=== PATIENT | female | born 1980 | race Caucasian/White ===

== ENCOUNTER 2018-01-06 11:10 | Emergency (ER) | payer MEDICAID, SELFPAY ==
[2018-01-06 11:28] VITALS: BP 135/80; PULSE 86; RESP 18; TEMP 36.8; O2SAT 99
--- NOTE | 2018-01-06 11:50 | W.ED.GENAD ---
Discharge Plan Disposition Patient Disposition: HOME Condition: Stable Discharge Details Chief Complaint: RespSymp Clinical Impression: URI (upper respiratory infection), Otitis media of both ears Primary Care Provider: Cesia Aranda ED Provider: Mj Wong Home Meds and New Rx's Prescriptions: New benzonatate 200 mg capsule 200 mg PO TID PRN (Reason: cough) Qty: 30 RF: 0 amoxicillin 875 mg tablet 875 mg PO BID 7 Days Qty: 14 RF: 0 Continue albuterol sulfate [ProAir HFA] 200 PUFF/INH HFA aerosol inhaler 2 puff Inhalation Q4H PRN PRNQty: 1 RF: 0 inhalational spacing device [AeroChamber Plus Z Stat Sm Msk] 1 EACH spacer 1 ea Miscellaneous Q2H PRN PRNQty: 1 RF: 0 ibuprofen 200 mg Tablet 600 mg PO QID PRNRF: 0 Discharge Instructions Instructions: Otitis Media (ED), Upper Respiratory Infection (ED) Additional Instructions: You may take [id number] symptomatic medication as needed to control your symptoms. During illness please get plenty of rest and stay well-hydrated. Follow-up with your primary care provider as needed for reassessment if not improving. Feel free to return to the emergency department for any new or significant worsening of symptoms Stand Alone Forms: Work Release Referrals: Cesia Aranda [Primary Care Provider] - (As needed for reassessment) Discharge Data Discharge Date/Time-TO BE ENTERED AT DEPARTURE: 01/06/18 12:08 Medical Decision Making Patient presenting to the emergency department for 3 days of cold symptoms. She states cough, nasal congestion, sinus pressure, earache, sore throat, fever and chills. Physical exam is positive for signs and symptoms of upper respiratory tract infection and also a significant effusion with loss of landmarks of the left ear and bulging TM with loss of landmarks of right ear. Patient does state otalgia so concern for upper respiratory tract infection and secondary otitis media. Patient states no allergies to medications, so patient placed upon amoxicillin for concern of otitis media and prescribed Tessalon Perles for symptomatic control cough. Otherwise I feel that there is a high likelihood this is viral in nature so patient was educated on need for [id number] symptomatic control. After discussion of diagnosis and plan of care patient has no further needs, questions, or concerns and states clear understanding to return to the emergency department for any worsening symptoms. HPI General Date/Time Provider Initiated Documentation: 01/06/18 11:34. Limitations to Documentation: no limitations. Information obtained by: patient and RN notes reviewed. History of Present Illness 37 year old F presents to the emergency department with the chief complaint of cold symptoms, described as moderate, with intensity rated at 7. Quality is described as aching (Generalized), Patient started experiencing this day(s) (3) and it has been constant. No relieving factors improve symptom(s), No exacerbating factors reported . Patient notes no other symptoms.. Patient did receive the following treatments prior to arrival, none Related Data Home Medications Medication Instructions Recorded Confirmed albuterol sulfate [ProAir HFA] 2 puff INHALATION Q4H PRN PRN #1 07/08/17 01/06/18 inh inhalational spacing device #1 spacer 07/08/17 [AeroChamber Plus Z Stat Sm Msk] amoxicillin 875 mg PO BID 7 Days #14 tab 01/06/18 benzonatate 200 mg PO TID PRN #30 cap 01/06/18 ibuprofen 600 mg PO QID PRN 01/06/18 01/06/18 Previous Rx's Medication Instructions Recorded albuterol sulfate [ProAir HFA] 2 puff INHALATION Q4H PRN PRN #1 07/08/17 inh inhalational spacing device #1 spacer 07/08/17 [AeroChamber Plus Z Stat Sm Msk] amoxicillin 875 mg PO BID 7 Days #14 tab 01/06/18 benzonatate 200 mg PO TID PRN #30 cap 01/06/18 Allergies Allergy/AdvReac Type Severity Reaction Status Date / Time No Known Allergies Allergy Unverified 07/08/17 09:46 General Stated Complaint: RespSymp ANKIT: 3 Review of Systems Constitutional Reports chills, Reports difficulty sleeping (Due to coughing), Reports fatigue, Reports fever(s) and Reports malaise ENT Reports hoarseness, Reports nasal congestion, Reports sinus pressure and Reports sore throat Cardiovascular Denies dyspnea Respiratory Reports cough and Denies dyspnea Gastrointestinal Reports vomiting Musculoskeletal Reports myalgias, Reports arthralgias and Denies joint swelling Integumentary/Breasts Denies rash Endocrine Reports fatigue [facility] Medical History Contraception Social History Smoking/Tobacco Use Status: Current every day Surgical History section Exam Const General: cooperative, comfortable and no acute distress Orientation: alert, awake and oriented x3 HENMT Head: normal to inspection Ears: hearing grossly normal bilaterally, TM abnormal bulging on the right and wth effusion purulent on the left and unable to visualize TM on the left General nose exam: external nose normal Face and sinus: sinus tenderness maxillary Mouth: oral mucosae normal, lip normal and tongue normal Throat: posterior oropharynx normal, tonsils normal and uvula midline Eyes General: appearance normal, both eyes and all related structures Conjunctivae: conjunctivae normal Sclera: sclerae normal Neck Neck: normal visual inspection, full ROM, meningismus present, lymphadenopathy (Anterior cervical) and no JVD Resp Effort & Inspection: normal respiratory effort, able to speak in complete sentences, no audible wheezes, cough Quality of cough: actively coughing and not labored Auscultation: clear to auscultation bilaterally Cardio Rate: regular rate Rhythm: regular rhythm Heart Sounds: S1 normal and S2 normal Skin General skin exam: no rashes or lesions noted and dry skin Rashes: no rashes Neuro General: alert, awake, oriented x3 and gait normal Course Vital Signs Temperature 36.8 C 01/06/18 11:28 Pulse 86 01/06/18 11:28 Respiratory Rate 18 01/06/18 11:28 Blood Pressure 135/80 01/06/18 11:28 Pulse Oximetry 99 01/06/18 11:28 Temperature 36.8 C 01/06/18 11:28 Temperature Source Temporal Artery Scan 01/06/18 11:28 Pulse 86 01/06/18 11:28 Respiratory Rate 18 01/06/18 11:28 Respiratory Effort Non-Labored 01/06/18 11:32 Blood Pressure 135/80 01/06/18 11:28 Blood Pressure Position Sitting 01/06/18 11:28 Pulse Oximetry 99 01/06/18 11:28 Oxygen Delivery Method Room Air 01/06/18 11:28 Oxygen Flow Rate 0 01/06/18 11:28 Pain Level 7 01/06/18 11:28
== END 2018-01-06 12:08 | disposition home or self-care (01) ==
LOC: ER 12:09
PROVIDERS: Emergency Provider Nurse Practitioner Family; PCP Nurse Practitioner Family
DX: J06.9 Acute upper respiratory infection, unspecified (principal); H66.93 Otitis media, unspecified, bilateral; F17.210 Nicotine dependence, cigarettes, uncomplicated
CPT/HCPCS: 99283

== ENCOUNTER 2018-06-07 08:40 | Emergency (ER) | payer MEDICAID, SELFPAY ==
[2018-06-07 08:47] VITALS: BP 126/59; PULSE 77; RESP 18; TEMP 36.8; O2SAT 99
--- NOTE | 2018-06-07 08:53 | W.ED.GENAD ---
Discharge Plan Disposition Patient Disposition: HOME Condition: Improving Discharge Details Chief Complaint: Abd Prob Clinical Impression: Nausea & vomiting Primary Care Provider: Cesia Aranda ED Provider: Nadine Rich Home Meds and New Rx's Prescriptions: New promethazine 25 mg tablet 25 mg PO Q6H PRN (Reason: nausea and vomiting) Qty: 10 RF: 0 Continued albuterol sulfate [ProAir HFA] 200 PUFF/INH HFA aerosol inhaler 2 puff Inhalation Q4H PRN PRNQty: 1 RF: 0 inhalational spacing device [AeroChamber Plus Z Stat Sm Msk] 1 EACH spacer 1 ea Miscellaneous Q2H PRN PRNQty: 1 RF: 0 ibuprofen 200 mg Tablet 600 mg PO QID PRNRF: 0 Discharge Instructions Instructions: Promethazine (By mouth), Acute Nausea and Vomiting (ED) Additional Instructions: Continue to encourage hydration. Phenergan as prescribed to help with symptomatic management. If you develop abdominal pain, fever/chills, no blood in your vomit, or unable to stay hydrated develop other new/worsening symptoms please seek care urgently once again You have an appointment with your primary care on 06/22/2018, at 9:15 in the morning. If you are unable to make this appointment please call the office to reschedule. Stand Alone Forms: Work Release Referrals: Cesia Aranda [Primary Care Provider] - Discharge Data Discharge Date/Time-TO BE ENTERED AT DEPARTURE: 06/07/18 11:13 Medical Decision Making <FERNANDA Kwon - Last Filed: 06/07/18 15:45> Patient is a 38-year-old female presenting today with chief complaint of nausea, vomiting and one episode of diarrhea. She reports that this began this morning. She endorses some pulling around her neck associated with vomiting. Is not note any blood in the emesis. Is currently hydrating with water and red juice. She reports that she awoke for work, was sitting at her table and symptoms began. She denies any chest pain, abdominal pain. Had one episode of loose bowel movements today. Surgical history significant for tubal ligation and section. Patient reports that she currently has Implanon in place, is not sexually active with men. Reports that she had some spotting approximately 2 days ago which is the typical sign of her menses. She denies any shortness of breath, difficulty breathing. Did not note any blood in the emesis or bowel movement. Patient is an active smoker. Reports the smoking does not raise her current nausea. Denies any increase in symptoms associated with activity level. The patient was endorsing some pulling around the neck, will obtain EKG, laboratory evaluation. She has been here for this on multiple occasions and endorses frequent nausea and vomiting. She has not reported this yet to her primary care physician but does have established PCP. On exam, the abdomen is soft and nontender. Normal heart sounds and breath sounds. No pain in the back, no CVA tenderness. Patient appears mildly dehydrated. No evidence of Leah-Coffman tear, no back pain, no hematemesis. Low level suspicion of cardiac etiology, no history of cardiac disease. As this seems a recurrent issue for the patient, patient is nontender with no peritoneal findings, do not see any evidence at this time to require imaging. EKG reviewed by Dr. Irby with no acute abnormalities noted. Patient was given IV ondansetron which she reports had minimal effect. Patient is endorsing some discomfort with the IV fluids removed, does not want any further medications to the IV and is replaced. I have asked nursing staff to remove the IV at the patient's request. She is requesting for the medication be given orally. We will not give oral Phenergan. Patient was taking in oral fluids upon arrival. CBC is back with minimal elevation of the white count. Awaiting results of the CMP. The patient not having any evidence of infection on physical exam and history notes a burning acute abdominal infectious source, I believe the white count elevation is likely elevated secondary to the vomiting. Troponin is normal, lipase within normal limits. Discussed the findings with the patient. She has been hydrating orally. No vomiting was witnessed by myself or nursing staff. She feels much improved after the oral Phenergan. Will prescribe her oral Phenergan for home. We discussed new/worsening symptoms Tuesday care urgently once again. She denies any marijuana use. As the patient has had multiple visits for similar complaints, I did advise that she should discuss this further with her primary care. She was given strict return precautions. All her questions and concerns were addressed and she is in agreement with this plan <Thiago Irby, - Last Filed: 06/07/18 13:50> EKG 9: 29 Rate 62, intervals normal, sinus rhythm, no ST elevations or depressions, inverted T wave in V1 and lead III. No significant Q waves, no evidence of STEMI. HPI <FERNANDA Kwon - Last Filed: 06/07/18 15:45> General Mode of arrival: ambulatory. Date/Time Provider Initiated Documentation: 06/07/18 08:53. Limitations to Documentation: no limitations. Information obtained by: patient and RN notes reviewed. History of Present Illness 38 year old F presents to the emergency department with the chief complaint of nausea and vomiting, described as moderate, with intensity rated at 5. Quality is described as other (endorses discomfort associated with nausea, no abdominal pain), and is localized to the abdomen. Patient reports no radiation; denies radiation to back. Patient started experiencing this hour(s) (0330) Related Data Home Medications Medication Instructions Recorded Confirmed albuterol sulfate [ProAir HFA] 2 puff INHALATION Q4H PRN PRN #1 07/08/17 06/07/18 inh inhalational spacing device #1 spacer 07/08/17 [AeroChamber Plus Z Stat Sm Msk] ibuprofen 600 mg PO QID PRN 01/06/18 06/07/18 promethazine 25 mg PO Q6H PRN #10 tab 06/07/18 Previous Rx's Medication Instructions Recorded albuterol sulfate [ProAir HFA] 2 puff INHALATION Q4H PRN PRN #1 07/08/17 inh inhalational spacing device #1 spacer 07/08/17 [AeroChamber Plus Z Stat Sm Msk] promethazine 25 mg PO Q6H PRN #10 tab 06/07/18 Allergies Allergy/AdvReac Type Severity Reaction Status Date / Time No Known Allergies Allergy Unverified 06/07/18 10:50 General Stated Complaint: Abd Prob ANKIT: 3 Review of Systems <FERNANDA Kwon - Last Filed: 06/07/18 15:45> Constitutional Reports as per HPI, Denies chills, Denies fatigue, Denies fever(s) and Denies headache(s) ENT Denies dizziness and Denies headache(s) Cardiovascular Reports as per HPI, Denies chest pain, Denies syncope and Denies dyspnea Respiratory Reports as per HPI, Denies cough and Denies dyspnea Gastrointestinal Reports as per HPI Genitourinary Denies flank pain and Denies urinary urgency Musculoskeletal Reports as per HPI, Denies back pain and Denies tingling Integumentary/Breasts Reports as per HPI and Denies rash Neurologic Reports as per HPI, Denies dizziness, Denies syncope, Denies headache(s), Denies sensory deficit and Denies tingling Endocrine Denies fatigue PFSH <FERNANDA Kwon - Last Filed: 06/07/18 15:45> Medical History Contraception Surgical History section Social History Smoking/Tobacco Use Status: Current every day Drug use: Never Do you feel safe at home: Yes Do you feel safe in your relationship?: Yes Exam <FERNANDA Kwon Last Filed: 06/07/18 15:45> Const General: cooperative, healthy appearing, comfortable, no acute distress and well developed Nutritional Appearance: average body habitus and well nourished Orientation: alert and awake HENMT Head: normal to inspection Mouth: moist mucous membranes Resp Effort & Inspection: normal respiratory effort, able to speak in complete sentences and no respiratory distress Auscultation: clear to auscultation bilaterally, no rales, no rhonchi and no wheezes Cardio Rate: regular rate Rhythm: regular rhythm Heart Sounds: S1 normal and S2 normal GI Inspection: normal to inspection, no abdominal wall ecchymosis, no edema, non-distended and no incisions Palpation: soft, no hepatosplenomegaly, not firm, no guarding, no hernias and tender in the epigastrum Percussion: normal to percussion Auscultation: normal bowel sounds Back/Spine/Pelvis Back: no CVA tenderness Skin General skin exam: no rashes or lesions noted Trauma: no lacerations or abrasions Neuro General: alert and awake Cognition: normal cognition Speech: speech normal Gait: normal gait Psych Appearance: grossly normal and well kempt Mental Status: mental status grossly normal Speech and Movement: speech and movement normal Course <FERNANDA Kwon - Last Filed: 06/07/18 15:45> Vital Signs Temperature 36.8 C 06/07/18 08:47 Pulse 77 06/07/18 08:47 Respiratory Rate 18 06/07/18 08:47 Blood Pressure 126/59 L 06/07/18 08:47 Pulse Oximetry 99 06/07/18 08:47 Temperature 36.8 C 06/07/18 08:47 Temperature Source Temporal Artery Scan 06/07/18 08:47 Pulse 77 06/07/18 08:47 Respiratory Rate 18 06/07/18 08:47 Respiratory Effort Non-Labored 06/07/18 08:49 Blood Pressure 126/59 L 06/07/18 08:47 Blood Pressure Position Sitting 06/07/18 08:47 Pulse Oximetry 99 06/07/18 08:47 Oxygen Delivery Method Room Air 06/07/18 08:47 Oxygen Flow Rate 0 06/07/18 08:47 Pain Level 5 06/07/18 08:47
--- NOTE | 2018-06-07 09:09 | ED.GENADUL_ITS ---
Discharge Plan Disposition Patient Disposition: HOME Condition: Improving Discharge Details Chief Complaint: Abd Prob Clinical Impression: Nausea & vomiting Primary Care Provider: Cesia Aranda ED Provider: Nadine Rich Home Meds and New Rx's Prescriptions: New promethazine 25 mg tablet 25 mg PO Q6H PRN (Reason: nausea and vomiting) Qty: 10 RF: 0 Continued albuterol sulfate [ProAir HFA] 200 PUFF/INH HFA aerosol inhaler 2 puff Inhalation Q4H PRN PRNQty: 1 RF: 0 inhalational spacing device [AeroChamber Plus Z Stat Sm Msk] 1 EACH spacer 1 ea Miscellaneous Q2H PRN PRNQty: 1 RF: 0 ibuprofen 200 mg Tablet 600 mg PO QID PRNRF: 0 Discharge Instructions Instructions: Promethazine (By mouth), Acute Nausea and Vomiting (ED) Additional Instructions: Continue to encourage hydration. Phenergan as prescribed to help with symptomatic management. If you develop abdominal pain, fever/chills, no blood in your vomit, or unable to stay hydrated develop other new/worsening symptoms please seek care urgently once again You have an appointment with your primary care on 06/22/2018, at 9:15 in the morning. If you are unable to make this appointment please call the office to reschedule. Stand Alone Forms: Work Release Referrals: Cesia Aranda [Primary Care Provider] - Discharge Data Discharge Date/Time-TO BE ENTERED AT DEPARTURE: 06/07/18 11:13 Medical Decision Making <FERNANDA Kwon - Last Filed: 06/07/18 15:45> Patient is a 38-year-old female presenting today with chief complaint of nausea, vomiting and one episode of diarrhea. She reports that this began this morning. She endorses some pulling around her neck associated with vomiting. Is not note any blood in the emesis. Is currently hydrating with water and red juice. She reports that she awoke for work, was sitting at her table and symptoms began. She denies any chest pain, abdominal pain. Had one episode of loose bowel movements today. Surgical history significant for tubal ligation and section. Patient reports that she currently has Implanon in place, is not sexually active with men. Reports that she had some spotting approximately 2 days ago which is the typical sign of her menses. She denies any shortness of breath, difficulty breathing. Did not note any blood in the emesis or bowel movement. Patient is an active smoker. Reports the smoking does not raise her current nausea. Denies any increase in symptoms associated with activity level. The patient was endorsing some pulling around the neck, will obtain EKG, laboratory evaluation. She has been here for this on multiple occasions and endorses frequent nausea and vomiting. She has not reported this yet to her primary care physician but does have established PCP. On exam, the abdomen is soft and nontender. Normal heart sounds and breath sounds. No pain in the back, no CVA tenderness. Patient appears mildly dehydrated. No evidence of Leah-Coffman tear, no back pain, no hematemesis. Low level suspicion of cardiac etiology, no history of cardiac disease. As this seems a recurrent issue for the patient, patient is nontender with no peritoneal findings, do not see any evidence at this time to require imaging. EKG reviewed by Dr. Irby with no acute abnormalities noted. Patient was given IV ondansetron which she reports had minimal effect. Patient is endorsing some discomfort with the IV fluids removed, does not want any further medications to the IV and is replaced. I have asked nursing staff to remove the IV at the patient's request. She is requesting for the medication be given orally. We will not give oral Phenergan. Patient was taking in oral fluids upon arrival. CBC is back with minimal elevation of the white count. Awaiting results of the CMP. The patient not having any evidence of infection on physical exam and history notes a burning acute abdominal infectious source, I believe the white count elevation is likely elevated secondary to the vomiting. Troponin is normal, lipase within normal limits. Discussed the findings with the patient. She has been hydrating orally. No vomiting was witnessed by myself or nursing staff. She feels much improved after the oral Phenergan. Will prescribe her oral Phenergan for home. We discussed new/worsening symptoms Tuesday care urgently once again. She denies any marijuana use. As the patient has had multiple visits for similar complaints, I did advise that she should discuss this further with her primary care. She was given strict return precautions. All her questions and concerns were addressed and she is in agreement with this plan <hTiago Irby, - Last Filed: 06/07/18 13:50> EKG 9: 29 Rate 62, intervals normal, sinus rhythm, no ST elevations or depressions, inverted T wave in V1 and lead III. No significant Q waves, no evidence of STEMI. HPI <FERNANDA Kwon - Last Filed: 06/07/18 15:45> General Mode of arrival: ambulatory . Date/Time Provider Initiated Documentation: 06/07/18 08:53 . Limitations to Documentation: no limitations . Information obtained by: patient and RN notes reviewed . History of Present Illness 38 year old F presents to the emergency department with the chief complaint of nausea and vomiting, described as moderate, with intensity rated at 5. Quality is described as other (endorses discomfort associated with nausea, no abdominal pain), and is localized to the abdomen. Patient reports no radiation; denies radiation to back. Patient started experiencing this hour(s) (0330) Related Data Home Medications Medication Instructions Recorded Confirmed albuterol sulfate [ProAir HFA] 2 puff INHALATION Q4H PRN PRN #1 07/08/17 06/07/18 inh inhalational spacing device #1 spacer 07/08/17 [AeroChamber Plus Z Stat Sm Msk] ibuprofen 600 mg PO QID PRN 01/06/18 06/07/18 promethazine 25 mg PO Q6H PRN #10 tab 06/07/18 Previous Rx's Medication Instructions Recorded albuterol sulfate [ProAir HFA] 2 puff INHALATION Q4H PRN PRN #1 07/08/17 inh inhalational spacing device #1 spacer 07/08/17 [AeroChamber Plus Z Stat Sm Msk] promethazine 25 mg PO Q6H PRN #10 tab 06/07/18 Allergies Allergy/AdvReac Type Severity Reaction Status Date / Time No Known Allergies Allergy Unverified 06/07/18 10:50 General Stated Complaint: Abd Prob ANKIT: 3 Review of Systems <FERNANDA Kwon - Last Filed: 06/07/18 15:45> Constitutional Reports as per HPI, Denies chills, Denies fatigue, Denies fever(s) and Denies headache(s) ENT Denies dizziness and Denies headache(s) Cardiovascular Reports as per HPI, Denies chest pain, Denies syncope and Denies dyspnea Respiratory Reports as per HPI, Denies cough and Denies dyspnea Gastrointestinal Reports as per HPI Genitourinary Denies flank pain and Denies urinary urgency Musculoskeletal Reports as per HPI, Denies back pain and Denies tingling Integumentary/Breasts Reports as per HPI and Denies rash Neurologic Reports as per HPI, Denies dizziness, Denies syncope, Denies headache(s), Denies sensory deficit and Denies tingling Endocrine Denies fatigue PFSH <FERNANDA Kwon - Last Filed: 06/07/18 15:45> Medical History Contraception Surgical History section Social History Smoking/Tobacco Use Status: Current every day Drug use: Never Do you feel safe at home: Yes Do you feel safe in your relationship?: Yes Exam <FERNANDA Kwon Last Filed: 06/07/18 15:45> Const General: cooperative, healthy appearing, comfortable, no acute distress and well developed Nutritional Appearance: average body habitus and well nourished Orientation: alert and awake HENMT Head: normal to inspection Mouth: moist mucous membranes Resp Effort & Inspection: normal respiratory effort, able to speak in complete sent ences and no respiratory distress Auscultation: clear to auscultation bilaterally, no rales, no rhonchi and no wheezes Cardio Rate: regular rate Rhythm: regular rhythm Heart Sounds: S1 normal and S2 normal GI Inspection: normal to inspection, no abdominal wall ecchymosis, no edema, non- distended and no incisions Palpation: soft, no hepatosplenomegaly, not firm, no guarding, no hernias and tender in the epigastrum Percussion: normal to percussion Auscultation: normal bowel sounds Back/Spine/Pelvis Back: no CVA tenderness Skin General skin exam: no rashes or lesions noted Trauma: no lacerations or abrasions Neuro General: alert and awake Cognition: normal cognition Speech: speech normal Gait: normal gait Psych Appearance: grossly normal and well kempt Mental Status: mental status grossly normal Speech and Movement: speech and movement normal Course <FERNANDA Kwon Last Filed: 06/07/18 15:45> Vital Signs Temperature 36.8 C 06/07/18 08:47 Pulse 77 06/07/18 08:47 Respiratory Rate 18 06/07/18 08:47 Blood Pressure 126/59 L 06/07/18 08:47 Pulse Oximetry 99 06/07/18 08:47 Temperature 36.8 C 06/07/18 08:47 Temperature Source Temporal Artery Scan 06/07/18 08:47 Pulse 77 06/07/18 08:47 Respiratory Rate 18 06/07/18 08:47 Respiratory Effort Non-Labored 06/07/18 08:49 Blood Pressure 126/59 L 06/07/18 08:47 Blood Pressure Position Sitting 06/07/18 08:47 Pulse Oximetry 99 06/07/18 08:47 Oxygen Delivery Method Room Air 06/07/18 08:47 Oxygen Flow Rate 0 06/07/18 08:47 Pain Level 5 06/07/18 08:47
[2018-06-07] MEDS: Normal Saline 1,000 ML 1000 ML IV (09:49)
[2018-06-07] MEDS: Ondansetron 4 MG/2 ML VIAL IVP (09:49)
[2018-06-07 09:50] LABS: Abs Immature Grans 0.03 k/cumm (0.0-0.09); Absolute Basophil Count 0.02 k/cumm (0.0-0.2); Absolute Eosinophil Count 0.08 k/cumm (0.0-0.7); Absolute Lymphocyte Count 4.01 k/cumm (1.2-3.4); Basophils % 0.2; Eosinophils % 0.7; HCT 39.3 % (36.0-46.0); HGB 13.6 g/dL (12.0-15.5); Immature Grans % 0.3; Lymphocytes % 34.8; Mean Corp. HGB Concentration 34.6 g/dL (32.0-36.0); Mean Corpuscular Hemoglobin 30.8 pg (27.0-33.0); Mean Corpuscular Volume 89.1 fL (80-95); Mean Platelet Volume 10.5 fL (8.0-11.0); Monocytes % 4.9; Neutrophils % 59.1; Platelet Count 261 x1000/uL (130-400); RBC 4.41 m/cumm (4.00-5.20); RBC Distribution Width 12.7 % (11.7-14.6); White Blood Cell Count 11.53 k/cumm (4.4-10.8)
[2018-06-07 09:53] LABS: Absolute Monocyte Count 0.56 k/cumm (0.11-0.7); Absolute Neutrophil Count 6.81 k/cumm (1.2-6.7)
[2018-06-07 10:20] LABS: ALT 24 U/L (12-78); AST 21 U/L (15-37); Albumin 4.2 g/dL (3.4-5.0); Alkaline Phosphatase 53 U/L (46-116); Anion Gap 11.7 mmol/L (3-11); BUN 17 mg/dL (7-18); Bilirubin, Total 0.5 mg/dL (0.2-1.0); CO2 24.3 mmol/L (21.0-32.0); CREATININE 0.71 mg/dL (0.55-1.02); Calcium 8.8 mg/dL (8.5-10.1); Chloride 105 mmol/L (98-107); Glucose 94 mg/dL (70-100); Lipase 83 U/L (73-393); Magnesium 1.8 mg/dL (1.8-2.4); Potassium 3.5 mmol/L (3.5-5.1); Sodium 141 mmol/L (136-145)
[2018-06-07] MEDS: Promethazine 25 MG TAB PO (10:20)
[2018-06-07 10:21] LABS: Troponin I < 0.02 ng/mL (0.00-0.06)
--- NOTE | 2018-06-07 11:13 | PDOC.ERCMPRO ---
Care Management Progress Note 06/07-Nadine MICHAEL requested assistance with a PCP (Manoj) f/u next week for nausea/vomiting. Called [facility] and spoke with Cherie. Cherie scheduled Domi for Tuesday, 06/12 at 09:15 with Carole. Nadine aware of the appointment and patient given an appt card.
--- NOTE | 2018-06-07 11:21 | CMPROGNOTE_ITS ---
Care Management Progress Note 06/07-Nadine MICHAEL requested assistance with a PCP (Manoj) f/u next week for nausea/vomiting. Called [facility] and spoke with Cherie. Cherie scheduled Domi for Tuesday, 06/12 at 09:15 with Carole. Nadine aware of the appointment and patient given an appt card.
== END 2018-06-07 11:13 | disposition home or self-care (01) ==
PROVIDERS: Emergency Provider Physician Assistant; PCP Nurse Practitioner Family
DX: R11.2 Nausea with vomiting, unspecified (principal)
CPT/HCPCS: 80053; 81025; 83690; 96374; 99284; 83735; 84484; 85025; J2405

== ENCOUNTER 2018-08-05 09:48 | Emergency (ER) | payer MEDICAID, SELFPAY ==
[2018-08-05 09:51] VITALS: BP 149/102; PULSE 105; RESP 20; TEMP 36.9; O2SAT 97
--- NOTE | 2018-08-05 10:27 | ED.GENADUL_ITS ---
Discharge Plan Disposition Patient Disposition: HOME Condition: Stable Discharge Details Chief Complaint: Orthopedic Clinical Impression: Left hamstring muscle strain Primary Care Provider: Placido Renae ED Provider: Mj Wong Home Meds and New Rx's Prescriptions: Continued albuterol sulfate [ProAir HFA] 200 PUFF/INH HFA aerosol inhaler 2 puff Inhalation Q4H PRN PRNQty: 1 RF: 0 AeroChamber Plus Z Stat Sm Msk 1 EACH spacer 1 ea Miscellaneous Q2H PRN PRNQty: 1 RF: 0 ibuprofen 200 mg Tablet 600 mg PO QID PRNRF: 0 promethazine 25 mg tablet 25 mg PO Q6H PRN (Reason: nausea and vomiting) Qty: 10 RF: 0 Discharge Instructions Instructions: Muscle Strain (ED) Additional Instructions: Continue to keep an David wrap on your leg for support and you may slowly advance activity as tolerated. Feel free to take 600mg of ibuprofen with 650mg of ac etaminophen every 6 hours as needed for discomfort. If not improving please keep your appointment as scheduled with primary care provider or follow-up with orthopedist Stand Alone Forms: Work Release Referrals: Ricky Pichardo MD [ [facility] STAFF PHYSICIAN] - Lamont Linton MD [ [facility] STAFF PHYSICIAN] - Discharge Data Discharge Date/Time-TO BE ENTERED AT DEPARTURE: 08/05/18 11:05 Medical Decision Making Patient presenting to the emergency department for chief complaint of left leg pain. 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 Patient is able to bear weight with her leg but having significant amount of pain. Physical exam shows posterior hamstring tenderness from the mid upper leg to the base of the buttock. There is no ecchymosis, no mass, no deformity, patient continues to have strength and both flexion and extension of hip and upper along with lower leg. Exam is otherwise unremarkable except for muscular tenderness. Given this I feel that patient has hamstring strain. I do not feel that there is a complete rupture or tear of the hamstring at this time. Patient's upper leg was wrapped with a David wrap for support and encouraged to use [id number] acetaminophen and ibuprofen for pain control. Patient states that she has a primary care appointment Arty scheduled for this next week which I informed her she should keep that appointment and mention to them this injury or call orthopedic office for arrangement of follow-up appointment and reassessment if not improving.. Patient was given Toradol IM in the emergency department. After discussion of diagnosis and plan of care patient has no further needs, questions, or concerns and states clear understanding to return to the emergency department for any worsening symptoms. HPI General Mode of arrival: ambulatory . Date/Time Provider Initiated Documentation: 08/05/18 09:51 . Limitations to Documentation: no limitations . Information obtained by: patient and RN notes reviewed . History of Present Illness 38 year old F presents to the emergency department with the chief complaint of left leg pain, described as severe, with intensity rated at 8. Quality is described as sharp, and is localized to the left and lower extremity. Patient started experiencing this day(s) (1) and it has been constant. Rest improves symptom(s), Movement worsens symptoms . Patient notes no other symptoms.. Patient did receive the following treatments prior to arrival, other (Acetaminophen) Related Data Home Medications Medication Instructions Recorded Confirmed AeroChamber Plus Z Stat Sm Msk #1 spacer 07/08/17 08/05/18 albuterol sulfate [ProAir HFA] 2 puff INHALATION Q4H PRN PRN #1 07/08/17 08/05/18 inh ibuprofen 600 mg PO QID PRN 01/06/18 08/05/18 promethazine 25 mg PO Q6H PRN #10 tab 06/07/18 08/05/18 Previous Rx's Medication Instructions Recorded AeroChamber Plus Z Stat Sm Msk #1 spacer 07/08/17 albuterol sulfate [ProAir HFA] 2 puff INHALATION Q4H PRN PRN #1 07/08/17 inh promethazine 25 mg PO Q6H PRN #10 tab 06/07/18 Allergies Allergy/AdvReac Type Severity Reaction Status Date / Time No Known Allergies Allergy Unverified 08/05/18 09:54 General Stated Complaint: Orthopedic ANKIT: 3 Review of Systems Cardiovascular Denies syncope Musculoskeletal Reports as per HPI, Denies arthralgias, Denies joint swelling, Denies numbness and Denies tingling Integumentary/Breasts Denies rash, Denies sores and Denies wounds Neurologic Denies syncope, Denies numbness and Denies tingling PFSH Medical History Contraception Surgical History section Social History Smoking/Tobacco Use Status: Current every day Alcohol Intake: current Alcohol Intake frequency: a few times a week Drug use: Never Substance use type: does not use Do you feel safe at home: Yes Do you feel safe in your relationship?: Yes Exam Const General: cooperative and no acute distress Orientation: alert, awake and oriented x3 Resp Effort & Inspection: normal respiratory effort and able to speak in complete sentences Cardio Rate: regular rate Rhythm: regular rhythm Extrem Left lower extremity: hip/thigh Details: tenderness Location: of the proximal upper leg Location: posteriorly and of the mid upper leg Location: posteriorly and normal ROM; no swelling, no ecchymosis, no deformity and no unusual warmth and knee Details: normal to inspection and normal ROM; no tenderness Course Vital Signs Temperature 36.9 C 08/05/18 09:51 Pulse 105 H 08/05/18 09:51 Respiratory Rate 20 08/05/18 09:51 Blood Pressure 149/102 H 08/05/18 09:51 Pulse Oximetry 97 08/05/18 09:51 Temperature 36.9 C 08/05/18 09:51 Temperature Source Temporal Artery Scan 08/05/18 09:51 Pulse 105 H 08/05/18 09:51 Respiratory Rate 20 08/05/18 09:51 Respiratory Effort Non-Labored 08/05/18 09:51 Blood Pressure 149/102 H 08/05/18 09:51 Pulse Oximetry 97 08/05/18 09:51 Oxygen Delivery Method Room Air 08/05/18 09:51 Oxygen Flow Rate 0 08/05/18 09:51 Pain Level 8 08/05/18 09:51
[2018-08-05 10:34] VITALS: BP 149/102; PULSE 105; RESP 20; TEMP 36.9; O2SAT 97
[2018-08-05] MEDS: Ketorolac 60 MG/2 ML VIAL IM (10:34)
== END 2018-08-05 11:05 | disposition home or self-care (01) ==
PROVIDERS: Emergency Provider Nurse Practitioner Family; PCP Nurse Practitioner Family
DX: S76.312A Strain of muscle, fascia and tendon of the posterior muscle group at thigh level, left thigh, initial encounter (principal); X50.9XXA Other and unspecified overexertion or strenuous movements or postures, initial encounter; Y99.0 Civilian activity done for income or pay
CPT/HCPCS: 96372; 99284; J1885

== ENCOUNTER 2019-02-02 08:22 | Emergency (ER) | payer MEDICAID, SELFPAY ==
[2019-02-02 08:27] VITALS: BP 115/60; PULSE 93; RESP 16; TEMP 36.6; O2SAT 99
--- NOTE | 2019-02-02 08:36 | ED.GENADUL_ITS ---
Discharge Plan Disposition Patient Disposition: HOME Condition: Stable Discharge Details Chief Complaint: Nausea/Vomit/Diar Clinical Impression: Gastroenteritis Primary Care Provider: Cesia Aranda ED Provider: Geronimo Townsend Home Meds and New Rx's Prescriptions: New ondansetron HCl [Zofran] 4 mg tablet 4 mg PO QID PRN (Reason: nausea and vomiting) Qty: 10 RF: 0 Continued ibuprofen 200 mg Tablet 600 mg PO QID PRNRF: 0 promethazine 25 mg tablet 25 mg PO Q6H PRN (Reason: nausea and vomiting) Qty: 10 RF: 0 Discharge Instructions Instructions: Gastroenteritis (ED) Additional Instructions: Small, frequent sips of fluids to maintain hydration, may use Zofran as needed for nausea every 4-6 hours time. Return if you develop a fever, abdominal pain, persistent vomiting, or any other acute concerns. Hold ibuprofen until resolution of symptoms. Please follow-up with Carole Aranda if not improving in 3 to 5 days time Stand Alone Forms: Work Release Medical Decision Making 39-year-old female presents with the onset yesterday of nausea, followed by 3 episodes of nonbloody emesis today and 2 episodes of loose watery stool. No fever, chills, pain. She is afebrile and well-appearing with unremarkable vital signs. Discussed with her the differential diagnosis is like a gastroenteritis, cannot exclude a developing abdominal process, but there is no evidence of peritonitis and her vital signs are normal. Given oral Zofran and p.o. challenge, successfully taking both a karla juwan and marychuy crackers without persistent nausea or any emesis. She denies pain in her abdomen is soft on reexamination. We will trial oral Zofran, rest at home. She understands homecare and return precautions. HPI General Mode of arrival: ambulatory . Date/Time Provider Initiated Documentation: 02/02/19 08:24 . Limitations to Documentation: no limitations . Information obtained by: patient . History of Present Illness 39 year old F presents to the emergency department with the chief complaint of Nausea with vomiting x3, loose watery stool x2., described as moderate, and is localized to the abdomen. Patient reports no radiation. Patient started experiencing this hour(s) and it has been intermittent. No relieving factors improve symptom(s), Patient notes other (No bloody stool, no fever or chills, denies persistent abdominal pain); denies fever/chills. Related Data Home Medications Medication Instructions Recorded Confirmed ibuprofen 600 mg PO QID PRN 01/06/18 02/02/19 promethazine 25 mg PO Q6H PRN #10 tab 06/07/18 11/10/18 ondansetron HCl [Zofran] 4 mg PO QID PRN #10 tab 02/02/19 Previous Rx's Medication Instructions Recorded promethazine 25 mg PO Q6H PRN #10 tab 06/07/18 ondansetron HCl [Zofran] 4 mg PO QID PRN #10 tab 02/02/19 Allergies Allergy/AdvReac Type Severity Reaction Status Date / Time No Known Allergies Allergy Unverified 02/02/19 08:29 General Stated Complaint: Nausea/Vomit/Diar ANKIT: 3 Review of Systems Narrative: 6 systems reviewed and otherwise negative. No known ill contacts no recent travel no dark or bloody emesis or diarrhea PFSH Medical History Contraception DepoProvera as teenager and shortly after her pregnancies. Depression (Chronic) Endometriosis (Chronic) Frequent headaches (Acute) History of ETOH abuse (Acute) Tobacco use (Acute) Surgical History section 2000 & 2003 Social History Smoking/Tobacco Use Status: Current every day Alcohol Intake: current Alcohol Intake frequency: a few times a week Drug use: Never Substance use type: does not use Do you feel safe at home: Yes Do you feel safe in your relationship?: Yes Female Reproductive History Menstrual control method: permanent sterilization and implanted History History 3 Para 2 Hx # Term Pregnancies Multiple births Hx # Pregnancies Ectopic pregnancies AB induced Hx Number of Living Children AB spontaneous Exam Narrative Exam Narrative: GEN: awake, alert, oriented 3. Pleasant, well groomed, interactive. HEAD: Normocephalic, atraumatic ENT: Mucous membranes moist, oropharynx unremarkable, External ear exam unremarkable EYES: PERRL, EOMI NECK: Full ROM, no EAN, no menigismus CHEST/RESP: Nontender, clear to auscultation bilateral, no wheeze/rhonchi/rales CARDIOVASCULAR: RRR, no murmur, rub josue. 2+ Rad pulse bilateral ABDOMEN: Soft, minimal epigastric tenderness without rebound or guarding, no mass. +Bowel sounds EXT: Full ROM, no edema, no rash Neuro: Grossly normal neurologic exam, conversant, interactive. Psych: Speech fluent, thoughts congruent, affect normal Course Vital Signs Vital signs: Vital Signs Temperature 36.6 C 02/02/19 08:27 Pulse 93 H 02/02/19 08:27 Respiratory Rate 16 02/02/19 08:27 Blood Pressure 115/60 02/02/19 08:27 Pulse Oximetry 99 02/02/19 08:27 Temperature 36.6 C 02/02/19 08:27 Temperature Source Temporal Artery Scan 02/02/19 08:27 Pulse 93 H 02/02/19 08:27 Respiratory Rate 16 02/02/19 08:27 Respiratory Effort Non-Labored 02/02/19 08:27 Blood Pressure 115/60 02/02/19 08:27 Blood Pressure Position Sitting 02/02/19 08:27 Pulse Oximetry 99 02/02/19 08:27 Oxygen Delivery Method Room Air 02/02/19 08:27 Oxygen Flow Rate 0 02/02/19 08:27 Pain Level 0 02/02/19 08:27
[2019-02-02] MEDS: Ondansetron 4 MG TAB 8 MG PO (08:40)
== END 2019-02-02 09:21 | disposition home or self-care (01) ==
PROVIDERS: Emergency Provider Emergency Medicine; PCP Nurse Practitioner Family
DX: K52.9 Noninfective gastroenteritis and colitis, unspecified (principal)
CPT/HCPCS: 99283; J8597

== ENCOUNTER 2019-05-19 08:01 | Emergency (ER) | payer MEDICAID, SELFPAY ==
[2019-05-19 08:06] VITALS: BP 138/85; PULSE 101; RESP 18; TEMP 36.2; O2SAT 97
--- NOTE | 2019-05-19 08:14 | ED.GENADUL_ITS ---
Discharge Plan Disposition Patient Disposition: HOME Condition: Good Discharge Details Chief Complaint: Nausea/Vomit/Diar Clinical Impression: Gastroenteritis Primary Care Provider: Cesia Aranda ED Provider: Nadine Rich Home Meds and New Rx's Prescriptions: New promethazine 25 mg tablet 25 mg PO QID PRN (Reason: nausea and vomiting) Qty: 14 RF: 0 Continued Nexplanon 68 mg implant 1 implant SBD ONCE RF: 0 ibuprofen 200 mg Tablet 600 mg PO QID PRNRF: 0 Discharge Instructions Instructions: Promethazine (By mouth), Gastroenteritis (ED) Additional Instructions: Encourage water intake. Take frequent small sips of water. Slowly advance diet starting with bananas, rice, applesauce, toast. Please take the promethazine as prescribed to help with nausea vomiting. You are given 1 tablet to be taken with your home. Do not drive will take this medication as it can cause increased fatigue. If you develop increased pain, fever/chills, inability stay hydrated or other new/worsening symptom please seek care urgently once again. Otherwise, please follow-up with primary care next week for reevaluation.. Stand Alone Forms: Work Release Referrals: Cesia Aranda [Primary Care Provider] - Medical Decision Making Patient is a pleasant 39-year-old female presenting today with chief complaint of nausea, vomiting and diarrhea. She reports that this morning, after drinking coffee at work, she had sudden onset of symptoms. Reports that she is had 3 loose bowel movements and 3 episodes of vomiting over the past 3 hours. Endorses diffuse abdominal discomfort. States that she has been trying to hydrate after episodes of emesis and has been able to keep water down. Denies any fevers or chills. No chest pain or shortness of breath. No recent travel. She reports that coworker has similar symptoms. She does report that the water appeared unusual to her and there was concern for possible local water main break. On exam, patient appears nontoxic. Patient slightly tachycardic at 101 but does appear quite anxious. She appears well-hydrated. Will give ODT Zofran and encouraged gentle oral hydration. Patient is taking small sips at this time and has noted no continued vomiting. She reports continued nausea however. Has not had any diarrhea since being here. She is resting comfortably and texting on her phone. We discussed oral Phenergan for further antiemetic care. However, patient did drive herself here and I am concerned for level of fatigue that she could have if she is given this medication. She does not have somebody that is able to pick her up. At this point, as the patient does not appear toxic with out any evidence of emergent etiology, will send her home with 1 tablet to be taken when she arrives home. Will prescribe her further to help with any recurrence of her symptoms. I did encourage gentle hydration we did discuss returning to normal dietary intake. She was given return precautions. She will follow-up with primary care next week for reevaluation. All her questions or concerns were addressed and she is in agreement this plan. HPI General Mode of arrival: ambulatory . Date/Time Provider Initiated Documentation: 05/19/19 08:14 . Limitations to Documentation: no limitations . Information obtained by: patient and RN notes reviewed . History of Present Illness 39 year old F presents to the emergency department with the chief complaint of nausea, vomiting, diarrhea, described as moderate, Quality is described as aching, and is localized to the abdomen. Patient reports no radiation. Patient started experiencing this hour(s) (3) and it has been constant. No relieving factors improve symptom(s), No exacerbating factors reported . Patient notes loss of appetite and nausea/vomiting; denies chest p ain, cough, fever/chills, headaches, rash, shortness of breath and weakness. Patient did receive the following treatments prior to arrival, none Related Data Home Medications Medication Instructions Recorded Confirmed ibuprofen 600 mg PO QID PRN 01/06/18 05/19/19 etonogestrel 68 mg subdermal 1 implant SBD ONCE 03/12/19 05/19/19 implant promethazine 25 mg PO QID PRN #14 tab 05/19/19 Previous Rx's Medication Instructions Recorded promethazine 25 mg PO QID PRN #14 tab 05/19/19 Allergies Allergy/AdvReac Type Severity Reaction Status Date / Time No Known Allergies Allergy Unverified 05/19/19 08:09 General Stated Complaint: GenMedical ANKIT: 3 Review of Systems Constitutional Constitutional: Reports as per HPI, Denies chills, Denies fatigue, Denies fever(s) and Denies headache(s) ENT Ears, Nose, Mouth, and Throat: Denies headache(s) Cardiovascular Cardiovascular: Reports as per HPI, Denies chest pain and Denies dyspnea Respiratory Respiratory: Reports as per HPI, Denies cough and Denies dyspnea Gastrointestinal Gastrointestinal: Reports as per HPI Musculoskeletal Musculoskeletal: Reports as per HPI and Denies back pain Integumentary/Breasts Skin/Breast: Reports as per HPI and Denies rash Neurologic Neurologic: Reports as per HPI and Denies headache(s) Endocrine Endocrine: Denies fatigue [facility] Medical History Contraception DepoProvera as teenager and shortly after her pregnancies. Depression (Chronic) Endometriosis (Chronic) Frequent headaches (Acute) History of ETOH abuse (Acute) Tobacco use (Acute) Surgical History section 2000 & 2003 Social History Smoking/Tobacco Use Status: Current every day Tobacco Type: cigarettes Alcohol Intake: current Alcohol Intake frequency: a few times a week Drug use: Never Substance use type: does not use Do you feel safe at home: Yes Do you feel safe in your relationship?: Yes Female Reproductive History Menstrual control method: permanent sterilization and implanted History History 3 Para 2 Hx # Term Pregnancies Multiple births Hx # Pregnancies Ectopic pregnancies AB induced Hx Number of Living Children AB spontaneous Exam Const General: cooperative, healthy appearing, comfortable, no acute distress and well developed Nutritional Appearance: average body habitus and well nourished Orientation: alert and awake HENMT Head: normal to inspection Mouth: moist mucous membranes Resp Effort & Inspection: normal respiratory effort, able to speak in complete sentences and no respiratory distress Auscultation: clear to auscultation bilaterally, no rales, no rhonchi and no wheezes Cardio Rate: regular rate Rhythm: regular rhythm Heart Sounds: S1 normal and S2 normal GI Inspection: normal to inspection, no edema and non-distended Palpation: soft, no hepatosplenomegaly, not firm, no guarding, no hernias, no pulsatile masses, not rigid and tender (diffusely tender, no peritoneal findings) with no rebound tenderness Percussion: normal to percussion Auscultation: normal bowel sounds Back/Spine/Pelvis Back: no CVA tenderness Skin General skin exam: no rashes or lesions noted Trauma: no lacerations or abrasions Neuro General: patient alert and patient awake Cognition: normal cognition Speech: speech normal Gait: normal gait Psych Appearance: grossly normal and well kempt Mental Status: mental status grossly normal Speech and Movement: speech and movement normal Course Vital Signs Vital signs: Vital Signs Temperature 36.2 C L 05/19/19 08:06 Pulse 101 H 05/19/19 08:06 Respiratory Rate 18 05/19/19 08:06 Blood Pressure 138/85 05/19/19 08:06 Pulse Oximetry 97 05/19/19 08:06 Temperature 36.2 C L 05/19/19 08:06 Temperature Source Temporal Artery Scan 05/19/19 08:06 Pulse 101 H 05/19/19 08:06 Respiratory Rate 18 05/19/19 08:06 Respiratory Effort 05/19/19 08:10 Blood Pressure 138/85 05/19/19 08:06 Blood Pressure Position Sitting 05/19/19 08:06 Pulse Oximetry 97 05/19/19 08:06 Oxygen Delivery Method Room Air 05/19/19 08:06 Oxygen Flow Rate 0 05/19/19 08:06
[2019-05-19] MEDS: Ondansetron O.D.T. 4 MG TABEF PO (08:21)
[2019-05-19] MEDS: Promethazine 25 MG TAB PO (09:15)
[2019-05-19 09:17] VITALS: BP 134/70; PULSE 71; RESP 18; O2SAT 98
[2019-05-19 09:23] VITALS: BP 134/70; PULSE 71; RESP 18; O2SAT 98
== END 2019-05-19 09:25 | disposition home or self-care (01) ==
PROVIDERS: Emergency Provider Physician Assistant; PCP Nurse Practitioner Family
DX: R11.2 Nausea with vomiting, unspecified (principal); K52.9 Noninfective gastroenteritis and colitis, unspecified
CPT/HCPCS: 99283

== ENCOUNTER 2020-06-10 16:10 | Emergency (ER) | payer MEDICAID, SELFPAY ==
[2020-06-10 16:16] VITALS: BP 142/92; PULSE 102; RESP 18; TEMP 36.8; O2SAT 96
--- NOTE | 2020-06-10 17:15 | DI.CT_ITS ---
EXAM: CT ABDOMEN PELVIS WO is 3 to we 2 CLINICAL HISTORY: Right Upper quadrant pain, Right Flank pain. TECHNIQUE: Imaging Protocol: Axial computed tomography images with coronal and sagittal reformatted images were created and reviewed. Oral: no COMPARISON: CT ABD PELVIS WITH CONTRAST from 09/20/2016 FINDINGS: ABDOMEN: Lung Bases: Normal where visualized. Liver: Normal density. No measurable mass. Gallbladder and biliary tract: No radiodense calculus or dilation. Pancreas: Normal density, no abnormal calcifications or inflammatory process. Spleen: Normal. Kidneys: Normal size, contour and axis. Tiny nonobstructing stone upper pole left kidney, unchanged. Tiny non-obstructing stone lower pole right kidney. 4 millimeter nonobstructing stone mid right kid ilda. There is wall thickening involving the right renal pelvis which could indicate infection. No f ocal low-density areas are seen . There is minimal perinephric stranding bilaterally. No masses see n. Adrenal glands: No masses seen. Lymph nodes: Within normal limits. Abdominal Aorta: Abdominal portion non-dilated. PELVIS: Bladder: Symmetric distention, no gross wall thickening. Bowel: No obstruction or bowel wall thickening. Peritoneal cavity: No ascites, collection or mesenteric inflammatory response. Reproductive organs: Within normal limits. Bones: Asymmetric degenerative disc changes of the on the left at L5-S1. Stable sclerotic lesion in the posterior left ilium. IMPRESSION: Bilateral nonobstructing renal calculi. Mild bilateral perinephric stranding bilateral mild urotheli al thickening could be secondary to infection. Unremarkable bladder. RADIATION DOSE DELIVERED: 715.48mGy.cm Total DLP DATA REPOSITORY: All CT scans at this facility are submitted to the National Radiology Data Registry (NRDR) Dose Index Registry (DIR) with the [employer] (ACR). RADIATION OPTIMIZATION: All CT scans at this facility use at least one of these dose optimization te chniques: automated exposure control; mA and/or kV adjustment per patient size (includes targeted exa ms where dose is matched to clinical indication); or iterative reconstruction.
--- NOTE | 2020-06-10 17:18 | ED.GENADUL_ITS ---
Discharge Plan Disposition Patient Disposition: HOME Condition: Stable Discharge Details Clinical Impression: Pyelonephritis Primary Care Provider: Cesia Aranda ED Provider: Elise Edwards Home Meds and New Rx's Prescriptions: New cephalexin 500 mg tablet 500 mg PO BID 10 Days Qty: 20 RF: 0 No Action Nexplanon 68 mg implant 1 implant SBD ONCE RF: 0 ibuprofen 200 mg Tablet 600 mg PO QID PRNRF: 0 acetaminophen 500 mg Tablet 1,000 mg PO Q6H PRNRF: 0 Discharge Instructions Instructions: Kidney Stones (ED), Kidney Infection (ED) Additional Instructions: At this time were offered admission and declined. He did have infections as a child up into your kidneys. Please take antibiotics twice daily as directed and complete the entire course of antibiotics even if you are feeling better. Take the pain medication as directed for severe pain. Take it with food no driving or operating heavy machinery. Follow up with primary care provider in 3-5 days. Return to ED sooner if any worsening or concerns. Increase oral fluids. Please return to the ED for any vomiting, fever, feeling worse at any time. Stand Alone Forms: Work Release Referrals: Cesia Aranda [Primary Care Provider] - Yudelka Wolff DNP [NURSE PRACTITIONER] - Medical Decision Making 40-year-old female presents to the ER with chief complaint of bilateral upper abdominal pain, right flank pain, emesis x1 and dysuria x1 week which has gotten worse over the last few days. She denies fever or diarrhea. Only abdominal surgery is . She took Tylenol at 1400. She reports better with curling up in a ball, intermittent which waxes and wanes. She has a past medical history of depression, endometriosis she is a smoker, At this time work-up ordered including CBC, CMP, urine , and urinalysis, lipase normal saline and Zofran 4 mg 2 mg morphine ordered. Will order CT abdomen pelvis differential diagnosis includes but not limited to cholecystitis, kidney stone, ovarian cyst, PID, endometriosis. CT abdomen pelvis without contrast the V rad reading shows: IMPRESSION: 1. Bilateral wall thickening and adjacent stranding associated with the renal collecting systems as well as the urinary bladder, suggesting UTI, with cystitis and bilateral pyelitis/ureteritis. 2. Patchy mild perinephric stranding around the lower pole of the right kidney and upper pole of the left kidney may indicate associated pyelonephritis. Postcontrast CT would be more sensitive and specific for pyelonephritis if clinically indicated. 3. Bilateral nonobstructive renal stones. No ureteral stones or hydronephrosis. 4. Findings at L5-S1 felt to be most suggestive of chronic changes of prior discitis at this point. If there is clinical suspicion for active discitis, MRI without and with contrast would allow more sensitive and specific assessment. 5. Additional non-emergent findings detailed above. Thank you for allowing us to participate in the care of your patient. Dictated and Authenticated by: Stevenson Snow MD Spoke with patient regarding CT results and lab results she is still complaining of some right-sided flank pain. Discussed option for admission she declines at this time. I did discuss strict return instructions she verbalizes understanding. Will send home patient with antibiotics. Will place patient on a care management list for follow-up with urology. HPI General Mode of arrival: ambulatory . Date/Time Provider Initiated Documentation: 06/10/20 16:22 . Limitations to Documentation: no limitations . Information obtained by: patient, RN notes reviewed and old records reviewed . HPI Narrative: 40-year-old female presents to the ER with chief complaint of bilateral upper abdominal pain, right flank pain, emesis x1 and dysuria x1 week which has gotten worse over the last few days. She denies fever or diarrhea. Only abdominal surgery is . She took Tylenol at 1400. She reports better with curling up in a ball, intermittent which waxes and wanes. She has a past medical history of depression, endometriosis she is a smoker, Related Data Home Medications Medication Instructions Recorded Confirmed ibuprofen 600 mg PO QID PRN 01/06/18 06/10/20 etonogestrel 68 mg subdermal 1 implant SBD ONCE 03/12/19 06/10/20 implant acetaminophen 1,000 mg PO Q6H PRN 06/10/20 06/10/20 cephalexin 500 mg PO BID 10 Days #20 tab 06/10/20 Previous Rx's Medication Instructions Recorded cephalexin 500 mg PO BID 10 Days #20 tab 06/10/20 Allergies Allergy/AdvReac Type Severity Reaction Status Date / Time No Known Allergies Allergy Unverified 05/19/19 08:09 General Stated Complaint: Abd Prob ANKIT: 3 Review of Systems Narrative: Constitutional: Negative for weight loss, alert and oriented, well groomed, normal body habitus, appears uncomfortable. HEENT: Denies trauma, headaches, blurry vision, nasal discharge, sore throat, trouble swallowing. Chest: Denies chest pain, palpitations, irregular rhythm, hypertension. Respiratory: Denies Shortness of breath, cough, hemoptysis. GI: Denies diarrhea, constipation. Positive bilateral abdominal pain. : Denies positive right flank pain, positive urinary frequency, rectal bleeding. Neuro: Denies dizziness, blurry vision, weakness, syncope, headache or facial numbness. Hematologic: Denies easy bruising, intolerance to heat or cold, hair loss. [facility] Medical History Contraception DepoProvera as teenager and shortly after her pregnancies. Depression Endometriosis Frequent headaches History of ETOH abuse Tobacco use Surgical History section 2000 & 2003 Social History Smoking/Tobacco Use Status: Current every day Tobacco Type: cigarettes Smoking risk assessment performed?: Yes Alcohol Intake: current Alcohol Intake frequency: a few times a week Drug use: Never Substance use type: does not use Do you feel safe at home: Yes Do you feel safe in your relationship?: Yes Female Reproductive History Menstrual control method: permanent sterilization and implanted History History 3 Para 2 Hx # Term Pregnancies Multiple births Hx # Pregnancies Ectopic pregnancies AB induced Hx Number of Living Children AB spontaneous Exam Narrative Exam Narrative: Constitutional: Alert and oriented x3. Appears stated age. Normal body habitus. Head: Normocephalic, no trauma. Eyes: Pupils PERRLA, Red reflex noted, EOM's intact. Eyelids symmetrical without lesions, discharge, or swelling. ENT: Bilateral TM's WNL, External ear normal to inspection, no mastoid TTP, swelling, or erythema, Nasal turbinates WNL, no nasal discharge. Normal dentition, Posterior pharynx WNL, no exudate. Chest: RRR, Normal S1, S2, distal pulses intact. Resp: Lungs clear to auscultation bilaterally, no wheezes, rales, or rhonchi. Abdomen: Soft, nondistended tender to palpation right upper quadrant and midepigastric, right CVA tenderness to palpation. Musculoskeletal: Normal gait, 5/5 strength to all four extremities. Skin: No suspicious rashes or lesions. Capillary refill less than 2 sec. Neurologic: Cranial nerves II-XII intact. Alert and oriented x 3. DTR's intact. Hematologic/Lymphatic: No ecchymosis, no lymphadenopathy. Course Vital Signs Vital signs: Vital Signs Temperature 36.8 C 06/10/20 16:16 Pulse 102 H 06/10/20 16:16 Respiratory Rate 18 06/10/20 16:16 Blood Pressure 142/92 H 06/10/20 16:16 Pulse Oximetry 96 06/10/20 16:16 Temperature 36.8 C 06/10/20 16:16 Temperature Source Skin 06/10/20 16:16 Pulse 102 H 06/10/20 16:16 Respiratory Rate 18 06/10/20 16:16 Respiratory Effort Non-Labored 06/10/20 16:19 Blood Pressure 142/92 H 06/10/20 16:16 Blood Pressure Position Sitting 06/10/20 16:16 Pulse Oximetry 96 06/10/20 16:16 Oxygen Delivery Method Room Air 06/10/20 16:16 Oxygen Flow Rate 0 06/10/20 16:16 Pain Level 5 06/10/20 16:16
[2020-06-10 17:22] LABS: Bilirubin Negative (Negative); Blood Moderate (Negative); Clarity Cloudy (Clear); Glucose Negative (Negative); Ketones Negative (Negative); Leukocyte Esterase Large (Negative); Nitrite Positive (Negative); Urobilinogen 0.2 EU/dL (Up TO 0.2)
[2020-06-10 17:34] LABS: C & S Indicated? Yes; WBC >50 HPF (0-5)
[2020-06-10] MEDS: Normal Saline 1,000 ML 1000 ML IV (17:43)
[2020-06-10] MEDS: Ondansetron 4 MG/2 ML VIAL IVP (17:44)
[2020-06-10 17:48] LABS: Abs Immature Grans 0.07 10^3/uL (0.0-0.06); Absolute Basophil Count 0.04 10^3/uL (0.0-0.2); Absolute Lymphocyte Count 2.21 10^3/uL (1.2-3.4); Absolute Monocyte Count 0.77 10^3/uL (0.1-0.8); Basophils % 0.3; Eosinophils % 0.9; HCT 38.5 % (36.0-46.0); HGB 13.1 g/dL (11.2-15.7); Immature Grans % 0.5; Lymphocytes % 14.9; MCH 30.7 pg (27.0-33.0); MCV 90.2 fL (80-95); MPV 9.8 fL (8.0-11.0); Monocytes % 5.2; Neutrophils % 78.2; Nucleated RBC 0 %; Platelet Count 263 10^3/uL (130-400); RBC 4.27 10^6/uL (3.93-5.22); RDW 12.4 % (11.7-14.6); RDW-SD 41.3 fL; WBC 14.85 10^3/uL (4.4-10.8)
[2020-06-10 17:49] LABS: Absolute Eosinophil Count 0.13 10^3/uL (0.0-0.7); Absolute Neutrophil Count 11.61 10^3/uL (1.2-6.7)
[2020-06-10 18:06] LABS: Lipase 114 U/L (73-393)
[2020-06-10] MEDS: Ketorolac 30 MG/ML VIAL IVP (18:31)
[2020-06-10] MEDS: cefTRIAXone 1 GM/50 ML BAG IVPB (18:31)
[2020-06-10] MEDS: Normal Saline Flush 10 ML SYR IVP (18:31)
--- NOTE | 2020-06-10 18:38 | DI.VRAD_ITS ---
PROCEDURE INFORMATION: Exam: CT Abdomen And Pelvis Without Contrast Exam date and time: 06/10/2020 5:29 PM Age: 40 years old Clinical indication: Other: Right upper quadrant pain, right flank pain TECHNIQUE: Imaging protocol: Computed tomography of the abdomen and pelvis without contrast. Total images: 1263 Radiation optimization: All CT scans at this facility use at least one of these dose optimization techniques: automated exposure control; mA and/or kV adjustment per patient size (includes targeted exams where dose is matched to clinical indication); or iterative reconstruction. COMPARISON: CT ABD PELVIS WITH CONTRAST 09/20/2016 3:35 PM FINDINGS: Lungs: Mild atelectasis in the lung bases. Heart: Heart size normal. Mediastinal space: The visualized distal esophagus is normal. Liver: Normal contour. No mass lesions. No intrahepatic biliary ductal dilatation. Gallbladder and bile ducts: Normal. No calcified stones. No ductal dilation. Pancreas: Normal. No inflammatory changes or ductal dilation. Spleen: Granulomatous calcifications in the spleen without acute splenic abnormality. Adrenal glands: Normal. No adrenal mass. Kidneys and ureters: Mild bilateral symmetrical perinephric stranding which is new since 09/20/2016. It is primarily in the mid to upper pole distribution of the left kidney and mid to lower pole distribution of the right kidney. This could indicate pyelonephritis. Clinical/laboratory correlation is recommended to exclude evidence of medical renal disease. No hydronephrosis or hydroureter. There are 2 nonobstructive right renal stones measuring 5 mm and 2.5 mm. 3 mm nonobstructive left renal stone. No ureteral stones are identified. Bilateral ureteral wall thickening and adjacent stranding suggesting UTI with ureteritis and pyelitis. Stomach and bowel: The stomach is unremarkable. The small bowel is normal with no evidence of obstruction. There is a moderate amount of stool distributed in the mid and proximal colon suggesting possible constipation. Appendix: The appendix is normal in caliber and demonstrates no evidence of appendicitis. Intraperitoneal space: No free fluid or air. Vasculature: No acute process. No abdominal aortic aneurysm. Lymph nodes: No adenopathy. Urinary bladder: Mild urinary bladder wall thickening with mild adjacent stranding. Clinical/urinalysis correlation recommended for evidence of cystitis. Reproductive: Unremarkable as visualized. Bones/joints: No acute osseous abnormalities. 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 No further imaging evaluation is required. There is new endplate sclerosis and erosive endplate changes at L5-S1 which is new since 2017. The lack of paraspinous edema or osteolysis at this level, along with the asymmetric involvement goes against active discitis, however MRI would be more sensitive for this if clinically indicated. No evidence of epidural abscess. Soft tissues: Unremarkable. IMPRESSION: 1. Bilateral wall thickening and adjacent stranding associated with the renal collecting systems as well as the urinary bladder, suggesting UTI, with cystitis and bilateral pyelitis/ureteritis. 2. Patchy mild perinephric stranding around the lower pole of the right kidney and upper pole of the left kidney may indicate associated pyelonephritis. Postcontrast CT would be more sensitive and specific for pyelonephritis if clinically indicated. 3. Bilateral nonobstructive renal stones. No ureteral stones or hydronephrosis. 4. Findings at L5-S1 felt to be most suggestive of chronic changes of prior discitis at this point. If there is clinical suspicion for active discitis, MRI without and with contrast would allow more sensitive and specific assessment. 5. Additional non-emergent findings detailed above. Dictated and Authenticated by: Stevenson Snow MD. Ordering:ARCHIE Olivares MD
[2020-06-10 18:42] LABS: ALT 26 U/L (14-59); AST 14 U/L (15-37); Albumin 3.6 g/dL (3.4-5.0); Alkaline Phosphatase 74 U/L (46-116); Anion Gap 14.8 mmol/L (3-11); BUN 9 mg/dL (7-18); Bilirubin, Total 0.4 mg/dL (0.2-1.0); CO2 24.2 mmol/L (21.0-32.0); Calcium 8.7 mg/dL (8.5-10.1); Chloride 106 mmol/L (98-107); Glucose 117 mg/dL (74-106); Magnesium 1.9 mg/dL (1.8-2.4); Potassium 3.7 mmol/L (3.5-5.1); Sodium 145 mmol/L (136-145); Total Protein 7.1 g/dL (6.4-8.2)
[2020-06-10] MEDS: Cephalexin 500 MG CAP, 4 CAPS/BTL PO (20:01)
--- NOTE | 2020-06-11 06:23 | NUR.NOTE ---
Nursing Note: Referral faxed to specialty clinics 06/11/20 libl
== END 2020-06-10 20:08 | disposition home or self-care (01) ==
PROVIDERS: Emergency Provider Registered Nurse Emergency; PCP Nurse Practitioner Family
DX: N10 Acute pyelonephritis (principal)
CPT/HCPCS: 36415; 80053; 81025; 83690; 87077; 96361; 96365; 96375; 99284; 74176; 81003; 81015; 83735; 85025; 87086; 87186; J0696; J1885; J2405

== ENCOUNTER 2020-06-11 15:14 | Inpatient (IN) | payer MEDICAID, SELFPAY ==
[2020-06-11 15:19] VITALS: BP 129/75; PULSE 94; RESP 18; TEMP 36.7; O2SAT 95
--- NOTE | 2020-06-11 15:39 | ED.GENADUL_ITS ---
Discharge Plan Discharge Details Chief Complaint: Nausea/Vomit/Diar Primary Care Provider: Cesia Aranda ED Provider: Geronimo Townsend Home Meds and New Rx's Prescriptions: No Action Nexplanon 68 mg implant 1 implant SBD ONCE RF: 0 ibuprofen 200 mg Tablet 600 mg PO QID PRNRF: 0 acetaminophen 500 mg Tablet 1,000 mg PO Q6H PRNRF: 0 cephalexin 500 mg tablet 500 mg PO BID 10 Days Qty: 20 RF: 0 Medical Decision Making 40-year-old with 4 to 5 days of dysuria. Seen yesterday and had CT scan, antibiotics initiated with Keflex, growing E. coli in culture. Now states subjective fever and chills, worsening back pain, nausea and vomiting with intolerance of p.o. She is afebrile, pulse 94, pressure 129/75. Concern for progressive pyelonephritis, patient IV access established, screening labs with lactate and blood culture obtained, repeat urinalysis ordered. She is given Zofran, fluid bolus. Given that she is growing gram-negative rods, her symptoms are worse, will switch from cephalosporin to fluoroquinolone and patient given ciprofloxacin. Labs reveal white count 15, hematocrit 36, platelets 238. Sodium 140, potassium 3.6, chloride 105, bicarb 25, BUN 9, creatinine 0.9, AST 13, ALT 22, total bili 1.5, lipase 69. Urinalysis pending. Patient with persistent vomiting despite antiemetic. She is unable to tolerate p.o. No evidence of sepsis at this time. Nonetheless, I do feel she merits admission for overnight fluids, antiemetics, ongoing parenteral antibiotics and reevaluation. Case discussed with Dr. Swann and patient to be admitted. HPI General Mode of arrival: ambulatory . Date/Time Provider Initiated Documentation: 06/11/20 15:15 . Limitations to Documentation: no limitations . Information obtained by: patient . History of Present Illness 40 year old F presents to the emergency department with the chief complaint of Persistent pain, described as moderate, Quality is described as dull and constant, and is localized to the back and abdomen. Patient reports no radiation. Patient started experiencing this day(s) and it has been intermittent. No relieving factors improve symptom(s), No exacerbating factors reported . Patient notes fever/chills and nausea/vomiting; denies cough, shortness of breath and syncope. Patient did receive the following treatments prior to arrival, other (Keflex this morning) Related Data Home Medications Medication Instructions Recorded Confirmed ibuprofen 600 mg PO QID PRN 01/06/18 06/11/20 etonogestrel 68 mg subdermal 1 implant SBD ONCE 03/12/19 06/11/20 implant acetaminophen 1,000 mg PO Q6H PRN 06/10/20 06/11/20 cephalexin 500 mg PO BID 10 Days #20 tab 06/10/20 06/11/20 Previous Rx's Medication Instructions Recorded cephalexin 500 mg PO BID 10 Days #20 tab 06/10/20 Allergies Allergy/AdvReac Type Severity Reaction Status Date / Time No Known Allergies Allergy Unverified 06/11/20 15:25 General Stated Complaint: Nausea/Vomit/Diar ANKIT: 3 Review of Systems Narrative: 8 systems reviewwed [facility] Medical History Contraception DepoProvera as teenager and shortly after her pregnancies. Depression Endometriosis Frequent headaches History of ETOH abuse Tobacco use Surgical History section 2000 & 2003 Social History Smoking/Tobacco Use Status: Current every day Tobacco Type: cigarettes Smoking risk assessment performed?: Yes Alcohol Intake: current Alcohol Intake frequency: a few times a week Drug use: Never Substance use type: does not use Do you feel safe at home: Yes Do you feel safe in your relationship?: Yes Female Reproductive History Menstrual control method: permanent sterilization and implanted History History 3 Para 2 Hx # Term Pregnancies Multiple births Hx # Pregnancies Ectopic pregnancies AB induced Hx Number of Living Children AB spontaneous Exam Narrative Exam Narrative: GEN: awake, alert, oriented 3. Pleasant, well groomed, interactive. HEAD: Normocephalic, atraumatic ENT: Mucous membranes moist, oropharynx unremarkable, External ear exam unremarkable EYES: PERRL, EOMI NECK: Full ROM, no EAN, no menigismus CHEST/RESP: Nontender, clear to auscultation bilateral, no wheeze/rhonchi/rales CARDIOVASCULAR: RRR, no murmur, rub josue. 2+ Rad pulse bilateral ABDOMEN: Soft, minimal suprapubic tenderness, mild, no mass. +Bowel sounds EXT: Full ROM, no edema, no rash Neuro: Grossly normal neurologic exam, conversant, interactive. Psych: Speech fluent, thoughts congruent, affect normal Course Vital Signs Vital signs: Vital Signs Temperature 36.7 C 06/11/20 15:19 Pulse 94 H 06/11/20 15:19 Respiratory Rate 18 06/11/20 15:19 Blood Pressure 129/75 06/11/20 15:19 Pulse Oximetry 95 06/11/20 15:19 Temperature 36.7 C 06/11/20 15:19 Temperature Source Temporal Artery Scan 06/11/20 15:19 Pulse 94 H 06/11/20 15:19 Respiratory Rate 18 06/11/20 15:19 Respiratory Effort Non-Labored 06/11/20 15:24 Blood Pressure 129/75 06/11/20 15:19 Blood Pressure Position Sitting 06/11/20 15:19 Pulse Oximetry 95 06/11/20 15:19 Oxygen Delivery Method Room Air 06/11/20 15:19 Oxygen Flow Rate 0 06/11/20 15:19 Pain Level 7 06/11/20 15:19
[2020-06-11] MEDS: Normal Saline 1,000 ML 1000 ML IV ×2 (15:55→20:55)
[2020-06-11 15:56] LABS: Abs Immature Grans 0.08 10^3/uL (0.0-0.06); Absolute Basophil Count 0.03 10^3/uL (0.0-0.2); Absolute Eosinophil Count 0.08 10^3/uL (0.0-0.7); Absolute Lymphocyte Count 2.51 10^3/uL (1.2-3.4); Basophils % 0.2; Eosinophils % 0.5; HCT 36.8 % (36.0-46.0); HGB 12.3 g/dL (11.2-15.7); Immature Grans % 0.5; Lymphocytes % 16.1; MCH 30.3 pg (27.0-33.0); MCHC 33.4 % (32.0-36.0); MCV 90.6 fL (80-95); MPV 9.6 fL (8.0-11.0); Monocytes % 7.8; Neutrophils % 74.9; Nucleated RBC 0 %; Platelet Count 238 10^3/uL (130-400); RBC 4.06 10^6/uL (3.93-5.22); WBC 15.56 10^3/uL (4.4-10.8)
[2020-06-11] MEDS: Ondansetron 4 MG/2 ML VIAL IVP ×2 (15:57→18:31)
[2020-06-11 15:58] LABS: Absolute Monocyte Count 1.21 10^3/uL (0.1-0.8); Absolute Neutrophil Count 11.65 10^3/uL (1.2-6.7)
[2020-06-11 15:59] LABS: Lactate 0.6 mmol/L (0.6-1.4)
[2020-06-11] MEDS: CIPROFLOXACIN 400 MG/200 ML BAG 200 MG IVPB (16:01)
[2020-06-11] MEDS: Normal Saline Flush 10 ML SYR IVP ×2 (16:03→22:11)
[2020-06-11 16:09] LABS: ALT 22 U/L (14-59); AST 13 U/L (15-37); Albumin 3.4 g/dL (3.4-5.0); Alkaline Phosphatase 71 U/L (46-116); Anion Gap 9.3 mmol/L (3-11); BUN 9 mg/dL (7-18); Bilirubin, Total 1.5 mg/dL (0.2-1.0); CO2 25.7 mmol/L (21.0-32.0); CREATININE 0.9 mg/dL (0.55-1.02); Calcium 8.9 mg/dL (8.5-10.1); Chloride 105 mmol/L (98-107); Glucose 119 mg/dL (74-106); Lipase 69 U/L (73-393); Magnesium 1.8 mg/dL (1.8-2.4); Potassium 3.6 mmol/L (3.5-5.1); Sodium 140 mmol/L (136-145); Total Protein 7.1 g/dL (6.4-8.2)
[2020-06-11] MEDS: Normal Saline 1,000 ML 2000 ML IV (17:37)
[2020-06-11] MEDS: Ketorolac 15 MG/ML VIAL IVP (17:38)
[2020-06-11] MEDS: HYDROmorphone 2 MG/ML VIAL 1 MG IVP ×2 (17:46→22:11)
[2020-06-11] MEDS: ACETAMINOPHEN 1,000 MG/100 ML BTL 400 MG IVPB (17:47)
[2020-06-11 18:19] LABS: Source Nasal/Nares
[2020-06-11 18:36] VITALS: BP 120/75; PULSE 74; RESP 18; TEMP 36.5; O2SAT 99
--- NOTE | 2020-06-11 19:56 | HPE_ITS ---
Date of service: 06/11/20 Time of Service: 19:56 Assessment and Plan Assessment and plan (1) Pyelonephritis: Status: Acute Assessment and plan: Urine culture taken at the time of her first ED visist on 05/10/2020 growing E.Coli. Sensitivities pending. Cont Cipro 400mg IV Q12 hours. Adjust antibiotic if culture results dictate. IV fluids. Antiemetics; Phenergan prn PRN toradol or acetaminophen for pain / fever. History of Present Illness History of Present Illness Chief Complaint: abdominal pain. Narrative: This is a 40 year old female with PMH of depression, Etoh abuse, tobacco abuse. She presented to the ED with ongoing abdominal and back pain that she was evaluated for in the ED the previous day. She was found to have pyelonephritis at the first ED visist and placed on Keflex. Her pain has worsened. She has developed N/V and inability to keep down the prescribed antibiotic. She subjectively has noted fevers and chills but no fever recorded in the ED. No diarrhea, syncope, presyncope. Her WBC count was 15. Electrolytes normal. BUN and creatinine no rmal. She was given antiemetic in the ED but continued to have emesis. No evidence of sepsis. CT abd/pelvis showed mild bilateral perinephric strnading and bilateral mild ureothelial thickening. Bilateral nonobstructive renal calculi also noted. IV ciprofloxacin initiated in the ED. Review of Systems All systems reviewed & are unremarkable except as noted in HPI and below PFSH Medical History Contraception DepoProvera as teenager and shortly after her pregnancies. Depression Endometriosis Frequent headaches History of ETOH abuse Tobacco use Surgical History section 2000 & 2003 Social History Smoking/Tobacco Use Status: Current every day Tobacco Type: cigarettes Smoking risk assessment performed?: Yes Alcohol Intake: current Alcohol Intake frequency: a few times a week Drug use: Never Substance use type: does not use Do you feel safe at home: Yes Do you feel safe in your relationship?: Yes Female Reproductive History Menstrual control method: permanent sterilization and implanted History History 3 Para 2 Hx # Term Pregnancies Multiple births Hx # Pregnancies Ectopic pregnancies AB induced Hx Number of Living Children AB spontaneous Meds Home Medications and Allergies Allergies Allergy/AdvReac Type Severity Reaction Status Date / Time No Known Allergies Allergy Unverified 06/11/20 15:25 Home Medications Medication Instructions Recorded Confirmed Type ibuprofen 600 mg PO QID PRN 01/06/18 06/11/20 History etonogestrel 68 mg subdermal 1 implant SBD ONCE 03/12/19 06/11/20 History implant acetaminophen 1,000 mg PO Q6H PRN 06/10/20 06/11/20 History cephalexin 500 mg PO BID 10 Days #20 tab 06/10/20 06/11/20 Rx Exam Const General: cooperative and no acute distress Nutritional Appearance: average body habitus Orientation: alert and oriented x3 Eyes Sclera: sclerae normal Pupils: PERRL Resp Effort & Inspection: normal respiratory effort Auscultation: clear to auscultation bilaterally Cardio Jugular venous pressure: no JVD Rate: regular rate Rhythm: regular rhythm Heart Sounds: S1 normal and S2 normal GI Inspection: normal to inspection Palpation: soft and tender (bilateral flanks) Skin General skin exam: no rashes or lesions noted and other (Multiple tattoos. ) Extrem General: no pedal edema and no calf tenderness Psych Appearance: grossly normal Mental Status: mental status grossly normal Speech and Movement: speech and movement normal Affect: normal affect Results Labs Result diagrams: 06/11/20 15:45 06/11/20 15:45 Labs: Laboratory Results - last 24 hr 06/11/20 06/11/20 06/11/20 15:45 15:45 15:45 WBC 15.56 H RBC 4.06 Hgb 12.3 Hct 36.8 MCV 90.6 MCH 30.3 MCHC 33.4 RDW 12.0 Plt Count 238 MPV 9.6 Immature Gran % 0.5 Neutrophils % 74.9 Lymphocytes % 16.1 Monocytes % 7.8 Eosinophils % 0.5 Basophils % 0.2 Nucleated RBC % 0 Absolute Neutrophils 11.65 H Absolute Lymphocytes 2.51 Absolute Monocytes 1.21 H Absolute Eosinophils 0.08 Absolute Basophils 0.03 VBG Lactate 0.6 Sodium 140 Potassium 3.6 Chloride 105 Carbon Dioxide 25.7 Anion Gap 9.3 BUN 9 Creatinine 0.9 Estimated GFR/1.73 m2 >= 60.00 Glucose 119 H Calcium 8.9 Magnesium 1.8 Total Bilirubin 1.5 H AST 13 L ALT 22 Alkaline Phosphatase 71 Total Protein 7.1 Albumin 3.4 Lipase 69 COVID-19 Source 06/11/20 18:13 WBC RBC Hgb Hct MCV MCH MCHC RDW Plt Count MPV Immature Gran % Neutrophils % Lymphocytes % Monocytes % Eosinophils % Basophils % Nucleated RBC % Absolute Neutrophils Absolute Lymphocytes Absolute Monocytes Absolute Eosinophils Absolute Basophils VBG Lactate Sodium Potassium Chloride Carbon Dioxide Anion Gap BUN Creatinine Estimated GFR/1.73 m2 Glucose Calcium Magnesium Total Bilirubin AST ALT Alkaline Phosphatase Total Protein Albumin Lipase COVID-19 Source Nasal/nares Last Vital Signs Temp 36.5 C 06/11/20 18:36 Pulse 74 06/11/20 18:36 Resp 18 06/11/20 18:36 BP 120/75 06/11/20 18:36 Pulse Ox 99 06/11/20 18:36 COVID-19 Screening Have you, or household traveled for leisure in last 14 days?: No Had IN PERSON contact w/suspected or confirmed C-19 person: No
[2020-06-11 20:10] VITALS: BP 129/85; PULSE 78; RESP 20; TEMP 36.7; O2SAT 97
[2020-06-11 20:15] VITALS: BP 129/85; PULSE 78; RESP 20; TEMP 36.7; O2SAT 97
[2020-06-11 20:19] VITALS: BP 129/85; PULSE 78; RESP 20; TEMP 36.7; O2SAT 97
[2020-06-11 22:02] LABS: COVID-19 PCR Negative (Negative)
[2020-06-11] MEDS: Normal Saline 1,000 ML 80 ML IV (22:15)
[2020-06-12 00:18] VITALS: BP 129/91; PULSE 74; RESP 20; TEMP 36.8; O2SAT 94
[2020-06-12] MEDS: Normal Saline Flush 10 ML SYR IVP ×3 (02:01→16:04)
[2020-06-12] MEDS: HYDROmorphone 2 MG/ML VIAL 1 MG IVP ×5 (02:01→21:04)
[2020-06-12] MEDS: CIPROFLOXACIN 400 MG/200 ML BAG 200 MG IVPB ×2 (04:24→16:03)
[2020-06-12] MEDS: Acetaminophen 325 MG TAB 650 MG PO ×4 (04:26→20:08)
[2020-06-12 07:34] LABS: Abs Immature Grans 0.05 10^3/uL (0.0-0.06); Absolute Basophil Count 0.02 10^3/uL (0.0-0.2); Absolute Eosinophil Count 0.04 10^3/uL (0.0-0.7); Absolute Monocyte Count 0.69 10^3/uL (0.1-0.8); Basophils % 0.2; Eosinophils % 0.4; Immature Grans % 0.5; Lymphocytes % 16.7; MCH 30.2 pg (27.0-33.0); MCHC 32.9 % (32.0-36.0); MCV 91.7 fL (80-95); MPV 9.9 fL (8.0-11.0); Monocytes % 6.3; Neutrophils % 75.9; Nucleated RBC 0 %; Platelet Count 178 10^3/uL (130-400); RBC 3.38 10^6/uL (3.93-5.22); RDW 12.1 % (11.7-14.6); RDW-SD 40.6 fL; WBC 10.93 10^3/uL (4.4-10.8)
[2020-06-12 07:36] LABS: Absolute Lymphocyte Count 1.83 10^3/uL (1.2-3.4)
[2020-06-12 07:42] LABS: HGB 10.2 g/dL (11.2-15.7)
--- NOTE | 2020-06-12 07:47 | NUR.NOTE ---
Each time this nurse went to assess patient,during the 2300-715 patient is sleeping well and snoring without any cardiopulmonary or respiratory or painful distress. She complained of having pain to the abdomen and having a headache approximately 0115, where dilaudid was administered. At approximately 410, patient state she was still having the headache and also feeling nauseous. Tylenol 650mg prn was administered at that time. Patient rang the calling light at 0720. Stating everything that she came here for, she is still experiencing, and asking if i gave her any medications during the night and antibiotics. Patient was reminded of the time the medications were administered. Pt went on to state that she wants to speak to the Dr because she is still not feeling any better and she did not sleep during the night. Patient was reassured that the MD will see her during the course of the day and was offered PRN dilaudid 1mg which she took. Patient left lying in bed with promethazine being administered and IV
[2020-06-12 07:51] LABS: ALT 16 U/L (14-59); AST 10 U/L (15-37); Albumin 2.7 g/dL (3.4-5.0); Alkaline Phosphatase 58 U/L (46-116); Anion Gap 8.2 mmol/L (3-11); BUN 6 mg/dL (7-18); Bilirubin, Total 1.1 mg/dL (0.2-1.0); CO2 24.8 mmol/L (21.0-32.0); CREATININE 0.8 mg/dL (0.55-1.02); Calcium 8.4 mg/dL (8.5-10.1); Chloride 107 mmol/L (98-107); Glucose 91 mg/dL (74-106); Potassium 3.3 mmol/L (3.5-5.1); Sodium 140 mmol/L (136-145)
[2020-06-12 08:03] VITALS: BP 145/76; PULSE 85; RESP 19; TEMP 37; O2SAT 98
[2020-06-12] MEDS: Ketorolac 30 MG/ML VIAL IVP ×3 (08:53→23:13)
[2020-06-12] MEDS: MAGNESIUM SULFATE 2 GM/50 ML BAG IVPB (08:53)
[2020-06-12] MEDS: Potassium Chloride 20 MEQ TABCR 40 MEQ PO (10:55)
[2020-06-12] MEDS: Ondansetron 4 MG/2 ML VIAL IVP (10:57)
--- NOTE | 2020-06-12 12:09 | W.PM.PROGNOT ---
Date of Service Date of service: 06/12/20 Time of Service: 12:09 Assessment and Plan Assessment and plan (1) Pyelonephritis: Status: Acute Assessment and plan: cultures growing pansenstive e coli. white count normalized. continue cipro day 2 pain management antiemetics IV fluids at 100 cc/hr (2) Tobacco use: Status: Acute Assessment and plan: declines nicotine replacement discussed with DR Shirley Subjective Subjective Patient reports: still having pain, nausea and afebrile Interval history since last seen: re-evaluated at end of shift and pain is better managed. she is tolerating some PO now. remains afebrile. Exam Const General: no acute distress Nutritional Appearance: average body habitus Orientation: alert, awake and oriented x3 HENMT Head: normal to inspection, normocephalic and atraumatic Resp Effort & Inspection: normal respiratory effort and able to speak in complete sentences GI Inspection: normal to inspection (reports right upper quad pain) Back/Spine/Pelvis Back: CVA tenderness (reports bilaterally) Skin General skin exam: no rashes or lesions noted and other (pink warm dry and well perfused) Extrem General: normal to inspection, full ROM and no pedal edema Psych Mental Status: mental status grossly normal Speech and Movement: speech and movement normal Mood: irritable mood Affect: labile affect and hostile Attitude: guarded Thought Process: normal Thought Content: normal Insight: fair Judgment: fair Objective Last Vital Signs Temp 37 C 06/12/20 08:03 Pulse 85 06/12/20 08:03 Resp 19 06/12/20 08:03 BP 145/76 H 06/12/20 08:03 Pulse Ox 98 06/12/20 08:03 Laboratory Results - last 24 hr 06/11/20 06/11/20 06/11/20 15:45 15:45 15:45 WBC 15.56 H RBC 4.06 Hgb 12.3 Hct 36.8 MCV 90.6 MCH 30.3 MCHC 33.4 RDW 12.0 Plt Count 238 MPV 9.6 Immature Gran % 0.5 Neutrophils % 74.9 Lymphocytes % 16.1 Monocytes % 7.8 Eosinophils % 0.5 Basophils % 0.2 Nucleated RBC % 0 Absolute Neutrophils 11.65 H Absolute Lymphocytes 2.51 Absolute Monocytes 1.21 H Absolute Eosinophils 0.08 Absolute Basophils 0.03 VBG Lactate 0.6 Sodium 140 Potassium 3.6 Chloride 105 Carbon Dioxide 25.7 Anion Gap 9.3 BUN 9 Creatinine 0.9 Estimated GFR/1.73 m2 >= 60.00 Glucose 119 H Calcium 8.9 Magnesium 1.8 Total Bilirubin 1.5 H AST 13 L ALT 22 Alkaline Phosphatase 71 Total Protein 7.1 Albumin 3.4 Lipase 69 COVID-19 Source SARS-CoV-2 (PCR) 06/11/20 06/12/20 06/12/20 18:13 07:05 07:05 WBC 10.93 H RBC 3.38 L Hgb 10.2 L D Hct 31.0 L MCV 91.7 MCH 30.2 MCHC 32.9 RDW 12.1 Plt Count 178 MPV 9.9 Immature Gran % 0.5 Neutrophils % 75.9 Lymphocytes % 16.7 Monocytes % 6.3 Eosinophils % 0.4 Basophils % 0.2 Nucleated RBC % 0 Absolute Neutrophils 8.30 H Absolute Lymphocytes 1.83 Absolute Monocytes 0.69 Absolute Eosinophils 0.04 Absolute Basophils 0.02 VBG Lactate Sodium 140 Potassium 3.3 L Chloride 107 Carbon Dioxide 24.8 Anion Gap 8.2 BUN 6 L Creatinine 0.8 Estimated GFR/1.73 m2 >= 60.00 Glucose 91 Calcium 8.4 L Magnesium Total Bilirubin 1.1 H AST 10 L ALT 16 Alkaline Phosphatase 58 Total Protein 6.0 L Albumin 2.7 L Lipase COVID-19 Source Nasal/nares SARS-CoV-2 (PCR) Negative
[2020-06-12] MEDS: Normal Saline 1,000 ML 80 ML IV (12:14)
[2020-06-12 15:52] VITALS: BP 133/79; PULSE 72; RESP 17; TEMP 37; O2SAT 96
--- NOTE | 2020-06-12 17:30 | INITIAL_ITS ---
- If Service Date Differs Date of service: 06/12/20 Time of Service: 17:30 Care Management Initial Assess REASON FOR HOSPITALIZATION:: Pyelonephritis PAST MEDICAL HISTORY/PAST SURGICAL HISTORY:: Medical History. Contraception. DepoProvera as teenager and shortly after her pregnancies. Depression. Endometriosis. Frequent headaches. History of ETOH abuse. Tobacco use. Surgical History. section. 2000 & 2003 PREVIOUS FUNCTIONAL STATUS/SOCIAL/FAMILY SUPPORTS:: Domi lives in [facility]. Her mother lives nearby. She works at [employer] and is independent at baseline. CURRENT FUNCTIONAL STATUS:: Domi was sitting up in bed when CM met with her. She stated that she just woke up and is in a lot of pain, and doesn't want to talk about herself at this time. She did tell CM how much pain she is in, and how concerned she was when she was vomiting green bile. She stated that she would like to return home as soon as possible. CM will continue to follow. ADVANCE DIRECTIVES:: None on file. Has patient been provided with info about the portal/API?: Yes Did the patient sign up for the portal?: No CODE STATUS:: Full Code INSURANCE COVERAGE / FINANCIAL ISSUES:: [employer] CURRENT HOME/COMMUNITY SERVICES/EQUIPMENT:: No current services or equipment. PRIMARY CARE PHYSICIAN:: Cesia Aranda POTENTIAL DISCHARGE NEEDS:: follow up appointments PATIENT/FAMILY EDUCATION NEEDS:: Review discharge instructions, discussion of self care needs. ANTICIPATED BARRIERS TO DISCHARGE:: None identified. TRANSPORTATION:: Via private vehicle by family. PLAN:: Anticipate Domi will return home when medically cleared. She will be driven home via private vehicle by family. She will follow up with her PCP and discharge plan of care. CM will continue to follow.
[2020-06-12] MEDS: Melatonin 3 MG TAB 6 MG PO (21:05)
[2020-06-12] MEDS: Zolpidem 5 MG TAB PO (21:05)
[2020-06-12] MEDS: Normal Saline 1,000 ML 100 ML IV (23:42)
[2020-06-13] MEDS: Zolpidem 5 MG TAB PO (00:30)
[2020-06-13 00:31] VITALS: BP 137/75; PULSE 62; RESP 20; TEMP 36.8; O2SAT 94
[2020-06-13] MEDS: HYDROmorphone 2 MG/ML VIAL 1 MG IVP ×2 (01:56→06:05)
[2020-06-13] MEDS: CIPROFLOXACIN 400 MG/200 ML BAG 200 MG IVPB (04:27)
[2020-06-13] MEDS: Ketorolac 30 MG/ML VIAL IVP (05:39)
[2020-06-13 06:53] LABS: Abs Immature Grans 0.03 10^3/uL (0.0-0.06); Absolute Basophil Count 0.02 10^3/uL (0.0-0.2); Absolute Eosinophil Count 0.11 10^3/uL (0.0-0.7); Absolute Lymphocyte Count 1.65 10^3/uL (1.2-3.4); Absolute Monocyte Count 0.68 10^3/uL (0.1-0.8); Absolute Neutrophil Count 7.55 10^3/uL (1.2-6.7); Basophils % 0.2; Eosinophils % 1.1; HCT 32.6 % (36.0-46.0); HGB 10.8 g/dL (11.2-15.7); Immature Grans % 0.3; Lymphocytes % 16.4; MCH 29.7 pg (27.0-33.0); MCHC 33.1 % (32.0-36.0); MCV 89.6 fL (80-95); MPV 9.8 fL (8.0-11.0); Monocytes % 6.8; Neutrophils % 75.2; Nucleated RBC 0 %; Platelet Count 211 10^3/uL (130-400); RBC 3.64 10^6/uL (3.93-5.22); RDW 11.6 % (11.7-14.6); RDW-SD 38.1 fL; WBC 10.04 10^3/uL (4.4-10.8)
[2020-06-13 07:08] LABS: Anion Gap 6.4 mmol/L (3-11); BUN 3 mg/dL (7-18); CO2 26.6 mmol/L (21.0-32.0); CREATININE 0.8 mg/dL (0.55-1.02); Calcium 8.6 mg/dL (8.5-10.1); Chloride 105 mmol/L (98-107); Glucose 103 mg/dL (74-106); Magnesium 1.7 mg/dL (1.8-2.4); Potassium 3.7 mmol/L (3.5-5.1); Sodium 138 mmol/L (136-145)
[2020-06-13 08:06] VITALS: BP 150/88; PULSE 86; RESP 13; TEMP 36.7; O2SAT 94
[2020-06-13] MEDS: Acetaminophen 325 MG TAB 650 MG PO ×2 (08:32→12:22)
[2020-06-13] MEDS: Magnesium Chloride 64 MG TABCR PO (09:43)
[2020-06-13] MEDS: oxyCODONE 5 mg/Acetaminophen 325 mg TAB 1 TAB PO ×2 (10:11→15:43)
[2020-06-13] MEDS: Normal Saline 1,000 ML 100 ML IV (11:35)
--- NOTE | 2020-06-13 14:01 | DSE_ITS ---
Date of service: 06/13/20 Time of Service: 14:02 DS: Diagnosis Discharge Diagnosis (1) Pyelonephritis: Start date: 06/13/20 Start time: 14:02 Status: Acute Asessment and Plan: Patient is feeling better, she is able to eat, tolerating diet in small amounts. Denies n/v, pain has improved and she wants to go home. She is being discharged home on antiemetics, cipro po, pain medication and a follow up with her PCP nextweek. (2) Tobacco use: Start date: 06/13/20 Start time: 14:13 Status: Acute Asessment and Plan: Not interested in cessation at this time. above case discussed with Dr. Shirley Discharge Plan Disposition Patient Disposition: HOME Condition: Improving Discharge Details Reason For Visit: PYELONEPHRITIS Admit Date/Time: 06/11/20 18:58 Admit Provider: Juanito Swann Attending Provider: Juanito Swann [facility] Hospital Course: 40 year old female with PMH of depression, Etoh abuse, tobacco abuse. She presented to the ED with ongoing abdominal and back pain that was evaluated in the ED the previous day. She was found to have pyelonephritis at the first ED visit and placed on Keflex. Her pain worsened so she returned day of admission. She has developed N/V and inability to keep down the prescribed antibiotic. She subjectively had noted fevers and chills but no fever recorded in the ED. No diarrhea, syncope, presyncope. Lab work up in the ED revealed WBC count was 15. Electrolytes normal. BUN and creatinine normal. She was given antiemetic in the ED but continued to have emesis. No evidence of sepsis. CT abd/pelvis showed mild bilateral perinephric stranding and bilateral mild ureothelial thickening. Bilateral nonobstructive renal calculi also noted. IV ciprofloxacin initiated in the ED. She was asked to be admitted to hospitalist for further management. Over course of management she received IV pain management. Luekocytosis improved with cipro. Today is able to tolerate soft diet without any nausea or vomiting and po pain medication. Her mag was low this am and required repletetion. Potassium also required repletetion this admission with supplementation. Urine culture grew e. coli pansensitive, blood culture with no growth. Leukocytosis has normalized and she would like to go home. She is being discharged home on PO cipro. 10 day course, with po pain medication and po antiemetics. Soft diet advance as tolerated. Follow up with PCP next week. She denies CP, SOB, n/V/D Home Meds and New Rx's Prescriptions: New oxycodone-acetaminophen 5-325 mg Tablet 1 tab PO Q4H PRN PRNQty: 20 RF: 0 magnesium chloride [Mag 64] 64 mg Tablet,Delayed Release (Dr/Ec) 64 mg PO BID Qty: 4 RF: 0 ciprofloxacin HCl [Cipro] 500 mg tablet 500 mg PO BID Qty: 20 RF: 0 ondansetron HCl [Zofran] 4 mg tablet 4 mg PO Q8H Qty: 10 RF: 0 Continued Nexplanon 68 mg implant 1 implant SBD ONCE RF: 0 ibuprofen 200 mg Tablet 600 mg PO QID PRNRF: 0 acetaminophen 500 mg Tablet 1,000 mg PO Q6H PRNRF: 0 Discontinued cephalexin 500 mg tablet 500 mg PO BID 10 Days Qty: 20 RF: 0 Discharge Instructions Instructions: Urinary Tract Infection in Women (DC), Kidney Infection (DC) Additional Instructions: Take antibiotic as prescribed. Follow up with your PCP next week Continue to soft foods and advance your diet as tolerated Take nausea medication if needed Stand Alone Forms: Nursing Discharge Form Activity:: Activity as Tolerated Equipment/Supplies:: No Equipment Needed Diet:: As Tolerated Discharge Orders Discharge Orders: Discharge Order (Routine); Ordered 06/13/20 Ordered By: Nhi Logan DS: Summary Time Spent with Patient providing and/or coordinating discharge services: Greater than 30 minutes (approx 35 mins) Status at Discharge Functional status at discharge: independent ambulation Overall status at discharge: patient is progressing back to baseline Mental Status: mental status grossly normal Speech and Movement: speech and movement normal Mood: irritable mood Affect: normal affect, labile affect and hostile Exam Const General: cooperative and no acute distress Nutritional Appearance: average body habitus Orientation: alert, awake and oriented x3 HENMT Head: normal to inspection, normocephalic and atraumatic Eyes Sclera: sclerae normal Pupils: PERRL Resp Effort & Inspection: normal respiratory effort and able to speak in complete sentences Auscultation: clear to auscultation bilaterally Cardio Jugular venous pressure: no JVD Rate: regular rate Rhythm: regular rhythm Heart Sounds: S1 normal and S2 normal GI Inspection: normal to inspection Palpation: soft and tender (RUQ mild pain with palpation) Back/Spine/Pelvis Back: CVA tenderness (reports bilaterally) Skin General skin exam: no rashes or lesions noted and other (pink warm dry and well perfused) Extrem General: normal to inspection, full ROM and no pedal edema Psych Appearance: grossly normal and disheveled Mental Status: mental status grossly normal Speech and Movement: speech and movement normal Mood: irritable mood Affect: normal affect, labile affect and hostile Attitude: guarded Thought Process: normal Thought Content: normal Insight: fair Judgment: fair DS: Data Vitals/I&O Vitals and I&O: Vital Signs Temperature 36.8 C 06/13/20 00:31 Temperature Source Tympanic 06/13/20 00:31 Pulse 62 06/13/20 00:31 Pulse Rhythm Regular 06/13/20 02:56 Respiratory Rate 20 06/13/20 00:31 Respiratory Effort Non-Labored 06/13/20 02:56 Respiratory Depth Normal 06/13/20 02:56 Respiratory Pattern Normal 06/13/20 02:56 Blood Pressure 137/75 06/13/20 00:31 Blood Pressure Position Sitting 06/11/20 15:19 Pulse Oximetry 94 06/13/20 00:31 Oxygen Delivery Method Room Air 06/13/20 00:31 Oxygen Flow Rate 0 06/13/20 00:31 Pain Level 6 06/13/20 12:22 Comment 06/11/20 20:19 Intake & Output 06/12/20 06/13/20 06/13/20 23:59 11:59 23:59 Intake Total 2994.666 / 4194.666 1120 / 1360 240 / 1360 Output Total 700 / 700 1800 / 1800 Balance 2294.666 / 3494.666 -680 / -440 240 / -440 Intake: IV 2034.666 / 3234.666 1000 / 1000 Oral 960 / 960 120 / 360 240 / 360 Output: Urine 700 / 700 1800 / 1800 Other: Urine Color Yellow Straw Straw Urine Appearance Clear Clear Urine Odor Normal Comment pt reports voiding x 3 Voiding Methods Toilet Toilet Data Completed and Pending Completed studies during hospitalization [Text1]: FINDINGS: ABDOMEN: Lung Bases: Normal where visualized. Liver: Normal density. No measurable mass. Gallbladder and biliary tract: No radiodense calculus or dilation. Pancreas: Normal density, no abnormal calcifications or inflammatory process. Spleen: Normal. Kidneys: Normal size, contour and axis. Tiny nonobstructing stone upper pole left kidney, unchanged. Tiny non-obstructing stone lower pole right kidney. 4 millimeter nonobstructing stone mid right kidney. There is wall thickening involving the right renal pelvis which could indicate infection. No focal low- density areas are seen . There is minimal perinephric stranding bilaterally. No masses seen. Adrenal glands: No masses seen. Lymph nodes: Within normal limits. Abdominal Aorta: Abdominal portion non-dilated. PELVIS: Bladder: Symmetric distention, no gross wall thickening. Bowel: No obstruction or bowel wall thickening. Peritoneal cavity: No ascites, collection or mesenteric inflammatory response. Reproductive organs: Within normal limits. Bones: Asymmetric degenerative disc changes of the on the left at L5-S1. Stable sclerotic lesion in the posterior left ilium. IMPRESSION: Bilateral nonobstructing renal calculi. Mild bilateral perinephric stranding bilateral mild urothelial thickening could be secondary to infection. Unremarkable bladder. Exam(s) PROCEDURE INFORMATION: Exam: CT Abdomen And Pelvis Without Contrast Exam date and time: 06/10/2020 5:29 PM Age: 40 years old Clinical indication: Other: Right upper quadrant pain, right flank pain TECHNIQUE: Imaging protocol: Computed tomography of the abdomen and pelvis without contrast. Total images: 1263 Radiation optimization: All CT scans at this facility use at least one of these dose optimization techniques: automated exposure control; mA and/or kV adjustment per patient size (includes targeted exams where dose is matched to clinical indication); or iterative reconstruction. COMPARISON: CT ABD PELVIS WITH CONTRAST 09/20/2016 3:35 PM FINDINGS: Lungs: Mild atelectasis in the lung bases. Heart: Heart size normal. Mediastinal space: The visualized distal esophagus is normal. Liver: Normal contour. No mass lesions. No intrahepatic biliary ductal dilatation. Gallbladder and bile ducts: Normal. No calcified stones. No ductal dilation. Pancreas: Normal. No inflammatory changes or ductal dilation. Spleen: Granulomatous calcifications in the spleen without acute splenic abnormality. Adrenal glands: Normal. No adrenal mass. Kidneys and ureters: Mild bilateral symmetrical perinephric stranding which is new since 09/20/2016. It is primarily in the mid to upper pole distribution of the left kidney and mid to lower pole distribution of the right kidney. This could indicate pyelonephritis. Clinical/laboratory correlation is recommended to exclude evidence of medical renal disease. No hydronephrosis or hydroureter. There are 2 nonobstructive right renal stones measuring 5 mm and 2.5 mm. 3 mm nonobstructive left renal stone. No ureteral stones are identified. Bilateral ureteral wall thickening and adjacent stranding suggesting UTI with ureteritis and pyelitis. Stomach and bowel: The stomach is unremarkable. The small bowel is normal with no evidence of obstruction. There is a moderate amount of stool distributed in the mid and proximal colon suggesting possible constipation. Appendix: The appendix is normal in caliber and demonstrates no evidence of appendicitis. Intraperitoneal space: No free fluid or air. Vasculature: No acute process. No abdominal aortic aneurysm. Lymph nodes: No adenopathy. Urinary bladder: Mild urinary bladder wall thickening with mild adjacent stranding. Clinical/urinalysis correlation recommended for evidence of cystitis. Reproductive: Unremarkable as visualized. Bones/joints: No acute osseous abnormalities. 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 No further imaging evaluation is required. There is new endplate sclerosis and erosive endplate changes at L5-S1 which is new since 2017. The lack of paraspinous edema or osteolysis at this level, along with the asymmetric involvement goes against active discitis, however MRI would be more sensitive for this if clinically indicated. No evidence of epidural abscess. Soft tissues: Unremarkable. IMPRESSION: 1. Bilateral wall thickening and adjacent stranding associated with the renal collecting systems as well as the urinary bladder, suggesting UTI, with cystitis and bilateral pyelitis/ureteritis. 2. Patchy mild perinephric stranding around the lower pole of the right kidney and upper pole of the left kidney may indicate associated pyelonephritis. Postcontrast CT would be more sensitive and specific for pyelonephritis if clinically indicated. 3. Bilateral nonobstructive renal stones. No ureteral stones or hydronephrosis. 4. Findings at L5-S1 felt to be most suggestive of chronic changes of prior discitis at this point. If there is clinical suspicion for active discitis, MRI without and with contrast would allow more sensitive and specific assessment. 5. Additional non-emergent findings detailed above. Labs on day of discharge: Labs from last 24 hours 06/13/20 06/13/20 06:25 06:25 WBC 10.04 RBC 3.64 L Hgb 10.8 L Hct 32.6 L MCV 89.6 MCH 29.7 MCHC 33.1 RDW 11.6 L Plt Count 211 MPV 9.8 Immature Gran % 0.3 Neutrophils % 75.2 Lymphocytes % 16.4 Monocytes % 6.8 Eosinophils % 1.1 Basophils % 0.2 Nucleated RBC % 0 Absolute Neutrophils 7.55 H Absolute Lymphocytes 1.65 Absolute Monocytes 0.68 Absolute Eosinophils 0.11 Absolute Basophils 0.02 Sodium 138 Potassium 3.7 Chloride 105 Carbon Dioxide 26.6 Anion Gap 6.4 BUN 3 L Creatinine 0.8 Estimated GFR/1.73 m2 >= 60.00 Glucose 103 Calcium 8.6 Magnesium 1.7 L Preliminary micro results at discharge 06/11/20 16:00 Blood Culture - Preliminary Blood NO GROWTH 24 HOURS 06/11/20 15:45 Blood Culture - Preliminary Blood NO GROWTH 24 HOURS PFSH Medical History Contraception DepoProvera as teenager and shortly after her pregnancies. Depression Endometriosis Frequent headaches History of ETOH abuse Tobacco use Surgical History section 2000 & 2003 Social History Smoking/Tobacco Use Status: Current every day Tobacco Type: cigarettes Smoking risk assessment performed?: Yes Alcohol Intake: current Alcohol Intake frequency: a few times a week Drug use: Never Substance use type: does not use Do you feel safe at home: Yes Do you feel safe in your relationship?: Yes Female Reproductive History Menstrual control method: permanent sterilization and implanted History History 3 Para 2 Hx # Term Pregnancies Multiple births Hx # Pregnancies Ectopic pregnancies AB induced Hx Number of Living Children AB spontaneous
--- NOTE | 2020-06-13 14:29 | PDOC.CMDIS ---
- If Service Date Differs Date of service: 06/13/20 Time of Service: 14:29 LACE Index Scoring Tool - Questions: Length of Stay (in days): 2 Acuity (Admit via E.D.?): Yes E.D. Visits: 2 - Answers: Total Score: 7 Risk of Readmission: Low Risk Care Management Discharge Reason for Hospitalization: Pyelonephritis Discharge Plan: Domi will return home with no additional services. She will be driven home via private vehilce by family. She will follow up with her PCP and her discharge plan of care. She is happy to be going home. Patient/Family Education Needs: Review discharge instructions regarding activity levels and medications, discussion of self care needs including ask me three.
[2020-06-13 15:08] VITALS: BP 128/82; PULSE 76; RESP 17; TEMP 37.2; O2SAT 98
--- NOTE | 2020-06-13 16:38 | CHAPLAIN ---
Domi was in bed when I visited this morning. She said she was waiting to see the doctor and that she would be leaving today with or without their blessing. I explained my roled an offered support.
== END 2020-06-13 15:51 | disposition home or self-care (01) | DRG 690 ==
LOC: ER 19:19 → MS 20:08
PROVIDERS: Internal Medicine; Admitting Provider Family Medicine; Emergency Provider Emergency Medicine; PCP Nurse Practitioner Family; Visit Provider Family Medicine
DX: N10 Acute pyelonephritis (principal); R19.7 Diarrhea, unspecified; R11.2 Nausea with vomiting, unspecified; B96.20 Unspecified Escherichia coli [E. coli] as the cause of diseases classified elsewhere; F32.9 Major depressive disorder, single episode, unspecified; F17.210 Nicotine dependence, cigarettes, uncomplicated; N80.9 Endometriosis, unspecified; N20.0 Calculus of kidney
CPT/HCPCS: 36415; 80048; 80053; 83690; 87040; 87635; 96361; 96365; 96375; 96376; 99222; 99232; 99239; 99285; 83605; 83735; 85025; 99284; J0131; J0744; J1885; J2405

== ENCOUNTER 2020-06-16 18:33 | Outpatient (REF) | payer MEDICAID, SELFPAY ==
[2020-06-16 21:38] LABS: Abs Immature Grans 0.03 10^3/uL (0.0-0.06); Absolute Basophil Count 0.03 10^3/uL (0.0-0.2); Absolute Eosinophil Count 0.08 10^3/uL (0.0-0.7); Absolute Lymphocyte Count 2.09 10^3/uL (1.2-3.4); Absolute Monocyte Count 0.48 10^3/uL (0.1-0.8); Absolute Neutrophil Count 5.56 10^3/uL (1.2-6.7); Basophils % 0.4; HCT 36.3 % (36.0-46.0); HGB 12.2 g/dL (11.2-15.7); Immature Grans % 0.4; Lymphocytes % 25.3; MCH 29.8 pg (27.0-33.0); MCHC 33.6 % (32.0-36.0); MCV 88.5 fL (80-95); MPV 9.4 fL (8.0-11.0); Monocytes % 5.8; Neutrophils % 67.1; Nucleated RBC 0 %; Platelet Count 411 10^3/uL (130-400); RDW 11.9 % (11.7-14.6); RDW-SD 38.3 fL; WBC 8.27 10^3/uL (4.4-10.8)
[2020-06-16 21:50] LABS: ALT 153 U/L (14-59); AST 122 U/L (15-37); Albumin 3.8 g/dL (3.4-5.0); Alkaline Phosphatase 149 U/L (46-116); Anion Gap 11.7 mmol/L (3-11); BUN 8 mg/dL (7-18); Bilirubin, Total 0.4 mg/dL (0.2-1.0); CO2 25.3 mmol/L (21.0-32.0); CREATININE 0.8 mg/dL (0.55-1.02); Chloride 106 mmol/L (98-107); Glucose 109 mg/dL (74-106); Potassium 3.8 mmol/L (3.5-5.1); Sodium 143 mmol/L (136-145); Total Protein 7.6 g/dL (6.4-8.2)
== END 2020-06-16 18:34 | disposition home or self-care (01) ==
LOC: NCHCN 18:33
PROVIDERS: PCP Nurse Practitioner Family; Visit Provider Family Medicine
DX: N12 Tubulo-interstitial nephritis, not specified as acute or chronic (principal)
CPT/HCPCS: 80053; 85025

== ENCOUNTER 2020-06-17 17:02 | Emergency (ER) | payer MEDICAID, SELFPAY ==
[2020-06-17 17:06] VITALS: BP 153/83; PULSE 99; RESP 18; TEMP 36.7; O2SAT 98
--- NOTE | 2020-06-17 17:30 | DI.CT_ITS ---
EXAM: CT ABDOMEN PELVIS W CLINICAL HISTORY: central and left upper abdominal pain. TECHNIQUE: Imaging Protocol: Axial computed tomography images with coronal and sagittal reformatted images were created and reviewed CONTRAST MATERIAL: Intravenous: Omnipaque 90cc Oral: None COMPARISON: CR LUMBAR SPINE COMPLETE from 05/15/[address] ABDOMEN PELVIS WO from 06/10/2020 FINDINGS: VISUALIZED LUNG BASES: No nodules nor pleural effusions evident. ABDOMEN: There is no ascites in the upper abdomen.. LIVER: There are no focal hepatic lesions evident . GALLBLADDER/BILIARY: No obvious gallbladder pathology. CBD is not dilated. PANCREAS: No evidence of pancreatic mass nor dilatation of the pancreatic duct. SPLEEN: Calcified splenic granulomas are again noted. Spleen size is normal. Splenic and portal vei ns are patent. ADRENALS: There are no significant adrenal masses. KIDNEYS:There is now an abnormal area of hypodensity in the lateral cortex of the left kidney which w as not evident on the prior noninfused study. Given its sudden appearance from 1 week ago the 1st co nsideration would be for infectious process such as developing abscess. There are also very subtle h ypodense areas in the opposite-right kidney which may be related to pyelonephritis. There are nonobs tructive calculi in the kidneys again noted. The ureters are not dilated. There are no calculi in t he nondistended urinary bladder. No solid renal masses. No calculi nor hydronephrosis.. ABDOMINAL AORTA: Abdominal aorta is not enlarged. LYMPH NODES:There is no retroperitineal nor paraaortic adenopathy. ABDOMINAL WALL/GI: No evidence of significant anterior abdominal wall hernia. No bowel obstruction. PELVIS: GI: No evidence of appendicitis.No evidence of sigmoid diverticulitis. LYMPH NODES: There is no intrapelvic nor inguinal adenopathy. REPRODUCTIVE: Age-appropriate. There is a small amount of free fluid in the dependent aspect of the pelvis. URINARY BLADDER: No calculi nor obvious masses evident OSSEOUS: Sclerotic bone lesion noted left iliac bone. Most probably a benign bone island in the abse nce of underlying malignant history.. Sacroiliac joints appear unremarkable. IMPRESSION: 1. Compared to the prior noninfused CT scan of 06/10/2020 there has been development of a 13 x 11 mil limeter low-density area in the lateral cortex of the left kidney. First consideration is for phlegm on/abscess. There are additional subtle opacities in the kidneys which may represent pound nephritis . There are tiny nonobstructive calculi in the kidneys again noted. There is no hydronephrosis nor hydroureter. No obvious abnormality seen in the urinary bladder. 2. 1.4 cm sclerotic density noted left iliac bone which is probably a benign bone island in a patient without a history of neoplastic disease. If there AA if clinically indicated nuclear bone scan coul d be performed for further evaluation. 3. There is a small amount of free fluid in the pelvis noted. 4. RADIATION DOSE DELIVERED: 681.33mGy.cm Total DLP DATA REPOSITORY: All CT scans at this facility are submitted to the National Radiology Data Registry (NRDR) Dose Index Registry (DIR) with the [employer] (A[employer]). RADIATION OPTIMIZATION: All CT scans at this facility use at least one of these dose optimization te chniques: automated exposure control; mA and/or kV adjustment per patient size (includes targeted exa ms where dose is matched to clinical indication); or iterative reconstruction.
--- NOTE | 2020-06-17 17:46 | ED.GENADUL_ITS ---
Discharge Plan Disposition Patient Disposition: AGAINST MEDICAL ADVICE Condition: Serious Discharge Details Clinical Impression: Abscess of left kidney, Pyelonephritis, Transaminitis Primary Care Provider: Reynaldo Orozco ED Provider: Silas Garcia Home Meds and New Rx's Prescriptions: No Action Nexplanon 68 mg implant 1 implant SBD ONCE RF: 0 ibuprofen 200 mg Tablet 600 mg PO QID PRNRF: 0 acetaminophen 500 mg Tablet 1,000 mg PO Q6H PRNRF: 0 oxycodone-acetaminophen 5-325 mg Tablet 1 tab PO Q4H PRN PRNQty: 20 RF: 0 ciprofloxacin HCl [Cipro] 500 mg tablet 500 mg PO BID Qty: 20 RF: 0 ondansetron HCl [Zofran] 4 mg tablet 4 mg PO Q8H Qty: 10 RF: 0 cephalexin 500 mg capsule 500 mg PO TID RF: 0 Discharge Instructions Instructions: Against Medical Advice (ED) Additional Instructions: You are leaving AGAINST MEDICAL ADVICE. You understand you may have life- threatening or lifestyle modifying disease that would go untreated and worsen. Your condition may worsen and you may or suffer severe consequence Please return to the emerge department at any time for further treatment as recommended. It is recommended that you stop taking Tylenol and Percocet as it contains Tylenol. Stand Alone Forms: Work Release Referrals: Reynaldo Orozco MD [Primary Care Provider] - Discharge Data Discharge Date/Time-TO BE ENTERED AT DEPARTURE: 06/17/20 20:25 Medical Decision Making 1800??40-year-old female recently discharged after being treated for pyelonephritis, presents with persistent mid and left upper quadrant abdominal pain and tenderness with associated nausea and vomiting. Patient had outpatient labs done yesterday that showed transaminitis. She has been taking acetaminophen more frequently than prescribed and also taking Percocet raising concern for potential acetaminophen toxicity. Patient is clear that she has not taken more than 3200 mg acetaminophen daily over the past 3 days. Consider side effect of ciprofloxacin. Plan to repeat LFTs and check Tylenol level. Persistent abdominal pain in the setting of prior pyelonephritis is concerning for potential perinephric abscess. Will obtain repeat CT imaging to assess for acute surgical pathology. -- I called and spoke with poison control center and discussed ED presentation and course including diagnostics - poison control feels presentation not consistent with acute acetaminophen toxicity and do not recommend NAC at this time. 18:50 --CT of the abdomen pelvis was interpreted by radiology who I spoke with about the study, Dr. Duffy notes new attenuation in left kidney concerning for renal abscess. I called and spoke with Dr. Salcido, on-call urologist, discussed ED presentation and course, he recommends transfer to Center capable of performing IR intervention. Urine culture from 06/10/2020 reviewed: E. coli, pansensitive. Will initiate treatment with ampicillin and gentamicin IV 19:00 --I spoke with [facility] transfer center and requested transfer. CT imaging sent for review. Awaiting callback. 19:53 --All results were reviewed with the patient I had a discussion with the patient about my diagnostic/treatment plan including emergent transfer for continued treatment and potential procedural intervention. She declines plan and wishes to leave against medical advise. She notes she wants to go home and care for her daughter jazmin and plans to have someone drive her to [facility] tomorrow. I explained that this was not recommended and I reiterated my concerns to the patient and explained the risks of leaving prior to completion of workup and treatment. I offered to assist with care of patient's daughter. I specifically emphasized the possibility of life-threatening or lifestyle modifying disease that would not be appropriately treated if they leave. Patient verbalized understanding of my concerns and the potential for life threatening or lifestyle modifying disease. Patient has capacity to make informed decision. I again explained my concerns and urged the patient to stay for treatment as outlined. Patient continued to refuse. I then discussed potential less ideal alternatives to diagnostic/treatment plan as outlines and patient refused. I recommended that the patient follow-up with primary care physician [facility] or re turn to the Emergency Department at any time for further treatment. Patient will receive initial dose of gentamicin IV and ampicillin IV. She was advised to return to the emergency department at any time for further treatment as recommended. A summary of the ED visit was provided the patient seek care elsewhere. Medical Records Medical records reviewed: Yes I reviewed the patient's medical records. Lab Data Lab results reviewed: Yes I reviewed the patient's lab results. Labs: Laboratory Tests Range/Units 06/17/20 06/17/20 06/17/20 17:18 17:50 17:50 WBC (4.4-10.8) 10^3/uL 9.74 RBC (3.93-5.22) 10^6/uL 4.17 Hgb (11.2-15.7) g/dL 12.6 Hct (36.0-46.0) % 37.3 MCV (80-95) fL 89.4 MCH (27.0-33.0) pg 30.2 MCHC (32.0-36.0) % 33.8 RDW (11.7-14.6) % 11.9 Plt Count (130-400) 10^3/uL 430 H MPV (8.0-11.0) fL 8.7 Immature Gran % 0.3 Neutrophils % 66.4 Lymphocytes % 27.4 Monocytes % 4.8 Eosinophils % 0.6 Basophils % 0.5 Nucleated RBC % % 0 Absolute Neutrophils (1.2-6.7) 10^3/uL 6.46 Absolute Lymphocytes (1.2-3.4) 10^3/uL 2.67 Absolute Monocytes (0.1-0.8) 10^3/uL 0.47 Absolute Eosinophils (0.0-0.7) 10^3/uL 0.06 Absolute Basophils (0.0-0.2) 10^3/uL 0.05 PT (9.3-11.0) sec INR (0.9-1.1) Sodium (136-145) mmol/L 143 Potassium (3.5-5.1) mmol/L 3.4 L Chloride (98-107) mmol/L 103 Carbon Dioxide (21.0-32.0) mmol/L 27.0 Anion Gap (3-11) mmol/L 13.0 H BUN (7-18) mg/dL 7 Creatinine (0.55-1.02) mg/dL 0.9 Estimated GFR/1.73 m2 (mL/min/1.73m2) >= 60.00 Glucose (74-106) mg/dL 103 Calcium (8.5-10.1) mg/dL 9.8 Total Bilirubin (0.2-1.0) mg/dL 0.4 Conjugated Bilirubin (0.0-0.2) mg/dL 0.2 AST (15-37) U/L 90 H ALT (14-59) U/L 149 H Alkaline Phosphatase (46-116) U/L 142 H Total Protein (6.4-8.2) g/dL 8.7 H Albumin (3.4-5.0) g/dL 4.2 Lipase (73-393) U/L 70 Urine Color (Yellow) Yellow Urine Clarity (Clear) Clear Urine pH (5-8) 6.0 Ur Specific [place] (1.005-1.025) 1.020 Urine Protein (Negative) mg/dL Negative Urine Ketones (Negative) mg/dL 15 H Urine Blood (Negative) Small H Urine Nitrite (Negative) Negative Urine Bilirubin (Negative) Negative Urine Urobilinogen (Up TO 0.2) EU/dL 0.2 Ur Leukocyte Esterase (Negative) Negative Urine RBC (0-2) HPF 3-5 H Urine WBC (0-5) HPF 0-2 Ur Epithelial Cells (Negative) HPF Few Urine Crystals (Negative) HPF Negative Urine Bacteria (Negative) HPF Negative Urine Mucus (Negative) Moderate Ur Culture Indicated? No Urine Glucose (Negative) mg/dL Negative Acetaminophen (10-30) ug/mL Range/Units 06/17/20 06/17/20 17:50 17:50 WBC (4.4-10.8) 10^3/uL RBC (3.93-5.22) 10^6/uL Hgb (11.2-15.7) g/dL Hct (36.0-46.0) % MCV (80-95) fL MCH (27.0-33.0) pg MCHC (32.0-36.0) % RDW (11.7-14.6) % Plt Count (130-400) 10^3/uL MPV (8.0-11.0) fL Immature Gran % Neutrophils % Lymphocytes % Monocytes % Eosinophils % Basophils % Nucleated RBC % % Absolute Neutrophils (1.2-6.7) 10^3/uL Absolute Lymphocytes (1.2-3.4) 10^3/uL Absolute Monocytes (0.1-0.8) 10^3/uL Absolute Eosinophils (0.0-0.7) 10^3/uL Absolute Basophils (0.0-0.2) 10^3/uL PT (9.3-11.0) sec 11.5 H INR (0.9-1.1) 1.1 Sodium (136-145) mmol/L Potassium (3.5-5.1) mmol/L Chloride (98-107) mmol/L Carbon Dioxide (21.0-32.0) mmol/L Anion Gap (3-11) mmol/L BUN (7-18) mg/dL Creatinine (0.55-1.02) mg/dL Estimated GFR/1.73 m2 (mL/min/1.73m2) Glucose (74-106) mg/dL Calcium (8.5-10.1) mg/dL Total Bilirubin (0.2-1.0) mg/dL Conjugated Bilirubin (0.0-0.2) mg/dL AST (15-37) U/L ALT (14-59) U/L Alkaline Phosphatase (46-116) U/L Total Protein (6.4-8.2) g/dL Albumin (3.4-5.0) g/dL Lipase (73-393) U/L Urine Color (Yellow) Urine Clarity (Clear) Urine pH (5-8) Ur Specific [place] (1.005-1.025) Urine Protein (Negative) mg/dL Urine Ketones (Negative) mg/dL Urine Blood (Negative) Urine Nitrite (Negative) Urine Bilirubin (Negative) Urine Urobilinogen (Up TO 0.2) EU/dL Ur Leukocyte Esterase (Negative) Urine RBC (0-2) HPF Urine WBC (0-5) HPF Ur Epithelial Cells (Negative) HPF Urine Crystals (Negative) HPF Urine Bacteria (Negative) HPF Urine Mucus (Negative) Ur Culture Indicated? Urine Glucose (Negative) mg/dL Acetaminophen (10-30) ug/mL < 2 HPI General Mode of arrival: ambulatory . Date/Time Provider Initiated Documentation: 06/17/20 17:12 . Limitations to Documentation: no limitations . Information obtained by: patient . HPI Narrative: 40-year-old female presents with chief complaint of abdominal pain. Patient notes that she was seen here in the emergency department last week for abdominal pain similar to today, she was diagnosed with pyelonephritis and admitted to the hospital. She was treated with IV antibiotics and transition to ciprofloxacin orally at discharge on 06/13/2020. She notes that since discharge over the past few days she continues to have abdominal discomfort. Pain is localized to mid upper abdomen but also radiates to her left upper quadrant. She notes that she has felt a lump in her left upper quadrant that is tender today. Given her ongoing discomfort, she had blood work drawn by her PCP yesterday. PCP called her today noting elevated LFTs and recommended switching from ciprofloxacin to cephalexin. She has been taking Tylenol regularly to treat this pain. She notes she is also taking Percocet for her pain. Patient notes that she is taking no more than 2500 mg of Tylenol daily over the past 3 days. Reports on top of this she is taking Percocet twice daily. Total acetaminophen daily intake is around 3100 mg. Patient denies risk for hepatitis. No tick bites. No recent travel. No IV drug use. She called PCP office later today and noted sensation of lump in her abdomen was advised to seek care in emergency department. Related Data Home Medications Medication Instructions Recorded Confirmed ibuprofen 600 mg PO QID PRN 01/06/18 06/17/20 etonogestrel 68 mg subdermal 1 implant SBD ONCE 03/12/19 06/17/20 implant acetaminophen 1,000 mg PO Q6H PRN 06/10/20 06/17/20 ciprofloxacin HCl [Cipro] 500 mg PO BID #20 tab 06/13/20 ondansetron HCl [Zofran] 4 mg PO Q8H #10 tab 06/13/20 06/17/20 oxycodone-acetaminophen 1 tab PO Q4H PRN PRN #20 tab 06/13/20 06/17/20 cephalexin 500 mg PO TID 06/17/20 Previous Rx's Medication Instructions Recorded ciprofloxacin HCl [Cipro] 500 mg PO BID #20 tab 06/13/20 ondansetron HCl [Zofran] 4 mg PO Q8H #10 tab 06/13/20 oxycodone-acetaminophen 1 tab PO Q4H PRN PRN #20 tab 06/13/20 Allergies Allergy/AdvReac Type Severity Reaction Status Date / Time No Known Allergies Allergy Unverified 06/17/20 17:11 General Stated Complaint: FlankPain ANKIT: 3 Review of Systems All systems reviewed & are unremarkable except as noted in HPI and below Constitutional Constitutional: Denies fever(s) Gastrointestinal Gastrointestinal: Reports abdominal pain, Reports nausea and Reports vomiting Genitourinary Genitourinary: Denies hematuria, Denies dysuria, Denies pelvic pain and Denies vaginal discharge PFSH Medical History Contraception DepoProvera as teenager and shortly after her pregnancies. Depression Endometriosis Frequent headaches History of ETOH abuse Tobacco use Surgical History section 2000 & 2003 Social History Smoking/Tobacco Use Status: Current every day Tobacco Type: cigarettes Smoking risk assessment performed?: Yes Alcohol Intake: current Alcohol Intake frequency: a few times a week Drug use: Never Substance use type: does not use Do you feel safe at home: Yes Do you feel safe in your relationship?: Yes Female Reproductive History Menstrual control method: permanent sterilization and implanted History History 3 Para 2 Hx # Term Pregnancies Multiple births Hx # Pregnancies Ectopic pregnancies AB induced Hx Number of Living Children AB spontaneous Exam Const General: cooperative and no acute distress HENMT Mouth: moist mucous membranes Eyes Conjunctivae: normal conjunctivae Sclera: normal sclerae Resp Auscultation: clear to auscultation bilaterally, no rales, no rhonchi and no wheezes Cardio Rate: regular rate and not tachycardic Rhythm: regular rhythm GI Palpation: soft, not firm, no guarding, no hepatomegaly, no masses, no pulsatile masses, not rigid, tender in the LLQ, in the LUQ (With guarding) and in the RUQ; with no rebound tenderness and No ascites Auscultation: normal bowel sounds Skin General skin exam: no rashes or lesions noted Neuro General: patient alert, patient awake and tone normal Extrem General: no edema Psych Appearance: grossly normal Mental Status: mental status grossly normal Course Vital Signs Vital signs: Vital Signs Temperature 36.7 C 06/17/20 17:06 Pulse 99 H 06/17/20 17:06 Respiratory Rate 18 06/17/20 17:06 Blood Pressure 153/83 H 06/17/20 17:06 Pulse Oximetry 98 06/17/20 17:06 Temperature 36.7 C 06/17/20 17:06 Temperature Source Temporal Artery Scan 06/17/20 17:06 Pulse 99 H 06/17/20 17:06 Respiratory Rate 18 06/17/20 17:06 Respiratory Effort Non-Labored 06/17/20 17:10 Blood Pressure 153/83 H 06/17/20 17:06 Blood Pressure Position Sitting 06/17/20 17:06 Pulse Oximetry 98 06/17/20 17:06 Oxygen Delivery Method Room Air 06/17/20 17:06 Oxygen Flow Rate 0 06/17/20 17:06 Pain Level 7 06/17/20 17:06
[2020-06-17 17:50] LABS: Bilirubin Negative (Negative); Blood Small (Negative); Clarity Clear (Clear); Glucose Negative (Negative); Ketones 15 mg/dL (Negative); Leukocyte Esterase Negative (Negative); Nitrite Negative (Negative); Urobilinogen 0.2 EU/dL (Up TO 0.2)
[2020-06-17] MEDS: Normal Saline Flush 10 ML SYR IVP ×2 (17:50→18:26)
[2020-06-17] MEDS: Lactated Ringers 1,000 ML 1000 ML IV (17:50)
[2020-06-17 17:59] LABS: Bacteria Negative HPF (Negative); C & S Indicated? No; Crystals Negative HPF (Negative); Epithelial Cells Few HPF (Negative); Mucus Moderate (Negative); WBC 0-2 HPF (0-5)
[2020-06-17 18:00] LABS: Abs Immature Grans 0.03 10^3/uL (0.0-0.06); Absolute Basophil Count 0.05 10^3/uL (0.0-0.2); Absolute Eosinophil Count 0.06 10^3/uL (0.0-0.7); Absolute Lymphocyte Count 2.67 10^3/uL (1.2-3.4); Absolute Monocyte Count 0.47 10^3/uL (0.1-0.8); Absolute Neutrophil Count 6.46 10^3/uL (1.2-6.7); Basophils % 0.5; Eosinophils % 0.6; HCT 37.3 % (36.0-46.0); HGB 12.6 g/dL (11.2-15.7); Immature Grans % 0.3; Lymphocytes % 27.4; MCH 30.2 pg (27.0-33.0); MCHC 33.8 % (32.0-36.0); MCV 89.4 fL (80-95); MPV 8.7 fL (8.0-11.0); Monocytes % 4.8; Neutrophils % 66.4; Nucleated RBC 0 %; Platelet Count 430 10^3/uL (130-400); RBC 4.17 10^6/uL (3.93-5.22); RDW 11.9 % (11.7-14.6); RDW-SD 38.5 fL; WBC 9.74 10^3/uL (4.4-10.8)
[2020-06-17 18:10] LABS: INR 1.1 (0.9-1.1); Prothrombin Time 11.5 sec (9.3-11.0)
[2020-06-17 18:12] LABS: ALT 149 U/L (14-59); AST 90 U/L (15-37); Albumin 4.2 g/dL (3.4-5.0); Alkaline Phosphatase 142 U/L (46-116); BUN 7 mg/dL (7-18); Bilirubin, Direct 0.2 mg/dL (0.0-0.2); Bilirubin, Total 0.4 mg/dL (0.2-1.0); CREATININE 0.9 mg/dL (0.55-1.02); Calcium 9.8 mg/dL (8.5-10.1); Chloride 103 mmol/L (98-107); Glucose 103 mg/dL (74-106); Lipase 70 U/L (73-393); Potassium 3.4 mmol/L (3.5-5.1); Sodium 143 mmol/L (136-145); Total Protein 8.7 g/dL (6.4-8.2)
[2020-06-17 18:25] VITALS: BP 158/81; PULSE 68; RESP 16; TEMP 36.9; O2SAT 99
[2020-06-17] MEDS: Omnipaque 350 MG/ML 100 ML BTL IV (18:25)
[2020-06-17] MEDS: Normal Saline - Diluent 50 ML VIAL IV (18:26)
[2020-06-17 18:42] LABS: Acetaminophen < 2 ug/mL (10-30)
--- NOTE | 2020-06-17 18:46 | DI.VRAD_ITS ---
PROCEDURE INFORMATION: Exam: CT Abdomen And Pelvis With Contrast Exam date and time: 06/17/2020 6:12 PM Age: 40 years old Clinical indication: Other: Central and left upper abdominal pain, recent pyelonephritis 06/10, now lfts elevated TECHNIQUE: Imaging protocol: Computed tomography of the abdomen and pelvis with contrast. Radiation optimization: All CT scans at this facility use at least one of these dose optimization techniques: automated exposure control; mA and/or kV adjustment per patient size (includes targeted exams where dose is matched to clinical indication); or iterative reconstruction. Contrast material: OMNIPAQUE 350; Contrast volume: 90 ml; Contrast route: INTRAVENOUS (IV); COMPARISON: CT ABDOMEN PELVIS WO 06/10/2020 6:09 PM FINDINGS: Lungs: Bibasilar atelectasis Liver: Stable small cyst in the liver adjacent to the gallbladder Gallbladder and bile ducts: Normal. No calcified stones. No ductal dilation. Pancreas: Normal. No ductal dilation. Spleen: Normal. No splenomegaly. Adrenal glands: Normal. No mass. Kidneys and ureters: Newly developed irregularly-shaped low-attenuation area in the lateral posterior aspect of the left kidney. It measures 13 x 11 mm and may represent phlegmon/abscess. Series 4 image 23, 24... Additional patchy opacities in both kidneys may represent persistent pyelonephritis.. Nonobstructing right renal calculus Stomach and bowel: Diverticulosis of the rectosigmoid. No diverticulitis Appendix: Normal appendix Intraperitoneal space: Mild amount of free fluid in the pelvis Vasculature: Unremarkable. No abdominal aortic aneurysm. Lymph nodes: Node in the left para-aortic region Urinary bladder: Unremarkable as visualized. Reproductive: Unremarkable as visualized. Bones/joints: 1.4 cm sclerotic density noted in the left ilium, compatible with bone island (enostosis) in patient without history of neoplastic disease. Nuclear medicine bone scan may be useful for further evaluation if clinically indicated. Soft tissues: Unremarkable THIS REPORT CONTAINS FINDINGS THAT MAY BE CRITICAL TO PATIENT CARE. The findings were verbally communicated via telephone conference with MARIA CONTI at 6:43 PM EDT on 06/17/2020. The findings were acknowledged and understood. IMPRESSION: 1. Newly developed irregularly-shaped low-attenuation area in the lateral posterior aspect of the left kidney. It measures 13 x 11 mm and may represent phlegmon/ abscess. Series 4 image 23, 24... 2. Additional patchy opacities in both kidneys may represent persistent pyelonephritis.. Dictated and Authenticated by: Elvis Shell MD. Ordering:DIVINA Rosen MD
[2020-06-17] MEDS: Normal Saline 100 ML 200 ML (19:16)
[2020-06-17] MEDS: AMPICILLIN SODIUM 2 GM in Normal Saline 100 ML IVPB (19:48)
[2020-06-17 20:15] VITALS: BP 158/86; PULSE 80; RESP 16; TEMP 36.9; O2SAT 98
[2020-06-17 20:17] VITALS: BP 158/86; PULSE 80; RESP 16; TEMP 36.9; O2SAT 98
== END 2020-06-17 20:25 | disposition left against medical advice (07) ==
PROVIDERS: Emergency Provider Student in an Organized Health Care Education/Training Program; PCP Family Medicine
DX: N10 Acute pyelonephritis (principal); N15.1 Renal and perinephric abscess; R74.01 Elevation of levels of liver transaminase levels; R11.2 Nausea with vomiting, unspecified; B96.20 Unspecified Escherichia coli [E. coli] as the cause of diseases classified elsewhere; Z53.29 Procedure and treatment not carried out because of patient's decision for other reasons
CPT/HCPCS: 36415; 80053; 80076; 83690; 96361; 96365; 96367; 99285; 74177; 80329; 81003; 81015; 85025; 85610; J0290; J1580; J3490

== ENCOUNTER 2020-07-03 01:08 | Outpatient (CLI) | payer MEDICAID, SELFPAY ==
[2020-07-03] MEDS: Omnipaque 350 MG/ML 100 ML BTL IJ (13:08)
[2020-07-03] MEDS: Normal Saline - Diluent 50 ML VIAL IV (13:08)
--- NOTE | 2020-07-03 13:12 | DI.CT_ITS ---
Exam(s) CT ABDOMEN PELVIS W EXAM: CT ABDOMEN PELVIS W CLINICAL HISTORY: PYELONEPHRITIS, N12. TECHNIQUE: Imaging Protocol: Axial computed tomography images with coronal and sagittal reformatted images were created and reviewed CONTRAST MATERIAL: Intravenous: Omnipaque 100cc Oral: None COMPARISON: CT CT ABDOMEN PELVIS W from 06/17/2020 FINDINGS: VISUALIZED LUNG BASES: No nodules nor pleural effusions evident. ABDOMEN: There is no ascites. LIVER: There are no focal hepatic lesions evident . GALLBLADDER/BILIARY: No obvious gallbladder pathology. CBD is not dilated. PANCREAS: No evidence of pancreatic mass nor dilatation of the pancreatic duct. SPLEEN: Spleen size upper normal. Calcified granulomas in spleen are again noted. The splenic and p ortal veins are patent. KIDNEYS: There are 2 nonobstructive calculi in the right kidney noted. No new right kidney findings. Enhancement pattern of the right kidney is normal. In the opposite-left kidney the previously desc ribed area of abnormality in the upper lateral cortex is again noted, exhibiting minimal change from the previous study, perhaps slight decrease in size. No other left kidney findings. Adrenals:No cysts evident. No solid renal masses. No calculi nor hydronephrosis.. ABDOMINAL AORTA: Abdominal aorta is not enlarged. LYMPH NODES:There is no retroperitineal nor paraaortic adenopathy. ABDOMINAL WALL/GI: No evidence of significant anterior abdominal wall hernia. No bowel obstruction. PELVIS: GI: No evidence of appendicitis.No evidence of sigmoid diverticulitis. LYMPH NODES: There is no intrapelvic nor inguinal adenopathy. REPRODUCTIVE: Uterus size is normal. No adnexal masses but there are prominent bilateral parauterine veins which drain into slightly prominent bilateral gonadal veins, left draining into the left renal vein and right drain into the IVC. Findings consistent with pelvic congestion syndrome. URINARY BLADDER: No calculi nor obvious masses evident OSSEOUS: Previously described bone lesion left iliac bone is unchanged. IMPRESSION: 1. Previously described finding in the left kidney exhibits perhaps slight decrease in size from the recent CT scan of 06/17/2020. Still cannot exclude the possibly that this may represent a small intr arenal abscess. There are no calculi in left kidney seen. There are 2 nonobstructive calculi again noted in the opposite-right kidney. No hydronephrosis. 2. There are dilated periuterine veins bilaterally. These drain into somewhat prominent gonadal vein s. Findings consistent with an element of pelvic congestion syndrome. RADIATION DOSE DELIVERED: 660.08mGy.cm Total DLP DATA REPOSITORY: All CT scans at this facility are submitted to the National Radiology Data Registry (NRDR) Dose Index Registry (DIR) with the [employer] (ACR). RADIATION OPTIMIZATION: All CT scans at this facility use at least one of these dose optimization te chniques: automated exposure control; mA and/or kV adjustment per patient size (includes targeted exa ms where dose is matched to clinical indication); or iterative reconstruction.
== END 2020-07-03 01:28 ==
PROVIDERS: PCP Family Medicine; Visit Provider Family Medicine
DX: N12 Tubulo-interstitial nephritis, not specified as acute or chronic (principal); N20.0 Calculus of kidney; N94.89 Other specified conditions associated with female genital organs and menstrual cycle
CPT/HCPCS: 74177; J3490

== ENCOUNTER 2020-07-25 04:34 | Outpatient (CLI) | payer MEDICAID, SELFPAY ==
--- NOTE | 2020-07-25 | DI.US_ITS ---
Exam(s) US RENAL EXAM: US RENAL CLINICAL HISTORY: RENAL ABSCESS N15.1 TECHNIQUE: Ultrasound performed using standard protocol. COMPARISON: No exams were available for comparison FINDINGS: Renal ultrasound was performed according to the usual protocol. Kidneys are normal in size and shape . There is no evidence of a renal mass or hydronephrosis. There appear to be 2 small nonobstructing right renal calculi, estimated at 5 and 6 millimeters in diameter respectively. No left renal calcu li identified. Urinary bladder is unremarkable in appearance with pre and postvoid volume 110 cc and 4 cc respective ly. IMPRESSION: Probable nonobstructing right renal calculi, these were also seen on recent CT of July 03. No gerhard dence of urinary tract obstruction. No evidence of renal or Alethea renal fluid collection to suggest a bscess. DATA REPOSITORY:
--- NOTE | 2020-07-25 16:42 | DI.VRAD_ITS ---
PROCEDURE INFORMATION: Exam: US Retroperitoneal; Complete; Kidneys and Bladder Exam date and time: 07/25/2020 3:58 PM Age: 40 years old Clinical indication: Pain; Other: Renal abscess TECHNIQUE: Imaging protocol: Real-time ultrasound of the retroperitoneum with image documentation. Complete exam focused on the kidneys and bladder. COMPARISON: CT ABDOMEN PELVIS W 07/03/2020 1:09 PM FINDINGS: Right kidney: Nonobstructing calyceal stones at the right renal pelvis.No right hydronephrosis. Kidney length 10.8 cm. Left kidney: Normal. No stones. No hydronephrosis. Kidney length 10.5 cm. Urinary bladder: Pre-and post void bladder volumes 110 ml and 4 ml respectively. IMPRESSION: No acute abnormality. No fluid collection identified left kidney. Dictated and Authenticated by: Donal Tavarez MD. Ordering:PORFIRIO Jacobs MD
== END 2020-07-25 04:54 ==
PROVIDERS: PCP Family Medicine; Visit Provider Family Medicine
DX: N15.1 Renal and perinephric abscess (principal); N20.0 Calculus of kidney
CPT/HCPCS: 76770

== ENCOUNTER 2021-01-16 12:09 | Emergency (ER) | payer MEDICAID, SELFPAY ==
[2021-01-16 12:51] VITALS: BP 145/93; PULSE 105; RESP 18; TEMP 36.6; O2SAT 100
--- NOTE | 2021-01-16 14:01 | ED.GENADUL_ITS ---
Discharge Plan Disposition Patient Disposition: HOME Condition: Good Discharge Details Clinical Impression: Viral URI Primary Care Provider: Reynaldo Orozco ED Provider: Thiago Irby Home Meds and New Rx's Prescriptions: New benzonatate 100 mg capsule 100 mg PO TID Qty: 30 RF: 0 loratadine 10 mg capsule 10 mg PO DAILY Qty: 30 RF: 0 Continued Nexplanon 68 mg implant 1 implant SBD ONCE RF: 0 ibuprofen 200 mg Tablet 600 mg PO QID PRNRF: 0 acetaminophen 500 mg Tablet 500 mg PO Q6H PRNRF: 0 oxycodone-acetaminophen 5-325 mg Tablet 1 tab PO Q4H PRN PRNQty: 20 RF: 0 ciprofloxacin HCl [Cipro] 500 mg tablet 500 mg PO BID Qty: 20 RF: 0 ondansetron HCl [Zofran] 4 mg tablet 4 mg PO Q8H Qty: 10 RF: 0 cephalexin 500 mg capsule 500 mg PO TID RF: 0 Discharge Instructions Instructions: Upper Respiratory Infection (ED) Additional Instructions: At this time your symptoms appear consistent with a mild viral upper respiratory infection. There is no evidence of pneumonia currently. Please take the cough medication as directed to help with the cough. Please take the loratadine to help with the congestion and nasal drip. Please take 2 tablespoons of honey every 4-6 hours to help with the laryngitis and your sore throat. Your prescriptions have been sent to your pharmacy on file. You will be contacted with the results of your Covid test when it comes back. Please continue to wear a mask, wash your hands frequently. If you notice any worsening of your symptoms, or any new symptoms such as vomiting, diarrhea, fever, chills, shortness of breath, chest pain, numbness, weakness, or fainting , please return immediately to the emergency department for reevaluation. Please follow up with your primary care provider as soon as possible for reassessment and reevaluation. As always, it was a pleasure participating in your medical care today. Stand Alone Forms: Work Release Referrals: Reynaldo Orozco MD [Primary Care Provider] - Discharge Data Discharge Date/Time-TO BE ENTERED AT DEPARTURE: 01/16/21 14:10 Medical Decision Making 40-year-old female presents today for evaluation of 4 days of cough, fatigue, nausea, congestion, nasal drainage and sore throat. She has been taking occasional NSAIDs to help with myalgias. She denies any severe shortness of breath. She denies any hemoptysis. She has received her Covid vaccine. She does work at [employer]. She denies any other sick contacts. No other complaints at this time. Exam is notably unremarkable, no crackles, or rhonchi. Vital signs notably sta ble. Symptoms inconsistent with pneumonia at this time. No evidence of strep throat at all clinically. No other signs of significant concerning infection at this time. Suspect viral upper respiratory infection. Differential does include Covid but this is less likely. We will get an outpatient Covid test and contact the patient with the results. Will recommend Tessalon Perles and loratadine for congestion and cough. Discussed red flags which to return. I have extensively reviewed the treatment plan and discharge instructions with the patient. I have addressed all patient concerns at this time. The patient was made aware of what symptoms to monitor for that would warrant a return to the emergency department. Discussed the plan with the patient, they demonstrate verbal understanding and agreement with our assessment and plan at this time. The documentation in this chart was dictated using [email or web address] dictation software. Please excuse any dictation errors. HPI General Date/Time Provider Initiated Documentation: 01/16/21 13:07 . HPI Narrative: 40-year-old female presents today for evaluation of 4 days of cough, fatigue, nausea, congestion, nasal drainage and sore throat. She has been taking occasional NSAIDs to help with myalgias. She denies any severe shortness of breath. She denies any hemoptysis. She has received her Covid vaccine. She does work at [employer]. She denies any other sick contacts. No other complaints at this time. Related Data Home Medications Medication Instructions Recorded Confirmed ibuprofen 600 mg PO QID PRN 01/06/18 01/16/21 etonogestrel 68 mg subdermal 1 implant SBD ONCE 03/12/19 06/17/20 implant acetaminophen 500 mg PO Q6H PRN 06/10/20 01/16/21 ciprofloxacin HCl [Cipro] 500 mg PO BID #20 tab 06/13/20 ondansetron HCl [Zofran] 4 mg PO Q8H #10 tab 06/13/20 06/17/20 oxycodone-acetaminophen 1 tab PO Q4H PRN PRN #20 tab 06/13/20 06/17/20 cephalexin 500 mg PO TID 06/17/20 benzonatate 100 mg PO TID #30 cap 01/16/21 loratadine 10 mg PO DAILY #30 cap 01/16/21 Previous Rx's Medication Instructions Recorded ciprofloxacin HCl [Cipro] 500 mg PO BID #20 tab 06/13/20 ondansetron HCl [Zofran] 4 mg PO Q8H #10 tab 06/13/20 oxycodone-acetaminophen 1 tab PO Q4H PRN PRN #20 tab 06/13/20 benzonatate 100 mg PO TID #30 cap 01/16/21 loratadine 10 mg PO DAILY #30 cap 01/16/21 Allergies Allergy/AdvReac Type Severity Reaction Status Date / Time No Known Allergies Allergy Unverified 01/16/21 12:54 General Stated Complaint: Nausea/Vomit/Diar ANKIT: 3 Review of Systems All systems reviewed & are unremarkable except as noted in HPI and below PFSH Medical History Contraception DepoProvera as teenager and shortly after her pregnancies. Depression Endometriosis Frequent headaches History of ETOH abuse Tobacco use Surgical History section 2000 & 2003 Social History Smoking/Tobacco Use Status: Current every day Tobacco Type: cigarettes Smoking risk assessment performed?: Yes Alcohol Intake: current Alcohol Intake frequency: a few times a week Drug use: Never Substance use type: does not use Do you feel safe at home: Yes Do you feel safe in your relationship?: Yes Female Reproductive History Menstrual control method: permanent sterilization and implanted History History 3 Para 2 Hx # Term Pregnancies Multiple births Hx # Pregnancies Ectopic pregnancies AB induced Hx Number of Living Children AB spontaneous Exam Narrative Exam Narrative: 1.Const: Well-nourished, Well-developed, appearing stated age 2.Eyes: PERRL, no conjunctival injection, and symmetrical lids. 3.ENT: Atraumatic external nose and ears. Moist MM. Neck: Symmetric, trachea midline, No thyromegaly. No erythema in the posterior oropharynx. No tonsillar exudate or enlargement. 4.CVS: +S1/S2, No murmurs or gallops. Peripheral pulses 2+ and equal in all extremities. Brisk capillary refill in all extremities. 5.RESP: Unlabored respiratory effort. Clear to auscultation bilaterally. No wheezes rales or rhonchi 6.GI: Soft, Nontender/Nondistended, No hepatosplenomegaly. No guarding or rebound. 7.MSK: Normocephalic/Atraumatic, Extremities w/o deformity or ttp No cyanosis or clubbing, Normal movement of all extremities 8.Skin: Warm, Dry. No rashes or lesions. 9.Neuro: voice intercept technician II-XII grossly intact. Sensation grossly intact, no focal neurologic deficits. 10.Psych: (AAO) x3. Appropriate mood and affect Course Vital Signs Vital signs: Vital Signs Temperature 36.6 C 01/16/21 12:51 Pulse 105 H 01/16/21 12:51 Respiratory Rate 18 01/16/21 12:51 Blood Pressure 145/93 H 01/16/21 12:51 Pulse Oximetry 100 01/16/21 12:51 Temperature 36.6 C 01/16/21 12:51 Pulse 105 H 01/16/21 12:51 Respiratory Rate 18 01/16/21 12:51 Respiratory Effort Non-Labored 01/16/21 12:56 Blood Pressure 145/93 H 01/16/21 12:51 Blood Pressure Position Sitting 01/16/21 12:51 Pulse Oximetry 100 01/16/21 12:51 Oxygen Delivery Method Room Air 01/16/21 12:51 Oxygen Flow Rate 0 01/16/21 12:51 PAWSS Have you Been Recently Intoxicated or Drunk Within the Last 30 days?: No Have you Ever Experienced Previous Episodes of Alcohol Withdrawal?: No Have you ever Experienced Withdrawal Seizures?: No Have you ever Experienced Delirium Tremens(DT)s?: No Have you ever undergone Alcohol Rehabilitation Treatment (i.e, inpt ot outpatient treatment programs)?: No Have you ever Experienced Blackouts?: Yes Have you ever Combined Alcohol with other Downers within the last 90 days?: No Have you ever Combined Alcohol with any other Substance of Abuse during the last 90 days?: No Positive Blood Alcohol level on Presentation? [PCS.BAL]: No Evidence of Increased Autonomic Activity (i.e. HR>120, tremor, sweating, agitation, nausea)?: No Result: 1
[2021-01-17 15:10] LABS: COVID-19 RT-PCR UVMMC Result Negative (Negative)
--- NOTE | 2021-01-17 17:22 | NUR.NOTE ---
spoke to her mother via phone, relayed negative covid result. she will inform daughter.Nursing Note:
== END 2021-01-16 14:10 | disposition home or self-care (01) ==
PROVIDERS: Physician Assistant; Emergency Provider Student in an Organized Health Care Education/Training Program; PCP Family Medicine
DX: J06.9 Acute upper respiratory infection, unspecified (principal); B34.9 Viral infection, unspecified; J02.8 Acute pharyngitis due to other specified organisms; R05.1 Acute cough; M79.10 Myalgia, unspecified site; Z20.822 Contact with and (suspected) exposure to COVID-19; Z03.818 Encounter for observation for suspected exposure to other biological agents ruled out
CPT/HCPCS: 99283; U0003

== ENCOUNTER 2021-03-19 23:05 | Outpatient (REF) | payer MEDICAID, SELFPAY ==
[2021-03-21 15:10] LABS: COVID-19 RT-PCR UVMMC Result Negative (Negative)
== END 2021-03-19 23:06 | disposition home or self-care (01) ==
LOC: NCHCN 23:05
PROVIDERS: PCP Family Medicine; Visit Provider Family Medicine
DX: Z20.822 Contact with and (suspected) exposure to COVID-19 (principal); J06.9 Acute upper respiratory infection, unspecified
CPT/HCPCS: U0003

== ENCOUNTER 2021-03-28 14:58 | Emergency (ER) | payer MEDICAID, SELFPAY ==
[2021-03-28 15:13] VITALS: BP 156/94; PULSE 95; RESP 19; TEMP 36.3; O2SAT 97
--- NOTE | 2021-03-28 15:24 | W.ED.GENAD ---
Discharge Plan Disposition Patient Disposition: HOME Condition: Stable Discharge Details Clinical Impression: Viral URI with cough Primary Care Provider: Reynaldo Orozco ED Provider: Toshia Junior Home Meds and New Rx's Prescriptions: Continued Nexplanon 68 mg implant 1 implant SBD ONCE RF: 0 Discharge Instructions Instructions: Upper Respiratory Infection (ED), Acute Cough (ED), COVID-19 (Coronavirus Disease 2019) (ED) Additional Instructions: Your COVID test is pending. It is suspected that you have COVID-19 based on your symptoms and your recent exposure. Please quarantine until your test result is available. Discuss with your primary care doctor when to return to normal activity if your COVID test is positive. Drink plenty of fluids and get plenty of rest. Alternate tylenol and motrin as needed and directed for pain. Follow-up with your primary care doctor in 1 week. Return to the emergency department with any worsening or new concerning symptoms. Stand Alone Forms: PENDING COVID-19 TESTING, Work Release Discharge Data Discharge Date/Time-TO BE ENTERED AT DEPARTURE: 03/28/21 15:59 Discharge Physician: Toshia Junior Medical Decision Making 41 yo F who has received 2 doses of covid vaccine presents for request for covid test as local urgent care not open. She has typical covid symptoms including headache, nasal congestion, runny nose, cough, body aches, and diarrhea but denies any significant shortness of breath or vomiting. Patient does not want any work-up here in the ED and is only requesting a Covid test. Blood pressure mildly hypertensive. She is afebrile and otherwise appears nontoxic. Normal ENT exam. Lungs clear bilaterally. Oxygen saturation 97% on room air. Send out Covid swab obtained by nurse prior to my evaluation. Discussed with patient that it is presumed that she has Covid based on her symptoms with recent close covid exposure. Advised to quarantine until directed otherwise by her primary care doctor or the Department of Health. Usual and customary return precautions given prior to discharge. Medical Records Medical records reviewed: Yes I reviewed the patient's medical records. HPI General Mode of arrival: ambulatory. Date/Time Provider Initiated Documentation: 03/28/21 15:24. Limitations to Documentation: no limitations. Information obtained by: patient. HPI Narrative: Patient is a 41-year-old female who has received 2 doses of the Covid vaccine who presents for request for a Covid test. She states for the past several days she has had fatigue, body aches, headache, chills, cough, diarrhea and recently learned that her daughter has tested positive for Covid. Patient states she has not received a booster vaccine. She denies any vomiting or difficulty breathing. Patient states she tried to go to the local urgent care but it was closed and was referred here for the Covid test as she states her employer needs a covid test before she returns to work. Related Data Home Medications Medication Instructions Recorded Confirmed etonogestrel 68 mg subdermal 1 implant SBD ONCE 03/12/19 03/28/21 implant Allergies Allergy/AdvReac Type Severity Reaction Status Date / Time No Known Allergies Allergy Unverified 03/28/21 15:16 General Stated Complaint: RespSymp ANKIT: 4 Review of Systems All systems reviewed & are unremarkable except as noted in HPI and below Constitutional Constitutional: Reports as per HPI, Reports body ache(s), Denies chills, Reports fatigue, Denies fever(s), Reports headache(s) and Reports malaise Eyes Eyes: Denies blurry vision ENT Ears, Nose, Mouth, and Throat: Denies dizziness, Reports headache(s), Denies sore throat and Denies throat swelling Cardiovascular Cardiovascular: Denies chest pain and Denies dyspnea Respiratory Respiratory: Reports cough and Denies dyspnea Gastrointestinal Gastrointestinal: Denies abdominal pain, Reports diarrhea and Denies vomiting Genitourinary Genitourinary: Denies hematuria and Denies dysuria Musculoskeletal Musculoskeletal: Denies back pain and Denies numbness Integumentary/Breasts Skin/Breast: Denies lesions and Denies rash Neurologic Neurologic: Denies dizziness, Reports headache(s), Denies localized weakness and Denies numbness Endocrine Endocrine: Reports fatigue Allergic/Immunologic Allergic/Immunologic: Denies throat swelling [facility] All Active Problems (Updated 03/28/21 @ 15:36 by Toshia Junior DO) Abscess of left kidney (Acute) Pyelonephritis (Acute) Transaminitis (Acute) Viral URI (Acute) Viral URI with cough (Acute) Tobacco use (Acute) Pyelonephritis (Acute) Medical History Contraception DepoProvera as teenager and shortly after her pregnancies. Depression Endometriosis Frequent headaches History of ETOH abuse Tobacco use Surgical History section 2000 & 2003 Social History Smoking/Tobacco Use Status: Current every day Tobacco Type: cigarettes Smoking risk assessment performed?: Yes Alcohol Intake: current Alcohol Intake frequency: a few times a week Drug use: Never Substance use type: does not use Do you feel safe at home: Yes Do you feel safe in your relationship?: Yes Female Reproductive History Menstrual control method: permanent sterilization and implanted History History 3 Para 2 Hx # Term Pregnancies Multiple births Hx # Pregnancies Ectopic pregnancies AB induced Hx Number of Living Children AB spontaneous Exam Const General: cooperative, healthy appearing and no acute distress HENMT Head: normal to inspection Ears: hearing grossly normal bilaterally, external ears normal and TM's normal bilaterally General nose exam: external nose normal Face and sinus: normal facial exam Mouth: oral mucosae normal Throat: posterior oropharynx normal Eyes General: appearance normal, both eyes and all related structures EOM: EOM intact bilaterally Neck Neck: normal visual inspection and No submandibular swelling Lymphatic: no lymphadenopathy noted Chest Chest: normal inspection of the chest and no tenderness Resp Effort & Inspection: normal respiratory effort and able to speak in complete sentences Auscultation: clear to auscultation bilaterally Cardio Rate: regular rate Rhythm: regular rhythm GI Inspection: normal to inspection Palpation: soft, not firm, not rigid and nontender Auscultation: normal bowel sounds Skin General skin exam: no rashes or lesions noted Neuro General: patient alert, patient awake, patient oriented x3, moves all extremities and no meningeal signs Cognition: normal cognition Speech: speech normal Motor: muscle tone normal throughout Sensory Exam: no sensory deficits noted Extrem General: normal to inspection, full ROM, capillary refill normal, no calf tenderness bilaterally and no edema Psych Appearance: grossly normal Mental Status: mental status grossly normal Speech and Movement: speech and movement normal Affect: normal affect Course Vital Signs Vital signs: Vital Signs Temperature 97.4 F L 03/28/21 15:13 Pulse 95 H 03/28/21 15:13 Respiratory Rate 19 03/28/21 15:13 Blood Pressure 156/94 H 03/28/21 15:13 Pulse Oximetry 97 03/28/21 15:13 Temperature 97.4 F L 03/28/21 15:13 Temperature Source Oral 03/28/21 15:13 Pulse 95 H 03/28/21 15:13 Respiratory Rate 19 03/28/21 15:13 Respiratory Effort 03/28/21 15:20 Blood Pressure 156/94 H 03/28/21 15:13 Blood Pressure Position Sitting 03/28/21 15:13 Pulse Oximetry 97 03/28/21 15:13 Oxygen Delivery Method Room Air 03/28/21 15:13 Oxygen Flow Rate 0 03/28/21 15:13 PAWSS Have you Been Recently Intoxicated or Drunk Within the Last 30 days?: Unable to Obtain Have you Ever Experienced Previous Episodes of Alcohol Withdrawal?: Unable to Obtain Have you ever Experienced Withdrawal Seizures?: Unable to Obtain Have you ever Experienced Delirium Tremens(DT)s?: Unable to Obtain Have you ever undergone Alcohol Rehabilitation Treatment (i.e, inpt ot outpatient treatment programs)?: Unable to Obtain Have you ever Experienced Blackouts?: Unable to Obtain Have you ever Combined Alcohol with other Downers within the last 90 days?: Unable to Obtain Have you ever Combined Alcohol with any other Substance of Abuse during the last 90 days?: Unable to Obtain Positive Blood Alcohol level on Presentation? [PCS.BAL]: Unable to Obtain Evidence of Increased Autonomic Activity (i.e. HR>120, tremor, sweating, agitation, nausea)?: Unable to Obtain
[2021-03-29 22:17] LABS: COVID-19 RT-PCR UVMMC Result Positive (Negative)
--- NOTE | 2021-03-30 12:43 | W.ED.FU ---
Patient made aware regarding positive Covid test and need for continued isolation, work note provided
== END 2021-03-28 15:59 | disposition home or self-care (01) ==
PROVIDERS: Emergency Provider Physician Assistant; PCP Family Medicine
DX: U07.1 COVID-19 (principal)
CPT/HCPCS: 99282; U0003

== ENCOUNTER 2021-07-14 09:42 | Emergency (ER) | payer MEDICAID, SELFPAY ==
[2021-07-14 09:51] VITALS: BP 132/98; PULSE 104; RESP 16; TEMP 35.9; O2SAT 100
[2021-07-14 10:21] LABS: Bilirubin Negative (Negative); Blood Moderate (Negative); Clarity Cloudy (Clear); Glucose Negative (Negative); Ketones Negative (Negative); Leukocyte Esterase Large (Negative); Nitrite Negative (Negative); Specific Gravity 1.015 (1.005-1.025); Urobilinogen 0.2 EU/dL (Up TO 0.2); pH 5.5 (5-8)
--- NOTE | 2021-07-14 10:24 | ED.GENADUL_ITS ---
Discharge Plan Disposition Patient Disposition: HOME Condition: Improving Discharge Details Clinical Impression: Renal colic on right side Primary Care Provider: Reynaldo Orozco ED Provider: Geronimo Townsend Home Meds and New Rx's Prescriptions: New cephalexin 500 mg capsule 500 mg PO TID 5 Days Qty: 15 0RF hydrocodone-acetaminophen 5-325 mg tablet 1 tab PO Q6H PRN (Reason: pain) Qty: 7 0RF tamsulosin [Flomax] 0.4 mg capsule 0.4 mg PO DAILY Qty: 5 0RF Continued Nexplanon 68 mg implant 1 implant SBD ONCE 0RF Discharge Instructions Instructions: Abdominal Pain (ED) Additional Instructions: Flomax once daily while having symptoms of kidney stone pain. This may make you slightly lightheaded when quickly rising to a standing position. Please follow-up with Dr. Salcido in clinic. Call the office tomorrow for an appointment time. I discussed your case with him today. The office number is [phone]. Take antibiotics as prescribed. Ibuprofen for pain with the hydrocodone/acetaminophen as needed for severe or breakthrough pain. No additional Tylenol, alcohol, or driving while using this medication. Medical Decision Making 41-year-old female presents from home with 3 days of right-sided back pain similar to previous pyelonephritis. She left the ER without being seen yesterday. She has had some sort of chills at home and nausea. She arrives afebrile but tachycardic with right flank and abdominal tenderness on exam. Differential diagnosis includes pyelonephritis, UTI, renal colic. Patient IV access established, parenteral fluids initiated. Patient given paren teral analgesia with Toradol and acetaminophen. Laboratories had a white count of 11.7, hematocrit 43, platelets 313. Chemistries are unrevealing. Urinalysis appears contaminated but contains blood , leuk esterase and mixed cells on micro urinalysis. CT reveals moderate right hydronephrosis with 3 to 4 mm calculus proximal to the the right UVJ. Case discussed with Dr. Salcido who will see the patient in follow-up. We will empirically treat for UTI with a course of Keflex. I will consider further use of narcotic and will place her on a short course of Flomax. She is stable and improved. HPI General Mode of arrival: ambulatory . Date/Time Provider Initiated Documentation: 07/14/21 09:48 . Limitations to Documentation: no limitations . Information obtained by: patient . History of Present Illness 41 year old F presents to the emergency department with the chief complaint of Right flank pain, similar to previous, described as moderate and similar to prior episodes, Quality is described as dull and constant, and is localized to the back and right. Patient reports no radiation. Patient started experiencing this day(s) and it has been constant. improves with No relieving factors improve symptom(s), No exacerbating factors reported . Patient notes denies fever/chills. Patient did receive the following treatments prior to arrival, none Related Data Home Medications Medication Instructions Recorded Confirmed etonogestrel 68 mg subdermal 1 implant SBD ONCE 03/12/19 07/14/21 implant (Nexplanon) cephalexin 500 mg capsule 500 mg PO TID 5 Days #15 cap 07/14/21 hydrocodone 5 mg-acetaminophen 325 1 tab PO Q6H PRN #7 tab 07/14/21 mg tablet tamsulosin 0.4 mg capsule (Flomax) 0.4 mg PO DAILY #5 cap 07/14/21 Previous Rx's Medication Instructions Recorded cephalexin 500 mg capsule 500 mg PO TID 5 Days #15 cap 07/14/21 hydrocodone 5 mg-acetaminophen 325 1 tab PO Q6H PRN #7 tab 07/14/21 mg tablet tamsulosin 0.4 mg capsule (Flomax) 0.4 mg PO DAILY #5 cap 07/14/21 Allergies Allergy/AdvReac Type Severity Reaction Status Date / Time No Known Allergies Allergy Unverified 07/14/21 09:57 General Stated Complaint: FlankPain ANKIT: 3 Review of Systems Narrative: Nauseated but no vomiting. Subjective chills. 6 systems reviewed and otherwise neg PFSH All Active Problems (Updated 07/14/21 @ 12:08 by Geronimo Townsend MD) Abscess of left kidney (Acute) Pyelonephritis (Acute) Transaminitis (Acute) Viral URI (Acute) Renal colic on right side (Acute) Tobacco use (Acute) Pyelonephritis (Acute) Medical History Contraception DepoProvera as teenager and shortly after her pregnancies. Depression Endometriosis Frequent headaches History of ETOH abuse Tobacco use Surgical History section 2000 & 2003 Social History Smoking/Tobacco Use Status: Current every day Tobacco Type: cigarettes Smoking risk assessment performed?: Yes Alcohol Intake: current Alcohol Intake frequency: a few times a week Drug use: Never Substance use type: does not use Do you feel safe at home: Yes Do you feel safe in your relationship?: Yes Female Reproductive History Menstrual control method: permanent sterilization and implanted History History 3 Para 2 Hx # Term Pregnancies Multiple births Hx # Pregnancies Ectopic pregnancies AB induced Hx Number of Living Children AB spontaneous Exam Narrative Exam Narrative: GEN: awake, alert, oriented 3. Pleasant, well groomed, interactive. HEAD: Normocephalic, atraumatic ENT: Mucous membranes moist, oropharynx unremarkable, External ear exam unremarkable EYES: PERRL, EOMI NECK: Full ROM, no EAN, no menigismus CHEST/RESP: Nontender, clear to auscultation bilateral, no wheeze/rhonchi/rales CARDIOVASCULAR: Regular and tachycardic, no murmur, rub josue. 2+ Rad pulse bilateral ABDOMEN: Soft, minimal right abdominal tenderness to palpation without rebound or guarding, no mass. +Bowel sounds. Right flank tender to percussion EXT: Full ROM, no edema, no rash Neuro: Grossly normal neurologic exam, conversant, interactive. Psych: Speech fluent, thoughts congruent, affect normal Course Vital Signs Vital signs: Vital Signs Temperature 35.9 C L 07/14/21 09:51 Pulse 104 H 07/14/21 09:51 Respiratory Rate 16 07/14/21 09:51 Blood Pressure 132/98 H 07/14/21 09:51 Pulse Oximetry 100 07/14/21 09:51 Temperature 35.9 C L 07/14/21 09:51 Temperature Source Temporal Artery Scan 07/14/21 09:51 Pulse 104 H 07/14/21 09:51 Respiratory Rate 16 07/14/21 09:51 Respiratory Effort 07/14/21 09:51 Blood Pressure 132/98 H 07/14/21 09:51 Blood Pressure Position Sitting 07/14/21 09:51 Pulse Oximetry 100 07/14/21 09:51 Oxygen Delivery Method Room Air 07/14/21 09:51 Oxygen Flow Rate 0 07/14/21 09:51 Pain Level 8 07/14/21 09:58 Lab/Test Results Lab/Test Results: Laboratory Tests Range/Units 07/14/21 09:50 Urine Color (Yellow) Yellow Urine Clarity (Clear) Cloudy Urine pH (5-8) 5.5 Ur Specific [place] (1.005-1.025) 1.015 Urine Protein (Negative) mg/dL Negative Urine Ketones (Negative) mg/dL Negative Urine Blood (Negative) Moderate H Urine Nitrite (Negative) Negative Urine Bilirubin (Negative) Negative Urine Urobilinogen (Up TO 0.2) EU/dL 0.2 Ur Leukocyte Esterase (Negative) Large H Urine Glucose (Negative) mg/dL Negative POC- Test(urine) Negative
[2021-07-14 10:28] LABS: Crystals Negative HPF (Negative); Epithelial Cells Moderate HPF (Negative); WBC 20-50 HPF (0-5)
[2021-07-14 10:29] LABS: Bacteria Few HPF (Negative); C & S Indicated? No/Sq. Contamination; Mucus Trace (Negative)
[2021-07-14] MEDS: cefTRIAXone 1 GM/50 ML BAG IVPB (10:52)
[2021-07-14] MEDS: Ketorolac 15 MG/ML VIAL IVP (10:52)
[2021-07-14] MEDS: Normal Saline 1,000 ML 1000 ML IV (10:52)
[2021-07-14 10:56] LABS: Abs Immature Grans 0.04 10^3/uL (0.0-0.06); Absolute Basophil Count 0.05 10^3/uL (0.0-0.2); Absolute Lymphocyte Count 3.73 10^3/uL (1.2-3.4); Absolute Monocyte Count 0.69 10^3/uL (0.1-0.8); Basophils % 0.4; Eosinophils % 1.4; HCT 43.2 % (36.0-46.0); HGB 14.4 g/dL (11.2-15.7); Immature Grans % 0.3; Lymphocytes % 31.7; MCH 29.6 pg (27.0-33.0); MCHC 33.3 % (32.0-36.0); MCV 89 fL (80-95); MPV 9.6 fL (8.0-11.0); Monocytes % 5.9; Neutrophils % 60.3; Platelet Count 313 10^3/uL (130-400); RBC 4.87 10^6/uL (3.93-5.22); RDW 11.8 % (11.7-14.6); RDW-SD 37.8 fL; WBC 11.76 10^3/uL (4.4-10.8)
--- NOTE | 2021-07-14 10:57 | DI.CT_ITS ---
Exam(s) CT RENAL COLIC WO EXAM: CT RENAL COLIC WO CLINICAL HISTORY: R flank pain, hx pyelonephritis stones. TECHNIQUE: Imaging Protocol: Axial computed tomography images with coronal and sagittal reformatted images were created and reviewed CONTRAST MATERIAL: Intravenous: none Oral: None COMPARISON: CT ABD PELVIS WITH CONTRAST from 09/20/[address] ABDOMEN PELVIS W from 07/03/2020 FINDINGS: VISUALIZED LUNG BASES: Not included. ABDOMEN: There is no ascites. LIVER: There are no obvious focal hepatic lesions evident of this noninfused study. GALLBLADDER/BILIARY: No obvious gallbladder pathology. CBD is not dilated. PANCREAS: No evidence of pancreatic mass nor dilatation of the pancreatic duct. SPLEEN: Spleen size normal. Calcified splenic granulomas are again noted. ADRENALS: There are no significant adrenal masses. KIDNEYS:Left kidney exhibits a small 2 millimeter nonobstructive calculus in the upper pole region. There is now hydronephrosis and hydroureter on the right side. Previously present calculus in the ri ght kidney is now migrated into the right pelvic ureter, this measuring 3-4 millimeters and located a few cm above the ureterovesical junction. There are no remaining calculi in the right kidney. No c alculi seen in the urinary bladder. Bladder is not distended.. ABDOMINAL AORTA: Abdominal aorta is not enlarged. LYMPH NODES: There is no retroperitoneal nor paraaortic adenopathy. ABDOMINAL WALL: No evidence of significant anterior abdominal wall nor inguinal hernia. GI: There is no evidence of bowel obstruction, free air, nor abscess. PELVIS: LYMPH NODES: There is no intrapelvic nor inguinal adenopathy. GI: No evidence of appendicitis.No evidence of sigmoid diverticulitis. URINARY BLADDER: No calculi nor obvious masses evident REPRODUCTIVE: Uterus and adnexal regions unremarkable. No free fluid in the pelvis. OSSEOUS: There is a peripherally sclerotic bone lesion again noted in the left iliac bone, exhibiting minimal if any significant change compared to CT scan of September 2016 and therefore most probably benig n. IMPRESSION: 1. There is unilateral mild-moderate right-sided hydronephrosis due to a 3-4 millimeter calculus in t he lower right ureter few cm above the right ureterovesical junction. No other right kidney findings . There is a tiny 1-2 millimeter nonobstructive calculus in the opposite-left kidney. There are no calculi in the urinary bladder. 2. Other findings as above Called to ER provider by myself RADIATION DOSE DELIVERED: 700.62mGy.cm Total DLP DATA REPOSITORY: All CT scans at this facility are submitted to the National Radiology Data Registry (NRDR) Dose Index Registry (DIR) with the [employer] (ACR). RADIATION OPTIMIZATION: All CT scans at this facility use at least one of these dose optimization te chniques: automated exposure control; mA and/or kV adjustment per patient size (includes targeted exa ms where dose is matched to clinical indication); or iterative reconstruction.
[2021-07-14 10:58] LABS: Absolute Eosinophil Count 0.16 10^3/uL (0.0-0.7); Absolute Neutrophil Count 7.09 10^3/uL (1.2-6.7)
[2021-07-14 11:13] LABS: ALT 29 U/L (14-59); AST 19 U/L (15-37); Albumin 4.4 g/dL (3.4-5.0); Alkaline Phosphatase 77 U/L (46-116); Anion Gap 9.5 mmol/L (3-11); BUN 9 mg/dL (7-18); Bilirubin, Total 0.7 mg/dL (0.2-1.0); CO2 26.5 mmol/L (21.0-32.0); CREATININE 0.9 mg/dL (0.55-1.02); Calcium 9.1 mg/dL (8.5-10.1); Chloride 104 mmol/L (98-107); Glucose 99 mg/dL (74-106); Potassium 3.8 mmol/L (3.5-5.1); Sodium 140 mmol/L (136-145); Total Protein 8.5 g/dL (6.4-8.2)
[2021-07-14] MEDS: ACETAMINOPHEN 1,000 MG/100 ML BTL 400 MG IVPB (11:14)
== END 2021-07-14 12:58 | disposition home or self-care (01) ==
PROVIDERS: Emergency Provider Emergency Medicine; PCP Family Medicine
DX: N13.2 Hydronephrosis with renal and ureteral calculous obstruction (principal); R00.0 Tachycardia, unspecified; R10.9 Unspecified abdominal pain; Z87.442 Personal history of urinary calculi
CPT/HCPCS: 80053; 81025; 87077; 96361; 96365; 96375; 99284; 74176; 81003; 81015; 85025; 87086; 87186; J0131; J0696; J1885

== ENCOUNTER 2021-07-15 20:16 | Emergency (ER) | payer MEDICAID, SELFPAY ==
[2021-07-15 20:19] VITALS: BP 131/86; PULSE 87; RESP 18; TEMP 36.5; O2SAT 98
--- NOTE | 2021-07-15 20:29 | ED.GENADUL_ITS ---
Discharge Plan Discharge Details Chief Complaint: Nk/Back Pain Primary Care Provider: Reynaldo Orozco ED Provider: Nikita Bernal Home Meds and New Rx's Prescriptions: No Action Nexplanon 68 mg implant 1 implant SBD ONCE 0RF cephalexin 500 mg capsule 500 mg PO TID 5 Days Qty: 15 0RF hydrocodone-acetaminophen 5-325 mg tablet 1 tab PO Q6H PRN (Reason: pain) Qty: 7 0RF tamsulosin [Flomax] 0.4 mg capsule 0.4 mg PO DAILY Qty: 5 0RF Medical Decision Making UA obtained today does not reveal any signs of infection. Patient with 3.5 cm stone diagnosed yesterday. She will be treated symptomatically in the emergency department HPI General Date/Time Provider Initiated Documentation: 07/15/21 20:17 . HPI Narrative: 41-year-old presented to the emergency room for evaluation of recurrent flank pain. Pain is located on the right flank. Radiation to right flank. She was diagnosed with a kidney stone yesterday. 3.5 nonobstructive stone. Recurrence of pain happened several hours ago. For that reason she has not been taking any pain medication because she vomits everything. No associated fevers or chills. No hematuria. No urinary symptoms. The pain is described as moderate Related Data Home Medications Medication Instructions Recorded Confirmed etonogestrel 68 mg subdermal 1 implant SBD ONCE 03/12/19 07/15/21 implant (Nexplanon) cephalexin 500 mg capsule 500 mg PO TID 5 Days #15 cap 07/14/21 07/15/21 hydrocodone 5 mg-acetaminophen 325 1 tab PO Q6H PRN #7 tab 07/14/21 07/15/21 mg tablet tamsulosin 0.4 mg capsule (Flomax) 0.4 mg PO DAILY #5 cap 07/14/21 07/15/21 Previous Rx's Medication Instructions Recorded cephalexin 500 mg capsule 500 mg PO TID 5 Days #15 cap 07/14/21 hydrocodone 5 mg-acetaminophen 325 1 tab PO Q6H PRN #7 tab 07/14/21 mg tablet tamsulosin 0.4 mg capsule (Flomax) 0.4 mg PO DAILY #5 cap 07/14/21 Allergies Allergy/AdvReac Type Severity Reaction Status Date / Time No Known Allergies Allergy Unverified 07/14/21 09:57 General Stated Complaint: Nk/Back Pain ANKIT: 3 Review of Systems Narrative: Constitutional negative for fevers and chills. Positive for malaise and fatigue HEENT negative Cardiovascular no palpitations Respiratory no cough no shortness of breath GI see HPI see HPI MSK negative Skin negative Neuro positive headache Psych positive anxiety Hematological not on blood thinnners PFSH All Active Problems (Updated 07/14/21 @ 12:08 by Geronimo Townsend MD) Abscess of left kidney (Acute) Pyelonephritis (Acute) Transaminitis (Acute) Viral URI (Acute) Renal colic on right side (Acute) Tobacco use (Acute) Pyelonephritis (Acute) Medical History Contraception DepoProvera as teenager and shortly after her pregnancies. Depression Endometriosis Frequent headaches History of ETOH abuse Tobacco use Surgical History section 2000 & 2003 Social History Smoking/Tobacco Use Status: Current every day Tobacco Type: cigarettes Smoking risk assessment performed?: Yes Alcohol Intake: current Alcohol Intake frequency: a few times a week Drug use: Never Substance use type: does not use Do you feel safe at home: Yes Do you feel safe in your relationship?: Yes Female Reproductive History Menstrual control method: permanent sterilization and implanted History History 3 Para 2 Hx # Term Pregnancies Multiple births Hx # Pregnancies Ectopic pregnancies AB induced Hx Number of Living Children AB spontaneous Exam Narrative Exam Narrative: Exam Narrative: GEN: awake, alert, oriented 3. Pleasant, well groomed, interactive. HEAD: Normocephalic, atraumatic ENT: Mucous membranes moist EYES: PERRL, EOMI NECK: Full ROM, CHEST/RESP: Nontender, clear to auscultation bilateral, no wheeze/rhonchi/rales CARDIOVASCULAR: Regular and tachycardic, no murmur, rub josue. 2+ Rad pulse bilateral ABDOMEN: Soft, minimal right abdominal tenderness to palpation without rebound or guarding, no mass. +Bowel sounds.? Right flank tender to percussion EXT: Full ROM, no edema, no rash Neuro: Grossly normal neurologic exam, conversant, interactive. Psych: Speech fluent, thoughts congruent, affect normal Course Vital Signs Vital signs: Vital Signs Temperature 36.5 C 05/11/22 20:19 Pulse 87 07/15/21 20:19 Respiratory Rate 18 07/15/21 20:19 Blood Pressure 131/86 07/15/21 20:19 Pulse Oximetry 98 07/15/21 20:19 Temperature 36.5 C 07/15/21 20:19 Temperature Source Tympanic 07/15/21 20:19 Pulse 87 07/15/21 20:19 Respiratory Rate 18 07/15/21 20:19 Blood Pressure 131/86 07/15/21 20:19 Blood Pressure Position Sitting 07/15/21 20:19 Pulse Oximetry 98 07/15/21 20:19 Oxygen Delivery Method Room Air 07/15/21 20:19 Oxygen Flow Rate 0 07/15/21 20:19 Pain Level 10 07/15/21 20:19
[2021-07-15 20:49] LABS: Bilirubin Negative (Negative); Blood Moderate (Negative); Clarity Clear (Clear); Glucose Negative (Negative); Ketones Negative (Negative); Leukocyte Esterase Negative (Negative); Nitrite Negative (Negative); Specific Gravity 1.025 (1.005-1.025); Urobilinogen 0.2 EU/dL (Up TO 0.2)
[2021-07-15] MEDS: Normal Saline 1,000 ML 1000 ML IV (20:50)
[2021-07-15] MEDS: Ketorolac 15 MG/ML VIAL IVP (20:50)
[2021-07-15] MEDS: Ondansetron 4 MG/2 ML VIAL IVP (20:50)
[2021-07-15 21:01] LABS: Bacteria Rare HPF (Negative); C & S Indicated? No/Sq. Contamination; Crystals Negative HPF (Negative); Epithelial Cells Many HPF (Negative); Mucus Negative (Negative)
[2021-07-15 22:06] VITALS: BP 121/78; PULSE 73; RESP 18; O2SAT 99
== END 2021-07-15 22:08 | disposition home or self-care (01) ==
PROVIDERS: Emergency Provider Emergency Medicine; PCP Family Medicine
DX: N20.0 Calculus of kidney (principal)
CPT/HCPCS: 96361; 96374; 96375; 99284; 81003; 81015; J1885; J2405

== ENCOUNTER 2021-07-27 02:46 | Day surgery (SDC) | payer MEDICAID, SELFPAY ==
[2021-07-27] VITALS (8 sets, daily range): BP systolic 130–166; BP diastolic 78–108; PULSE 66–91; RESP 10–18; TEMP 36.1–36.7; TEMPC 36.3; O2SAT 97–100; BMI 25.2
--- NOTE | 2021-07-27 02:45 | DI.CT_ITS ---
Exam(s) CT RENAL COLIC WO EXAM: CT RENAL COLIC WO CLINICAL HISTORY: Persistent R kidney stone pain, hx renal abscess. TECHNIQUE: Imaging Protocol: Axial computed tomography images with coronal and sagittal reformatted images were created and reviewed. CONTRAST MATERIAL: Noncontrast COMPARISON: CT CT RENAL COLIC WO from 07/14/2021 FINDINGS: ABDOMEN: Lung Bases: Normal where visualized. Liver: Normal attenuation. No measurable mass. Gallbladder and biliary tract: No radiodense calculus or dilation. Pancreas: Normal density, no calcifications or inflammatory process. Spleen: Normal. Kidneys: Moderate right hydronephrosis secondary to a 4 millimeter stone in the distal right ureter. The position is not significantly changed from prior exam. Tiny nonobstructing stone upper pole lef t kidney. No left hydronephrosis.. No masses seen. Adrenal glands: No masses seen. Abdominal Aorta: Abdominal portion non-dilated. PELVIS: Bladder: Symmetric distention, no gross wall thickening. Bowel: No obstruction or bowel wall thickening. Peritoneal cavity: No ascites, collection or mesenteric inflammatory response. Bones: Degenerative disc changes L5-S1, otherwise within normal limits. IMPRESSION: Stable moderate right hydronephrosis. Stable position of 4 millimeter stone in the distal right uret er. RADIATION DOSE DELIVERED: 557.83mGy.cm Total DLP DATA REPOSITORY: All CT scans at this facility are submitted to the National Radiology Data Registry (NRDR) Dose Index Registry (DIR) with the [employer] (ACR). RADIATION OPTIMIZATION: All CT scans at this facility use at least one of these dose optimization te chniques: automated exposure control; mA and/or kV adjustment per patient size (includes targeted exa ms where dose is matched to clinical indication); or iterative reconstruction.
--- NOTE | 2021-07-27 03:14 | ED.GENADUL_ITS ---
Discharge Plan Disposition Patient Disposition: [facility] INPATIENT Condition: Stable Discharge Details Chief Complaint: FlankPain Clinical Impression: Kidney stone on right side, UTI (urinary tract infection) Primary Care Provider: Reynaldo Orozco ED Provider: Thiago Irby Home Meds and New Rx's Prescriptions: No Action Nexplanon 68 mg implant 1 implant SBD ONCE hydrocodone-acetaminophen 5-325 mg tablet 1 tab PO Q6H PRN (Reason: pain) Qty: 7 0RF tamsulosin [Flomax] 0.4 mg capsule 0.4 mg PO DAILY Qty: 5 0RF ondansetron 4 mg tablet,disintegrating 4 mg PO Q6H PRNQty: 10 0RF Medical Decision Making 41-year-old female with a past medical history of a previous renal abscess, who was recently diagnosed with a kidney stone about 10 to 12 days ago, who was started on an antibiotic Keflex at that time as well as Flomax, presents today for continued right flank pain. Patient states that the pain has transitioned from the right flank to the right groin area. She continues to have symptomatic pain, but denies any fever or chills. She has been taking the Flomax as directed. She finished her Keflex a few days ago. She denies any chest pain or shortness of breath. She denies any diarrhea. She does admit to some urinary irritation. Kidney stone on last CT scan was around 3 mm. She has not required a stent in the past. She has no other complaints at this time. She has been taking NSAIDs with only minimal improvement. Physical exam demonstrates right CVA tenderness, mild right-sided abdominal pain. Differential is highest for continued kidney stone, now potentially with hydronephrosis. We will get a urinalysis to evaluate for potential of UTI. We will treat the patient's pain, rehydrate, monitor closely and reassess. [address] scan results have returned, demonstrates evidence of moderate right hydroureteronephrosis secondary to an obstructing 4 mm calculus. Laboratory work-up demonstrates an elevated white count of 14 with left shift. No bands. Urinalysis shows notable UTI with greater than 50 WBCs, positive nitrates, and leuk esterase. Renal function is good. Cefepime was started on the patient for 2 g total. We will reach out to urology for potential stenting. 5:15 AM Discussed the case with Dr. Salcido. He agrees with the plan. He will take the patient to the OR this morning. We will keep the patient here in the ER until she is able to transition to the operating room. FINDINGS: Lungs: Visualized lung bases are clear. No pleural effusions. Liver: Two punctate calcified granulomas are noted in the right lobe. No acute or suspicious abnormality. Gallbladder and bile ducts: Unremarkable. No calcified gallstones. No intrahepatic or extrahepatic biliary ductal dilation. Pancreas: Unremarkable. Spleen: The spleen is normal in size and contains multiple tiny calcified granulomas. Adrenal glands: Unremarkable. Kidneys and ureters: There is moderate right hydroureteronephrosis secondary to an obstructing 4 mm calculus in the distal right ureter (series 2, image 101). There is a 2 mm nonobstructing calculus in the upper pole of the left kidney. The left renal collecting system and left ureter are normal in caliber. Stomach and bowel: Unremarkable. The stomach is nondilated. The small and large bowel are normal in caliber. Appendix: A nondilated appendix is identified. Intraperitoneal space: Unremarkable. No ascites, fluid collection, or pneumoperitoneum. Retroperitoneal space: Unremarkable. No retroperitoneal collection or mass. Vasculature: Unremarkable. The abdominal aorta is normal in caliber. Lymph nodes: No pathologically enlarged lymph nodes. Urinary bladder: Unremarkable. No intraluminal calcifications. Reproductive: Unremarkable as visualized. Bones/joints: Degenerative changes at L5-S1. No suspicious osseous lesions. Soft tissues: Unremarkable. Other findings: None. IMPRESSION: Moderate right hydroureteronephrosis secondary to an obstructing 4 mm calculus in the distal right ureter. Thank you for allowing us to participate in the care of your patient. Dictated and Authenticated by: Joyce Barker MD 07/27/2021 4:20 AM Eastern Time ([place] & [place]) HPI General Date/Time Provider Initiated Documentation: 07/27/21 02:50 . HPI Narrative: 41-year-old female with a past medical history of a previous renal abscess, who was recently diagnosed with a kidney stone about 10 to 12 days ago, who was started on an antibiotic Keflex at that time as well as Flomax, presents today for continued right flank pain. Patient states that the pain has transitioned from the right flank to the right groin area. She continues to have symptomatic pain, but denies any fever or chills. She has been taking the Flomax as directed. She finished her Keflex a few days ago. She denies any chest pain or shortness of breath. She denies any diarrhea. She does admit to some urinary irritation. Kidney stone on last CT scan was around 3 mm. She has not required a stent in the past. She has no other complaints at this time. She has been taking NSAIDs with only minimal improvement. Related Data Home Medications Medication Instructions Recorded Confirmed etonogestrel 68 mg subdermal 1 implant subdermal ONCE 03/12/19 07/27/21 implant (Nexplanon) hydrocodone 5 mg-acetaminophen 325 1 tab PO Q6H PRN pain #7 tabs 07/14/21 07/15/21 mg tablet tamsulosin 0.4 mg capsule (Flomax) 0.4 mg PO DAILY #5 caps 07/14/21 07/15/21 ondansetron 4 mg disintegrating 4 mg PO Q6H PRN #10 tabs 07/15/21 tablet Previous Rx's Medication Instructions Recorded hydrocodone 5 mg-acetaminophen 325 1 tab PO Q6H PRN pain #7 tabs 07/14/21 mg tablet tamsulosin 0.4 mg capsule (Flomax) 0.4 mg PO DAILY #5 caps 07/14/21 ondansetron 4 mg disintegrating 4 mg PO Q6H PRN #10 tabs 07/15/21 tablet Allergies Allergy/AdvReac Type Severity Reaction Status Date / Time No Known Allergies Allergy Unverified 07/27/21 02:53 General Stated Complaint: FlankPain ANKIT: 3 Review of Systems All systems reviewed & are unremarkable except as noted in HPI and below PFSH All Active Problems (Updated 07/27/21 @ 05:15 by Thiago Irby DO) Abscess of left kidney (Acute) Pyelonephritis (Acute) Transaminitis (Acute) Viral URI (Acute) Renal colic on right side (Acute) Kidney stone on right side (Acute) UTI (urinary tract infection) (Acute) Tobacco use (Acute) Pyelonephritis (Acute) Medical History Contraception DepoProvera as teenager and shortly after her pregnancies. Depression Endometriosis Frequent headaches History of ETOH abuse Surgical History section 2000 & 2003 Social History Smoking/Tobacco Use Status: Current every day Tobacco Type: cigarettes Smoking risk assessment performed?: Yes Alcohol Intake: current Alcohol Intake frequency: a few times a week Drug use: Never Substance use type: does not use Do you feel safe at home: Yes Do you feel safe in your relationship?: Yes Female Reproductive History Menstrual control method: permanent sterilization and implanted History History 3 Para 2 Hx # Term Pregnancies Multiple births Hx # Pregnancies Ectopic pregnancies AB induced Hx Number of Living Children AB spontaneous Exam Narrative Exam Narrative: 1.Const: Well-nourished, Well-developed, appearing stated age 2.Eyes: PERRL, no conjunctival injection, and symmetrical lids. 3.ENT: Atraumatic external nose and ears. Moist MM. Neck: Symmetric, trachea midline, No thyromegaly. 4.CVS: +S1/S2, No murmurs or gallops. Peripheral pulses 2+ and equal in all extremities. Brisk capillary refill in all extremities. 5.RESP: Unlabored respiratory effort. Clear to auscultation bilaterally. No wheezes rales or rhonchi 6.GI: Soft, Nontender/Nondistended, No hepatosplenomegaly. No guarding or rebound. Mild reproduction of pain on palpation of the right flank. 7.MSK: Normocephalic/Atraumatic, Extremities w/o deformity or ttp No cyanosis or clubbing, Normal movement of all extremities notable right CVA tenderness. No left CVA tenderness. 8.Skin: Warm, Dry. No rashes or lesions. 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 Sensation grossly intact, no focal neurologic deficits. 10.Psych: (AAO) x3. Appropriate mood and affect Course Vital Signs Vital signs: Vital Signs Temperature 36.6 C 07/27/21 02:51 Pulse 77 07/27/21 02:51 Respiratory Rate 18 07/27/21 02:51 Blood Pressure 143/78 H 07/27/21 02:51 Pulse Oximetry 100 07/27/21 02:51 Temperature 36.6 C 07/27/21 02:51 Temperature Source Skin 07/27/21 02:51 Pulse 77 07/27/21 02:51 Respiratory Rate 18 07/27/21 02:51 Respiratory Effort Non-Labored 07/27/21 02:56 Blood Pressure 143/78 H 07/27/21 02:51 Blood Pressure Position Supine 07/27/21 02:51 Pulse Oximetry 100 07/27/21 02:51 Oxygen Delivery Method Room Air 07/27/21 02:51 Oxygen Flow Rate 0 07/27/21 02:51 Pain Level 10 07/27/21 02:56 PAWSS Have you Been Recently Intoxicated or Drunk Within the Last 30 days?: No Have you Ever Experienced Previous Episodes of Alcohol Withdrawal?: No Have you ever Experienced Withdrawal Seizures?: No Have you ever Experienced Delirium Tremens(DT)s?: No Have you ever undergone Alcohol Rehabilitation Treatment (i.e, inpt ot outpatient treatment programs)?: No Have you ever Experienced Blackouts?: No Have you ever Combined Alcohol with other Downers within the last 90 days?: No Have you ever Combined Alcohol with any other Substance of Abuse during the last 90 days?: No Positive Blood Alcohol level on Presentation? [PCS.BAL]: No Evidence of Increased Autonomic Activity (i.e. HR>120, tremor, sweating, agitation, nausea)?: No Result: 0
[2021-07-27] MEDS: MORPHine 4 MG/ML SYR IVP (03:19)
[2021-07-27 03:20] LABS: Bilirubin Negative (Negative); Blood Moderate (Negative); Clarity Sl Cloudy (Clear); Glucose Negative (Negative); Ketones Negative (Negative); Leukocyte Esterase Small (Negative); Nitrite Positive (Negative); Urobilinogen 0.2 EU/dL (Up TO 0.2)
[2021-07-27] MEDS: Normal Saline 1,000 ML 1000 ML IV (03:20)
[2021-07-27 03:29] LABS: Bacteria Many HPF (Negative); C & S Indicated? Yes; Casts Negative LPF (Negative); Crystals Negative HPF (Negative); Epithelial Cells Rare HPF (Negative); Mucus Negative (Negative); WBC >50 HPF (0-5)
[2021-07-27 03:40] LABS: Abs Immature Grans 0.03 10^3/uL (0.0-0.06); Absolute Basophil Count 0.06 10^3/uL (0.0-0.2); Absolute Eosinophil Count 0.19 10^3/uL (0.0-0.7); Absolute Lymphocyte Count 5.42 10^3/uL (1.2-3.4); Absolute Monocyte Count 0.79 10^3/uL (0.1-0.8); Absolute Neutrophil Count 7.93 10^3/uL (1.2-6.7); Basophils % 0.4; Eosinophils % 1.3; HCT 39.4 % (36.0-46.0); HGB 13.1 g/dL (11.2-15.7); Immature Grans % 0.2; Lymphocytes % 37.6; MCHC 33.2 % (32.0-36.0); MCV 90 fL (80-95); MPV 10.3 fL (8.0-11.0); Monocytes % 5.5; Platelet Count 300 10^3/uL (130-400); RBC 4.37 10^6/uL (3.93-5.22); RDW 12.2 % (11.7-14.6); RDW-SD 40.4 fL; WBC 14.42 10^3/uL (4.4-10.8)
[2021-07-27 03:46] LABS: Diff Comment Agrees w/ Instrument; RBC Morphology Normal
[2021-07-27] MEDS: CEFEPIME 2 GM in Normal Saline 100 ML IVPB (03:53)
[2021-07-27 03:57] LABS: ALT 40 U/L (14-59); AST 17 U/L (15-37); Alkaline Phosphatase 76 U/L (46-116); Anion Gap 9.1 mmol/L (3-11); BUN 18 mg/dL (7-18); Bilirubin, Total 0.4 mg/dL (0.2-1.0); CO2 26.9 mmol/L (21.0-32.0); CREATININE 0.9 mg/dL (0.55-1.02); Calcium 8.8 mg/dL (8.5-10.1); Chloride 109 mmol/L (98-107); Glucose 102 mg/dL (74-106); Potassium 3.9 mmol/L (3.5-5.1); Sodium 145 mmol/L (136-145); Total Protein 7.5 g/dL (6.4-8.2)
[2021-07-27] MEDS: HYDROmorphone 2 MG/ML VIAL 1 MG IVP ×2 (04:02→05:06)
--- NOTE | 2021-07-27 04:21 | DI.VRAD_ITS ---
PROCEDURE INFORMATION: Exam: CT Abdomen And Pelvis Without Contrast Exam date and time: 07/27/2021 3:48 AM Age: 41 years old Clinical indication: Abdominal pain; Patient HX: Persistant right sided flank pain. HX of renal abscess. TECHNIQUE: Imaging protocol: Computed tomography of the abdomen and pelvis without contrast. COMPARISON: CT ABDOMEN PELVIS W 07/03/2020 1:09 PM FINDINGS: Lungs: Visualized lung bases are clear. No pleural effusions. Liver: Two punctate calcified granulomas are noted in the right lobe. No acute or suspicious abnormality. Gallbladder and bile ducts: Unremarkable. No calcified gallstones. No intrahepatic or extrahepatic biliary ductal dilation. Pancreas: Unremarkable. Spleen: The spleen is normal in size and contains multiple tiny calcified granulomas. Adrenal glands: Unremarkable. Kidneys and ureters: There is moderate right hydroureteronephrosis secondary to an obstructing 4 mm calculus in the distal right ureter (series 2, image 101). There is a 2 mm nonobstructing calculus in the upper pole of the left kidney. The left renal collecting system and left ureter are normal in caliber. Stomach and bowel: Unremarkable. The stomach is nondilated. The small and large bowel are normal in caliber. Appendix: A nondilated appendix is identified. Intraperitoneal space: Unremarkable. No ascites, fluid collection, or pneumoperitoneum. Retroperitoneal space: Unremarkable. No retroperitoneal collection or mass. Vasculature: Unremarkable. The abdominal aorta is normal in caliber. Lymph nodes: No pathologically enlarged lymph nodes. Urinary bladder: Unremarkable. No intraluminal calcifications. Reproductive: Unremarkable as visualized. Bones/joints: Degenerative changes at L5-S1. No suspicious osseous lesions. Soft tissues: Unremarkable. Other findings: None. IMPRESSION: Moderate right hydroureteronephrosis secondary to an obstructing 4 mm calculus in the distal right ureter. Dictated and Authenticated by: Joyce Barker MD. Ordering:JASMYNE Das MD
[2021-07-27] MEDS: ACETAMINOPHEN 1,000 MG/100 ML BTL 400 MG IVPB (05:06)
[2021-07-27 07:19] LABS: Source Nasal/Nares
--- NOTE | 2021-07-27 07:20 | W.PM.HP.N ---
Date of service: 07/27/21 Time of Service: 06:20 Assessment and Plan Assessment and plan (1) Renal colic on right side: Status: Acute Assessment and plan: Her right kidney stone has not progressed. Her urinalysis is suspicious for urinary tract infection, so I am recommending that we place a ureteral stent to unblock the right kidney. Once any infection has been treated, we can return to the operating room for ureteroscopy and holmium laser lithotripsy of her stone. I explained that we would likely need to address this particular stone with 2 separate operating room visits. (2) UTI (urinary tract infection): Status: Acute History of Present Illness History of Present Illness Chief Complaint: Right ureteral stone Narrative: This is a 41-year-old woman who has a past history significant for left-sided pyelonephritis and possible renal abscess. She did not require a drainage procedure. She was treated with antibiotics alone. She developed right-sided flank pain about 2 weeks ago. She was found to have a 3 mm distal ureteral stone. She had no signs of infection at that time, so she was treated conservatively. She presented to the emergency department last evening with worsening back pain and pain in the right lower quadrant. A repeat CT showed no progression of her ureteral stone. Her urine is now suspicious for urinary tract infection and her serum white blood count has increased. She is not febrile or tachycardic. She is agreeable to a stent placement to relieve her right ureteral obstruction. Review of Systems Narrative: No fevers or chills No vision change or dysphasia No diabetes or thyroid No shortness of breath, cough or hemoptysis No chest pain or palpitations No hepatitis, ulcers, jaundice, diarrhea or constipation No seizures, strokes or peripheral neuropathy No bleeding disorders or anemia No gout or arthralgia PFSH All Active Problems (Updated 07/27/21 @ 05:15 by Thiago Irby DO) Abscess of left kidney (Acute) Pyelonephritis (Acute) Transaminitis (Acute) Viral URI (Acute) Renal colic on right side (Acute) Kidney stone on right side (Acute) UTI (urinary tract infection) (Acute) Tobacco use (Acute) Pyelonephritis (Acute) Medical History Contraception DepoProvera as teenager and shortly after her pregnancies. Depression Endometriosis Frequent headaches History of ETOH abuse Surgical History section 2000 & 2003 Social History Smoking/Tobacco Use Status: Current every day Tobacco Type: cigarettes Smoking risk assessment performed?: Yes Alcohol Intake: current Alcohol Intake frequency: a few times a week Drug use: Never Substance use type: does not use Do you feel safe at home: Yes Do you feel safe in your relationship?: Yes Female Reproductive History Menstrual control method: permanent sterilization and implanted History History 3 Para 2 Hx # Term Pregnancies Multiple births Hx # Pregnancies Ectopic pregnancies AB induced Hx Number of Living Children AB spontaneous Meds Allergies and Home Medications Allergies Allergy/AdvReac Type Severity Reaction Status Date / Time No Known Allergies Allergy Unverified 07/27/21 02:53 Home Medications Medication Instructions Recorded Confirmed Type etonogestrel 68 mg subdermal 1 implant subdermal ONCE 03/12/19 07/27/21 History implant (Nexplanon) hydrocodone 5 mg-acetaminophen 325 1 tab PO Q6H PRN pain #7 tabs 07/14/21 07/15/21 Rx mg tablet tamsulosin 0.4 mg capsule (Flomax) 0.4 mg PO DAILY #5 caps 07/14/21 07/15/21 Rx ondansetron 4 mg disintegrating 4 mg PO Q6H PRN #10 tabs 07/15/21 Rx tablet Exam Const General: cooperative Neck Neck: supple Resp Effort & Inspection: normal respiratory effort Auscultation: clear to auscultation bilaterally Cardio Rate: regular rate Rhythm: regular rhythm GI Palpation: not rigid Skin General skin exam: other (multiple tattoos) Neuro General: patient alert, patient awake and patient oriented x3 Results Imaging Abdomen CT scan report/results: image reviewed (I reviewed the CT scan on the PACS system. There is right hydronephrosis and hydroureter down to an obstructing right distal ureteral stone) Labs Result diagrams: 07/27/21 03:10 07/27/21 03:10 Labs: Laboratory Results - last 24 hr 07/27/21 07/27/21 07/27/21 03:08 03:10 03:10 WBC 14.42 H RBC 4.37 Hgb 13.1 Hct 39.4 MCV 90 MCH 30.0 MCHC 33.2 RDW 12.2 Plt Count 300 MPV 10.3 Immature Gran % 0.2 Neutrophils % 55.0 Lymphocytes % 37.6 Monocytes % 5.5 Eosinophils % 1.3 Basophils % 0.4 Nucleated RBC % 0.0 Absolute Neutrophils 7.93 H Absolute Lymphocytes 5.42 H Absolute Monocytes 0.79 Absolute Eosinophils 0.19 Absolute Basophils 0.06 RBC Morphology Normal Sodium 145 Potassium 3.9 Chloride 109 H Carbon Dioxide 26.9 Anion Gap 9.1 BUN 18 Creatinine 0.9 Estimated GFR/1.73 m2 >= 60.00 Glucose 102 Calcium 8.8 Total Bilirubin 0.4 AST 17 ALT 40 Alkaline Phosphatase 76 Total Protein 7.5 Albumin 4.0 Urine Color Yellow Urine Clarity Sl Cloudy Urine pH 6.0 Ur Specific [place] 1.020 Urine Protein 30 H Urine Ketones Negative Urine Blood Moderate H Urine Nitrite Positive H Urine Bilirubin Negative Urine Urobilinogen 0.2 Ur Leukocyte Esterase Small H Urine RBC 3-5 H Urine WBC >50 H Ur Epithelial Cells Rare Urine Crystals Negative Urine Bacteria Many Urine Casts Negative Urine Mucus Negative Ur Culture Indicated? Yes Urine Glucose Negative COVID-19 Source 07/27/21 07:14 WBC RBC Hgb Hct MCV MCH MCHC RDW Plt Count MPV Immature Gran % Neutrophils % Lymphocytes % Monocytes % Eosinophils % Basophils % Nucleated RBC % Absolute Neutrophils Absolute Lymphocytes Absolute Monocytes Absolute Eosinophils Absolute Basophils RBC Morphology Sodium Potassium Chloride Carbon Dioxide Anion Gap BUN Creatinine Estimated GFR/1.73 m2 Glucose Calcium Total Bilirubin AST ALT Alkaline Phosphatase Total Protein Albumin Urine Color Urine Clarity Urine pH Ur Specific [place] Urine Protein Urine Ketones Urine Blood Urine Nitrite Urine Bilirubin Urine Urobilinogen Ur Leukocyte Esterase Urine RBC Urine WBC Ur Epithelial Cells Urine Crystals Urine Bacteria Urine Casts Urine Mucus Ur Culture Indicated? Urine Glucose COVID-19 Source Nasal/Nares Last Vital Signs Temp 36.7 C 07/27/21 04:51 Pulse 79 07/27/21 04:51 Resp 18 07/27/21 04:51 BP 158/83 H 07/27/21 04:51 Pulse Ox 99 07/27/21 04:51 PAWSS Have you Been Recently Intoxicated or Drunk Within the Last 30 days?: No Have you Ever Experienced Previous Episodes of Alcohol Withdrawal?: No Have you ever Experienced Withdrawal Seizures?: No Have you ever Experienced Delirium Tremens(DT)s?: No Have you ever undergone Alcohol Rehabilitation Treatment (i.e, inpt ot outpatient treatment programs)?: No Have you ever Experienced Blackouts?: No Have you ever Combined Alcohol with other Downers within the last 90 days?: No Have you ever Combined Alcohol with any other Substance of Abuse during the last 90 days?: No Positive Blood Alcohol level on Presentation? [PCS.BAL]: No Evidence of Increased Autonomic Activity (i.e. HR>120, tremor, sweating, agitation, nausea)?: No Result: 0
--- NOTE | 2021-07-27 07:30 | ANES.PREOP_ITS ---
General Info Date of Service Date Performed: 07/27/21 Height: 5 ft 1 in Weight: 60.6 kg Body Mass Index (BMI): 25.2 Surgical Procedure: Operation Date: 07/27/21 08:55 Proposed Procedure Side Surgeon p Cystoscopy/Retrograde/Stent Placement Right Shaquille Salcido MD Meds Allergies and Home Medications Allergies Allergy/AdvReac Type Severity Reaction Status Date / Time No Known Allergies Allergy Unverified 07/27/21 02:53 Home Medication Medication Instructions Recorded etonogestrel 68 mg subdermal 1 implant subdermal ONCE 03/12/19 implant (Nexplanon) hydrocodone 5 mg-acetaminophen 325 1 tab PO Q6H PRN pain #7 tabs 07/14/21 mg tablet tamsulosin 0.4 mg capsule (Flomax) 0.4 mg PO DAILY #5 caps 07/14/21 ondansetron 4 mg disintegrating 4 mg PO Q6H PRN #10 tabs 07/15/21 tablet PFSH Active Problems Active Problems: Problem Status Onset Code Abscess of left kidney N15.1 Pyelonephritis N12 Transaminitis R74.01 Viral URI J06.9 Renal colic on right side N23 Kidney stone on right side N20.0 UTI (urinary tract infection) N39.0 Tobacco use Z72.0 Pyelonephritis N12 Medical History Medical History Contraception DepoProvera as teenager and shortly after her pregnancies. Depression Endometriosis Frequent headaches History of ETOH abuse Surgical History Surgical History section 2000 & 2003 Tobacco Smoking/Tobacco Use Status: Current every day Tobacco Type: cigarettes Smoking cigarettes per day: 10 Alcohol Alcohol Intake: current Alcohol intake frequency: a few times a week Substance Use Substance use: Never Substance use type: does not use Prental History History 3 Para 2 Hx # Term Pregnancies Multiple births Hx # Pregnancies Ectopic pregnancies AB induced Hx Number of Living Children AB spontaneous Vital Signs and Lab Results Vital Signs Most Recent Vital Signs in EMR: Most Recent Vital Signs Temp Pulse Resp BP Pulse Ox 36.7 C 79 18 158/83 H 99 07/27/21 04:51 07/27/21 04:51 07/27/21 04:51 07/27/21 04:51 07/27/21 04:51 Point of Care Results Point of Care Results: POC- Test(urine) Negative 07/27/21 04:09 Lab Results Result Diagrams: 07/27/21 03:10 07/27/21 03:10 Blood Type / Crossmatch: No Data to Display Complete Blood Count: White Blood Count 14.42 10^3/uL (4.4-10.8) H 07/27/21 03:10 Red Blood Count 4.37 10^6/uL (3.93-5.22) 07/27/21 03:10 Hemoglobin 13.1 g/dL (11.2-15.7) 07/27/21 03:10 Hematocrit 39.4 % (36.0-46.0) 07/27/21 03:10 Platelet Count 300 10^3/uL (130-400) 07/27/21 03:10 Complete Metabolic Panel: Sodium Level 145 mmol/L (136-145) 07/27/21 03:10 Potassium Level 3.9 mmol/L (3.5-5.1) 07/27/21 03:10 Chloride Level 109 mmol/L (98-107) H 07/27/21 03:10 Carbon Dioxide Level 26.9 mmol/L (21.0-32.0) 07/27/21 03:10 Blood Urea Nitrogen 18 mg/dL (7-18) 07/27/21 03:10 Creatinine 0.9 mg/dL (0.55-1.02) 07/27/21 03:10 Estimated GFR/1.73 m2 >= 60.00 (mL/min/1.73m2) 07/27/21 03:10 Calcium Level 8.8 mg/dL (8.5-10.1) 07/27/21 03:10 Albumin 4.0 g/dL (3.4-5.0) 07/27/21 03:10 Glucose Level 102 mg/dL (74-106) 07/27/21 03:10 Liver Function Panel: Alanine Aminotransferase (ALT/SGPT) 40 U/L (14-59) 07/27/21 03: 10 Aspartate Amino Transf (AST/SGOT) 17 U/L (15-37) 07/27/21 03:10 Coagulation Panel: No Data to Display Cardiac Panel: No Data to Display Arterial Blood Gas: No Data to Display Venous Blood Gas: No Data to Display Pancreas Panel: No Data to Display Thyroid Panel: No Data to Display Infectious Disease: Coronavirus 2019 Source Nasal/Nares 07/27/21 07:14 Blood Cultures: No Data to Display Toxicology Panel: No Data to Display Panel: No Data to Display Anesthesia Assessment and Plan Anesthesia History Personal History: No History of Anesthesia Complications Family History: No Family History of Anesthesia Complications Exercise Tolerance Exercise Tolerance: Metabolic Equivalents>4 Pertinent Negatives Pertinent Negatives: No Symptoms of GERD, No Major Cardiovascular Symptoms or Complaints, No Major Pulmonary Symptoms or Complaints (Smoker 25 pack years ) and No History of CVA/TIA Cardiac & Pulmonary Exam Cardiac Exam: Normal S1/S2 Heart Sounds Pulmonary Exam: Clear Bilateral Breath Sounds Implantable Cardiac Device Does patient have a Pacemaker or an ICD?: No Airway Exam Known Difficult Airway: No Mallampati Class: 1 Mouth Opening: Normal (> 3cm) Thyromental Distance: Greater than 3 cm Neck Range of Motion: Full ROM Neck Circumference: Normal Teeth Condition: Normal Dentition Airway Comments: High angle narrow palate ASA Classification ASA Score: ASA 2 Emergency Case?: No NPO Status NPO Status: NPO Clears >2 hours, Solids >8 hours Status Status: Negative HCG Anesthesia Plan Resuscitation Status: Full Code Anesthesia Technique: General Anesthesia Airway Planned: Natural Airway Monitors Used: Standard Monitors Preoperative Comments:: ETOH 5-6 beers a day
[2021-07-27] MEDS: Lactated Ringers 1,000 ML 80 ML IV (08:05)
[2021-07-27 08:12] LABS: COVID-19 PCR Negative (Negative)
--- NOTE | 2021-07-27 08:30 | DI.RAD_ITS ---
Exam(s) XR RETROGRADE IN OR EXAM: XR RETROGRADE IN OR CLINICAL HISTORY: RENAL COLIC RIGHT SIDE. TECHNIQUE: Fluoroscopy was provided for the referring physician for guidance with performing retrogr sher procedure. COMPARISON: CT CT RENAL COLIC WO from 07/27/2021 FINDINGS: Please see procedure note for details. Fluoro time: 15.6 seconds RADIATION DOSE DELIVERED: helen Haley=2.98 mGy
[2021-07-27] MEDS: Lidocaine 2% Jelly 6 ML SYR (09:01)
[2021-07-27] MEDS: Omnipaque 300 MG/ML 50 ML BTL (09:18)
--- NOTE | 2021-07-27 09:28 | W.PM.DSUDISC ---
Discharge Plan Disposition Patient Disposition: HOME Condition: Stable Discharge Details Reason For Visit: ureteral stone Attending Provider: Shaquille Salcido Primary Care Provider: Reynaldo Orozco Home Meds and New Rx's Prescriptions: Continued Nexplanon 68 mg implant 1 implant SBD ONCE ondansetron 4 mg tablet,disintegrating 4 mg PO Q6H PRNQty: 10 0RF hydrocodone-acetaminophen 5-325 mg tablet 1 tab PO Q6H PRN (Reason: pain) Qty: 20 0RF tamsulosin [Flomax] 0.4 mg capsule 0.4 mg PO DAILY Qty: 10 0RF Discharge Instructions Additional Instructions: expect phone call from my office to schedule followup surgical procedure (cystoscopy, remove ureteral stent, ureteroscopy and stone removal) expect blood in urine for as long as stent is in place - call office if develop clots in urine or unable to urinate may use OTC NSAIDS along with vicodin prescription Activity:: Activity as Tolerated Shower/Bathe:: 24 hours Diet:: As Tolerated Discharge Orders Discharge Orders: Discharge Order (Routine); Ordered 07/27/21 Ordered By: Shaquille Salcido DS: Diagnosis Discharge Diagnosis (1) Renal colic on right side: Status: Acute (2) UTI (urinary tract infection): Status: Acute
--- NOTE | 2021-07-27 09:37 | ROE_ITS ---
Date of service: 07/27/21 Time of Service: 08:37 Operative Note Operative Note DATE OF PROCEDURE: 07/27/21 PRE-OP DIAGNOSIS: Right ureteral stone PROCEDURE: cystoscopy, right retrograde pyelogram, right ureteroscopy with ureteral dilation, insert right ureteral stent SURGEON: Shaquille Salcido ANESTHESIA TYPE: Local By Surgeon and General:No Airway Refer to Anesthesia Record ESTIMATED BLOOD LOSS: 5 PATHOLOGY: none sent COMPLICATIONS: None Patient was transported to: same day Patient's condition: stable Implants: 6 Citizen [place] by 22 to 30 cm right ureteral stent Indications: This is a 41-year-old woman who presented to the emergency department about 2 weeks ago with renal colic. She was found to have a 3 mm right distal ureteral stone. She was treated with conservative management. She returned to the emergency department last evening with persistent pain. A repeat CT scan showed nonprogression of her stone. She was found to have an increased serum white blood count and evidence of a urinary tract infection on urinalysis. Because of the infection associated with a ureteral stone, she is agreeable to a stent placement Findings: Right distal ureteral narrowing with hydroureter and hydronephrosis above the level of the stone Procedure Description: The patient was given preoperative IV antibiotics and brought to the operating room on 07/27/2021. After successful induction of general anesthesia, she was placed in the dorsal lithotomy position. Her genitalia was prepped and draped. 2% Xylocaine jelly was instilled into the urethra to act as a local anesthetic. 22 [place] rigid cystoscope was passed through the urethra into the bladder. The bladder was inspected with a 30 degree lens. The right ureteral orifice appeared normal with no blood seen coming from that side. The left orifice appeared normal as well. No papillary or nodular lesions were seen within the bladder. Of the right orifice was then cannulated with a 6 [place] access catheter. A retrograde film was obtained by injecting Omnipaque through the access catheter under fluoroscopic guidance. The distal ureter appeared normal up to the level of the pelvic brim where there was a filling defect and an abrupt change in ureteral caliber. I initially had difficulty passing a guidewire through this area, so I passed the semirigid ureteroscope into the distal ureter. I was able to then advance a guidewire under direct vision. I dilated the distal ureter using a UroMax balloon. I deflated the balloon and removed the wire and ureteroscope. We then passed a 6 [place] variable length stent and advanced the stent such that the proximal end was curled in the collecting system and the distal and was curled within the bladder. The positioning of the stent was confirmed both fluoroscopically and cystoscopically. The patient tolerated this procedure well with no complications. We will plan on a staged procedure to bring her back to the operating room for stent removal and ureteroscopy to address her stone.
--- NOTE | 2021-07-27 09:48 | W.ANESPOSTOP ---
Postoperative Evaluation Date, Time and Location Date Performed: 07/27/21 Time Performed: 09:48 Patient Location: Day Surgery Unit Vital Signs Most Recent Imported Vital Signs: Most Recent Vital Signs Temp Pulse Resp BP Pulse Ox 36.6 C 66 16 130/81 98 07/27/21 07:53 07/27/21 07:53 07/27/21 07:53 07/27/21 07:53 07/27/21 07:53 Most Recent Manually Entered Vital Signs: Adult Blood Pressure: 166/108 Heart Rate: 90 Respirations: 10 Oxygen Saturation (%): 99 Temperature (C): 36.3 C Pain Score (0-10 Scale): 0 Pain Score Most Recent Pain Score: Most Recent Pain Score Pain Level 8 07/27/21 07:53 Assessment Mental Status: Awake (Alert & Oriented to Patient Baseline) Airway and Respiratory Function: Patent airway with normal (patient baseline) respiratory exam Cardiovascular Function: Hemodynamically Stable Hydration Status: Adequately Hydrated Nausea & Vomiting: No Nausea or Vomiting Pain: Pt. Denies Any Pain Peripheral Nerve Block: Patient did not receive a nerve block
--- NOTE | 2021-07-27 10:07 | W.PM.DSUDISC ---
Discharge Plan Disposition Patient Disposition: HOME Condition: Stable Discharge Details Reason For Visit: ureteral stone Attending Provider: Shaquille Salcido Primary Care Provider: Reynaldo Orozco Home Meds and New Rx's Prescriptions: New sulfamethoxazole-trimethoprim 800-160 mg tablet 1 tab PO Q12H Qty: 14 0RF Continued Nexplanon 68 mg implant 1 implant SBD ONCE ondansetron 4 mg tablet,disintegrating 4 mg PO Q6H PRNQty: 10 0RF hydrocodone-acetaminophen 5-325 mg tablet 1 tab PO Q6H PRN (Reason: pain) Qty: 20 0RF tamsulosin [Flomax] 0.4 mg capsule 0.4 mg PO DAILY Qty: 10 0RF Discharge Instructions Additional Instructions: expect phone call from my office to schedule followup surgical procedure (cystoscopy, remove ureteral stent, ureteroscopy and stone removal) expect blood in urine for as long as stent is in place - call office if develop clots in urine or unable to urinate may use OTC NSAIDS along with vicodin prescription Activity:: Activity as Tolerated Shower/Bathe:: 24 hours Diet:: As Tolerated Discharge Orders Discharge Orders: Discharge Order (Routine); Ordered 07/27/21 Ordered By: Shaquille Salcido DS: Diagnosis Discharge Diagnosis (1) Renal colic on right side: Status: Acute (2) UTI (urinary tract infection): Status: Acute
[2021-07-27] MEDS: Phenazopyridine 200 MG TAB PO (11:04)
[2021-07-27] MEDS: Ondansetron 4 MG/2 ML VIAL IVP (11:10)
== END 2021-07-27 11:55 | disposition home or self-care (01) ==
LOC: ER 06:54 → SUR 07:41
PROVIDERS: Emergency Provider Student in an Organized Health Care Education/Training Program; PCP Family Medicine; Visit Provider Urology
PROC: (CPT 74450; principal; 2021-07-27 08:45)
DX: N20.1 Calculus of ureter (principal); N13.5 Crossing vessel and stricture of ureter without hydronephrosis
CPT/HCPCS: 52345; 52332; 80053; 81025; 87077; 87635; 96361; 96365; 96367; 96375; 99285; 74176; 74420; 81003; 81015; 85025; 87086; 87186; J0131; J0690; J1100; J1885; J2250; J2270; J2405; Q9967

== ENCOUNTER 2021-08-07 16:08 | Outpatient (REF) | payer MEDICAID, SELFPAY ==
[2021-08-07 12:39] LABS: Source Nasal/Nares
[2021-08-07 17:40] LABS: COVID-19 PCR Negative (Negative)
== END 2021-08-07 16:09 | disposition home or self-care (01) ==
LOC: LBN 16:08
PROVIDERS: PCP Family Medicine; Visit Provider Urology
DX: Z20.822 Contact with and (suspected) exposure to COVID-19 (principal); Z01.818 Encounter for other preprocedural examination
CPT/HCPCS: 87635

== ENCOUNTER 2021-08-10 06:13 | Day surgery (SDC) | payer MEDICAID, SELFPAY ==
[2021-08-10] VITALS (10 sets, daily range): BP systolic 111–145; BP diastolic 68–108; PULSE 62–81; RESP 10–18; TEMP 36–36.6; O2SAT 97–100; BMI 26.4
--- NOTE | 2021-08-10 06:53 | W.PM.HP.N ---
Date of service: 08/10/21 Time of Service: 05:54 Assessment and Plan Assessment and plan (1) Kidney stone on right side: Status: Acute Assessment and plan: For cystoscopy with stent removal, retrograde pyelogram, ureteroscopy with stone extraction/possible holmium laser lithotripsy History of Present Illness History of Present Illness Chief Complaint: Right ureteral stone Narrative: This is a 41 year old woman who has a history of UTI/pyelonephritis/kidney stones. She presented with right renal colic and was identified as having a right distal ureteral stone. I was unable to pass a ureteroscope up to the stone initially, so she was treated with a ureteral stent. She presents now for ureteroscopy and stone manipulation. She continues to have right lower quadrant and right back discomfort. Review of Systems Narrative: No fevers or chills No vision change or dysphasia No diabetes or thyroid dysfunction No shortness of breath, cough or hemoptysis No chest pain or palpitations No nausea, vomiting, hepatitis, ulcers, jaundice, diarrhea or constipation No seizures, strokes or peripheral neuropathy No bleeding disorders or anemia No gout PFSH All Active Problems Tobacco use (Acute) Pyelonephritis (Acute) Abscess of left kidney (Acute) Pyelonephritis (Acute) Transaminitis (Acute) Viral URI (Acute) Renal colic on right side (Acute) Kidney stone on right side (Acute) UTI (urinary tract infection) (Acute) Medical History Contraception DepoProvera as teenager and shortly after her pregnancies. Depression Endometriosis Frequent headaches History of ETOH abuse Surgical History section 2000 & 2003 H/O dilation and curettage History of tubal ligation Social History Smoking/Tobacco Use Status: Current every day Tobacco Type: cigarettes Smoking risk assessment performed?: Yes Alcohol Intake: current Alcohol Intake frequency: a few times a week Alcohol type: beer Drug use: Never Substance use type: does not use Do you feel safe at home: Yes Do you feel safe in your relationship?: Yes Female Reproductive History Menstrual control method: permanent sterilization and implanted History History 3 Para 2 Hx # Term Pregnancies Multiple births Hx # Pregnancies Ectopic pregnancies AB induced Hx Number of Living Children AB spontaneous Meds Allergies and Home Medications Allergies Allergy/AdvReac Type Severity Reaction Status Date / Time No Known Allergies Allergy Unverified 08/10/21 06:30 Home Medications Medication Instructions Recorded Confirmed Type etonogestrel 68 mg subdermal 1 implant subdermal ONCE 03/12/19 08/10/21 History implant (Nexplanon) ondansetron 4 mg disintegrating 4 mg PO Q6H PRN #10 tabs 07/15/21 08/10/21 Rx tablet tamsulosin 0.4 mg capsule (Flomax) 0.4 mg PO DAILY #10 caps 07/27/21 08/10/21 Rx oxycodone 5 mg capsule 5 - 10 mg PO Q4H PRN pain #30 caps 07/31/21 08/10/21 Rx cephalexin 500 mg capsule 2 cap PO BID 08/07/21 08/10/21 History Exam Const General: cooperative and comfortable Neck Neck: supple Resp Effort & Inspection: normal respiratory effort Auscultation: clear to auscultation bilaterally Cardio Rate: regular rate Rhythm: regular rhythm GI Palpation: soft and no masses Skin Other: multiple tattoos Neuro General: patient alert, patient awake and patient oriented x3 Results Last Vital Signs Temp 36.3 C L 08/10/21 06:34 Pulse 81 08/10/21 06:34 Resp 18 08/10/21 06:34 BP 129/83 08/10/21 06:34 Pulse Ox 98 08/10/21 06:34
[2021-08-10] MEDS: Lactated Ringers 1,000 ML 80 ML IV (07:02)
--- NOTE | 2021-08-10 07:06 | ANES.PREOP_ITS ---
General Info Date of Service Date Performed: 08/10/21 Height: 5 ft 1 in Weight: 63.503 kg Body Mass Index (BMI): 26.4 Surgical Procedure: Operation Date: 08/10/21 07:40 Proposed Procedure Side Surgeon p Cystoscopy/Possible Laser/Retrograde/Ureteroscopy/Remove Ureteral Stent Right Shaquille Salcido MD Meds Allergies and Home Medications Allergies Allergy/AdvReac Type Severity Reaction Status Date / Time No Known Allergies Allergy Unverified 08/10/21 06:30 Home Medication Medication Instructions Recorded etonogestrel 68 mg subdermal 1 implant subdermal ONCE 03/12/19 implant (Nexplanon) ondansetron 4 mg disintegrating 4 mg PO Q6H PRN #10 tabs 07/15/21 tablet tamsulosin 0.4 mg capsule (Flomax) 0.4 mg PO DAILY #10 caps 07/27/21 oxycodone 5 mg capsule 5 - 10 mg PO Q4H PRN pain #30 caps 07/31/21 cephalexin 500 mg capsule 2 cap PO BID 08/07/21 Current Visit Medications: Current Medications Generic Name Dose Route Start Last Admin Trade Name Freq PRN Reason Stop Dose Admin Ringer's Solution 1,000 mls @ 80 mls/hr 08/10/21 06:00 08/10/21 07:02 IV 09/03/21 23:59 80 mls/hr INFUSION LUIS Administration Cefazolin Sodium/Dextrose 2 gm in 50 mls @ 100 mls/hr 08/10/21 06:00 Ancef Duplex IVPB 08/10/21 23:59 PREOP LUIS IV Miscellaneous Supplies 1 each 08/10/21 06:00 Iv Access IV 09/03/21 23:59 DIRECTED LUIS Sodium Chloride 0 ml 08/10/21 06:00 Normal Saline Flush 10 Ml Syr IV 09/03/21 23:59 PRN PRN Sodium Chloride 0 ml 08/10/21 06:00 Normal Saline 10 Ml Vial IJ 09/03/21 23:59 DIRECTED PRN Sterile Water 0 ml 08/10/21 06:00 Water,Injection,Sterile 10 Ml Vial IJ 09/03/21 23:59 DIRECTED PRN PFSH Active Problems Active Problems: Problem Status Onset Code Tobacco use Z72.0 Pyelonephritis N12 Abscess of left kidney N15.1 Pyelonephritis N12 Transaminitis R74.01 Viral URI J06.9 Renal colic on right side N23 Kidney stone on right side N20.0 UTI (urinary tract infection) N39.0 Medical History Medical History Contraception DepoProvera as teenager and shortly after her pregnancies. Depression Endometriosis Frequent headaches History of ETOH abuse Surgical History Surgical History section 2000 & 2003 H/O dilation and curettage History of tubal ligation Tobacco Smoking/Tobacco Use Status: Current every day Tobacco Type: cigarettes Smoking cigarettes per day: 10 Alcohol Alcohol Intake: current Alcohol intake frequency: a few times a week Alcohol type: beer Substance Use Substance use: Never Substance use type: does not use Prental History History 3 Para 2 Hx # Term Pregnancies Multiple births Hx # Pregnancies Ectopic pregnancies AB induced Hx Number of Living Children AB spontaneous Vital Signs and Lab Results Vital Signs Most Recent Vital Signs in EMR: Most Recent Vital Signs Temp Pulse Resp BP Pulse Ox 36.3 C L 81 18 129/83 98 08/10/21 06:34 08/10/21 06:34 08/10/21 06:34 08/10/21 06:34 08/10/21 06:34 Lab Results Blood Type / Crossmatch: No Data to Display Complete Blood Count: White Blood Count 14.42 10^3/uL (4.4-10.8) H 07/27/21 03:10 Red Blood Count 4.37 10^6/uL (3.93-5.22) 07/27/21 03:10 Hemoglobin 13.1 g/dL (11.2-15.7) 07/27/21 03:10 Hematocrit 39.4 % (36.0-46.0) 07/27/21 03:10 Platelet Count 300 10^3/uL (130-400) 07/27/21 03:10 Complete Metabolic Panel: Sodium Level 145 mmol/L (136-145) 07/27/21 03:10 Potassium Level 3.9 mmol/L (3.5-5.1) 07/27/21 03:10 Chloride Level 109 mmol/L (98-107) H 07/27/21 03:10 Carbon Dioxide Level 26.9 mmol/L (21.0-32.0) 07/27/21 03:10 Blood Urea Nitrogen 18 mg/dL (7-18) 07/27/21 03:10 Creatinine 0.9 mg/dL (0.55-1.02) 07/27/21 03:10 Estimated GFR/1.73 m2 >= 60.00 (mL/min/1.73m2) 07/27/21 03:10 Calcium Level 8.8 mg/dL (8.5-10.1) 07/27/21 03:10 Albumin 4.0 g/dL (3.4-5.0) 07/27/21 03:10 Glucose Level 102 mg/dL (74-106) 07/27/21 03:10 Liver Function Panel: Alanine Aminotransferase (ALT/SGPT) 40 U/L (14-59) 07/27/21 03: 10 Aspartate Amino Transf (AST/SGOT) 17 U/L (15-37) 07/27/21 03:10 Coagulation Panel: No Data to Display Cardiac Panel: No Data to Display Arterial Blood Gas: No Data to Display Venous Blood Gas: No Data to Display Pancreas Panel: No Data to Display Thyroid Panel: No Data to Display Infectious Disease: Coronavirus (COVID-19)(PCR) Negative (Negative) 08/07/21 11:50 Coronavirus 2019 Source Nasal/Nares 08/07/21 11:50 Blood Cultures: No Data to Display Toxicology Panel: No Data to Display Panel: No Data to Display Anesthesia Assessment and Plan Anesthesia History Personal History: No History of Anesthesia Complications Family History: No Family History of Anesthesia Complications Exercise Tolerance Exercise Tolerance: Metabolic Equivalents>4 Pertinent Negatives Pertinent Negatives: No Symptoms of GERD, No Major Cardiovascular Symptoms or Complaints and No Major Pulmonary Symptoms or Complaints Cardiac & Pulmonary Exam Cardiac Exam: Normal S1/S2 Heart Sounds Pulmonary Exam: Clear Bilateral Breath Sounds Implantable Cardiac Device Does patient have a Pacemaker or an ICD?: No Airway Exam Known Difficult Airway: No Mallampati Class: 1 Mouth Opening: Normal (> 3cm) Thyromental Distance: Greater than 3 cm Neck Range of Motion: Full ROM Neck Circumference: Normal Teeth Condition: Normal Dentition Airway Comments: High angle narrow palate ASA Classification ASA Score: ASA 2 Emergency Case?: No NPO Status NPO Status: NPO Clears >2 hours, Solids >8 hours Status Status: Negative HCG Anesthesia Plan Resuscitation Status: Full Code Anesthesia Technique: General Anesthesia Airway Planned: Natural Airway Monitors Used: Standard Monitors
[2021-08-10] MEDS: ceFAZolin 2 GM/50 ML BAG IVPB (07:27)
[2021-08-10] MEDS: Lidocaine 2% Jelly 6 ML SYR (07:43)
[2021-08-10] MEDS: Omnipaque 300 MG/ML 50 ML BTL (07:49)
--- NOTE | 2021-08-10 08:14 | W.PM.DSUDISC ---
Discharge Plan Disposition Patient Disposition: HOME Condition: Stable Discharge Details Reason For Visit: right ureteral stone Attending Provider: Shaqiulle Salcido Primary Care Provider: Reynaldo Orozco Home Meds and New Rx's Prescriptions: New hydrocodone-acetaminophen 5-325 mg tablet 1 - 2 tab PO Q6H MDD 8 PRNQty: 20 0RF Discontinued oxycodone 5 mg capsule 5 - 10 mg PO Q4H MDD 10 PRN (Reason: pain) Qty: 30 0RF No Action Nexplanon 68 mg implant 1 implant SBD ONCE ondansetron 4 mg tablet,disintegrating 4 mg PO Q6H PRNQty: 10 0RF cephalexin 500 mg capsule 2 cap PO BID tamsulosin [Flomax] 0.4 mg capsule 0.4 mg PO DAILY Qty: 10 0RF Discharge Instructions Additional Instructions: no need to strain urine expect ureteral spasms for 24 to 48 hours followup 4 to 8 weeks with renal US on day of appt may restart NSAIDs Activity:: Activity as Tolerated Shower/Bathe:: 24 hours Diet:: As Tolerated Discharge Orders Discharge Orders: Discharge Order (Routine); Ordered 08/10/21 Ordered By: Shaquille Salcido DS: Diagnosis Discharge Diagnosis (1) Kidney stone on right side: Status: Acute
--- NOTE | 2021-08-10 08:15 | DI.RAD_ITS ---
Exam(s) XR RETROGRADE IN OR EXAM: XR RETROGRADE IN OR CLINICAL HISTORY: Kidney stone on right side. TECHNIQUE: Fluoroscopy was provided for the referring physician for guidance with performing retrogr sher procedure. COMPARISON: XA XR RETROGRADE IN OR from 07/27/[address] RENAL COLIC WO from 07/27/2021 FINDINGS: Please see procedure note for details. Fluoro time: 27.6 seconds RADIATION DOSE DELIVERED: Ka,r= 3.75 mGy
--- NOTE | 2021-08-10 08:28 | ROE_ITS ---
Date of service: 08/10/21 Time of Service: 07:28 Operative Note Operative Note DATE OF PROCEDURE: 08/10/21 PRE-OP DIAGNOSIS: right ureteral stone POST-OP DIAGNOSIS: same PROCEDURE: cystoscopy, remove right ureteral stent, right retrograde pyelogram, right ureteroscopy with stone extraction SURGEON: Shaquille Salcido ANESTHESIA TYPE: General LMA/ETT Refer to Anesthesia Record ESTIMATED BLOOD LOSS: 5 PATHOLOGY: other (stone for chemical analysis) COMPLICATIONS: None Patient was transported to: PACU Patient's condition: stable Implants: none Indications: This is a 41-year-old woman who has a past history of kidney stones and pyelonephritis. She was identified as having a right distal ureteral stone. We placed a right ureteral stent initially. She presents now for stent removal, ureteroscopy and stone manipulation. Findings: Right ureteral stone bumped back up into the renal pelvis Procedure Description: The patient was brought to the operating room on 08/10/2021. She was given preoperative IV antibiotics. After successful induction of general anesthesia, she was placed in the dorsal lithotomy position. Her genitalia was prepped and draped. 2% Xylocaine jelly was instilled into the urethra to act as a local anesthetic. A 22 Spanish rigid cystoscope was passed through the urethra into the bladder. The urethra and bladder were inspected using a 30 degree lens. The right ureteral stent was identified. There was quite a bit of edema at the right ureteral orifice likely related to stent discomfort. The stent was grasped and alligator forceps and brought to the level of the urethral meatus. I then passed a guidewire through the lumen of the stent and remove the stent leaving the wire in place. I advanced a dual-lumen catheter over the wire and injected Omnipaque through the second lumen of the dual-lumen catheter this outlined the ureter and collecting system forming. I then passed a second wire and removed the dual- lumen catheter. I initially passed the semirigid ureteroscope through the urethra into the bladder. I advanced the scope up the ureter but no stone was found in the distal ureter. I was able to pass the scope all the way up to the renal pelvis and I was able to see the stone and a clot adherent to one of the wires. I then removed the semirigid ureteroscope and passed the ureteral access sheath up to the level of the renal pelvis. I passed the flexible ureteroscope through the access sheath. The stone was visualized and was grasped in a 0 tip stone basket. I removed the stone in its entirety and sent it to the lab for chemical analysis. We then removed the access sheath and the guidewires. The patient tolerated this procedure well with no complications. We elected not to place a ureteral stent.
--- NOTE | 2021-08-10 08:53 | W.ANESPOSTOP ---
Postoperative Evaluation Date, Time and Location Date Performed: 08/10/21 Time Performed: 08:53 Patient Location: PACU Vital Signs Most Recent Imported Vital Signs: Most Recent Vital Signs Temp Pulse Resp BP Pulse Ox 36.6 C 81 16 119/96 H 98 08/10/21 08:44 08/10/21 08:44 08/10/21 08:44 08/10/21 08:44 08/10/21 08:44 Pain Score Most Recent Pain Score: Most Recent Pain Score Pain Level 0 08/10/21 08:44 Assessment Mental Status: Awake (Alert & Oriented to Patient Baseline) Airway and Respiratory Function: Patent airway with normal (patient baseline) respiratory exam Cardiovascular Function: Hemodynamically Stable Hydration Status: Adequately Hydrated Nausea & Vomiting: No Nausea or Vomiting Pain: Pt. Denies Any Pain Peripheral Nerve Block: Patient did not receive a nerve block
[2021-08-10] MEDS: HYDROmorphone 2 MG/ML VIAL IVP ×3 (08:55→09:22)
[2021-08-10] MEDS: Normal Saline 10 ML VIAL IJ (08:56)
[2021-08-10] MEDS: HYDROcodone 5/Acetaminophen 325 TAB PO (09:44)
[2021-08-10] MEDS: Phenazopyridine 200 MG TAB PO (09:44)
[2021-08-13 15:32] LABS: Source: Right Ureter
== END 2021-08-10 10:55 | disposition home or self-care (01) ==
PROVIDERS: PCP Family Medicine; Visit Provider Urology
PROC: (CPT 52320; principal; 2021-08-10 07:30)
DX: N20.1 Calculus of ureter (principal); F17.210 Nicotine dependence, cigarettes, uncomplicated
CPT/HCPCS: 52320; 52332; 74420; 82365; J0690; J1100; J1885; J2250; J2405; J2704; Q9967

== ENCOUNTER 2021-12-02 10:06 | Emergency (ER) | payer MEDICAID, SELFPAY ==
[2021-12-02 10:39] VITALS: BP 145/94; PULSE 93; RESP 18; TEMP 36.7; O2SAT 99
--- NOTE | 2021-12-02 10:59 | ED.GENADUL_ITS ---
Discharge Plan Disposition Patient Disposition: HOME Condition: Stable Discharge Details Clinical Impression: Otitis externa Primary Care Provider: Reynaldo Orozco ED Provider: Juanito Henley Home Meds and New Rx's Prescriptions: New amoxicillin-pot clavulanate 875-125 mg tablet 1 tab PO BID 7 Days Qty: 14 0RF ofloxacin 0.3 % drops 10 drp otic (ear) DAILY 7 Days Qty: 5 0RF No Action Nexplanon 68 mg implant 1 implant SBD ONCE Discharge Instructions Instructions: Otitis Externa (ED) Additional Instructions: Please take medications as prescribed. Please return to the emergency department for any worsening symptoms. Stand Alone Forms: Work Release Medical Decision Making 41-year-old female history of recurrent ear infections presents with left ear pain over the last day. Purulent material and exudate in the left external canal, normal right canal and TM. No mastoid changes bilaterally. Afebrile nontoxic. Evidence of otitis externa, given incomplete visualization of TM on the left we will also treat for possible otitis media. Will treat with Augmentin p.o. as well as ofloxacin drops. Home care instructions and return precautions given. HPI General Date/Time Provider Initiated Documentation: 12/02/21 10:48 . HPI Narrative: 41-year-old female presents with left ear pain over the last day. Denies fevers chills nausea or vomiting. History of recurrent ear infections. Related Data Home Medications Medication Instructions Recorded Confirmed etonogestrel 68 mg subdermal 1 implant subdermal ONCE 03/12/19 12/02/21 implant (Nexplanon) amoxicillin 875 mg-potassium 1 tab PO BID 7 days #14 tabs 12/02/21 clavulanate 125 mg tablet ofloxacin 0.3 % ear drops 10 drp otic (ear) DAILY 7 days #5 12/02/21 mL Previous Rx's Medication Instructions Recorded amoxicillin 875 mg-potassium 1 tab PO BID 7 days #14 tabs 12/02/21 clavulanate 125 mg tablet ofloxacin 0.3 % ear drops 10 drp otic (ear) DAILY 7 days #5 12/02/21 mL Allergies Allergy/AdvReac Type Severity Reaction Status Date / Time No Known Allergies Allergy Unverified 12/02/21 10:43 General Stated Complaint: EarProblem ANKIT: 4 Review of Systems Narrative: Review of Systems Constitutional: negative Eyes: negative ENT: Left ear pain Cardiovascular: negative Respiratory: negative Gastrointestinal: negative : negative Musculoskeletal: negative Skin: negative Neurologic: negative Psych: negative PFSH All Active Problems (Updated 12/02/21 @ 11:02 by Juanito Henley MD) Otitis externa (Acute) Tobacco use (Acute) Pyelonephritis (Acute) Abscess of left kidney (Acute) Pyelonephritis (Acute) Transaminitis (Acute) Viral URI (Acute) Kidney stone on right side (Acute) UTI (urinary tract infection) (Acute) Medical History (Updated 12/02/21 @ 11:02 by Juanito Henley MD) Contraception DepoProvera as teenager and shortly after her pregnancies. Depression Endometriosis Frequent headaches History of ETOH abuse Surgical History section 2000 & 2003 H/O dilation and curettage History of tubal ligation Social History Smoking/Tobacco Use Status: Current every day Tobacco Type: cigarettes Smoking risk assessment performed?: Yes Alcohol Intake: current Alcohol Intake frequency: a few times a week Alcohol type: beer Drug use: Never Substance use type: does not use Do you feel safe at home: Yes Do you feel safe in your relationship?: Yes Female Reproductive History Menstrual control method: permanent sterilization and implanted History History 3 Para 2 Hx # Term Pregnancies Multiple births Hx # Pregnancies Ectopic pregnancies AB induced Hx Number of Living Children AB spontaneous Exam Narrative Exam Narrative: Physical Examination General: alert, awake, cooperative, resting comfortably, no acute distress HEENT: Purulent material and exudate in external canal of left ear, normal right ear normocephalic, atraumatic; PERRL, EOM intact, conjunctiva normal; no nasal discharge; moist mucous membranes, oral and pharyngeal mucosa normal, tolerating secretions Neck: supple, trachea midline; full ROM Chest: normal to inspection Respiratory: normal respiratory effort, speaking in full sentences, clear to auscultation, no wheezing, rales or rhonchi Cardiac: regular rate, regular rhythm, S1S2 intact, no murmurs rubs or gallops GI: abdomen soft, non-tender, non-distended; no palpable mass or hepatosplenomegaly Skin: no lesions, rashes or trauma appreciated Neuro: AAOx3, normal speech, moving all extremities Psych: Appropriate mood and affect Course Vital Signs Vital signs: Vital Signs Temperature 36.7 C 12/02/21 10:39 Pulse 93 H 12/02/21 10:39 Respiratory Rate 18 12/02/21 10:39 Blood Pressure 145/94 H 12/02/21 10:39 Pulse Oximetry 99 12/02/21 10:39 Temperature 36.7 C 12/02/21 10:39 Temperature Source Tympanic 12/02/21 10:39 Pulse 93 H 12/02/21 10:39 Respiratory Rate 18 12/02/21 10:39 Respiratory Effort Non-Labored 12/02/21 10:41 Blood Pressure 145/94 H 12/02/21 10:39 Blood Pressure Position Sitting 12/02/21 10:39 Pulse Oximetry 99 12/02/21 10:39 Oxygen Delivery Method Room Air 12/02/21 10:39 Oxygen Flow Rate 0 12/02/21 10:39 Pain Level 8 12/02/21 10:39 PAWSS Have you Been Recently Intoxicated or Drunk Within the Last 30 days?: No Have you Ever Experienced Previous Episodes of Alcohol Withdrawal?: No Have you ever Experienced Withdrawal Seizures?: No Have you ever Experienced Delirium Tremens(DT)s?: No Have you ever undergone Alcohol Rehabilitation Treatment (i.e, inpt ot outpatient treatment programs)?: No Have you ever Experienced Blackouts?: No Have you ever Combined Alcohol with other Downers within the last 90 days?: No Have you ever Combined Alcohol with any other Substance of Abuse during the last 90 days?: No Positive Blood Alcohol level on Presentation? [PCS.BAL]: No Evidence of Increased Autonomic Activity (i.e. HR>120, tremor, sweating, agitation, nausea)?: No Result: 0
== END 2021-12-02 11:29 | disposition home or self-care (01) ==
PROVIDERS: Emergency Provider Emergency Medicine; PCP Family Medicine
DX: H60.92 Unspecified otitis externa, left ear (principal); F17.210 Nicotine dependence, cigarettes, uncomplicated
CPT/HCPCS: 99283

== ENCOUNTER 2021-12-29 18:41 | Emergency (ER) | payer MEDICAID, SELFPAY ==
[2021-12-29 18:46] VITALS: BP 138/68; PULSE 85; RESP 16; TEMP 36.9; O2SAT 98
--- NOTE | 2021-12-29 22:20 | ED.GENADUL_ITS ---
Discharge Plan Discharge Details Chief Complaint: Nk/Back Pain Primary Care Provider: Reynaldo Orozco ED Provider: Provider,Temporary Home Meds and New Rx's Prescriptions: No Action Nexplanon 68 mg implant 1 implant SBD ONCE Discharge Data Discharge Date/Time-TO BE ENTERED AT DEPARTURE: 12/29/21 22:30 HPI General Date/Time Provider Initiated Documentation: 12/29/21 22:20 . Related Data Home Medications Medication Instructions Recorded Confirmed etonogestrel 68 mg subdermal 1 implant subdermal ONCE 03/12/19 12/29/21 implant (Nexplanon) Allergies Allergy/AdvReac Type Severity Reaction Status Date / Time No Known Allergies Allergy Unverified 12/29/21 18:51 General Stated Complaint: Nk/Back Pain ANKIT: 4 PFSH All Active Problems (Updated 12/02/21 @ 11:02 by Juanito Henley MD) Otitis externa (Acute) Tobacco use (Acute) Pyelonephritis (Acute) Abscess of left kidney (Acute) Pyelonephritis (Acute) Transaminitis (Acute) Viral URI (Acute) Kidney stone on right side (Acute) UTI (urinary tract infection) (Acute) Medical History (Updated 12/02/21 @ 11:02 by Juanito Henley MD) Contraception DepoProvera as teenager and shortly after her pregnancies. Depression Endometriosis Frequent headaches History of ETOH abuse Surgical History section 2000 & 2003 H/O dilation and curettage History of tubal ligation Social History Smoking/Tobacco Use Status: Current every day Tobacco Type: cigarettes Smoking risk assessment performed?: Yes Alcohol Intake: current Alcohol Intake frequency: a few times a week Alcohol type: beer Drug use: Never Substance use type: does not use Do you feel safe at home: Yes Do you feel safe in your relationship?: Yes Female Reproductive History Menstrual control method: permanent sterilization and implanted History History 3 Para 2 Hx # Term Pregnancies Multiple births Hx # Pregnancies Ectopic pregnancies AB induced Hx Number of Living Children AB spontaneous Course Vital Signs Vital signs: Vital Signs Temperature 36.9 C 12/29/21 18:46 Pulse 85 12/29/21 18:46 Respiratory Rate 16 12/29/21 18:46 Blood Pressure 138/68 12/29/21 18:46 Pulse Oximetry 98 12/29/21 18:46 Temperature 36.9 C 12/29/21 18:46 Temperature Source Tympanic 12/29/21 18:46 Pulse 85 12/29/21 18:46 Respiratory Rate 16 12/29/21 18:46 Respiratory Effort 12/29/21 18:46 Blood Pressure 138/68 12/29/21 18:46 Blood Pressure Position Sitting 12/29/21 18:46 Pulse Oximetry 98 12/29/21 18:46 Oxygen Delivery Method Room Air 12/29/21 18:46 Oxygen Flow Rate 0 12/29/21 18:46 Pain Level 7 12/29/21 18:46
== END 2021-12-29 22:30 ==
PROVIDERS: PCP Family Medicine
DX: Z53.21 Procedure and treatment not carried out due to patient leaving prior to being seen by health care provider (principal)

== ENCOUNTER 2022-01-03 19:03 | Emergency (ER) | payer MEDICAID, SELFPAY ==
[2022-01-03 19:05] VITALS: BP 141/87; PULSE 125; RESP 14; TEMP 37.4; O2SAT 99
--- NOTE | 2022-01-03 19:29 | ED.GENADUL_ITS ---
Discharge Plan Disposition Patient Disposition: HOME Condition: Stable Discharge Details Clinical Impression: Strain of neck muscle Primary Care Provider: Reynaldo Orozco ED Provider: Elise Edwards Home Meds and New Rx's Prescriptions: No Action Nexplanon 68 mg implant 1 implant SBD ONCE Discharge Instructions Instructions: Cervical Strain (ED) Additional Instructions: The CT is negative, Labs are within normal limits, Take the pain meds as directed, try massage, alternating ice and heat. Follow up with primary care provider in 3-5 days. Return to ED sooner if any worsening or concerns. Increase oral fluids. Please take Tylenol or Ibuprofen with food every 4-6 hours as needed for pain and swelling. Referrals: Reynaldo Orozco MD [Primary Care Provider] - 3 days Medical Decision Making Work-up ordered including CBC, CMP, lactate, urinalysis urine drug screen liter normal saline. Differential diagnosis includes not limited to musculoskeletal strain, cervicalgia, spinal abscess, viral URI CBC within normal limits, CMP largely within normal limits 1.9 potassium 3.4 urinalysis shows small blood 5-10 RBCs no leukocytes signs of UTI UDS is negative. Patient received Zofran and morphine liter of normal saline. Was given 2 tablets of tramadol on discharge CT is negative for abscess or any spinal injury. This text was generated using [employer] dictation system, please disregard any oddities of phrase or misspellings. Lab Data Lab results reviewed: Yes I reviewed the patient's lab results. Labs: Laboratory Tests Range/Units 01/03/22 01/03/22 01/03/22 19:50 19:50 19:50 WBC (4.4-10.8) 10^3/uL 10.61 RBC (3.93-5.22) 10^6/uL 4.37 Hgb (11.2-15.7) g/dL 13.1 Hct (36.0-46.0) % 38.2 MCV (80-95) fL 87 MCH (27.0-33.0) pg 30.0 MCHC (32.0-36.0) % 34.3 RDW (11.7-14.6) % 11.9 Plt Count (130-400) 10^3/uL 273 MPV (8.0-11.0) fL 9.9 Immature Gran % 0.4 Neutrophils % 62.8 Lymphocytes % 31.1 Monocytes % 4.7 Eosinophils % 0.7 Basophils % 0.3 Nucleated RBC % (0.0-0.3) % 0.0 Absolute Neutrophils (1.2-6.7) 10^3/uL 6.67 Absolute Lymphocytes (1.2-3.4) 10^3/uL 3.30 Absolute Monocytes (0.1-0.8) 10^3/uL 0.50 Absolute Eosinophils (0.0-0.7) 10^3/uL 0.07 Absolute Basophils (0.0-0.2) 10^3/uL 0.03 VBG Lactate (0.9-1.7) mmol/L 1.9 H Sodium (136-145) mmol/L 141 Potassium (3.5-5.1) mmol/L 3.4 L Chloride (98-107) mmol/L 105 Carbon Dioxide (21.0-32.0) mmol/L 24.5 Anion Gap (3-11) mmol/L 11.5 H BUN (7-18) mg/dL 11 Creatinine (0.55-1.02) mg/dL 0.9 Est GFR (CKD-EPI 2020) (mL/min/1.73m2) 82.88 Glucose (74-106) mg/dL 86 Calcium (8.5-10.1) mg/dL 9.5 Magnesium (1.8-2.4) mg/dL 2.0 Total Bilirubin (0.2-1.0) mg/dL 0.5 AST (15-37) U/L 21 ALT (14-59) U/L 23 Alkaline Phosphatase (46-116) U/L 71 Total Protein (6.4-8.2) g/dL 8.2 Albumin (3.4-5.0) g/dL 4.6 Urine Color (Yellow) Urine Clarity (Clear) Urine pH (5-8) Ur Specific [place] (1.005-1.025) Urine Protein (Negative) mg/dL Urine Ketones (Negative) mg/dL Urine Blood (Negative) Urine Nitrite (Negative) Urine Bilirubin (Negative) Urine Urobilinogen (Up TO 0.2) EU/dL Ur Leukocyte Esterase (Negative) Urine RBC (0-2) HPF Urine WBC (0-5) HPF Ur Epithelial Cells (Negative) HPF Urine Crystals (Negative) HPF Urine Bacteria (Negative) HPF Urine Mucus (Negative) Ur Culture Indicated? Urine Glucose (Negative) mg/dL Urine Opiates Screen (Negative) Urine Methadone Screen (Negative) Ur Barbiturates Screen (Negative) Ur Tricyclics Screen (Negative) Ur Amphetamines Screen (Negative) U Benzodiazepines Scrn (Negative) Urine Cocaine Screen (Negative) Ur THC Screen (Negative) Range/Units 01/03/22 01/03/22 20:36 20:36 WBC (4.4-10.8) 10^3/uL RBC (3.93-5.22) 10^6/uL Hgb (11.2-15.7) g/dL Hct (36.0-46.0) % MCV (80-95) fL MCH (27.0-33.0) pg MCHC (32.0-36.0) % RDW (11.7-14.6) % Plt Count (130-400) 10^3/uL MPV (8.0-11.0) fL Immature Gran % Neutrophils % Lymphocytes % Monocytes % Eosinophils % Basophils % Nucleated RBC % (0.0-0.3) % Absolute Neutrophils (1.2-6.7) 10^3/uL Absolute Lymphocytes (1.2-3.4) 10^3/uL Absolute Monocytes (0.1-0.8) 10^3/uL Absolute Eosinophils (0.0-0.7) 10^3/uL Absolute Basophils (0.0-0.2) 10^3/uL VBG Lactate (0.9-1.7) mmol/L Sodium (136-145) mmol/L Potassium (3.5-5.1) mmol/L Chloride (98-107) mmol/L Carbon Dioxide (21.0-32.0) mmol/L Anion Gap (3-11) mmol/L BUN (7-18) mg/dL Creatinine (0.55-1.02) mg/dL Est GFR (CKD-EPI 2020) (mL/min/1.73m2) Glucose (74-106) mg/dL Calcium (8.5-10.1) mg/dL Magnesium (1.8-2.4) mg/dL Total Bilirubin (0.2-1.0) mg/dL AST (15-37) U/L ALT (14-59) U/L Alkaline Phosphatase (46-116) U/L Total Protein (6.4-8.2) g/dL Albumin (3.4-5.0) g/dL Urine Color (Yellow) Yellow Urine Clarity (Clear) Clear Urine pH (5-8) 6.0 Ur Specific [place] (1.005-1.025) 1.010 Urine Protein (Negative) mg/dL Negative Urine Ketones (Negative) mg/dL Negative Urine Blood (Negative) Small H Urine Nitrite (Negative) Negative Urine Bilirubin (Negative) Negative Urine Urobilinogen (Up TO 0.2) EU/dL 0.2 Ur Leukocyte Esterase (Negative) Negative Urine RBC (0-2) HPF 5-10 H Urine WBC (0-5) HPF 0-2 Ur Epithelial Cells (Negative) HPF Rare Urine Crystals (Negative) HPF Negative Urine Bacteria (Negative) HPF Rare Urine Mucus (Negative) Negative Ur Culture Indicated? No Urine Glucose (Negative) mg/dL Negative Urine Opiates Screen (Negative) Negative Urine Methadone Screen (Negative) Negative Ur Barbiturates Screen (Negative) Negative Ur Tricyclics Screen (Negative) Negative Ur Amphetamines Screen (Negative) Negative U Benzodiazepines Scrn (Negative) Negative Urine Cocaine Screen (Negative) Negative Ur THC Screen (Negative) Negative HPI General Mode of arrival: ambulatory . Date/Time Provider Initiated Documentation: 01/03/22 19:22 . Limitations to Documentation: no limitations . Information obtained by: patient, RN notes reviewed and old records reviewed . HPI Narrative: 41-year-old female presents to the ER with posterior neck pain and swelling which began last week. It is tender to the touch, she also reports body aches, low-grade fever and tachycardia upon arrival. She was seen in urgent care last week and prescribed muscle relaxers and lidocaine patch which she reports is not helping. She denies any IV drug use she does endorse smoking and occasional alcohol. Past medical history includes pyelonephritis, viral URI, kidney stone UTI. She does take control Related Data Home Medications Medication Instructions Recorded Confirmed etonogestrel 68 mg subdermal 1 implant subdermal ONCE 03/12/19 01/03/22 implant (Nexplanon) Allergies Allergy/AdvReac Type Severity Reaction Status Date / Time No Known Allergies Allergy Unverified 01/03/22 19:16 General Stated Complaint: Nk/Back Pain AKNIT: 4 Review of Systems Constitutional Constitutional: Reports body ache(s) and Reports headache(s) ENT Ears, Nose, Mouth, and Throat: Reports headache(s) and Reports neck pain Cardiovascular Cardiovascular: Reports rapid heart rate Musculoskeletal Musculoskeletal: Reports as per HPI and Reports neck pain Neurologic Neurologic: Reports headache(s) PFSH All Active Problems (Updated 01/03/22 @ 21:52 by Elise Edwards NP) Strain of neck muscle (Acute) Tobacco use (Acute) Pyelonephritis (Acute) Abscess of left kidney (Acute) Pyelonephritis (Acute) Transaminitis (Acute) Viral URI (Acute) Kidney stone on right side (Acute) UTI (urinary tract infection) (Acute) Medical History Contraception DepoProvera as teenager and shortly after her pregnancies. Depression Endometriosis Frequent headaches History of ETOH abuse Surgical History section 2000 & 2003 H/O dilation and curettage History of tubal ligation Social History Smoking/Tobacco Use Status: Current every day Tobacco Type: cigarettes Smoking risk assessment performed?: Yes Alcohol Intake: current Alcohol Intake frequency: a few times a week Alcohol type: beer Drug use: Never Substance use type: does not use Do you feel safe at home: Yes Do you feel safe in your relationship?: Yes Female Reproductive History Menstrual control method: permanent sterilization and implanted History History 3 Para 2 Hx # Term Pregnancies Multiple births Hx # Pregnancies Ectopic pregnancies AB induced Hx Number of Living Children AB spontaneous Exam Narrative Exam Narrative: Constitutional: Alert and oriented x3. Appears stated age. Normal body habitus. Head: Normocephalic, no trauma. Eyes: Pupils PERRL, Red reflex noted, EOM's intact. Eyelids symmetrical without lesions, discharge, or swelling. ENT: Left ear canal erythemic and tender, she reports that she was recently seen for otitis externa finish the antibiotics still has pain and muffled hearing,, no mastoid TTP, swelling, or erythema, Nasal turbinates WNL, no nasal discharge. Normal dentition, Posterior pharynx WNL, no exudate. Chest: Tachycardic at a rate of 125, normal S1, S2, distal pulses intact. Resp: Lungs clear to auscultation bilaterally, no wheezes, rales, or rhonchi. Abdomen: Soft, non-distended, Normoactive bowel sounds all 4 quads. Musculoskeletal: Normal gait, 5/5 strength to all four extremities. Posterior neck tender to the touch, slight swelling noted over approximately C6-C7, Skin: No suspicious rashes or lesions. Capillary refill less than 2 sec. Neurologic: Cranial nerves II-XII intact. Alert and oriented x 3. Motor: No deficits noted. Sensory: Intact bilaterally all 4 extremities. Reflexes: DTR's intact bilaterally.. Hematologic/Lymphatic: No ecchymosis, no lymphadenopathy. Course Vital Signs Vital signs: Vital Signs Temperature 37.4 C 01/03/22 19:05 Pulse 125 H 01/03/22 19:05 Respiratory Rate 14 01/03/22 19:05 Blood Pressure 141/87 H 01/03/22 19:05 Pulse Oximetry 99 01/03/22 19:05 Temperature 37.4 C 01/03/22 19:05 Temperature Source Skin 01/03/22 19:05 Pulse 125 H 01/03/22 19:05 Respiratory Rate 14 01/03/22 19:05 Blood Pressure 141/87 H 01/03/22 19:05 Blood Pressure Position Sitting 01/03/22 19:05 Pulse Oximetry 99 01/03/22 19:05 Oxygen Delivery Method Room Air 01/03/22 19:05 Oxygen Flow Rate 0 01/03/22 19:05 Pain Level 9 01/03/22 19:05
[2022-01-03 20:00] LABS: Abs Immature Grans 0.04 10^3/uL (0.0-0.06); Absolute Basophil Count 0.03 10^3/uL (0.0-0.2); Absolute Eosinophil Count 0.07 10^3/uL (0.0-0.7); Absolute Neutrophil Count 6.67 10^3/uL (1.2-6.7); Basophils % 0.3; Eosinophils % 0.7; HCT 38.2 % (36.0-46.0); HGB 13.1 g/dL (11.2-15.7); Immature Grans % 0.4; Lymphocytes % 31.1; MCHC 34.3 % (32.0-36.0); MCV 87 fL (80-95); MPV 9.9 fL (8.0-11.0); Monocytes % 4.7; Neutrophils % 62.8; Platelet Count 273 10^3/uL (130-400); RBC 4.37 10^6/uL (3.93-5.22); RDW 11.9 % (11.7-14.6); RDW-SD 38.3 fL; WBC 10.61 10^3/uL (4.4-10.8)
[2022-01-03 20:07] LABS: Lactate 1.9 mmol/L (0.9-1.7)
--- NOTE | 2022-01-03 20:15 | DI.CT_ITS ---
Exam(s) CT CERVICAL SPINE W EXAM: CT CERVICAL SPINE W CLINICAL HISTORY: Neck Pain, R/O Abscess. TECHNIQUE: Imaging Protocol: Axial computed tomography images with coronal and sagittal reformatted images were created and reviewed CONTRAST MATERIAL: 100 cc Omnipaque 350 COMPARISON: CT CT THORACIC LUMBAR SPINE WO from 01/03/2022 FINDINGS: Bones: No fracture or dislocations are seen. The alignment of the cervical spine is normal including the cervicovertebral junction and cervicothoracic junction. Soft Tissues: The soft tissues of the neck are unremarkable. No abscess is identified. No abnormali ties seen beneath the area marked, posteriorly at the cervical thoracic junction.. No large disk her niations are identified. The visualized portions of the lung apices are clear. No pneumothorax is se en. IMPRESSION: Normal CT scan of the cervical spine.No evidence of abscess. RADIATION DOSE DELIVERED: Total DLP DATA REPOSITORY: All CT scans at this facility are submitted to the National Radiology Data Registry (NRDR) Dose Index Registry (DIR) with the [employer] ([employer]). RADIATION OPTIMIZATION: All CT scans at this facility use at least one of these dose optimization te chniques: automated exposure control; mA and/or kV adjustment per patient size (includes targeted exa ms where dose is matched to clinical indication); or iterative reconstruction.
--- NOTE | 2022-01-03 20:20 | DI.CT_ITS ---
Exam(s) CT THORACIC LUMBAR SPINE WO EXAM: CT THORACIC LUMBAR SPINE WO CLINICAL HISTORY: R/O Abscess. TECHNIQUE: Imaging Protocol: Axial computed tomography images with coronal and sagittal reformatted images were created and reviewed. CONTRAST MATERIAL: Intravenous: Omnipaque 350 Contrast volume:100 cc contrast route:IV - Oral: no COMPARISON: CT CT CERVICAL SPINE W from 01/03/2022 FINDINGS: Thoracic spine: Bones: No fractures or dislocations are seen. The alignment of the spine is normal. T here is disc space narrowing and small endplate osteophytes in the mid thoracic region. Soft tissues: The soft tissues of the chest are unremarkable. No large disk herniations are identifie d. The lungs are clear. Lumbar spine: There mild degenerative changes L4-5. There is some disc space narrowing, small osteop hytes, sclerosis and endplate irregularity at L5-S1. There is minimal facet degenerative change. Th e alignment is normal. There is not abnormal enhancement. There is no paraspinal abscess. Visualiz ed soft tissues are unremarkable. IMPRESSION: Mild degenerative disc changes. No evidence of paraspinal abscess. RADIATION DOSE DELIVERED: Total DLP Total DLP DATA REPOSITORY: All CT scans at this facility are submitted to the National Radiology Data Registry (NRDR) Dose Index Registry (DIR) with the [employer] ([employer]). RADIATION OPTIMIZATION: All CT scans at this facility use at least one of these dose optimization te chniques: automated exposure control; mA and/or kV adjustment per patient size (includes targeted exa ms where dose is matched to clinical indication); or iterative reconstruction.
[2022-01-03 20:22] LABS: ALT 23 U/L (14-59); AST 21 U/L (15-37); Albumin 4.6 g/dL (3.4-5.0); Alkaline Phosphatase 71 U/L (46-116); Anion Gap 11.5 mmol/L (3-11); BUN 11 mg/dL (7-18); Bilirubin, Total 0.5 mg/dL (0.2-1.0); CO2 24.5 mmol/L (21.0-32.0); CREATININE 0.9 mg/dL (0.55-1.02); Calcium 9.5 mg/dL (8.5-10.1); Chloride 105 mmol/L (98-107); Estimated GFR 82.88 (mL/min/1.73m2); Glucose 86 mg/dL (74-106); Potassium 3.4 mmol/L (3.5-5.1); Sodium 141 mmol/L (136-145); Total Protein 8.2 g/dL (6.4-8.2)
[2022-01-03] MEDS: Normal Saline 1,000 ML 1000 ML IV (20:25)
[2022-01-03] MEDS: MORPHine 10 MG/ML VIAL 2 MG IVP (20:47)
[2022-01-03] MEDS: Dexamethasone 10 MG/ML VIAL IVP (20:48)
[2022-01-03 21:08] LABS: Bilirubin Negative (Negative); Blood Small (Negative); Clarity Clear (Clear); Glucose Negative (Negative); Ketones Negative (Negative); Leukocyte Esterase Negative (Negative); Nitrite Negative (Negative); Urobilinogen 0.2 EU/dL (Up TO 0.2)
[2022-01-03 21:17] LABS: WBC 0-2 HPF (0-5)
[2022-01-03 21:18] LABS: Bacteria Rare HPF (Negative); C & S Indicated? No; Crystals Negative HPF (Negative); Epithelial Cells Rare HPF (Negative); Mucus Negative (Negative)
[2022-01-03 21:25] LABS: *AMPHETAMINES SCREEN URINE Negative (Negative); *BARBITURATES SCREEN URINE Negative (Negative); *BENZODIAZEPINES SCREEN URINE Negative (Negative); Cannabinoids THC Negative (Negative); Cocaine Screen,Urine Negative (Negative); METHADONE URINE SCREEN Negative (Negative); OPIATES URINE SCREEN Negative (Negative)
[2022-01-03 21:27] LABS: Tricyclic Antidepressants Negative (Negative)
[2022-01-03] MEDS: Omnipaque 350 MG/ML 100 ML BTL IJ (21:38)
[2022-01-03] MEDS: Normal Saline - Diluent 50 ML VIAL IV (21:38)
[2022-01-03] MEDS: Normal Saline Flush 10 ML SYR IVP (21:39)
--- NOTE | 2022-01-03 21:47 | DI.VRAD_ITS ---
PROCEDURE INFORMATION: Exam: CT Cervical Spine With Contrast Exam date and time: 01/03/2022 8:51 PM Age: 41 years old Clinical indication: Patient HX: Neck pain, R/O abscess. ; Additional info: Marker place on soft tissue where swelling and pain located. TECHNIQUE: Imaging protocol: Computed tomography of the cervical spine with contrast. Radiation optimization: All CT scans at this facility use at least one of these dose optimization techniques: automated exposure control; mA and/or kV adjustment per patient size (includes targeted exams where dose is matched to clinical indication); or iterative reconstruction. Contrast material: OMNIPAQUE 350; Contrast volume: 100 ml; Contrast route: INTRAVENOUS (IV); COMPARISON: SINUS CT WITHOUT CONTRAST 04/01/2017 1:07 PM FINDINGS: Bones/joints: No acute fracture. Normal alignment. No significant disc protrusion. No severe spinal canal stenosis. Lungs: Lung apices are normal. Soft tissues: Unremarkable. IMPRESSION: No acute findings. Dictated and Authenticated by: Chevy Garcia MD. Ordering:ARCHIE Olivares MD
--- NOTE | 2022-01-03 21:47 | DI.VRAD_ITS ---
PROCEDURE INFORMATION: Exam: CT Thoracic Spine Without Contrast Exam date and time: 01/03/2022 8:51 PM Age: 41 years old Clinical indication: Other: Pain and swelling in upper spine, R/O abscess; Mass, lump or swelling; Patient HX: Pain and swelling in neck, fever, R/O abscess TECHNIQUE: Imaging protocol: Computed tomography of the thoracic spine without contrast. Radiation optimization: All CT scans at this facility use at least one of these dose optimization techniques: automated exposure control; mA and/or kV adjustment per patient size (includes targeted exams where dose is matched to clinical indication); or iterative reconstruction. COMPARISON: CT RENAL COLIC WO 07/27/2021 3:48 AM FINDINGS: Bones/joints: No acute fracture. Mild chronic loss of height Normal alignment. No significant disc protrusion. No severe spinal canal stenosis. Soft tissues: Unremarkable. IMPRESSION: No acute findings PROCEDURE INFORMATION: Exam: CT Lumbar Spine Without Contrast Exam date and time: 01/03/2022 8:51 PM Age: 41 years old Clinical indication: Other: Pain and swelling in upper spine, R/O abscess; Mass, lump or swelling; Patient HX: Pain and swelling in neck, fever, R/O abscess TECHNIQUE: Imaging protocol: Computed tomography of the lumbar spine without contrast. Radiation optimization: All CT scans at this facility use at least one of these dose optimization techniques: automated exposure control; mA and/or kV adjustment per patient size (includes targeted exams where dose is matched to clinical indication); or iterative reconstruction. COMPARISON: CT RENAL COLIC WO 07/27/2021 3:48 AM FINDINGS: Bones/joints: No acute fracture. Irregularity to the intervertebral disc space at L5-S1 with associated sclerosis No significant spinal canal stenosis. Severe foraminal stenosis at L5-S1 Soft tissues: No paraspinal mass or collection Fatty infiltration of the liver IMPRESSION: Presumed degenerative changes at the lumbosacral junction. No definite paraspinal mass to suggest paraspinal abscess Dictated and Authenticated by: Chevy Garcia MD. Ordering:ARCHIE Olivares MD
== END 2022-01-03 22:11 | disposition home or self-care (01) ==
PROVIDERS: Emergency Provider Registered Nurse Emergency; PCP Family Medicine
DX: S16.1XXA Strain of muscle, fascia and tendon at neck level, initial encounter (principal); F17.210 Nicotine dependence, cigarettes, uncomplicated; X58.XXXA Exposure to other specified factors, initial encounter
CPT/HCPCS: 80053; 80307; 81025; 96361; 96374; 96375; 99284; 72126; 72128; 72131; 81003; 81015; 83605; 83735; 85025; J1100; J2270; J3490

== ENCOUNTER 2022-02-06 16:52 | Emergency (ER) | payer MEDICAID, SELFPAY ==
[2022-02-06 16:55] VITALS: BP 142/93; PULSE 116; RESP 18; TEMP 36.9; O2SAT 98
[2022-02-06 17:13] VITALS: RESP 18
--- NOTE | 2022-02-06 18:23 | ED.GENADUL_ITS ---
Discharge Plan Disposition Patient Disposition: Home Condition: Good Discharge Details Clinical Impression: URI (upper respiratory infection), Acute otitis media Primary Care Provider: Reynaldo Orozco ED Provider: Nadine Rich Home Meds and New Rx's Prescriptions: New amoxicillin-pot clavulanate 875-125 mg tablet 1 tab PO BID Qty: 10 0RF Continued Nexplanon 68 mg implant 1 implant SBD ONCE Discharge Instructions Instructions: Amoxicillin/Clavulanate Potassium (By mouth), Ear Infection (ED), Upper Respiratory Infection (ED) Additional Instructions: Your exam is concerning for an ear infection the left side. Please continue to encourage hydration. You may use Tylenol and ibuprofen as needed for discomfort. The cough and sore throat is likely associated with viral illness. Please continue to increase hydration. Please continue to wear mask and wash your hands frequently. Please take the antibiotic as prescribed. You are being sent home in a for tonight tomorrow morning and the rest has been sent to your pharmacy of choice. If you develop shortness of breath, difficulty breathing, inability stay hydrated or other new/worsening symptom please seek care urgently once again. Please follow up with primary care in 2 weeks for reevaluation. Referrals: Reynaldo Orozco MD [Primary Care Provider] - Discharge Data Discharge Date/Time-TO BE ENTERED AT DEPARTURE: 02/06/22 18:47 Medical Decision Making Patient is a pleasant 42-year-old female presenting with chief complaint of 4 days of congestion, cough, body aches, fatigue and significant discomfort in the left ear. States that the left ear pain began yesterday is progressively increasing today. See minimal discomfort in the right ear. Denies any nausea or vomiting. Soft stools but no diarrhea. States that she has been hydrating. Was seen in urgent care yesterday and COVID testing which was negative. She denies any rash. On exam, patient appears nontoxic. She is slightly tachycardic but otherwise vitals are stable. Patient is afebrile. Her lungs are clear. She has normal posterior oropharynx. However, the left ear has purulent fluid behind the left tympanic membrane as well as external erythema. I do feel that treatment for ac justin otitis media would be appropriate at this time. Plan repeat testing for flu and COVID. She would prefer to not have this completed as she just did it yesterday. Would instead prefer discharge to home. Given the time of day, will give her antibiotics for tonight tomorrow morning. Return precautions discussed. Discussed supportive care for symptoms. All of her questions and concerns were addressed, she is in agreement with this plan. Sign Out No HPI General Date/Time Provider Initiated Documentation: 02/06/22 17:26 . Limitations to Documentation: no limitations . Information obtained by: patient, RN notes reviewed and old records reviewed . History of Present Illness 42 year old F presents to the emergency department with the chief complaint of cough, congestion, sore throat, right ear pain, body aches, described as severe, Quality is described as aching, Patient reports no radiation. Patient started experiencing this day(s) (3) and it has been constant. No relieving factors improve symptom(s), No exacerbating factors reported . Patient notes no other symptoms.. Patient did receive the following treatments prior to arrival, none Related Data Home Medications Medication Instructions Recorded Confirmed etonogestrel 68 mg subdermal 1 implant subdermal ONCE 03/12/19 02/06/22 implant (Nexplanon) amoxicillin 875 mg-potassium 1 tab PO BID #10 tabs 02/06/22 clavulanate 125 mg tablet Previous Rx's Medication Instructions Recorded amoxicillin 875 mg-potassium 1 tab PO BID #10 tabs 02/06/22 clavulanate 125 mg tablet Allergies Allergy/AdvReac Type Severity Reaction Status Date / Time No Known Allergies Allergy Unverified 02/06/22 16:59 General Stated Complaint: GenMedical ANKIT: 4 Review of Systems Constitutional Constitutional: Reports as per HPI and Denies headache(s) Eyes Eyes: Reports as per HPI, Denies eye discharge and Denies irritation ENT Ears, Nose, Mouth, and Throat: Reports as per HPI and Denies headache(s) Cardiovascular Cardiovascular: Reports as per HPI, Denies chest pain and Denies dyspnea Respiratory Respiratory: Reports as per HPI and Denies dyspnea Gastrointestinal Gastrointestinal: Reports as per HPI, Denies abdominal pain, Denies change in bowel habits, Denies nausea and Denies vomiting Integumentary/Breasts Skin/Breast: Reports as per HPI and Denies rash Neurologic Neurologic: Reports as per HPI and Denies headache(s) PFSH All Active Problems (Updated 02/06/22 @ 18:34 by FERNANDA Kwon) URI (upper respiratory infection) (Acute) Acute otitis media (Acute) Tobacco use (Acute) Pyelonephritis (Acute) Abscess of left kidney (Acute) Pyelonephritis (Acute) Transaminitis (Acute) Viral URI (Acute) Kidney stone on right side (Acute) UTI (urinary tract infection) (Acute) Medical History Contraception DepoProvera as teenager and shortly after her pregnancies. Depression Endometriosis Frequent headaches History of ETOH abuse Surgical History section 2000 & 2003 H/O dilation and curettage History of tubal ligation Social History Smoking/Tobacco Use Status: Current every day Tobacco Type: cigarettes Smoking risk assessment performed?: Yes Alcohol Intake: current Alcohol Intake frequency: a few times a week Alcohol type: beer Drug use: Never Substance use type: does not use Do you feel safe at home: Yes Do you feel safe in your relationship?: Yes Female Reproductive History Menstrual control method: permanent sterilization and implanted History History 3 Para 2 Hx # Term Pregnancies Multiple births Hx # Pregnancies Ectopic pregnancies AB induced Hx Number of Living Children AB spontaneous Exam Const General: cooperative, healthy appearing, comfortable, no acute distress, well developed and well groomed Nutritional Appearance: average body habitus and well nourished Orientation: alert and awake [facility] Head: normal to inspection, normocephalic and atraumatic Ears: hearing grossly normal bilaterally, external ears normal, right TM abnormal (bulging, erythematous ), TM normal on the left, mastoids normal, no periauricular adenopathy and normal mastoids bilaterally General nose exam: external nose normal and nares normal Face and sinus: normal facial exam, sinuses nontender and face symmetric Mouth: oral mucosae normal, lip normal, tongue normal, oropharynx normal and moist mucous membranes Teeth and gingiva: dentition normal Throat: posterior oropharynx normal, tonsils normal and uvula midline Eyes General: appearance normal, both eyes and all related structures Neck Neck: normal visual inspection, full ROM, no lymphadenopathy and no meningeal signs Resp Effort & Inspection: normal respiratory effort, able to speak in complete sentences and no respiratory distress Auscultation: clear to auscultation bilaterally, no rales, no rhonchi and no wheezes Cardio Rate: regular rate Rhythm: regular rhythm Heart Sounds: S1 normal and S2 normal Skin General skin exam: no rashes or lesions noted Neuro General: patient alert and patient awake Cognition: normal cognition Speech: speech normal Gait: normal gait Psych Appearance: grossly normal and well kempt Mental Status: mental status grossly normal Speech and Movement: speech and movement normal Course Vital Signs Vital signs: Vital Signs Temperature 36.9 C 02/06/22 16:55 Pulse 116 H 02/06/22 16:55 Respiratory Rate 18 02/06/22 16:55 Blood Pressure 142/93 H 02/06/22 16:55 Pulse Oximetry 98 02/06/22 16:55 Temperature 36.9 C 02/06/22 16:55 Temperature Source Oral 02/06/22 16:55 Pulse 116 H 02/06/22 16:55 Respiratory Rate 18 02/06/22 17:13 Respiratory Effort Non-Labored 02/06/22 17:13 Respiratory Depth Normal 02/06/22 17:13 Respiratory Pattern Normal 02/06/22 17:13 Blood Pressure 142/93 H 02/06/22 16:55 Blood Pressure Position Sitting 02/06/22 16:55 Pulse Oximetry 98 02/06/22 16:55 Oxygen Delivery Method Room Air 02/06/22 16:55 Oxygen Flow Rate 0 02/06/22 16:55 Pain Level 8 02/06/22 16:55 PAWSS Have you Been Recently Intoxicated or Drunk Within the Last 30 days?: No Have you Ever Experienced Previous Episodes of Alcohol Withdrawal?: No Have you ever Experienced Withdrawal Seizures?: No Have you ever Experienced Delirium Tremens(DT)s?: No Have you ever undergone Alcohol Rehabilitation Treatment (i.e, inpt ot outpatient treatment programs)?: No Have you ever Experienced Blackouts?: No Have you ever Combined Alcohol with other Downers within the last 90 days?: No Have you ever Combined Alcohol with any other Substance of Abuse during the last 90 days?: No Positive Blood Alcohol level on Presentation? [PCS.BAL]: No Evidence of Increased Autonomic Activity (i.e. HR>120, tremor, sweating, agitation, nausea)?: No Result: 0
[2022-02-06] MEDS: Amox. 875/Clav. 125, 2 TABS/BTL 1 TAB PO (18:46)
== END 2022-02-06 18:47 | disposition home or self-care (01) ==
PROVIDERS: Emergency Provider Physician Assistant; PCP Family Medicine
DX: J06.9 Acute upper respiratory infection, unspecified (principal); H66.92 Otitis media, unspecified, left ear; R00.0 Tachycardia, unspecified
CPT/HCPCS: 99283

== ENCOUNTER 2022-05-30 19:39 | Emergency (ER) | payer MEDICAID, SELFPAY ==
[2022-05-30 19:43] VITALS: BP 157/93; PULSE 89; RESP 18; TEMP 37.1; O2SAT 98
--- NOTE | 2022-05-30 20:16 | ED.GENADUL_ITS ---
Discharge Plan Disposition Patient Disposition: Home Condition: Stable Discharge Details Clinical Impression: Exposure to COVID-19 virus Primary Care Provider: Reynaldo Orozco ED Provider: Toshia Junior Home Meds and New Rx's Prescriptions: Continued Nexplanon 68 mg implant 1 implant SBD ONCE Discontinued amoxicillin-pot clavulanate 875-125 mg tablet 1 tab PO BID Qty: 10 0RF Discharge Instructions Instructions: COVID-19 (Coronavirus Disease 2019) (ED) Additional Instructions: You were tested for COVID-19, influenza virus and RSV virus today. These results are still pending and you will be notified if there is a positive result. Drink plenty of fluids and get plenty of rest. Alternate tylenol and motrin as needed and directed for pain. Follow-up with your primary care doctor in 1 week. Return to the emergency department with any worsening or new concerning symptoms. Stand Alone Forms: PENDING COVID-19 TESTING Discharge Data Discharge Date/Time-TO BE ENTERED AT DEPARTURE: 05/30/22 20:47 Discharge Physician: Toshia Junior Medical Decision Making 42-year-old female with a history of depression and tubal ligation presents for 2 days of chills, body aches, fatigue, headaches, nausea, vomiting and diarrhea. Admits to recent COVID-positive contact within the last week. She has received a total of 2 COVID vaccines. Vitals within normal limits. Patient appears comfortable and nontoxic but generally fatigued. Normal ENT exam. Lungs clear throughout. Abdomen soft and nontender. No meningeal signs. Discussed with patient at length that another option to obtain a confirmatory test is to discuss with her primary care doctor which can be ordered outpatient to prevent additional public exposure. She has normal respiratory rate and oxygen saturation. Discussed possibility of [place] lovid but patient declines. Patient would only like a confirmatory test. As she has complaint of vomiting and diarrhea, will obtain a FLUVID. Patient declined to wait for results. She also declined a urine test and denies chance of as she has a history of tubal ligation and has a Nexplanon. She will be contacted with a positive result. Advised to follow up with the primary care doctor for re-evaluation. Usual and customary return precautions given prior to discharge. FLUVID resulted after discharge and NEGATIVE. Medical Records Medical records reviewed: Yes I reviewed the patient's medical records. HPI General Mode of arrival: ambulatory . Date/Time Provider Initiated Documentation: 05/30/22 19:39 . Limitations to Documentation: no limitations . Information obtained by: patient . HPI Narrative: Patient is a 42-year-old female who presents with 2 days of chills, body aches, fatigue, headaches, nausea, vomiting, diarrhea, dizziness. She states the body aches and fatigue is bothering her the most. She denies any significant sore throat, cough, shortness of breath or chest pain. Patient states she has not checked her temperature but has felt hot and cold chills. She states she was told recently that her nephew tested positive for COVID. She was last exposed to him 1 week ago. Patient has received a total of 2 COVID vaccines. She states she has been eating and drinking as usual. Patient states she took a at home COVID test today which resulted positive. She states she is here today because she wanted another test to confirm this positive test. She states she has to work tomorrow so she wanted to confirm that she has COVID as she states I do not trust the home test. Related Data Home Medications Medication Instructions Recorded Confirmed etonogestrel 68 mg subdermal 1 implant subdermal ONCE 03/12/19 05/30/22 implant (Nexplanon) Allergies Allergy/AdvReac Type Severity Reaction Status Date / Time No Known Allergies Allergy Unverified 05/30/22 19:50 General Stated Complaint: GenMedical ANKIT: 3 Review of Systems All systems reviewed & are unremarkable except as noted in HPI and below Constitutional Constitutional: Reports as per HPI, Reports chills, Denies fever(s) and Reports headache(s) Eyes Eyes: Denies blurry vision ENT Ears, Nose, Mouth, and Throat: Reports dizziness, Reports headache(s), Reports nasal congestion, Denies sore throat and Denies throat swelling Cardiovascular Cardiovascular: Denies chest pain and Denies dyspnea Respiratory Respiratory: Denies cough and Denies dyspnea Gastrointestinal Gastrointestinal: Denies abdominal pain, Reports diarrhea, Reports nausea and Reports vomiting Genitourinary Genitourinary: Denies hematuria and Denies dysuria Musculoskeletal Musculoskeletal: Denies back pain and Denies numbness Integumentary/Breasts Skin/Breast: Denies lesions and Denies rash Neurologic Neurologic: Reports dizziness, Reports headache(s), Denies localized weakness and Denies numbness Allergic/Immunologic Allergic/Immunologic: Denies throat swelling PFSH All Active Problems (Updated 05/30/22 @ 20:36 by Toshia Junior DO) Exposure to COVID-19 virus (Acute) Tobacco use (Acute) Pyelonephritis (Acute) Abscess of left kidney (Acute) Pyelonephritis (Acute) Transaminitis (Acute) Viral URI (Acute) Kidney stone on right side (Acute) UTI (urinary tract infection) (Acute) Medical History Contraception DepoProvera as teenager and shortly after her pregnancies. Depression Endometriosis Frequent headaches History of ETOH abuse Surgical History section 2000 & 2003 H/O dilation and curettage History of tubal ligation Social History Smoking/Tobacco Use Status: Current every day Tobacco Type: cigarettes Smoking risk assessment performed?: Yes Alcohol Intake: current Alcohol Intake frequency: a few times a week Alcohol type: beer Drug use: Never Substance use type: does not use Do you feel safe at home: Yes Do you feel safe in your relationship?: Yes Female Reproductive History Menstrual control method: permanent sterilization and implanted History History 3 Para 2 Hx # Term Pregnancies Multiple births Hx # Pregnancies Ectopic pregnancies AB induced Hx Number of Living Children AB spontaneous Exam Const General: cooperative, healthy appearing and no acute distress HENMT Head: normal to inspection Face and sinus: normal facial exam Eyes General: appearance normal, both eyes and all related structures Pupils: PERRL EOM: EOM intact bilaterally Neck Neck: normal visual inspection and No submandibular swelling Lymphatic: no lymphadenopathy noted Chest Chest: normal inspection of the chest and no tenderness Resp Effort & Inspection: normal respiratory effort and able to speak in complete sentences Auscultation: clear to auscultation bilaterally Cardio Rate: regular rate Rhythm: regular rhythm GI Inspection: normal to inspection Palpation: soft, not firm, not rigid and nontender Auscultation: hypoactive bowel sounds Skin General skin exam: no rashes or lesions noted Neuro General: patient alert, patient awake and patient oriented x3 Cognition: normal cognition Speech: speech normal Motor: muscle tone normal throughout Sensory Exam: no sensory deficits noted Extrem General: normal to inspection, full ROM, capillary refill normal, no calf tenderness bilaterally and no edema Psych Appearance: grossly normal Mental Status: mental status grossly normal Speech and Movement: speech and movement normal Affect: normal affect Course Vital Signs Vital signs: Vital Signs Temperature 98.7 F 05/30/22 19:43 Pulse 89 05/30/22 19:43 Respiratory Rate 18 05/30/22 19:43 Blood Pressure 157/93 H 05/30/22 19:43 Pulse Oximetry 98 05/30/22 19:43 Temperature 98.7 F 05/30/22 19:43 Temperature Source Oral 05/30/22 19:43 Pulse 89 05/30/22 19:43 Respiratory Rate 18 05/30/22 19:43 Respiratory Effort Normal, Non-Labored 05/30/22 19:58 Respiratory Depth Normal 05/30/22 19:58 Respiratory Pattern Normal 05/30/22 19:58 Blood Pressure 157/93 H 05/30/22 19:43 Blood Pressure Position Sitting 05/30/22 19:43 Pulse Oximetry 98 05/30/22 19:43 Oxygen Delivery Method Room Air 05/30/22 19:43 Oxygen Flow Rate 0 05/30/22 19:43 Pain Level 7 05/30/22 19:43
[2022-05-30 21:10] LABS: COVID-19 PCR Negative (Negative); Influenza A PCR Negative (Negative); Influenza B PCR Negative (Negative); RSV PCR Negative (Negative)
[2022-05-30 21:12] LABS: Source Nasopharynx
--- NOTE | 2022-05-31 18:04 | NUR.NOTE ---
Nursing Note:PAtient called to find out her covid, flu and RSV results
== END 2022-05-30 20:47 | disposition home or self-care (01) ==
PROVIDERS: Emergency Provider Physician Assistant; PCP Family Medicine
DX: Z20.822 Contact with and (suspected) exposure to COVID-19 (principal)
CPT/HCPCS: 36415; 81025; 87637; 99282

== ENCOUNTER 2022-06-16 07:40 | Emergency (ER) | payer MEDICAID, SELFPAY ==
[2022-06-16 07:44] VITALS: BP 141/84; PULSE 83; RESP 20; TEMP 36.4; O2SAT 98
--- NOTE | 2022-06-16 07:45 | RT.EKG_ITS ---
APPROVED REPORT Exam: Resting ECG Reason for Exam: sob, epigastric pain Patient Location: E HR:67 bpm ECG Measurements Heart Rate 67 AXIS HI 118 P 66 QRSd 93 QRS 20 QT 423 T 19 QTc 446 Conclusion Sinus rhythm...normal P axis, V-rate 60- 99 Physician: no stemi, inverted t wave in III is unchanged
--- NOTE | 2022-06-16 08:23 | ED.GENADUL_ITS ---
Discharge Plan Disposition Patient Disposition: Home Condition: Good Discharge Details Clinical Impression: Acute pancreatitis, Hepatitis Primary Care Provider: Reynaldo Orozco ED Provider: Thiago Irby Home Meds and New Rx's Prescriptions: New ondansetron 4 mg tablet,disintegrating 4 mg PO Q8H Qty: 20 0RF No Action Nexplanon 68 mg implant 1 implant SBD ONCE Discharge Instructions Instructions: Ondansetron (By mouth), Pancreatitis (ED) Additional Instructions: At this time you have evidence of pancreatitis. I suspect this was secondary to alcohol, but there can also be viral causes of this. You also have inflammation of your liver called hepatitis, which is also likely from the alcohol or a virus. However out of an abundance of precaution we have sent a hepatitis panel to evaluate for other potential causes. In regards to the pancreatitis it is important that you stick with a liquid diet for the next 48 to 72 hours. Avoid any spicy or greasy foods. Focus on Jell-O, water, diluted electrolyte drinks, and broth. Please come back in the next 7 days to the lab to have your blood redrawn to recheck your liver numbers and your lipase number. Please follow-up closely with your primary care provider in the next week and a half for reassessment and discussion of the results. If you notice worsening of your symptoms, if you are unable to keep your liquids down, you may need to return for rehydration or potential admission. We have given you Zofran for nausea, please take this as needed. A prescription has also been sent to your pharmacy on file. If you notice any worsening of your symptoms, or any new symptoms such as vomiting, diarrhea, fever, chills, shortness of breath, chest pain, numbness, weakness, or fainting , please return immediately to the emergency department for reevaluation. Please follow up with your primary care provider as soon as possible for reassessment and reevaluation. As always, it was a pleasure participating in your medical care today. Referrals: Reynaldo Orozco MD [Primary Care Provider] - Medical Decision Making This is a 42-year-old female with a past medical history of depression, endometriosis, previous alcohol abuse, , D&C, tubal ligation, who presents today for evaluation of epigastric pain and vomiting. Patient states that last night she was with her sister at a hotel where they underwent some alcohol drinking throughout the night, then this morning when she woke up she felt notable pain in the epigastric region and had multiple episodes of vomiting. She also admits to some mild diarrhea. She denies any fever or chills. No other sick contacts. No blood in her stool or vomit. No other complaints at this time. Physical exam demonstrates dry mucous membranes, epigastric tenderness. Minimal voluntary guarding in the epigastric region. Patient states that she is a tough stick. Patient elected to start with ultrasound-guided IV. 2 location attempts were required as the first successful attempt on the right arm was not tolerated by the patient. Left arm IV in place without complication. Differential includes pancreatitis, less likely gallbladder etiology, gastroenteritis, gastric ulcer. We will get a CT scan of the abdomen,give antiemetics and pain meds, monitor closely and reassess. 11:22 AM Laboratory work-up has returned, patient has a mildly elevated white count, she does have evidence of transaminitis with a focus on the AST at 119, and a lipase of 359. I suspect alcohol is the cause of her pancreatitis, however bilirubin is also elevated at 1.9. CT scan shows no evidence of acute process, ultrasound was performed and demonstrates no acute process for the gallbladder. No ductal dilatation. No other abnormality. On reassessment patient is feeling much better. She feels comfortable and feels comfortable going home. She has been able to tolerate p.o. trial without difficulty. Symptoms at this time are clinically inconsistent with acute cholecystitis. Patient does not eat seafood, she denies any IV or illicit drug use, and she denies any history of hepatitis. I suspect again that alcohol is the cause, but we have sent a hepatitis panel. At this time we did discuss observation versus discharge and patient feels comfortable going home and would like to go home at this time. Will recommend liquid diet for the next 48 to 72 hours, will give Zofran for home use. I have put in a lab order form for a repeat comprehensive and lipase for reassessment of this, and I do feel that she would benefit from close follow-up with her PCP in the next week. We will place referral. Discussed red flags for which to return. I have extensively reviewed the treatment plan and discharge instructions with the patient. I have addressed all patient concerns at this time. The patient was made aware of what symptoms to monitor for that would warrant a return to the emergency department. Discussed the plan with the patient, they demonstrate verbal understanding and agreement with our assessment and plan at this time. The documentation in this chart was dictated using [employer] dictation software. Please excuse any dictation errors. FINDINGS: VISUALIZED LUNG BASES: No nodules nor pleural effusions evident. ABDOMEN: There is no ascites. LIVER: There are no focal hepatic lesions evident. No obvious steatosis. Tiny calcified granuloma in the right hepatic lobe again noted. No dilated intrahepatic ducts. GALLBLADDER/BILIARY: No obvious gallbladder pathology. CBD is not dilated. PANCREAS: No evidence of pancreatic mass nor dilatation of the pancreatic duct. SPLEEN: Spleen size normal. Splenic calcified granulomas again noted. No ominous splenic masses. Splenic and portal veins are patent. Superior mesenteric vein patent. ADRENALS: There are no significant adrenal masses. KIDNEYS:No cysts evident. No solid renal masses. There is a tiny 1-2 millimeter nonobstructive calculus in the left kidney. There are no radiopaque calculi evident in the right kidney. Ureters are not dilated. The previously present 3-4 millimeter calculus in the lower right ureter is no longer seen and the right ureter is not dilated. There are no radiopaque calculi evident in the nondistended urinary bladder lumen.. ABDOMINAL AORTA: Abdominal aorta is not enlarged. LYMPH NODES:There is no retroperitoneal nor paraaortic adenopathy. ABDOMINAL WALL: No evidence of significant anterior abdominal wall nor inguinal hernia. GI: There is no evidence of bowel obstruction, free air, nor abscess. PELVIS: GI: No evidence of appendicitis.No evidence of sigmoid diverticulitis.No obvious colitis pattern. LYMPH NODES: There is no intrapelvic nor inguinal adenopathy. REPRODUCTIVE: Uterus size age-appropriate. No abnormal adnexal masses. There is slightly dilated periuterine veins noted. URINARY BLADDER: No calculi nor obvious masses evident OTHER: Genital piercing again noted. No evidence of inflammatory process in this region. OSSEOUS: No fractures. No evidence of sacroiliitis. There is a peripherally sclerotic non expansile bone lesion in the left bone of the pelvis measuring 12 x 10 mm, unchanged from CT scan of September 2016 and therefore most probably benign. IMPRESSION: 1. There is a solitary tiny 1-2 millimeter nonobstructive calculus in left kidney. No other renal findings and the previously present obstructive 3-4 millimeter calculus in the lower right ureter seen on prior CT scan of 07/27/2021 is no longer seen. There is also no evidence of radiopaque calculus in the nondistended urinary bladder. 2. No other significant findings in the abdomen and pelvis. 3. No ascites FINDINGS: There is no ascites evident. LIVER: There are no hepatic lesions evident nor dilatation of intrahepatic ducts. GALLBLADDER/BILIARY: There are no gallstones. No gallbladder wall edema nor pericholecystic fluid. The common hepatic duct isnot dilated, measuring 5-6mm at the level of nancy hepatis. PANCREAS: There is no evidence of pancreatic mass nor dilatation of the pancreatic duct. RIGHT KIDNEY:No evidence of solid mass, calculus, nor hydronephrosis. No cortical cysts evident. IMPRESSION: 1. No evidence of cholelithiasis nor dilatation of the biliary tree. 2. No other significant ultrasound findings in the right upper quadrant. 3. There is no ascites. HPI General Date/Time Provider Initiated Documentation: 06/16/22 07:53 . HPI Narrative: This is a 42-year-old female with a past medical history of depress ion, endometriosis, previous alcohol abuse, , D&C, tubal ligation, who presents today for evaluation of epigastric pain and vomiting. Patient states that last night she was with her sister at a hotel where they underwent some alcohol drinking throughout the night, then this morning when she woke up she felt notable pain in the epigastric region and had multiple episodes of vomiting. She also admits to some mild diarrhea. She denies any fever or chills. No other sick contacts. No blood in her stool or vomit. No other complaints at this time. Related Data Home Medications Medication Instructions Recorded Confirmed etonogestrel 68 mg subdermal 1 implant subdermal ONCE 03/12/19 06/16/22 implant (Nexplanon) ondansetron 4 mg disintegrating 4 mg PO Q8H #20 tabs 06/16/22 tablet Previous Rx's Medication Instructions Recorded ondansetron 4 mg disintegrating 4 mg PO Q8H #20 tabs 06/16/22 tablet Allergies Allergy/AdvReac Type Severity Reaction Status Date / Time No Known Allergies Allergy Unverified 05/30/22 19:50 General Stated Complaint: Abd Prob ANKIT: 3 Review of Systems All systems reviewed & are unremarkable except as noted in HPI and below PFSH All Active Problems (Updated 06/16/22 @ 11:25 by Thiago Irby DO) Exposure to COVID-19 virus (Acute) Acute pancreatitis (Acute) Hepatitis (Acute) Tobacco use (Acute) Pyelonephritis (Acute) Abscess of left kidney (Acute) Pyelonephritis (Acute) Transaminitis (Acute) Viral URI (Acute) Kidney stone on right side (Acute) UTI (urinary tract infection) (Acute) Medical History Contraception DepoProvera as teenager and shortly after her pregnancies. Depression Endometriosis Frequent headaches History of ETOH abuse Surgical History section 2000 & 2003 H/O dilation and curettage History of tubal ligation Social History Smoking/Tobacco Use Status: Current every day Tobacco Type: cigarettes Smoking risk assessment performed?: Yes Alcohol Intake: current Alcohol Intake frequency: a few times a week Alcohol type: beer Drug use: Never Substance use type: does not use Do you feel safe at home: Yes Do you feel safe in your relationship?: Yes Female Reproductive History Menstrual control method: permanent sterilization and implanted History History 3 Para 2 Hx # Term Pregnancies Multiple births Hx # Pregnancies Ectopic pregnancies AB induced Hx Number of Living Children AB spontaneous Exam Narrative Exam Narrative: 1.Const: Well-nourished, Well-developed, appearing stated age 2.Eyes: PERRL, no conjunctival injection, and symmetrical lids. 3.ENT: Atraumatic external nose and ears. dry MM. Neck: Symmetric, trachea midline, No thyromegaly. 4.CVS: +S1/S2, No murmurs or gallops. Peripheral pulses 2+ and equal in all extremities. Brisk capillary refill in all extremities. 5.RESP: Unlabored respiratory effort. Clear to auscultation bilaterally. No wheezes rales or rhonchi 6.GI: Soft, nondistended. Minimal guarding in the epigastric region. No rebound. Pain in the left upper and epigastric locations. Minimal pain in the right upper quadrant. Negative Dowd sign. No pain or McBurney's point. 7.MSK: Normocephalic/Atraumatic, Extremities w/o deformity or ttp No cyanosis or clubbing, Normal movement of all extremities 8.Skin: Warm, Dry. No rashes or lesions. 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 Sensation grossly intact, no focal neurologic deficits. 10.Psych: (AAO) x3. Appropriate mood and affect Course Vital Signs Vital signs: Vital Signs Temperature 36.4 C L 06/16/22 07:44 Pulse 83 06/16/22 07:44 Respiratory Rate 20 06/16/22 07:44 Blood Pressure 141/84 H 06/16/22 07:44 Pulse Oximetry 98 06/16/22 07:44 Temperature 36.4 C L 06/16/22 07:44 Temperature Source Oral 06/16/22 07:44 Pulse 83 06/16/22 07:44 Respiratory Rate 20 06/16/22 07:44 Respiratory Effort Normal, Non-Labored 06/16/22 07:49 Blood Pressure 141/84 H 06/16/22 07:44 Blood Pressure Position Supine 06/16/22 07:44 Pulse Oximetry 98 06/16/22 07:44 Oxygen Delivery Method Room Air 06/16/22 07:44 Oxygen Flow Rate 0 06/16/22 07:44 Procedures EJ/Peripheral Line Arm L: Time Out Performed: Yes Skin Cleansed in Sterile Fashion: Yes Size (gauge): 20 IV Secured and Dressing Applied: Yes Patient Tolerated Procedure: well and no complications Arm R: Time Out Performed: Yes Skin Cleansed in Sterile Fashion: Yes Size (gauge): 20 IV Secured and Dressing Applied: No Patient Tolerated Procedure: other Additional Comments: IV was inserted into the vessel, unfortunately while he was in the vessel patient became notably intolerant of the IV and demanded it to be removed imm ediately. IV were was removed and pressure was applied.
[2022-06-16] MEDS: MORPHine 4 MG/ML SYR IVP (08:26)
[2022-06-16] MEDS: Ondansetron 4 MG/2 ML VIAL IVP (08:26)
[2022-06-16] MEDS: Normal Saline 1,000 ML 1000 ML IV (08:27)
[2022-06-16 08:28] LABS: Abs Immature Grans 0.05 10^3/uL (0.0-0.06); Absolute Basophil Count 0.04 10^3/uL (0.0-0.2); Absolute Lymphocyte Count 2.34 10^3/uL (1.2-3.4); Absolute Monocyte Count 0.46 10^3/uL (0.1-0.8); Absolute Neutrophil Count 9.03 10^3/uL (1.2-6.7); Basophils % 0.3; Eosinophils % 0.8; HCT 40.8 % (36.0-46.0); HGB 14.4 g/dL (11.2-15.7); Immature Grans % 0.4; Lymphocytes % 19.5; MCH 29.9 pg (27.0-33.0); MCHC 35.3 % (32.0-36.0); MCV 85 fL (80-95); MPV 9.5 fL (8.0-11.0); Monocytes % 3.8; Neutrophils % 75.2; Platelet Count 252 10^3/uL (130-400); RBC 4.82 10^6/uL (3.93-5.22); RDW-SD 36.6 fL; WBC 12.01 10^3/uL (4.4-10.8)
[2022-06-16 08:45] LABS: ALT 68 U/L (14-59); AST 119 U/L (15-37); Albumin 4.3 g/dL (3.4-5.0); Alkaline Phosphatase 95 U/L (46-116); Anion Gap 9.9 mmol/L (3-11); BUN 13 mg/dL (7-18); Bilirubin, Total 1.9 mg/dL (0.2-1.0); CO2 26.1 mmol/L (21.0-32.0); CREATININE 0.7 mg/dL (0.55-1.02); Calcium 9.3 mg/dL (8.5-10.1); Chloride 102 mmol/L (98-107); ETHANOL BLOOD < 3.0 mg/dL (<10); Estimated GFR 111.36 (mL/min/1.73m2); Glucose 106 mg/dL (74-106); Lipase 359 U/L (16-77); Potassium 3.7 mmol/L (3.5-5.1); Sodium 138 mmol/L (136-145); Total Protein 8.1 g/dL (6.4-8.2)
[2022-06-16 09:01] LABS: Bilirubin Small (Negative); Blood Moderate (Negative); Clarity Clear (Clear); Glucose Negative (Negative); Ketones Negative (Negative); Leukocyte Esterase Negative (Negative); Nitrite Negative (Negative); Specific Gravity >= 1.030 (1.005-1.025)
[2022-06-16 09:08] LABS: Bacteria Negative HPF (Negative); C & S Indicated? No; Casts 0-2 Hyaline LPF (Negative); Crystals Negative HPF (Negative); Epithelial Cells Rare HPF (Negative); Mucus Trace (Negative); WBC Negative HPF (0-5)
[2022-06-16] MEDS: Omnipaque 350 MG/ML 500 ML BTL-Imaging package IJ (09:23)
[2022-06-16] MEDS: Normal Saline - Diluent 50 ML VIAL IJ (09:24)
[2022-06-16] MEDS: Normal Saline Flush 10 ML SYR IVP (09:24)
--- NOTE | 2022-06-16 09:25 | DI.CT_ITS ---
Exam(s) CT ABDOMEN PELVIS W EXAM: CT ABDOMEN PELVIS W CLINICAL HISTORY: epigastric pain, vomiting,diarrhea. TECHNIQUE: Imaging Protocol: Axial computed tomography images with coronal and sagittal reformatted images were created and reviewed CONTRAST MATERIAL: Intravenous: Omnipaque-350 100cc Oral: None COMPARISON: CT ABD PELVIS WITH CONTRAST from 09/20/[address] ABDOMEN PELVIS WO from 06/10/[address] RENAL COLIC WO from 07/27/2021 FINDINGS: VISUALIZED LUNG BASES: No nodules nor pleural effusions evident. ABDOMEN: There is no ascites. LIVER: There are no focal hepatic lesions evident. No obvious steatosis. Tiny calcified granuloma i n the right hepatic lobe again noted. No dilated intrahepatic ducts. GALLBLADDER/BILIARY: No obvious gallbladder pathology. CBD is not dilated. PANCREAS: No evidence of pancreatic mass nor dilatation of the pancreatic duct. SPLEEN: Spleen size normal. Splenic calcified granulomas again noted. No ominous splenic masses. S plenic and portal veins are patent. Superior mesenteric vein patent. ADRENALS: There are no significant adrenal masses. KIDNEYS:No cysts evident. No solid renal masses. There is a tiny 1-2 millimeter nonobstructive calcu buster in the left kidney. There are no radiopaque calculi evident in the right kidney. Ureters are no t dilated. The previously present 3-4 millimeter calculus in the lower right ureter is no longer see n and the right ureter is not dilated. There are no radiopaque calculi evident in the nondistended u rinary bladder lumen.. ABDOMINAL AORTA: Abdominal aorta is not enlarged. LYMPH NODES:There is no retroperitoneal nor paraaortic adenopathy. ABDOMINAL WALL: No evidence of significant anterior abdominal wall nor inguinal hernia. GI: There is no evidence of bowel obstruction, free air, nor abscess. PELVIS: GI: No evidence of appendicitis.No evidence of sigmoid diverticulitis.No obvious colitis pattern. LYMPH NODES: There is no intrapelvic nor inguinal adenopathy. REPRODUCTIVE: Uterus size age-appropriate. No abnormal adnexal masses. There is slightly dilated pe riuterine veins noted. URINARY BLADDER: No calculi nor obvious masses evident OTHER: Genital piercing again noted. No evidence of inflammatory process in this region. OSSEOUS: No fractures. No evidence of sacroiliitis. There is a peripherally sclerotic non expansile bone lesion in the left bone of the pelvis measuring 12 x 10 mm, unchanged from CT scan of September 2016 and therefore most probably benign. IMPRESSION: 1. There is a solitary tiny 1-2 millimeter nonobstructive calculus in left kidney. No other renal fi ndings and the previously present obstructive 3-4 millimeter calculus in the lower right ureter seen on prior CT scan of 07/27/2021 is no longer seen. There is also no evidence of radiopaque calculus i n the nondistended urinary bladder. 2. No other significant findings in the abdomen and pelvis. 3. No ascites Called report to ER physician. RADIATION DOSE DELIVERED: 741.99mGy.cm Total DLP DATA REPOSITORY: All CT scans at this facility are submitted to the National Radiology Data Registry (NRDR) Dose Index Registry (DIR) with the [employer] (A[employer]). RADIATION OPTIMIZATION: All CT scans at this facility use at least one of these dose optimization te chniques: automated exposure control; mA and/or kV adjustment per patient size (includes targeted exa ms where dose is matched to clinical indication); or iterative reconstruction.
--- NOTE | 2022-06-16 09:47 | DI.US_ITS ---
Exam(s) US ABDOMEN LIMITED EXAM: US ABDOMEN LIMITED CLINICAL HISTORY: ruq pain, eval GB TECHNIQUE: Ultrasound abdomen performed using standard protocol. COMPARISON: US US RENAL from 07/25/2020 FINDINGS: There is no ascites evident. LIVER: There are no hepatic lesions evident nor dilatation of intrahepatic ducts. GALLBLADDER/BILIARY: There are no gallstones. No gallbladder wall edema nor pericholecystic fluid. The common hepatic duct isnot dilated, measuring 5-6mm at the level of nancy hepatis. PANCREAS: There is no evidence of pancreatic mass nor dilatation of the pancreatic duct. RIGHT KIDNEY:No evidence of solid mass, calculus, nor hydronephrosis. No cortical cysts evident. IMPRESSION: 1. No evidence of cholelithiasis nor dilatation of the biliary tree. 2. No other significant ultrasound findings in the right upper quadrant. 3. There is no ascites. DATA REPOSITORY:
[2022-06-16] MEDS: Ketorolac 15 MG/ML VIAL IVP (10:20)
[2022-06-16] MEDS: Ondansetron O.D.T. 4 MG TABEF, 3 TABS/BTL PO (11:26)
[2022-06-17 10:45] LABS: Hepatitis A Antibody IgM Negative (Negative); Hepatitis B Core Antibody Negative (Negative); Hepatitis B surface Ag Negative (Negative); Hepatitis C Ab w Rflx HCV PCR Negative (Negative)
== END 2022-06-16 11:39 | disposition home or self-care (01) ==
PROVIDERS: Emergency Provider Student in an Organized Health Care Education/Training Program; PCP Family Medicine
DX: K85.90 Acute pancreatitis without necrosis or infection, unspecified (principal); K75.9 Inflammatory liver disease, unspecified; D72.829 Elevated white blood cell count, unspecified
CPT/HCPCS: 80053; 83690; 86704; 86709; 86803; 87340; 93005; 74177; 76705; 80320; 81003; 81015; 85025; 93010; J1885; J2270; J2405

== ENCOUNTER 2022-06-18 12:59 | Emergency (ER) | payer MEDICAID, SELFPAY ==
[2022-06-18 13:03] VITALS: BP 131/90; PULSE 72; RESP 18; TEMP 36.6; O2SAT 98
[2022-06-18 13:23] LABS: Bilirubin Negative (Negative); Blood Moderate (Negative); Clarity Clear (Clear); Glucose Negative (Negative); Ketones Negative (Negative); Leukocyte Esterase Negative (Negative); Nitrite Negative (Negative); Specific Gravity 1.025 (1.005-1.025)
--- NOTE | 2022-06-18 13:36 | W.ED.GENAD ---
Discharge Plan Disposition Patient Disposition: Home Condition: Improving Discharge Details Clinical Impression: Upper abdominal pain, Nausea Primary Care Provider: Reynaldo Orozco ED Provider: Toshia Junior Home Meds and New Rx's Prescriptions: New sucralfate [Carafate] 1 gram tablet 1 gm PO QACHS Qty: 14 0RF promethazine 25 mg tablet 25 mg PO TID PRN (Reason: nausea and vomiting) Qty: 7 0RF Continued Nexplanon 68 mg implant 1 implant SBD ONCE ondansetron 4 mg tablet,disintegrating 4 mg PO Q8H Qty: 20 0RF Discharge Instructions Instructions: Acute Nausea and Vomiting (ED), Abdominal Pain (ED) Additional Instructions: Your blood tests today are reassuring. Prescriptions for promethazine for your nausea and vomiting and Carafate for your upper abdominal pain have been sent electronically to your pharmacy to take as directed. Start taking an [id number] Pepcid or Prilosec once daily for the next 2 weeks. Follow-up with your primary care doctor in 1 week and for referral to general surgery for reevaluation and consideration for upper endoscopy if her symptoms do not improve or worsen. Return to the emergency department with any worsening or new concerning symptoms. Referrals: Calvin Rodriguez MD [ [facility] STAFF PHYSICIAN] - Discharge Data Discharge Physician: Toshia Junior Medical Decision Making 42-year-old female with a history of depression, endometriosis, frequent alcohol use, tubal ligation and section presents for upper abdominal pain and nausea for the past 3 days. She admits to drinking 7 beers the night before her pain started. She was seen here 2 days ago for this complaint and diagnosed with pancreatitis and sent home with Zofran and 4 tabs of oxycodone which helped with some pain but then she ran out. Vitals within normal limits. Patient appears comfortable and nontoxic. Her abdomen is soft and tender across the upper quadrants, mainly in the right upper quadrant. Review of records notes that patient had a white blood cell count of 12 and an AST of 119 and lipase of 359 when seen in ED 2 days ago. She had a CT abdomen and pelvis and limited abdominal ultrasound which both showed no acute disease. A hepatitis panel was sent and has been resulted as negative. She had an EKG on that visit on 06/16/2022 which noted a rate of 67, sinus, normal intervals and no acute ischemic findings. Discussed with patient at length that as she just had exposure to radiation with CAT scan 2 days ago, will hold on additional CT at this time but will obtain screening labs and gallbladder ultrasound. Differential diagnosis includes gastritis, PUD, GERD, cholelithiasis, cholecystitis, worsening pancreatitis. We will give a dose of IV Toradol, IV Pepcid and Zofran and reassess. 1440 --delay in receiving blood due to initial blood hemolyzing and patient has poor peripheral access. Patient reassessed and she states she feels no better. Will give additional medication for pain and nausea. 1520 --labs reviewed and reassuring. She has a normal white blood cell count. Her AST is now near normalized. ALT minimally elevated 89. Lipase is now within normal limits. Patient reassessed and she feels much better. Patient feels comfortable going home. Discussed that if her symptoms not improve or worsen, consider follow-up with general surgery for reevaluation and consideration for EGD for possibility of GERD, gastritis, PUD. Advised to follow up with the primary care doctor for re-evaluation. Usual and customary return precautions given prior to discharge. Medical Records Medical records reviewed: Yes I reviewed the patient's medical records. Medical records narrative: 06/16/22 CT abdomen/pelvis w/ IV contrast. IMPRESSION: 1. There is a solitary tiny 1-2 millimeter nonobstructive calculus in left kidney.? No other renal findings and the previously present obstructive 3-4 millimeter calculus in the lower right ureter seen on prior CT scan of 07/27/2021 is no longer seen.? There is also no evidence of radiopaque calculus in the nondistended urinary bladder. 2. No other significant findings in the abdomen and pelvis. 3. No ascites 06/16/22 US Abdomen Limited IMPRESSION: 1.? No evidence of cholelithiasis nor dilatation of the biliary tree.? 2.? No other significant ultrasound findings in the right upper quadrant. 3.? There is no ascites. Lab Data Lab results reviewed: Yes I reviewed the patient's lab results. Labs: Laboratory Tests Range/Units 06/18/22 06/18/22 06/18/22 13:11 13:30 13:30 WBC Cancelled RBC Cancelled Hgb Cancelled Hct Cancelled MCV Cancelled MCH Cancelled MCHC Cancelled RDW Cancelled Plt Count Cancelled MPV Cancelled Immature Gran % Cancelled Neutrophils % Cancelled Band Neutrophils % Cancelled Lymphocytes % Cancelled Atypical Lymphs % Cancelled Monocytes % Cancelled Eosinophils % Cancelled Basophils % Cancelled Metamyelocytes % Cancelled Myelocytes % Cancelled Promyelocytes % Cancelled Other Cells % Cancelled Nucleated RBC % Cancelled Absolute Neutrophils Cancelled Absolute Lymphocytes Cancelled Absolute Monocytes Cancelled Absolute Eosinophils Cancelled Absolute Basophils Cancelled RBC Morphology Cancelled Polychromasia Cancelled Hypochromasia Cancelled Poikilocytosis Cancelled Basophilic Stippling Cancelled Anisocytosis Cancelled Microcytosis Cancelled Macrocytosis Cancelled Spherocytes Cancelled Tear Drop Cells Cancelled Ovalocytes Cancelled Stomatocytes Cancelled [place] Bodies Cancelled [place] Cells/Echinocytes Cancelled Acanthocytes (Spur) Cancelled Schistocytes Cancelled Sodium Cancelled Potassium Cancelled Chloride Cancelled Carbon Dioxide Cancelled Anion Gap Cancelled BUN Cancelled Creatinine Cancelled Est GFR (CKD-EPI 2020) Cancelled Glucose Cancelled Calcium Cancelled Total Bilirubin Cancelled AST Cancelled ALT Cancelled Alkaline Phosphatase Cancelled Total Protein Cancelled Albumin Cancelled Lipase Cancelled Urine Color (Yellow) Yellow Urine Clarity (Clear) Clear Urine pH (5-8) 6.0 Ur Specific [place] (1.005-1.025) 1.025 Urine Protein (Negative) mg/dL Negative Urine Ketones (Negative) mg/dL Negative Urine Blood (Negative) Moderate H Urine Nitrite (Negative) Negative Urine Bilirubin (Negative) Negative Urine Urobilinogen (Up to 0.2) mg/dL 1.0 H Ur Leukocyte Esterase (Negative) Negative Urine RBC (0-2) HPF 5-10 H Urine WBC (0-5) HPF 0-2 Ur Epithelial Cells (Negative) HPF Few Urine Crystals (Negative) HPF Negative Urine Bacteria (Negative) HPF Rare Urine Casts (Negative) LPF Negative Urine Mucus (Negative) Moderate Ur Culture Indicated? No Urine Glucose (Negative) mg/dL Negative Range/Units 06/18/22 06/18/22 14:40 14:40 WBC 10.01 RBC 4.23 Hgb 12.7 Hct 36.5 MCV 86 MCH 30.0 MCHC 34.8 RDW 12.0 Plt Count 236 MPV 9.6 Immature Gran % 0.3 Neutrophils % 67.8 Band Neutrophils % Lymphocytes % 25.4 Atypical Lymphs % Monocytes % 5.3 Eosinophils % 0.8 Basophils % 0.4 Metamyelocytes % Myelocytes % Promyelocytes % Other Cells % Nucleated RBC % 0.0 Absolute Neutrophils 6.79 H Absolute Lymphocytes 2.54 Absolute Monocytes 0.53 Absolute Eosinophils 0.08 Absolute Basophils 0.04 RBC Morphology Polychromasia Hypochromasia Poikilocytosis Basophilic Stippling Anisocytosis Microcytosis Macrocytosis Spherocytes Tear Drop Cells Ovalocytes Stomatocytes [place] Bodies [place] Cells/Echinocytes Acanthocytes (Spur) Schistocytes Sodium 143 Potassium 3.7 Chloride 108 H Carbon Dioxide 27.7 Anion Gap 7.3 BUN 14 Creatinine 0.8 Est GFR (CKD-EPI 2020) 94.87 Glucose 106 Calcium 8.7 Total Bilirubin 0.3 AST 42 H ALT 89 H Alkaline Phosphatase 84 Total Protein 7.3 Albumin 3.7 Lipase 29 Urine Color (Yellow) Urine Clarity (Clear) Urine pH (5-8) Ur Specific [place] (1.005-1.025) Urine Protein (Negative) mg/dL Urine Ketones (Negative) mg/dL Urine Blood (Negative) Urine Nitrite (Negative) Urine Bilirubin (Negative) Urine Urobilinogen (Up to 0.2) mg/dL Ur Leukocyte Esterase (Negative) Urine RBC (0-2) HPF Urine WBC (0-5) HPF Ur Epithelial Cells (Negative) HPF Urine Crystals (Negative) HPF Urine Bacteria (Negative) HPF Urine Casts (Negative) LPF Urine Mucus (Negative) Ur Culture Indicated? Urine Glucose (Negative) mg/dL HPI General Mode of arrival: ambulatory. Date/Time Provider Initiated Documentation: 06/18/22 13:00. Limitations to Documentation: no limitations. Information obtained by: patient. HPI Narrative: Patient is a 42-year-old female with a history of depression, tubal ligation, section and endometriosis who presents for abdominal pain and nausea for the past few days. Patient was seen here 2 days ago for upper abdominal pain that started that day and diagnosed with pancreatitis and sent home with Zofran and 4 tabs of oxycodone. She states the oxycodone helped relieve her pain but she ran out so she called her PCP office for continued pain and nausea and they referred her here for further evaluation. Patient states the Zofran is not working and she still has nausea. She states her pain is still in her upper abdomen but mostly in her right upper quadrant. She describes it as sharp and achy and worse anytime she attempts to eat. She states she has not eaten much for the past 2 days due to her nausea. She states her last bowel movement was 2 days ago which is unusual for her. She denies any known fever, chest pain, difficulty breathing, urinary symptoms, vaginal discharge or genital lesions. She states she had 7 beers the night before her pain started and states she usually drinks 6-7 beers 2 times a week. She denies any drug use. Related Data Home Medications Medication Instructions Recorded Confirmed etonogestrel 68 mg subdermal 1 implant subdermal ONCE 03/12/19 06/16/22 implant (Nexplanon) ondansetron 4 mg disintegrating 4 mg PO Q8H #20 tabs 06/16/22 tablet promethazine 25 mg tablet 25 mg PO TID PRN nausea and 06/18/22 vomiting #7 tabs sucralfate 1 gram tablet (Carafate) 1 gm PO QACHS #14 tabs 06/18/22 Previous Rx's Medication Instructions Recorded ondansetron 4 mg disintegrating 4 mg PO Q8H #20 tabs 06/16/22 tablet promethazine 25 mg tablet 25 mg PO TID PRN nausea and 06/18/22 vomiting #7 tabs sucralfate 1 gram tablet (Carafate) 1 gm PO QACHS #14 tabs 06/18/22 Allergies Allergy/AdvReac Type Severity Reaction Status Date / Time No Known Allergies Allergy Unverified 05/30/22 19:50 General Stated Complaint: Recheck ANKIT: 3 Review of Systems All systems reviewed & are unremarkable except as noted in HPI and below Constitutional Constitutional: Reports as per HPI, Denies chills and Denies fever(s) Eyes Eyes: Denies blurry vision ENT Ears, Nose, Mouth, and Throat: Denies dizziness, Denies sore throat and Denies throat swelling Cardiovascular Cardiovascular: Denies chest pain and Denies dyspnea Respiratory Respiratory: Denies cough and Denies dyspnea Gastrointestinal Gastrointestinal: Reports abdominal pain, Denies diarrhea, Reports nausea and Denies vomiting Genitourinary Genitourinary: Denies hematuria and Denies dysuria Musculoskeletal Musculoskeletal: Denies back pain and Denies numbness Integumentary/Breasts Skin/Breast: Denies lesions and Denies rash Neurologic Neurologic: Denies dizziness, Denies localized weakness and Denies numbness Allergic/Immunologic Allergic/Immunologic: Denies throat swelling PFSH All Active Problems (Updated 06/18/22 @ 15:30 by Toshia Junior DO) Exposure to COVID-19 virus (Acute) Acute pancreatitis (Acute) Hepatitis (Acute) Upper abdominal pain (Acute) Nausea (Acute) Tobacco use (Acute) Pyelonephritis (Acute) Abscess of left kidney (Acute) Pyelonephritis (Acute) Transaminitis (Acute) Viral URI (Acute) Kidney stone on right side (Acute) UTI (urinary tract infection) (Acute) Medical History Contraception DepoProvera as teenager and shortly after her pregnancies. Depression Endometriosis Frequent headaches History of ETOH abuse Surgical History section 2000 & 2003 H/O dilation and curettage History of tubal ligation Social History Smoking/Tobacco Use Status: Current every day Tobacco Type: cigarettes Smoking risk assessment performed?: Yes Alcohol Intake: current Alcohol Intake frequency: a few times a week Alcohol type: beer Drug use: Never Substance use type: does not use Do you feel safe at home: Yes Do you feel safe in your relationship?: Yes Additional Social history: Pt reports safe to return home Female Reproductive History Menstrual control method: permanent sterilization and implanted History History 3 Para 2 Hx # Term Pregnancies Multiple births Hx # Pregnancies Ectopic pregnancies AB induced Hx Number of Living Children AB spontaneous Exam Const General: cooperative, healthy appearing and no acute distress Orientation: alert, awake and oriented x3 HENMT Head: normal to inspection Face and sinus: normal facial exam Eyes General: appearance normal, both eyes and all related structures Pupils: PERRL EOM: EOM intact bilaterally Neck Neck: normal visual inspection and No submandibular swelling Lymphatic: no lymphadenopathy noted Chest Chest: normal inspection of the chest and no tenderness Resp Effort & Inspection: normal respiratory effort and able to speak in complete sentences Auscultation: clear to auscultation bilaterally Cardio Rate: regular rate Rhythm: regular rhythm GI Inspection: normal to inspection Palpation: soft, not firm, not rigid and tender in the epigastrum, in the LUQ and in the RUQ Auscultation: hypoactive bowel sounds Back/Spine/Pelvis Thoracic/Lumbar Spine: thoracic and lumbar spine normal to inspection Pelvis: no pain with anterior-posterior compression Skin General skin exam: no rashes or lesions noted Neuro General: patient alert, patient awake and patient oriented x3 Cognition: normal cognition Speech: speech normal Motor: muscle tone normal throughout Sensory Exam: no sensory deficits noted Extrem General: normal to inspection, full ROM, capillary refill normal, no calf tenderness bilaterally and no edema Psych Appearance: grossly normal Mental Status: mental status grossly normal Speech and Movement: speech and movement normal Affect: normal affect Course Vital Signs Vital signs: Vital Signs Temperature 97.9 F 06/18/22 13:03 Pulse 72 06/18/22 13:03 Respiratory Rate 18 06/18/22 13:03 Blood Pressure 131/90 06/18/22 13:03 Pulse Oximetry 98 06/18/22 13:03 Temperature 97.9 F 06/18/22 13:03 Temperature Source Oral 06/18/22 13:03 Pulse 72 06/18/22 13:03 Respiratory Rate 18 06/18/22 13:03 Respiratory Effort Normal 06/18/22 13:32 Blood Pressure 131/90 06/18/22 13:03 Blood Pressure Position Sitting 06/18/22 13:03 Pulse Oximetry 98 06/18/22 13:03 Oxygen Delivery Method Room Air 06/18/22 13:03 Oxygen Flow Rate 0 06/18/22 13:03 Pain Level 8 06/18/22 13:03 Lab/Test Results Lab/Test Results: Laboratory Tests Range/Units 06/18/22 13:11 Urine Color (Yellow) Yellow Urine Clarity (Clear) Clear Urine pH (5-8) 6.0 Ur Specific [place] (1.005-1.025) 1.025 Urine Protein (Negative) mg/dL Negative Urine Ketones (Negative) mg/dL Negative Urine Blood (Negative) Moderate H Urine Nitrite (Negative) Negative Urine Bilirubin (Negative) Negative Urine Urobilinogen (Up to 0.2) mg/dL 1.0 H Ur Leukocyte Esterase (Negative) Negative Urine Glucose (Negative) mg/dL Negative POC- Test(urine) Negative PAWSS Have you Been Recently Intoxicated or Drunk Within the Last 30 days?: No Have you Ever Experienced Previous Episodes of Alcohol Withdrawal?: No Have you ever Experienced Withdrawal Seizures?: No Have you ever Experienced Delirium Tremens(DT)s?: No Have you ever undergone Alcohol Rehabilitation Treatment (i.e, inpt ot outpatient treatment programs)?: No Have you ever Experienced Blackouts?: No Have you ever Combined Alcohol with other Downers within the last 90 days?: No Have you ever Combined Alcohol with any other Substance of Abuse during the last 90 days?: No Positive Blood Alcohol level on Presentation? [PCS.BAL]: Unable to Obtain Evidence of Increased Autonomic Activity (i.e. HR>120, tremor, sweating, agitation, nausea)?: No Result: 0
[2022-06-18 13:46] LABS: Bacteria Rare HPF (Negative); C & S Indicated? No; Casts Negative LPF (Negative); Crystals Negative HPF (Negative); Epithelial Cells Few HPF (Negative); Mucus Moderate (Negative); WBC 0-2 HPF (0-5)
[2022-06-18] MEDS: Ondansetron 4 MG/2 ML VIAL IVP (14:09)
[2022-06-18] MEDS: Ketorolac 30 MG/ML VIAL IVP (14:11)
[2022-06-18] MEDS: Famotidine 20 MG/2 ML VIAL IVP (14:15)
[2022-06-18] MEDS: Normal Saline 1,000 ML 1000 ML IV (14:17)
[2022-06-18 14:47] LABS: Abs Immature Grans 0.03 10^3/uL (0.0-0.06); Absolute Basophil Count 0.04 10^3/uL (0.0-0.2); Absolute Eosinophil Count 0.08 10^3/uL (0.0-0.7); Absolute Lymphocyte Count 2.54 10^3/uL (1.2-3.4); Absolute Monocyte Count 0.53 10^3/uL (0.1-0.8); Absolute Neutrophil Count 6.79 10^3/uL (1.2-6.7); Basophils % 0.4; Eosinophils % 0.8; HCT 36.5 % (36.0-46.0); HGB 12.7 g/dL (11.2-15.7); Immature Grans % 0.3; Lymphocytes % 25.4; MCHC 34.8 % (32.0-36.0); MCV 86 fL (80-95); MPV 9.6 fL (8.0-11.0); Monocytes % 5.3; Neutrophils % 67.8; Platelet Count 236 10^3/uL (130-400); RBC 4.23 10^6/uL (3.93-5.22); WBC 10.01 10^3/uL (4.4-10.8)
[2022-06-18] MEDS: HYDROmorphone 2 MG/ML SYR 0.5 MG IVP (14:56)
[2022-06-18] MEDS: Metoclopramide 10 MG/2 ML VIAL IVP (14:56)
[2022-06-18 15:01] LABS: ALT 89 U/L (14-59); AST 42 U/L (15-37); Albumin 3.7 g/dL (3.4-5.0); Alkaline Phosphatase 84 U/L (46-116); Anion Gap 7.3 mmol/L (3-11); BUN 14 mg/dL (7-18); Bilirubin, Total 0.3 mg/dL (0.2-1.0); CO2 27.7 mmol/L (21.0-32.0); CREATININE 0.8 mg/dL (0.55-1.02); Calcium 8.7 mg/dL (8.5-10.1); Chloride 108 mmol/L (98-107); Estimated GFR 94.87 (mL/min/1.73m2); Glucose 106 mg/dL (74-106); Lipase 29 U/L (16-77); Potassium 3.7 mmol/L (3.5-5.1); Sodium 143 mmol/L (136-145); Total Protein 7.3 g/dL (6.4-8.2)
== END 2022-06-18 15:49 | disposition home or self-care (01) ==
PROVIDERS: Emergency Provider Physician Assistant; PCP Family Medicine
DX: R10.10 Upper abdominal pain, unspecified (principal); R11.2 Nausea with vomiting, unspecified
CPT/HCPCS: 80053; 81025; 83690; 96361; 96374; 96375; 99284; 81003; 81015; 85025; J1170; J1885; J2405; J2765

== ENCOUNTER 2022-10-08 15:21 | Outpatient (REF) | payer MEDICAID, SELFPAY | END 2022-10-08 15:22 | disposition home or self-care (01) | LOC: NCHCN 15:21 | PROVIDERS: PCP Family Medicine; Visit Provider Family Medicine | DX: F41.8 Other specified anxiety disorders (principal) | CPT/HCPCS: 84443 ==

== ENCOUNTER 2022-10-09 19:59 | Emergency (ER) | payer SELFPAY ==
[2022-10-09 20:02] VITALS: BP 148/110; PULSE 77; RESP 16; TEMP 36.4; O2SAT 100
== END 2022-10-09 21:26 | disposition left against medical advice (07) ==
PROVIDERS: PCP Family Medicine
DX: Z53.21 Procedure and treatment not carried out due to patient leaving prior to being seen by health care provider (principal)

== ENCOUNTER 2023-05-16 12:58 | Emergency (ER) | payer MEDICAID, SELFPAY ==
[2023-05-16 13:12] VITALS: BP 125/95; PULSE 99; RESP 18; TEMP 36.5; O2SAT 98
--- NOTE | 2023-05-16 13:30 | DI.RAD_ITS ---
Exam(s) XR KNEE RT 3V AP,LAT,NERI EXAM: XR KNEE RT 3V AP,LAT,NERI CLINICAL HISTORY: medial knee pain, unknown injury. TECHNIQUE: 2D digital imaging was performed of the right knee. Three views obtained. AP, lateral an d PA tunnel views were obtained. COMPARISON: No exams were available for comparison FINDINGS: BONES: No acute fracture is present. No bony destructive lesion is seen. JOINTS: The knee is normally aligned. No joint effusion is seen. SOFT TISSUE: Normal. IMPRESSION: Unremarkable radiographs of the right knee. DATA REPOSITORY: RADIATION DOSE DELIVERED:
[2023-05-16] MEDS: Diclofenac 1% Gel 100 GM TUBE TP (13:49)
--- NOTE | 2023-05-16 14:24 | ED.GENADUL_ITS ---
Discharge Plan Disposition Patient Disposition: Home Condition: Good Discharge Details Clinical Impression: Acute pain of right knee Primary Care Provider: Reynaldo Orozco ED Provider: Thiago Irby Home Meds and New Rx's Prescriptions: No Action Nexplanon 68 mg implant 1 implant SBD ONCE citalopram 20 mg tablet 20 mg PO DAILY Patient Comments: TAKE ONE TABLET BY MOUTH EVERY DAY Discharge Instructions Instructions: Knee Pain (ED) Additional Instructions: At this time I suspect you had a mild injury to your ligaments of your knee. There may also be a mild meniscal injury. Please continue to take Tylenol and Motrin for pain. Please apply the Voltaren gel to the area. Please use the hinged knee brace and the crutches for the next 1 to 2 weeks. Please follow-up with physical therapy when they contact you for an appointment time. Please follow closely with your primary care provider. If your symptoms do not improve with the medications brace the crutches and physical therapy you may need an MRI and orthopedic follow-up. If you notice any worsening of your symptoms, or any new symptoms such as vomiting, diarrhea, fever, chills, shortness of breath, chest pain, numbness, weakness, or fainting , please return immediately to the emergency department for reevaluation. Please follow up with your primary care provider as soon as possible for reassessment and reevaluation. As always, it was a pleasure participating in your medical care today. Stand Alone Forms: Physical Therapy Referral Referrals: Reynaldo Orozco MD [Primary Care Provider] - [facility] General Date/Time Provider Initiated Documentation: 05/16/23 13:31 . [facility] Narrative: 43-year-old female with no significant past medical history presents today for evaluation of right knee pain. Pain has been present for the last 2 months. She denies any trauma or injury. She did play soccer when she was young, but denies any significant injuries in the past. Pain is present on the medial aspect. Worse with ambulation and movement. She did have a long car drive recently, and had significant pain after the long drive as she had kept in a flexed position for quite some time. She denies any other complaints at this time. She has been taking Tylenol Motrin for pain. No numbness or tingling. Related Data Home Medications Medication Instructions Recorded Confirmed etonogestrel 68 mg subdermal 1 implant subdermal ONCE 03/12/19 05/16/23 implant (Nexplanon) citalopram 20 mg tablet 20 mg PO DAILY 05/16/23 05/16/23 Allergies Allergy/AdvReac Type Severity Reaction Status Date / Time No Known Allergies Allergy Unverified 05/16/23 13:14 General Stated Complaint: Orthopedic ANKIT: 4 Review of Systems All systems reviewed & are unremarkable except as noted in HPI and below Exam Narrative Exam Narrative: 1.Const: Well-nourished, Well-developed, appearing stated age 2.Eyes: PERRL, no conjunctival injection, and symmetrical lids. 3.ENT: Atraumatic external nose and ears. Moist MM. Neck: Symmetric, trachea midline, No thyromegaly. 4.CVS: +S1/S2, No murmurs or gallops. Peripheral pulses 2+ and equal in all extremities. Brisk capillary refill in all extremities. 5.RESP: Unlabored respiratory effort. Clear to auscultation bilaterally. No wheezes rales or rhonchi 6.GI: Soft, Nontender/Nondistended, No hepatosplenomegaly. No guarding or rebound. 7.MSK: Normocephalic/Atraumatic, Extremities w/o deformity. Right knee: The knee is stable to varus, valgus, and anterior drawer stress. No deformity. Patellar grind test is negative. Saeed test is minimally positive for medial pain. Patient is able to walk without significant difficulty. No sylvia ma or warmth to the joint. No ttp to the patella, tibial plateau, or fibular head. Mild pain on the medial aspect of the knee at the tibial edge. Mild pain with valgus and valgus straining, however no evidence of significant laxity. 8.Skin: Warm, Dry. No rashes or lesions. 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 Sensation grossly intact, no focal neurologic deficits. 10.Psych: (AAO) x3. Appropriate mood and affect Course Vital Signs Vital signs: Vital Signs Temperature 36.5 C 05/16/23 13:12 Pulse 99 H 05/16/23 13:12 Respiratory Rate 18 05/16/23 13:12 Blood Pressure 125/95 H 05/16/23 13:12 Pulse Oximetry 98 05/16/23 13:12 Temperature 36.5 C 05/16/23 13:12 Temperature Source Skin 05/16/23 13:12 Pulse 99 H 05/16/23 13:12 Respiratory Rate 18 05/16/23 13:12 Blood Pressure 125/95 H 05/16/23 13:12 Blood Pressure Position Sitting 05/16/23 13:12 Pulse Oximetry 98 05/16/23 13:12 Oxygen Delivery Method Room Air 05/16/23 13:12 Oxygen Flow Rate 0 05/16/23 13:12 Pain Level 6 05/16/23 13:12 Medical Decision Making 43-year-old female with no significant past medical history presents today for evaluation of right knee pain. Pain has been present for the last 2 months. She denies any trauma or injury. She did play soccer when she was young, but denies any significant injuries in the past. Pain is present on the medial aspect. Worse with ambulation and movement. She did have a long car drive recently, and had significant pain after the long drive as she had kept in a flexed position for quite some time. She denies any other complaints at this time. She has been taking Tylenol Motrin for pain. No numbness or tingling. Exam demonstrates well-appearing female, knee is stable to stressing and mo vement. Mild pain at the medial aspect at the menisci, mildly positive La test. Mildly worsening of pain with varus and valgus straining, but no laxity. Concern for mild meniscal injury versus medial collateral ligament strain. X- ray negative for acute process. Will give hinged knee brace and crutches for home use, recommend Voltaren gel. Recommend PT. Will recommend follow-up with orthopedics if no improvement. Discussed red flags which to return. I have extensively reviewed the treatment plan and discharge instructions with the patient. I have addressed all patient concerns at this time. The patient was made aware of what symptoms to monitor for that would warrant a return to the emergency department. Discussed the plan with the patient, they demonstrate verbal understanding and agreement with our assessment and plan at this time. The documentation in this chart was dictated using [employer] dictation software. Please excuse any dictation errors. FINDINGS: BONES: No acute fracture is present. No bony destructive lesion is seen. JOINTS: The knee is normally aligned. No joint effusion is seen. SOFT TISSUE: Normal. IMPRESSION: Unremarkable radiographs of the right knee. Quality:SDOH Health Related Social Needs: No Data to Display PFSH All Active Problems Acute pain of right knee (Acute) Exposure to COVID-19 virus (Acute) Tobacco use (Acute) Pyelonephritis (Acute) Abscess of left kidney (Acute) Pyelonephritis (Acute) Transaminitis (Acute) Viral URI (Acute) Kidney stone on right side (Acute) UTI (urinary tract infection) (Acute) Medical History Endometriosis Frequent headaches History of ETOH abuse Depression Contraception DepoProvera as teenager and shortly after her pregnancies. Surgical History H/O dilation and curettage History of tubal ligation section 2000 & 2003 Social History Smoking/Tobacco Use Status: Current every day Tobacco Type: cigarettes Smoking risk assessment performed?: Yes Alcohol Intake: current Alcohol Intake frequency: a few times a month Alcohol type: beer Drug use: Never Substance use type: does not use Do you feel safe at home: Yes Do you feel safe in your relationship?: Yes Additional Social history: Pt reports safe to return home Female Reproductive History Menstrual control method: permanent sterilization and implanted History History 3 Para 2 Hx # Term Pregnancies Multiple births Hx # Pregnancies Ectopic pregnancies AB induced Hx Number of Living Children AB spontaneous
--- NOTE | 2023-05-17 07:11 | NUR.NOTE ---
Accessed pt chart to get the extremity right or left for [facility]. Nursing Note:
== END 2023-05-16 14:59 | disposition home or self-care (01) ==
PROVIDERS: Emergency Provider Student in an Organized Health Care Education/Training Program; PCP Family Medicine
DX: M25.561 Pain in right knee
CPT/HCPCS: 29505; 73562; 99283

== ENCOUNTER 2023-06-30 11:14 | Emergency (ER) | payer MEDICAID, SELFPAY ==
[2023-06-30 11:17] VITALS: BP 149/98; PULSE 81; RESP 20; TEMP 36.6; O2SAT 100
--- NOTE | 2023-06-30 11:42 | ED.GENADUL_ITS ---
Discharge Plan Disposition Patient Disposition: Home Condition: Good Discharge Details Clinical Impression: De Quervain's disease (tenosynovitis) Primary Care Provider: Reynaldo Orozco ED Provider: Nadine Rich Home Meds and New Rx's Prescriptions: Continued Nexplanon 68 mg implant 1 implant SBD ONCE citalopram 20 mg tablet 40 mg PO DAILY Patient Comments: TAKE ONE TABLET BY MOUTH EVERY DAY famotidine 40 mg tablet 40 mg PO DAILY ibuprofen 800 mg tablet 800 mg PO TID PRN Discharge Instructions Instructions: De Quervain Disease (ED) Additional Instructions: Your history and exam is most consistent with de Quervain's tenosynovitis which is inflammation of the tendon on the side of your wrist. Please continue with the brace for the next week. If at that time your pain continues, please reapply and discuss further with orthopedics and troponin appointment. Please encourage hydration. Tylenol and ibuprofen as needed for discomfort. Referral for physical therapy is attached. Work note is attached. If you develop any new or worsening symptoms please seek care urgently once again. Stand Alone Forms: Physical Therapy Referral, Work Release Referrals: Reynaldo Orozco MD [Primary Care Provider] - [facility] General Date/Time Provider Initiated Documentation: 06/30/23 11:42 . Limitations to Documentation: no limitations . Information obtained by: patient and RN notes reviewed . History of Present Illness 43 year old F presents to the emergency department with the chief complaint of Right wrist pain, described as moderate, with intensity rated at 7. Quality is described as aching, and is localized to the right and upper extremity. Patient reports no radiation. Patient started experiencing this hour(s) and it has been constant. Immobilization improves symptom(s), Movement worsens symptoms . Patient notes no other symptoms.. Patient did receive the following treatments prior to arrival, none Related Data Home Medications Medication Instructions Recorded Confirmed etonogestrel 68 mg subdermal 1 implant subdermal ONCE 03/12/19 06/30/23 implant (Nexplanon) citalopram 20 mg tablet 40 mg PO DAILY 06/07/23 06/30/23 famotidine 40 mg tablet 40 mg PO DAILY 06/07/23 06/30/23 ibuprofen 800 mg tablet 800 mg PO TID PRN 06/07/23 06/30/23 Allergies Allergy/AdvReac Type Severity Reaction Status Date / Time cephalexin AdvReac Other (See Verified 06/07/23 14:53 Comment) General Stated Complaint: Orthopedic ANKIT: 4 Review of Systems Constitutional Constitutional: Reports as per HPI, Denies fever(s) and Denies weakness Cardiovascular Cardiovascular: Reports as per HPI Respiratory Respiratory: Reports as per HPI and Denies cough Musculoskeletal Musculoskeletal: Reports as per HPI and Denies tingling Integumentary/Breasts Skin/Breast: Reports as per HPI, Denies rash and Denies wounds Neurologic Neurologic: Reports as per HPI, Denies tingling, Denies paresthesias and Denies weakness Exam Const General: cooperative, healthy appearing, comfortable, no acute distress, well developed and well groomed Nutritional Appearance: average body habitus and well nourished Orientation: alert and awake Resp Effort & Inspection: normal respiratory effort, able to speak in complete sentences and no respiratory distress Cardio Rate: regular rate Rhythm: regular rhythm Skin General skin exam: no rashes or lesions noted Lesions: no lesions Rashes: no rashes Trauma: no lacerations or abrasions Neuro General: patient alert and patient awake Cognition: normal cognition Speech: speech normal Gait: normal gait Motor: muscle tone normal throughout Sensory Exam: no sensory deficits noted Extrem Right upper extremity: elbow/forearm Details: normal to inspection, normal ROM and distal pulses intact; no tenderness and no swelling, wrist (Positive Mason's) Details: normal to inspection, tenderness Location: of the distal radius, normal ROM, normal vascular exam and radial pulse present; no swelling, no unusual warmth, no abrasions, no lacerations, no ecchymosis, no crepitus, no foreign body, no penetrating wound and no deformity and hand Details: normal to inspection, normal capillary refill, neuromotor exam normal, neurosensory exam normal, vascular exam (Clubbing noted) Details: radial pulse present and normal capillary refill and normal ROM of fingers; no unusual warmth, no swelling, no ecchymosis and no crepitus Course Vital Signs Vital signs: Vital Signs Temperature 36.6 C 06/30/23 11:17 Pulse 81 06/30/23 11:17 Respiratory Rate 20 06/30/23 11:17 Blood Pressure 149/98 H 06/30/23 11:17 Pulse Oximetry 100 06/30/23 11:17 Temperature 36.6 C 06/30/23 11:17 Temperature Source Oral 06/30/23 11:17 Pulse 81 06/30/23 11:17 Respiratory Rate 20 06/30/23 11:17 Respiratory Effort Normal 06/30/23 11:20 Blood Pressure 149/98 H 06/30/23 11:17 Blood Pressure Position Sitting 06/30/23 11:17 Pulse Oximetry 100 06/30/23 11:17 Oxygen Delivery Method Room Air 06/30/23 11:17 Oxygen Flow Rate 0 06/30/23 11:17 Medical Decision Making Patient is a pleasant [id number] 43-year-old female presenting today with chief complaint of insidious onset of right wrist pain that she noted when she woke this morning. She denies any trauma or injury to the right wrist. She has not had pain like this in the past. She denies any numbness or tingling. 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 Pain is primarily along the radial side. Has not taken anything for her discomfort. On exam, patient appears nontoxic. She is 2+ distal pulses. 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 She does have clubbing, current smoker. Exam of the right wrist is significant for pain along the radial side, positive Mason's. No deformity, swelling, erythema, warmth, crepitus. No pain with palpation more over the joint line, just over the de Quervain's tendon. She has 2+ distal pulses. Sensation is intact. Patient is also being followed by orthopedics for insidious onset of right knee pain. Consider more chronic or systemic illness such as Lyme disease however, with the patient's exam, much more consistent with de Quervain's tenosynovitis. Will brace, encouraged use of anti-inflammatories. She has upcoming appointment with orthopedics. Will discuss at that time if she has continued pain. Return precautions were discussed. I do not see indication for fracture or bony abnormalities we will hold off on any imaging at this time. Patient is in agreement with that plan. All of her questions and concerns were addressed and she is in agreement this plan. Quality:SDOH Health Related Social Needs: No Data to Display PFSH All Active Problems (Updated 06/30/23 @ 11:53 by FERNANDA Kwon) De Quervain's disease (tenosynovitis) (Acute) Anxiety (Chronic) Exposure to COVID-19 virus (Acute) Tobacco use (Acute) Pyelonephritis (Acute) Abscess of left kidney (Acute) Pyelonephritis (Acute) Transaminitis (Acute) Viral URI (Acute) Kidney stone on right side (Acute) UTI (urinary tract infection) (Acute) Medical History (Updated 06/30/23 @ 11:53 by FERNANDA Kwon) Endometriosis determined by laparoscopy (05/29/15) Endometriosis Frequent headaches History of ETOH abuse Depression Contraception DepoProvera as teenager and shortly after her pregnancies. Surgical History H/O dilation and curettage History of tubal ligation section 2000 & 2003 Social History Smoking/Tobacco Use Status: Current every day Tobacco Type: cigarettes Smoking risk assessment performed?: Yes Alcohol Intake: current Alcohol Intake frequency: a few times a month Alcohol type: beer Drug use: Never Substance use type: does not use Do you feel safe at home: Yes Do you feel safe in your relationship?: Yes Additional Social history: Pt reports safe to return home Female Reproductive History Menstrual control method: permanent sterilization and implanted History History 3 Para 2 Hx # Term Pregnancies Multiple births Hx # Pregnancies Ectopic pregnancies AB induced Hx Number of Living Children AB spontaneous PAWSS Have you Been Recently Intoxicated or Drunk Within the Last 30 days?: No Have you Ever Experienced Previous Episodes of Alcohol Withdrawal?: No Have you ever Experienced Withdrawal Seizures?: No Have you ever Experienced Delirium Tremens(DT)s?: No Have you ever undergone Alcohol Rehabilitation Treatment (i.e, inpt ot outpatient treatment programs)?: No Have you ever Experienced Blackouts?: No Have you ever Combined Alcohol with other Downers within the last 90 days?: No Have you ever Combined Alcohol with any other Substance of Abuse during the last 90 days?: No Positive Blood Alcohol level on Presentation? [PCS.BAL]: No Evidence of Increased Autonomic Activity (i.e. HR>120, tremor, sweating, agitation, nausea)?: No Result: 0
[2023-06-30] MEDS: Ibuprofen 600 MG TAB PO (12:05)
== END 2023-06-30 12:09 | disposition home or self-care (01) ==
PROVIDERS: Emergency Provider Physician Assistant; PCP Family Medicine
DX: M25.531 Pain in right wrist (principal); M65.4 Radial styloid tenosynovitis [de Quervain]
CPT/HCPCS: 29125; 99283

== ENCOUNTER 2023-07-24 16:32 | Emergency (ER) | payer MEDICAID, SELFPAY ==
[2023-07-24 16:37] VITALS: BP 154/93; PULSE 81; RESP 18; O2SAT 98
--- NOTE | 2023-07-24 16:45 | DI.RAD_ITS ---
Exam(s) XR WRIST RT COMPLETE EXAM: XR WRIST RT COMPLETE CLINICAL HISTORY: right wrist pain. TECHNIQUE: 2D digital imaging was performed. COMPARISON: No exams were available for comparison FINDINGS: 3 views No evidence of fracture or dislocation nor significant ulnar variance. Scaphoid and scapholunate dis tance are normal. IMPRESSION: No acute osseous findings in the wrist. DATA REPOSITORY: RADIATION DOSE DELIVERED:
[2023-07-24] MEDS: Ketorolac 10 MG TAB PO (16:59)
--- NOTE | 2023-07-24 17:21 | DI.VRAD_ITS ---
PROCEDURE INFORMATION: Exam: XR Right Wrist Exam date and time: 07/24/2023 4:55 PM Age: 43 years old Clinical indication: Other: Right wrist pain TECHNIQUE: Imaging protocol: Radiologic exam of the right wrist. Views: 3 or more views. COMPARISON: No relevant prior studies available. FINDINGS: Bones/joints: No acute fracture identified. Soft tissues: No unusual soft tissue calcifications. IMPRESSION: 1. No acute fracture identified. It should be noted that acute fractures can be difficult to identify on initial radiographs. If symptoms persist or remain concerning, consider follow-up imaging in 7 days or alternative imaging modalities. Dictated and Authenticated by: Zuri Hernandez MD. Ordering:MILLIE Casiano MD
--- NOTE | 2023-07-24 19:01 | W.ED.GENAD ---
Discharge Plan Disposition Patient Disposition: Home Condition: Stable Discharge Details Clinical Impression: De Quervain's disease (tenosynovitis), Right wrist pain Primary Care Provider: Reynaldo Orozco ED Provider: Johnnie Weldon Home Meds and New Rx's Prescriptions: New meloxicam 15 mg tablet 15 mg PO DAILY Qty: 30 0RF Rx Instructions: with food Discontinued ibuprofen 800 mg tablet 800 mg PO TID PRN No Action Nexplanon 68 mg implant 1 implant SBD ONCE citalopram 20 mg tablet 40 mg PO DAILY Patient Comments: TAKE ONE TABLET BY MOUTH EVERY DAY famotidine 40 mg tablet 40 mg PO DAILY Discharge Instructions Instructions: De Quervain Disease (ED) Additional Instructions: Stop ibuprofen and any other NSAIDs. Start the meloxicam prescription once daily that was sent to the pharmacy. Please take this with the famotidine and with food to prevent any stomach upset. Continue to wear your brace Follow-up with orthopedic clinic or your PCP for further evaluation Stand Alone Forms: Work Release Referrals: Guanakito Hollis MD [ [facility] STAFF PHYSICIAN] - Discharge Data Discharge Date/Time-TO BE ENTERED AT DEPARTURE: 07/24/23 17:12 HPI General Date/Time Provider Initiated Documentation: 07/24/23 16:40. Limitations to Documentation: no limitations. Information obtained by: patient and old records reviewed. HPI Narrative: 43-year-old female without significant past medical history of presents for evaluation of right wrist pain. She has been evaluated in the emergency department for this before and she has been wearing a wrist brace. She states that she does feel better with the wrist brace on and that she can hardly use her wrist when she does not wear it. She comes today because she states that she has been having difficulty doing her job at [employer] [place] with the wrist brace on, but she definitely cannot do her job when she takes the wrist brace off because of the pain. She denies any numbness or tingling. Has been taking ibuprofen occasionally for pain. Related Data Home Medications Medication Instructions Recorded Confirmed etonogestrel 68 mg subdermal 1 implant subdermal ONCE 03/12/19 07/24/23 implant (Nexplanon) citalopram 20 mg tablet 40 mg PO DAILY 06/07/23 07/24/23 famotidine 40 mg tablet 40 mg PO DAILY 06/07/23 07/24/23 meloxicam 15 mg tablet 15 mg PO DAILY #30 tabs 07/24/23 Previous Rx's Medication Instructions Recorded meloxicam 15 mg tablet 15 mg PO DAILY #30 tabs 07/24/23 Allergies Allergy/AdvReac Type Severity Reaction Status Date / Time cephalexin AdvReac Other (See Verified 07/24/23 16:38 Comment) General Stated Complaint: Orthopedic ANKIT: 4 Exam Narrative Exam Narrative: Review of Systems: All systems reviewed & are unremarkable except as noted in HPI and below Well-developed, no acute distress NCAT PERRL, normal conjunctiva RRR Unlabored respiratory effort Nondistended abdomen Right wrist without deformity, there is tenderness along the radius, no snuffbox tenderness, full range of motion No rashes or lesions. no focal neurologic deficits Appropriate mood and affect Course Vital Signs Vital signs: Vital Signs Pulse 81 07/24/23 16:37 Respiratory Rate 18 07/24/23 16:37 Blood Pressure 154/93 H 07/24/23 16:37 Pulse Oximetry 98 07/24/23 16:37 Pulse 81 07/24/23 16:37 Respiratory Rate 18 07/24/23 16:37 Blood Pressure 154/93 H 07/24/23 16:37 Blood Pressure Position Sitting 07/24/23 16:37 Pulse Oximetry 98 07/24/23 16:37 Oxygen Delivery Method Room Air 07/24/23 16:37 Oxygen Flow Rate 0 07/24/23 16:37 Pain Level 5 07/24/23 16:45 Medical Decision Making Emergent evaluation of ongoing right wrist pain. No evidence of infectious etiology. Suspect de Quervain's tendinitis. She does feel more comfortable with a brace on. She was recently was evaluated in orthopedic clinic for a knee issue, but briefly discussed that this wrist issue with the orthopedist as well. I doubt fracture, but she has not had x-ray imaging of the area. This was obtained today and there does not appear to be any bony etiology contributing to this pain. I recommended meloxicam once daily and stopping other NSAIDs. Continuing the wrist brace and following back up with either PCP or orthopedics for further recommendations and management of this ongoing issue. Medical Records Medical records reviewed: Yes I reviewed the patient's medical records. Quality:SDOH Health Related Social Needs: No Data to Display PFSH All Active Problems Right wrist pain (Acute) Acute medial meniscus tear of right knee (Acute) De Quervain's disease (tenosynovitis) (Acute) Anxiety (Chronic) Exposure to COVID-19 virus (Acute) Tobacco use (Acute) Pyelonephritis (Acute) Abscess of left kidney (Acute) Pyelonephritis (Acute) Transaminitis (Acute) Viral URI (Acute) Kidney stone on right side (Acute) UTI (urinary tract infection) (Acute) Medical History Endometriosis determined by laparoscopy (05/29/15) Endometriosis Frequent headaches History of ETOH abuse Depression Contraception DepoProvera as teenager and shortly after her pregnancies. Surgical History H/O dilation and curettage History of tubal ligation section 2000 & 2003 Social History Smoking/Tobacco Use Status: Current every day Tobacco Type: cigarettes Smoking risk assessment performed?: Yes Alcohol Intake: current Alcohol Intake frequency: a few times a month Alcohol type: beer Drug use: Never Substance use type: does not use Do you feel safe at home: Yes Do you feel safe in your relationship?: Yes Additional Social history: Pt reports safe to return home Female Reproductive History Menstrual control method: permanent sterilization and implanted History History 3 Para 2 Hx # Term Pregnancies Multiple births Hx # Pregnancies Ectopic pregnancies AB induced Hx Number of Living Children AB spontaneous
== END 2023-07-24 17:12 | disposition home or self-care (01) ==
PROVIDERS: Emergency Provider Emergency Medicine; PCP Family Medicine
DX: M25.531 Pain in right wrist (principal); M65.4 Radial styloid tenosynovitis [de Quervain]
CPT/HCPCS: 99283; 73110

== ENCOUNTER → 2023-08-17 00:35 | Outpatient (CLI) | payer MEDICAID, SELFPAY ==
--- NOTE | 2023-08-17 07:15 | DI.MRI_ITS ---
Exam(s) MR LOWER JOINT RT WO EXAM: MR LOWER JOINT RT WO CLINICAL HISTORY: ? MEDIAL MENISCAL TEAR, PAIN rt knee, S83.241A TECHNIQUE: Multiplanar multisequence MRI of the knee was performed. COMPARISON: CR XR KNEE RT 3V AP,LAT,NERI from 05/16/2023 FINDINGS: EFFUSION: There is a small joint effusion. There is a prominent multi-septated nonruptured Fishman's c yst in the medial popliteal fossa which measures 5 cm craniocaudal by up to 1.5 cm AP. This does not contain calcified loose bodies. MARROW:There is no evidence of fracture, subarticular bone contusion, nor osteochondral defects.. Th ere is, however, abnormal marrow signal in the non subarticular aspect of the medial femoral condyle subjacent to the medial collateral ligament attachment site. There is no obvious tear of the MCL. T here is, however, some increased signal within the medial gastrocnemius head at this level consistent with partial tearing at its attachment site on the posterior aspect of the distal medial femur. Sim ilar findings are not seen on the opposite-lateral side. PATELLOFEMORAL COMPARTMENT: The quadriceps tendon is intact. The patellar ligament is intact. There is mild thinning of the retropatellar cartilage over the medial patellar facet. There is mild intraosseous signal within this subarticular posterior aspect of the medial patellar facet. Patellar is not displaced. There is no intraosseous signal to suggest recent patellar dislocation. There ar e no patellar retinacular tears. CRUCIATE LIGAMENTS: The anterior cruciate ligament is intact.The posterior cruciate ligament is intac t. MEDIAL COMPARTMENT/MEDIAL MENISCUS: There are no tears of the medial meniscus evident.Meniscal root i s intact.. There are no chondral defects, osteochondral defects, subarticular marrow edema, nor osteophytes evid ent. MEDIAL COLLATERAL LIGAMENT: Some mild abnormal signal seen in the superior aspect of the MCL posterio rly at its attachment site to the femoral condyle. LATERAL COMPARTMENT/LATERAL MENISCUS: There is no evidence of lateral meniscal tear. Meniscal root i s intact. There is no significant cartilage thinning nor osteochondral defects over the articular sanchez rfaces of the lateral femoral condyle and tibial plateau. No osteophytes. ILIOTIBIAL BAND: Intact LATERAL COLLATERAL LIGAMENT COMPLEX: The fibular collateral ligament is intact. The biceps femoris t endon is intact.Popliteus muscle and tendon are intact. IMPRESSION: 1. There is a small joint effusion and there is a nonruptured septated Fishman cyst in the medial popli teal fossa which measures 5 cm length by 1.5 cm AP. 2. There are no meniscal tears nor cruciate ligament tears. 3. Main findings are in the posterior medial aspect of the knee where there is significant signal abn ormality in the medial femoral condyle and attachment region of the medial head gastrocnemius. Also mild signal increase related to the posterior aspect of the MCL attachment at this site but there is no high-grade tear of the MCL at this level. 4. All 3 components of the lateral collateral ligament complex appear unremarkable. DATA REPOSITORY:
== END ==
PROVIDERS: PCP Family Medicine; Visit Provider Student in an Organized Health Care Education/Training Program
DX: M25.561 Pain in right knee (principal)
CPT/HCPCS: 73721

== ENCOUNTER 2023-08-20 18:41 | Emergency (ER) | payer MEDICAID, SELFPAY ==
[2023-08-20 18:45] VITALS: BP 134/77; PULSE 76; RESP 16; TEMP 36.3; O2SAT 98
--- NOTE | 2023-08-20 19:15 | W.ED.GENAD ---
Discharge Plan Disposition Patient Disposition: Home Condition: Stable Discharge Details Clinical Impression: Synovial cyst of popliteal space [Fishman], right knee Primary Care Provider: Reynaldo Orozco ED Provider: Elise Edwards Home Meds and New Rx's Prescriptions: Continued Nexplanon 68 mg implant 1 implant SBD ONCE citalopram 20 mg tablet 40 mg PO DAILY Patient Comments: TAKE ONE TABLET BY MOUTH EVERY DAY famotidine 40 mg tablet 40 mg PO DAILY meloxicam 15 mg tablet 15 mg PO DAILY Qty: 30 0RF Rx Instructions: with food Discharge Instructions Instructions: Fishman's (popliteal) cyst Additional Instructions: The MRI shows you have a Fishman's cyst. Please follow-up with orthopedics regarding the MRI of your knee. Rest ice compression elevation. You may wear David wrap as needed. Please take Tylenol or Ibuprofen with food every 4-6 hours as needed for pain and swelling. Follow up with primary care provider in 3-5 days. Return to ED sooner if any worsening or concerns. Stand Alone Forms: Work Release Referrals: Chon Mendoza PA [PHYSICIANS ANSWERING SERVICE OPERATOR] - 1 week Reynaldo Orozco MD [Primary Care Provider] - [facility] General Mode of arrival: ambulatory. Date/Time Provider Initiated Documentation: 08/20/23 18:53. Limitations to Documentation: no limitations. Information obtained by: patient, RN notes reviewed and old records reviewed. HPI Narrative: 43-year-old female presents to the ER with a chief complaint of right knee swelling in the posterior popliteal fossa, she noticed this yesterday. She recently had an MRI of her right knee and is waiting for follow-up regarding that. She reports that she has tried a hinged knee brace which he has little to nothing to relieve the pain. I did discuss RICE procedures with her. She did have a Fishman's cyst noted on the MRI. No other associated symptoms or concerns at this time. Past medical history includes endometriosis, headaches history of EtOH abuse with depression. Related Data Home Medications Medication Instructions Recorded Confirmed etonogestrel 68 mg subdermal 1 implant subdermal ONCE 03/12/19 08/20/23 implant (Nexplanon) citalopram 20 mg tablet 40 mg PO DAILY 06/07/23 08/20/23 famotidine 40 mg tablet 40 mg PO DAILY 06/07/23 08/20/23 meloxicam 15 mg tablet 15 mg PO DAILY #30 tabs 07/24/23 08/20/23 Previous Rx's Medication Instructions Recorded meloxicam 15 mg tablet 15 mg PO DAILY #30 tabs 07/24/23 Allergies Allergy/AdvReac Type Severity Reaction Status Date / Time cephalexin AdvReac Other (See Verified 08/20/23 18:48 Comment) General Stated Complaint: [employer] ANKIT: 4 Review of Systems Musculoskeletal Musculoskeletal: Reports as per HPI, Reports arthralgias and Reports joint swelling (Posterior knee, popliteal) Exam Extrem General: normal to inspection, capillary refill normal and normal exam except as noted Right lower extremity: hip/thigh Details: normal to inspection, knee Details: tenderness, swelling Location: of the popliteal fossa and normal ROM and lower leg Details: normal to inspection Left lower extremity: normal to inspection Course Vital Signs Vital signs: Vital Signs Temperature 36.3 C L 08/20/23 18:45 Pulse 76 08/20/23 18:45 Respiratory Rate 16 08/20/23 18:45 Blood Pressure 134/77 08/20/23 18:45 Pulse Oximetry 98 08/20/23 18:45 Temperature 36.3 C L 08/20/23 18:45 Temperature Source Temporal Artery Scan 08/20/23 18:45 Pulse 76 08/20/23 18:45 Respiratory Rate 16 08/20/23 18:45 Blood Pressure 134/77 08/20/23 18:45 Pulse Oximetry 98 08/20/23 18:45 Medical Decision Making 43-year-old female presents to the ER with a chief complaint of right knee swelling in the posterior popliteal fossa, she noticed this yesterday. She recently had an MRI of her right knee and is waiting for follow-up regarding that. She reports that she has tried a hinged knee brace which he has little to nothing to relieve the pain. I did discuss RICE procedures with her. She did have a Fishman's cyst noted on the MRI. Discussed the Fishman's cyst with patient she verbalized understanding. Patient given a work note and instructed on icing and compression. She was discharged from the department in hemodynamically stable condition. This text was generated using [employer] system, please disregard any oddities of phrase or misspellings. Medical Records Medical records reviewed: Yes I reviewed the patient's medical records. Medical records narrative: Recent MRI Quality:SDOH Health Related Social Needs: No Data to Display PFSH All Active Problems (Updated 08/20/23 @ 19:18 by Elise Edwards NP) Synovial cyst of popliteal space [Fishman], right knee (Acute) Right wrist pain (Acute) Acute medial meniscus tear of right knee (Acute) Anxiety (Chronic) Exposure to COVID-19 virus (Acute) Tobacco use (Acute) Pyelonephritis (Acute) Abscess of left kidney (Acute) Pyelonephritis (Acute) Transaminitis (Acute) Viral URI (Acute) Kidney stone on right side (Acute) UTI (urinary tract infection) (Acute) Medical History Endometriosis determined by laparoscopy (05/29/15) Endometriosis Frequent headaches History of ETOH abuse Depression Contraception DepoProvera as teenager and shortly after her pregnancies. Surgical History H/O dilation and curettage History of tubal ligation section 2000 & 2003 Social History Smoking/Tobacco Use Status: Current every day Tobacco Type: cigarettes Smoking risk assessment performed?: Yes Alcohol Intake: current Alcohol Intake frequency: a few times a month Alcohol type: beer Drug use: Never Substance use type: does not use Do you feel safe at home: Yes Do you feel safe in your relationship?: Yes Additional Social history: Pt reports safe to return home Female Reproductive History Menstrual control method: permanent sterilization and implanted History History 3 Para 2 Hx # Term Pregnancies Multiple births Hx # Pregnancies Ectopic pregnancies AB induced Hx Number of Living Children AB spontaneous
[2023-08-20 19:30] VITALS: RESP 18
== END 2023-08-20 19:33 | disposition home or self-care (01) ==
PROVIDERS: Emergency Provider Registered Nurse Emergency; PCP Family Medicine
DX: M25.561 Pain in right knee (principal); M25.461 Effusion, right knee; M71.21 Synovial cyst of popliteal space [Baker], right knee
CPT/HCPCS: 99282; 99283

== ENCOUNTER 2023-09-23 10:00 | Emergency (ER) | payer MEDICAID, SELFPAY ==
[2023-09-23 10:02] VITALS: BP 140/99; PULSE 131; RESP 16; TEMP 36.6; O2SAT 99
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
[2023-09-23] MEDS: Lidocaine/Epinephri/Tetracaine Topical Gel 3 ML TP (10:34)
[2023-09-23] MEDS: Sulfameth/Trimeth DS TAB 1 TAB PO (10:34)
[2023-09-23 11:37] VITALS: BP 140/99; PULSE 108; RESP 16; TEMP 36.6; O2SAT 99
== END 2023-09-23 11:37 | disposition home or self-care (01) ==
PROVIDERS: Emergency Provider Registered Nurse Emergency; PCP Family Medicine
DX: L02.214 Cutaneous abscess of groin (principal); F17.210 Nicotine dependence, cigarettes, uncomplicated
CPT/HCPCS: 10061; 99283

== ENCOUNTER 2023-11-02 18:00 | Emergency (ER) | payer MEDICAID, SELFPAY ==
[2023-11-02 18:00] VITALS: BP 143/94; PULSE 82; RESP 16; TEMP 36.3; O2SAT 99
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
[2023-11-02] MEDS: oxyCODONE 5 mg/Acetaminophen 325 mg TAB 1 TAB PO (18:25)
[2023-11-02] MEDS: Bacitracin 1 PACKET TP (18:58)
== END 2023-11-02 19:16 | disposition home or self-care (01) ==
PROVIDERS: Emergency Provider Registered Nurse Emergency; PCP Family Medicine
DX: T23.232A Burn of second degree of multiple left fingers (nail), not including thumb, initial encounter (principal); T23.132A Burn of first degree of multiple left fingers (nail), not including thumb, initial encounter; T31.0 Burns involving less than 10% of body surface; X18.XXXA Contact with other hot metals, initial encounter; Y93.H2 Activity, gardening and landscaping
CPT/HCPCS: 99283

== ENCOUNTER 2023-12-09 17:22 | Emergency (ER) | payer MEDICAID, SELFPAY ==
[2023-12-09 17:23] VITALS: BP 119/83; PULSE 108; RESP 16; TEMP 36.6; O2SAT 98
[2023-12-09] MEDS: Dexamethasone 4 MG TAB 10 MG PO (17:48)
[2023-12-09] MEDS: Famotidine 20 MG TAB 40 MG PO (17:48)
[2023-12-09] MEDS: Loratidine 10 MG TAB 20 MG PO (17:49)
--- NOTE | 2023-12-09 17:49 | ED.GENADUL_ITS ---
Discharge Plan Disposition Patient Disposition: Home Condition: Stable Discharge Details Clinical Impression: Urticaria Primary Care Provider: Reynaldo Orozco ED Provider: Johnnie Weldon Home Meds and New Rx's Prescriptions: New methylprednisolone [Medrol (Greg)] 4 mg tablets,dose pack See Rx Instructions .ROUTE .COMPLEX Qty: 21 0RF Rx Instructions: for 6 days cetirizine 10 mg tablet 10 mg PO DAILY Qty: 30 0RF famotidine [Pepcid] 20 mg tablet 20 mg PO BID Qty: 60 0RF No Action Nexplanon 68 mg implant 1 implant SBD ONCE sulfamethoxazole-trimethoprim [Bactrim DS] 800-160 mg tablet 1 tab PO BID 7 Days Qty: 14 0RF citalopram 20 mg tablet 40 mg PO DAILY Patient Comments: TAKE ONE TABLET BY MOUTH EVERY DAY famotidine 40 mg tablet 40 mg PO DAILY meloxicam 15 mg tablet 15 mg PO DAILY Qty: 30 0RF Rx Instructions: with food Discharge Instructions Instructions: Hives Additional Instructions: * Take the medications as prescribed * You can take Benadryl as needed for severe itching * Keep your feet elevated, you can apply topical hydrocortisone cream, or ice packs to help with swelling and itching * The hives may take several days to completely go away, but please return to the emergency department if you develop any abdominal pain, vomiting, change in voice, cough or difficulty breathing Discharge Data Discharge Date/Time-TO BE ENTERED AT DEPARTURE: 12/09/23 18:20 HPI General Date/Time Provider Initiated Documentation: 12/09/23 17:27 . Limitations to Documentation: no limitations . Information obtained by: patient . HPI Narrative: 43-year-old female with past medical history of anxiety presents for evaluation of very itchy rash. The patient reports that she woke up like this this morning. She has diffuse red bumps that are very itchy. She has noted swelling in her feet and her lips. She denies any abdominal pain, nausea or vomiting. She denies any voice change difficulty breathing or swallowing. She denies any exposure to known allergen, no change in soaps lotions or detergents. She has never had this happen before. She has not recently been started on a medication. No one else in her family is having symptoms. She states that she took a Benadryl which did improve the symptoms slightly but without resolution. Related Data Home Medications ?Medication ?Instructions ?Recorded ?Confirmed etonogestrel 68 mg subdermal 1 implant subdermal ONCE 03/12/19 12/09/23 implant (Nexplanon) citalopram 20 mg tablet 40 mg PO DAILY 06/07/23 12/09/23 famotidine 40 mg tablet 40 mg PO DAILY 06/07/23 12/09/23 meloxicam 15 mg tablet 15 mg PO DAILY #30 tabs 07/24/23 12/09/23 sulfamethoxazole 800 1 tab PO BID 7 days #14 tabs 12/05/23 12/09/23 mg-trimethoprim 160 mg tablet (Bactrim DS) cetirizine 10 mg tablet 10 mg PO DAILY #30 tabs 12/09/23 famotidine 20 mg tablet (Pepcid) 20 mg PO BID #60 tabs 12/09/23 methylprednisolone 4 mg tablets in See Rx Instructions PO .COMPLEX 12/09/23 a dose pack (Medrol ([employer])) #21 dose pk Previous Rx's ?Medication ?Instructions ?Recorded meloxicam 15 mg tablet 15 mg PO DAILY #30 tabs 07/24/23 sulfamethoxazole 800 1 tab PO BID 7 days #14 tabs 12/05/23 mg-trimethoprim 160 mg tablet (Bactrim DS) cetirizine 10 mg tablet 10 mg PO DAILY #30 tabs 12/09/23 famotidine 20 mg tablet (Pepcid) 20 mg PO BID #60 tabs 12/09/23 methylprednisolone 4 mg tablets in See Rx Instructions PO .COMPLEX 12/09/23 a dose pack (Medrol (PrimeStone)) #21 dose pk Allergies Allergy/AdvReac Type Severity Reaction Status Date / Time cephalexin AdvReac Other (See Verified 12/05/23 14:35 Comment) General Stated Complaint: Allergic ANKIT: 4 Exam Narrative Exam Narrative: Review of Systems: All systems reviewed & are unremarkable except as noted in HPI and below Well-developed, no acute distress NCAT Mild lip swelling, no intraoral swelling, uvula midline and normal-sized, normal voice, no stridor PERRL, normal conjunctiva RRR, no murmur Unlabored respiratory effort, clear bilaterally Nondistended abdomen Diffuse urticarial lesions noted Course Vital Signs Vital signs: Vital Signs Temperature 36.6 C 12/09/23 17:23 Pulse 108 H 12/09/23 17:23 Respiratory Rate 16 12/09/23 17:23 Blood Pressure 119/83 12/09/23 17:23 Pulse Oximetry 98 12/09/23 17:23 Temperature 36.6 C 12/09/23 17:23 Pulse 108 H 12/09/23 17:23 Respiratory Rate 16 12/09/23 17:23 Respiratory Effort Normal, Non-Labored 12/09/23 17:27 Blood Pressure 119/83 12/09/23 17:23 Blood Pressure Position Sitting 12/09/23 17:23 Pulse Oximetry 98 12/09/23 17:23 Oxygen Delivery Method Room Air 12/09/23 17:23 Oxygen Flow Rate 0 12/09/23 17:23 Pain Level 7 12/09/23 17:23 Medical Decision Making Emergent evaluation of itchy rash\. patient presents with symptoms consistent with acute hypersensitivity reaction, likely acute allergic reaction. Presentation not consistent with acute anaphylaxis (lack of pulmonary, dermatologic, cardiovascular or GI symptoms, lack of hypotension or exposure to known allergen),serum sickness (no recent drug exposure, lacks fevers, arthralgias). No evidence of airway compromise or shock at this time. although there is some mild lip swelling, there are no other features consistent with angioedema, and no exposure to ACEI. Will treat with H1/2 blockers, steroids. No need for epinephrine. Patient improved with H1/H2 blockers, steroids. prescribed medrol dose pack and h1/2 blockers for home. RTER precautions advised. Quality:SDOH Health Related Social Needs: No Data to Display PFSH All Active Problems (Updated 12/09/23 @ 18:14 by Johnnie Weldon MD) Urticaria (Acute) Encounter for removal and reinsertion of Nexplanon (Acute) Nexplanon reinsertion 11/28/2023 De Quervain's tenosynovitis, right (Acute) Pes anserinus bursitis of right knee (Acute) Acute medial meniscus tear of right knee (Acute) Anxiety (Chronic) Exposure to COVID-19 virus (Acute) Tobacco use (Acute) Pyelonephritis (Acute) Abscess of left kidney (Acute) Pyelonephritis (Acute) Transaminitis (Acute) Viral URI (Acute) Kidney stone on right side (Acute) UTI (urinary tract infection) (Acute) Medical History Endometriosis determined by laparoscopy (05/29/15) Endometriosis Frequent headaches History of ETOH abuse Depression Contraception DepoProvera as teenager and shortly after her pregnancies. Surgical History H/O dilation and curettage History of tubal ligation section 2000 & 2003 Social History Smoking/Tobacco Use Status: Current every day Tobacco Type: cigarettes Smoking risk assessment performed?: Yes Alcohol Intake: current Alcohol Intake frequency: a few times a month Alcohol type: beer Drug use: Never Substance use type: does not use Do you feel safe at home: Yes Do you feel safe in your relationship?: Yes Additional Social history: Pt reports safe to return home Female Reproductive History Menstrual control method: permanent sterilization and implanted History History 3 Para 2 Hx # Term Pregnancies Multiple births Hx # Pregnancies Ectopic pregnancies AB induced Hx Number of Living Children AB spontaneous
== END 2023-12-09 18:20 | disposition home or self-care (01) ==
PROVIDERS: Emergency Provider Emergency Medicine; PCP Family Medicine
DX: L50.9 Urticaria, unspecified (principal)
CPT/HCPCS: 99283; 99284; J8540

== ENCOUNTER 2023-12-11 12:13 | Emergency (ER) | payer MEDICAID, SELFPAY ==
[2023-12-11 12:46] VITALS: BP 125/91; PULSE 80; RESP 16; TEMP 36.6; O2SAT 98
--- NOTE | 2023-12-11 13:32 | ED.GENADUL_ITS ---
Discharge Plan Disposition Patient Disposition: Home Condition: Good Discharge Details Clinical Impression: Medication refill Primary Care Provider: Reynaldo Orozco ED Provider: Nadine Rich Home Meds and New Rx's Prescriptions: New methylprednisolone [Methylpred DP] 4 mg tablets,dose pack See Rx Instructions .ROUTE .COMPLEX Qty: 21 0RF Rx Instructions: for 6 days Continued Nexplanon 68 mg implant 1 implant SBD ONCE sulfamethoxazole-trimethoprim [Bactrim DS] 800-160 mg tablet 1 tab PO BID 7 Days Qty: 14 0RF citalopram 20 mg tablet 40 mg PO DAILY Patient Comments: TAKE ONE TABLET BY MOUTH EVERY DAY famotidine 40 mg tablet 40 mg PO DAILY meloxicam 15 mg tablet 15 mg PO DAILY Qty: 30 0RF Rx Instructions: with food methylprednisolone [Medrol (Greg)] 4 mg tablets,dose pack See Rx Instructions .ROUTE .COMPLEX Qty: 21 0RF Rx Instructions: for 6 days cetirizine 10 mg tablet 10 mg PO DAILY Qty: 30 0RF famotidine [Pepcid] 20 mg tablet 20 mg PO BID Qty: 60 0RF Discharge Instructions Additional Instructions: Medication has been refilled and sent to your pharmacy. Please take as directed on the packaging. If you develop any worsening signs of allergic reaction, you may take Benadryl please return to the emergency department for further evaluation. Otherwise, please follow-up with primary care as previously advised. Referrals: Reynaldo Orozco MD [Primary Care Provider] - Discharge Data Discharge Date/Time-TO BE ENTERED AT DEPARTURE: 12/11/23 14:14 HPI General Date/Time Provider Initiated Documentation: 12/11/23 12:20 . Limitations to Documentation: no limitations . Information obtained by: patient, family, RN notes reviewed and old records reviewed . History of Present Illness 43 year old F presents to the emergency department with the chief complaint of accidentally through away steroids fro possible allergic rxn, and is localized to the left, right and upper extremity (itching). Patient did receive the following treatments prior to arrival, none (only had one dose 2 days ago) Related Data Home Medications ?Medication ?Instructions ?Recorded ?Confirmed etonogestrel 68 mg subdermal 1 implant subdermal ONCE 03/12/19 12/11/23 implant (Nexplanon) citalopram 20 mg tablet 40 mg PO DAILY 06/07/23 12/11/23 famotidine 40 mg tablet 40 mg PO DAILY 06/07/23 12/11/23 meloxicam 15 mg tablet 15 mg PO DAILY #30 tabs 07/24/23 12/11/23 sulfamethoxazole 800 1 tab PO BID 7 days #14 tabs 12/05/23 12/11/23 mg-trimethoprim 160 mg tablet (Bactrim DS) cetirizine 10 mg tablet 10 mg PO DAILY #30 tabs 12/09/23 12/11/23 famotidine 20 mg tablet (Pepcid) 20 mg PO BID #60 tabs 12/09/23 12/11/23 methylprednisolone 4 mg tablets in See Rx Instructions PO .COMPLEX 12/09/23 12/11/23 a dose pack (Medrol (Greg)) #21 dose pk methylprednisolone 4 mg tablets in See Rx Instructions PO .COMPLEX 12/11/23 a dose pack (Methylpred DP) #21 dose pk Previous Rx's ?Medication ?Instructions ?Recorded meloxicam 15 mg tablet 15 mg PO DAILY #30 tabs 07/24/23 sulfamethoxazole 800 1 tab PO BID 7 days #14 tabs 12/05/23 mg-trimethoprim 160 mg tablet (Bactrim DS) cetirizine 10 mg tablet 10 mg PO DAILY #30 tabs 12/09/23 famotidine 20 mg tablet (Pepcid) 20 mg PO BID #60 tabs 12/09/23 methylprednisolone 4 mg tablets in See Rx Instructions PO .COMPLEX 12/09/23 a dose pack (Medrol (Greg)) #21 dose pk methylprednisolone 4 mg tablets in See Rx Instructions PO .COMPLEX 12/11/23 a dose pack (Methylpred DP) #21 dose pk Allergies Allergy/AdvReac Type Severity Reaction Status Date / Time cephalexin AdvReac Other (See Verified 12/11/23 12:52 Comment) General Stated Complaint: RX Refill ANKIT: 5 Review of Systems Constitutional Constitutional: Reports as per HPI, Denies chills, Denies fever(s) and Denies headache(s) Eyes Eyes: Reports as per HPI ENT Ears, Nose, Mouth, and Throat: Reports as per HPI and Denies headache(s) Cardiovascular Cardiovascular: Denies chest pain Respiratory Respiratory: Reports as per HPI Gastrointestinal Gastrointestinal: Reports as per HPI Integumentary/Breasts Skin/Breast: Reports as per HPI Neurologic Neurologic: Denies headache(s) Exam Const General: cooperative, healthy appearing, comfortable, no acute distress and well developed Nutritional Appearance: average body habitus and well nourished Orientation: alert, awake and oriented x3 HENMT Head: normal to inspection Ears: hearing grossly normal bilaterally Face and sinus: normal facial exam Mouth: oral mucosae normal, lip normal, tongue normal, oropharynx normal, moist mucous membranes, no drooling and no muffled voice Teeth and gingiva: dentition normal Throat: posterior oropharynx normal Eyes General: appearance normal, both eyes and all related structures Neck Neck: normal visual inspection, full ROM, no lymphadenopathy, no meningeal signs and trachea midline Resp Effort & Inspection: normal respiratory effort, able to speak in complete sentences, no respiratory distress and no use of accessory muscles Auscultation: clear to auscultation bilaterally Cardio Rate: regular rate Rhythm: regular rhythm Heart Sounds: S1 normal and S2 normal Skin General skin exam: no rashes or lesions noted Neuro General: patient alert and patient awake Cognition: normal cognition Speech: speech normal Gait: normal gait Course Vital Signs Vital signs: Vital Signs Temperature 36.6 C 12/11/23 12:46 Pulse 80 12/11/23 12:46 Respiratory Rate 16 12/11/23 12:46 Blood Pressure 125/91 H 12/11/23 12:46 Pulse Oximetry 98 12/11/23 12:46 Temperature 36.6 C 12/11/23 12:46 Temperature Source Temporal Artery Scan 12/11/23 12:46 Pulse 80 12/11/23 12:46 Respiratory Rate 16 12/11/23 12:46 Respiratory Effort Normal 12/11/23 12:51 Blood Pressure 125/91 H 12/11/23 12:46 Blood Pressure Position Sitting 12/11/23 12:46 Pulse Oximetry 98 12/11/23 12:46 Oxygen Delivery Method Room Air 12/11/23 12:46 Oxygen Flow Rate 0 12/11/23 12:46 Pain Level 2 12/11/23 12:46 Medical Decision Making Patient is a pleasant 43-year-old female, accompanied by significant other, presenting today with chief complaint of medication refill. Patient was seen here 2 days ago and diagnosed with urticaria. She was prescribed steroids and reports that after taking the first dose, she had started to clean and accidentally threw the steroids away. Patient reports that initially she had been feeling improved but that then the symptoms began to return including rash, itching and feeling tight in her throat. On exam, patient appears nontoxic. She is hemodynamically stable. Her lungs are clear, no stridor. No abnormalities on HEENT exam or swelling appreciated. While she does have some old excoriated crandall on bilateral upper extremities and her back, I do not appreciate any acute urticaria. Do not see any evidence to suggest distress. Will refill her medications and encouraged that she try to keep track of these. Return precautions were discussed. Encouraged follow-up with primary care. All of her questions and concerns were addressed and she is in agreements plan. Quality:SDOH Health Related Social Needs: No Data to Display PFSH All Active Problems (Updated 12/11/23 @ 13:45 by FERNANDA Kwon) Medication refill (Acute) Urticaria (Acute) Encounter for removal and reinsertion of Nexplanon (Acute) Nexplanon reinsertion 11/28/2023 De Quervain's tenosynovitis, right (Acute) Pes anserinus bursitis of right knee (Acute) Acute medial meniscus tear of right knee (Acute) Anxiety (Chronic) Exposure to COVID-19 virus (Acute) Tobacco use (Acute) Pyelonephritis (Acute) Abscess of left kidney (Acute) Pyelonephritis (Acute) Transaminitis (Acute) Viral URI (Acute) Kidney stone on right side (Acute) UTI (urinary tract infection) (Acute) Medical History Endometriosis determined by laparoscopy (05/29/15) Endometriosis Frequent headaches History of ETOH abuse Depression Contraception DepoProvera as teenager and shortly after her pregnancies. Surgical History H/O dilation and curettage History of tubal ligation section 2000 & 2003 Social History Smoking/Tobacco Use Status: Current every day Tobacco Type: cigarettes Smoking risk assessment performed?: Yes Alcohol Intake: current Alcohol Intake frequency: a few times a month Alcohol type: beer Drug use: Never Substance use type: does not use Do you feel safe at home: Yes Do you feel safe in your relationship?: Yes Additional Social history: Pt reports safe to return home Female Reproductive History Menstrual control method: permanent sterilization and implanted History History 3 Para 2 Hx # Term Pregnancies Multiple births Hx # Pregnancies Ectopic pregnancies AB induced Hx Number of Living Children AB spontaneous
[2023-12-11 14:06] VITALS: BP 125/91; PULSE 80; RESP 16; TEMP 36.6; O2SAT 98
== END 2023-12-11 14:14 | disposition home or self-care (01) ==
PROVIDERS: Emergency Provider Physician Assistant; PCP Family Medicine
DX: L50.9 Urticaria, unspecified (principal); Z76.0 Encounter for issue of repeat prescription
CPT/HCPCS: 99283

== ENCOUNTER 2023-12-22 11:54 | Outpatient (REF) | payer MEDICAID, SELFPAY | END 2023-12-22 11:55 | disposition home or self-care (01) | LOC: LBN 11:54 | PROVIDERS: PCP Family Medicine; Visit Provider Obstetrics & Gynecology | DX: B99.9 Unspecified infectious disease (principal); Z30.46 Encounter for surveillance of implantable subdermal contraceptive; T14.8XXA Other injury of unspecified body region, initial encounter; L08.9 Local infection of the skin and subcutaneous tissue, unspecified | CPT/HCPCS: 87077; 87070; 87186; 87205 ==

== ENCOUNTER 2024-02-01 12:46 | Emergency (ER) | payer MEDICAID, SELFPAY ==
[2024-02-01 12:57] VITALS: BP 141/83; PULSE 89; RESP 18; TEMP 36.7; O2SAT 96
--- NOTE | 2024-02-01 13:16 | ED.GENADUL_ITS ---
Discharge Plan Disposition Patient Disposition: Home Condition: Stable Discharge Details Clinical Impression: Synovial cyst of popliteal space [Fishman], right knee Primary Care Provider: Reynaldo Orozco ED Provider: Rony Marcelino Home Meds and New Rx's Prescriptions: New lidocaine 5 % adhesive patch,medicated 1 patch topical DAILY Qty: 30 0RF Rx Instructions: leave on most painful area for up to 12 hrs Continued Nexplanon 68 mg implant 1 implant SBD ONCE citalopram 20 mg tablet 40 mg PO DAILY Patient Comments: TAKE ONE TABLET BY MOUTH EVERY DAY famotidine 40 mg tablet 40 mg PO DAILY meloxicam 15 mg tablet 15 mg PO DAILY Qty: 30 0RF Rx Instructions: with food cetirizine 10 mg tablet 10 mg PO DAILY Qty: 30 0RF Discharge Instructions Additional Instructions: Follow-up as scheduled with orthopedics The lidocaine patches are also available [id number] and may be cheaper than the prescription Try to keep your leg elevated is much as possible If you feel more ill or have new symptoms such as high fevers return to the emergency department for reevaluation HPI General Mode of arrival: ambulatory . Date/Time Provider Initiated Documentation: 02/01/24 12:49 . Limitations to Documentation: no limitations . Information obtained by: patient . History of Present Illness 44 year old F presents to the emergency department with the chief complaint of Question cyst behind right knee, described as moderate, Quality is described as aching, and is localized to the right and lower extremity. Patient started experiencing this month(s) (3) and it has been constant. No relieving factors improve symptom(s), No exacerbating factors reported . Patient notes no other symptoms.. Related Data Home Medications ?Medication ?Instructions ?Recorded ?Confirmed etonogestrel 68 mg subdermal 1 implant subdermal ONCE 03/12/19 02/01/24 implant (Nexplanon) citalopram 20 mg tablet 40 mg PO DAILY 06/07/23 02/01/24 famotidine 40 mg tablet 40 mg PO DAILY 06/07/23 02/01/24 meloxicam 15 mg tablet 15 mg PO DAILY #30 tabs 07/24/23 02/01/24 cetirizine 10 mg tablet 10 mg PO DAILY #30 tabs 12/09/23 02/01/24 lidocaine 5 % topical patch 1 patch topical DAILY #30 ea 02/01/24 Previous Rx's ?Medication ?Instructions ?Recorded meloxicam 15 mg tablet 15 mg PO DAILY #30 tabs 07/24/23 cetirizine 10 mg tablet 10 mg PO DAILY #30 tabs 12/09/23 lidocaine 5 % topical patch 1 patch topical DAILY #30 ea 02/01/24 Allergies Allergy/AdvReac Type Severity Reaction Status Date / Time sulfamethoxazole Allergy Unknown Skin Rash Verified 02/01/24 13:04 cephalexin AdvReac Other (See Verified 02/01/24 13:04 Comment) General Stated Complaint: GenMedical ANKIT: 4 Review of Systems All systems reviewed & are unremarkable except as noted in HPI and below Constitutional Constitutional: Denies chills, Denies fever(s) and Denies weakness Cardiovascular Cardiovascular: Denies chest pain and Denies dyspnea Respiratory Respiratory: Denies cough and Denies dyspnea Gastrointestinal Gastrointestinal: Denies abdominal pain, Denies nausea and Denies vomiting Neurologic Neurologic: Denies weakness Exam Const General: no acute distress Orientation: alert HENMT Head: normal to inspection Ears: external ears normal General nose exam: external nose normal Mouth: moist mucous membranes Eyes General: appearance normal, both eyes and all related structures Neck Neck: normal visual inspection Resp Effort & Inspection: normal respiratory effort and able to speak in complete sentences Cardio Rate: regular rate Skin General skin exam: no rashes or lesions noted Neuro General: patient alert and patient oriented x3 Extrem General: full ROM and capillary refill normal Psych Mental Status: mental status grossly normal Course Vital Signs Vital signs: Vital Signs Temperature 36.7 C 02/01/24 12:57 Pulse 89 02/01/24 12:57 Respiratory Rate 18 02/01/24 12:57 Blood Pressure 141/83 H 02/01/24 12:57 Pulse Oximetry 96 02/01/24 12:57 Temperature 36.7 C 02/01/24 12:57 Temperature Source Temporal Artery Scan 02/01/24 12:57 Pulse 89 02/01/24 12:57 Respiratory Rate 18 02/01/24 12:57 Respiratory Effort Normal, Non-Labored 02/01/24 13:01 Blood Pressure 141/83 H 02/01/24 12:57 Blood Pressure Position Sitting 02/01/24 12:57 Pulse Oximetry 96 02/01/24 12:57 Pain Level 7 02/01/24 12:57 Medical Decision Making 44-year-old female comes in with several months of a what she thinks is a cyst behind her right knee. She says that causing constant pain throughout the day so came here for evaluation. She has no fevers, no trauma to the knee, no difficulty breathing. Her leg is not swollen on exam, there is no rashes or discoloration. She has intact distal sensation and pulses. She does have what feels like a likely Fishman's cyst behind the right knee. There is no erythema or fluctuance. Will obtain DVT ultrasound to exclude DVT and confirm if this is a Fishman's cyst, no findings on exam to suggest abscess or cellulitis Patient stable, ultrasound shows Fishman's cyst, no DVT. Patient has follow-up with orthopedics in 2 weeks, return precautions given Differential Diagnosis Differential Diagnosis: DVT, popliteal cyst Quality:SDOH Health Related Social Needs: No Data to Display PFSH All Active Problems Synovial cyst of popliteal space [Fishman], right knee (Acute) De Quervain's tenosynovitis, right (Acute) Pes anserinus bursitis of right knee (Acute) Anxiety (Chronic) Tobacco use (Acute) Medical History Wound infection Nexplanon site infection Encounter for removal and reinsertion of Nexplanon Nexplanon reinsertion 11/28/2023 Acute medial meniscus tear of right knee Exposure to COVID-19 virus Kidney stone on right side Abscess of left kidney Pyelonephritis Endometriosis determined by laparoscopy (05/29/15) Frequent headaches History of ETOH abuse Depression Contraception DepoProvera as teenager and shortly after her pregnancies. Surgical History H/O dilation and curettage History of tubal ligation section 2000 & 2003 Social History Smoking/Tobacco Use Status: Current every day Tobacco Type: cigarettes Smoking risk assessment performed?: Yes Alcohol Intake: current Alcohol Intake frequency: a few times a month Alcohol type: beer Drug use: Never Substance use type: does not use Do you feel safe at home: Yes Do you feel safe in your relationship?: Yes Additional Social history: Pt reports safe to return home Female Reproductive History Menstrual control method: permanent sterilization and implanted History History 3 Para 2 Hx # Term Pregnancies Multiple births Hx # Pregnancies Ectopic pregnancies AB induced Hx Number of Living Children AB spontaneous PAWSS Have you Been Recently Intoxicated or Drunk Within the Last 30 days?: No Have you Ever Experienced Previous Episodes of Alcohol Withdrawal?: No Have you ever Experienced Withdrawal Seizures?: No Have you ever Experienced Delirium Tremens(DT)s?: No Have you ever undergone Alcohol Rehabilitation Treatment (i.e, inpt ot outpatient treatment programs)?: No Have you ever Experienced Blackouts?: No Have you ever Combined Alcohol with other Downers within the last 90 days?: No Have you ever Combined Alcohol with any other Substance of Abuse during the last 90 days?: No Positive Blood Alcohol level on Presentation? [PCS.BAL]: No Evidence of Increased Autonomic Activity (i.e. HR>120, tremor, sweating, agitation, nausea)?: No Result: 0
[2024-02-01] MEDS: Ketorolac 15 MG/ML VIAL IM (13:40)
[2024-02-01 13:41] VITALS: BP 141/83; PULSE 89; RESP 17; RESP 18; TEMP 36.7; O2SAT 96
--- NOTE | 2024-02-01 14:00 | DI.US_ITS ---
Exam(s) US LOWER EXTREMITY VENOUS RT EXAM: US LOWER EXTREMITY VENOUS RT CLINICAL HISTORY: ?dvt vs bakers cyst posterior right knee TECHNIQUE: Right lower extremity venous ultrasound performed using grayscale, color-flow, and spectr al Doppler analysis. COMPARISON: No exams were available for comparison FINDINGS: The right common femoral, femoral and popliteal veins demonstrate normal compressibility, augmentatio n, and color Doppler. The posterior tibial veins are patent. The saphenofemoral junction is unremark able. There is a 4.1 x 1.8 x 4.3 cm fluid collection in the posterior fossa consistent with a poplit eal cyst. The soft tissues are unremarkable. IMPRESSION: 1. No evidence of a right lower extremity DVT. 2. 4.1 x 1.8 x 4.3 cm Fishman cyst. DATA REPOSITORY:
[2024-02-01] MEDS: Lidocaine 5% Patch 1 PATCH TP (14:34)
[2024-02-01 14:43] VITALS: BP 150/98; PULSE 83; RESP 16; O2SAT 99
== END 2024-02-01 14:46 | disposition home or self-care (01) ==
PROVIDERS: Emergency Provider Emergency Medicine; PCP Family Medicine
DX: M71.21 Synovial cyst of popliteal space [Baker], right knee (principal)
CPT/HCPCS: 96372; 99284; 93971; 99283; J1885

== ENCOUNTER 2024-03-14 15:40 | Emergency (ER) | payer MEDICAID, SELFPAY ==
[2024-03-14 16:06] VITALS: BP 135/86; PULSE 90; RESP 20; TEMP 37.9; O2SAT 98
--- NOTE | 2024-03-14 16:16 | ED.GENADUL_ITS ---
Discharge Plan Disposition Patient Disposition: Against Medical Advice Condition: Stable Discharge Details Clinical Impression: Abdominal pain of unknown cause Primary Care Provider: Reynaldo Orozco ED Provider: Thiago García Home Meds and New Rx's Prescriptions: Continued Nexplanon 68 mg implant 1 implant SBD ONCE citalopram 20 mg tablet 40 mg PO DAILY Patient Comments: TAKE ONE TABLET BY MOUTH EVERY DAY famotidine 40 mg tablet 40 mg PO DAILY Discharge Instructions Instructions: Ketorolac (Systemic), Prochlorperazine, Leaving Against Medical Advice, Abdominal Pain, Adult ED, Nausea and Vomiting, Adult ED Additional Instructions: You were seen in the emergency department for your muscle aches, cough, GI symptoms for the past day. Your COVID and flu is negative, your blood work shows no signs of severe infection or severe dehydration, he did have some right lower quadrant tenderness suspicious for possible early appendicitis but refused IV after several attempts for CT scan. This requires us to sign out AGAINST MEDICAL ADVICE as we cannot definitively rule out a potentially fatal diagnoses, you are always welcome to return should your pain worsen, the most likely cause of your pain is a simple viral gastroenteritis or stomach bug and I am sending you home with nausea meds as well as ketorolac. Please take 1000 mg of Tylenol every 6 hours, shelter between Tylenol dosings take the 10 mg ketorolac tablets, take the Compazine as needed 3 times per day for acute nausea and vomiting. Please do not hesitate to return for any emergent concerns. Stand Alone Forms: Work Release Referrals: Reynaldo Orozco MD [Primary Care Provider] - HPI General Date/Time Provider Initiated Documentation: 03/14/24 15:50 . HPI Narrative: 44 year-old female presents to ED today by POV/ambulating with a chief complaint of nausea/vomiting, diarrhea, shortness of breath/fatigue with onset yesterday. Quality described as generalized abdominal pain, no radiation to hematuria, severe cough, endorses mild fever, denies chest pain, denies hematemesis. Severity is described as moderate. Palliating factors include nothing specific attempted. Provoking factors include nothing specific. Events leading up to the incident/Associated Symptoms: Patient endorses history of , no other ABD surgeries. Patient not anticoagulated. Related Data Home Medications ?Medication ?Instructions ?Recorded ?Confirmed etonogestrel 68 mg subdermal 1 implant subdermal ONCE 03/12/19 03/14/24 implant (Nexplanon) citalopram 20 mg tablet 40 mg PO DAILY 06/07/23 03/14/24 famotidine 40 mg tablet 40 mg PO DAILY 06/07/23 03/14/24 Allergies Allergy/AdvReac Type Severity Reaction Status Date / Time sulfamethoxazole Allergy Unknown Skin Rash Verified 03/14/24 16:13 cephalexin AdvReac Other (See Verified 03/14/24 16:13 Comment) General Stated Complaint: RespSymp ANKIT: 3 Review of Systems All systems reviewed & are unremarkable except as noted in HPI and below Exam Narrative Exam Narrative: GENERAL APPEARANCE: Well-nourished, non-toxic, awake and alert, atraumatic, no acute distress. SKIN: Warm, pink, dry, intact, without rashes/lesions/ulcerations. HEAD: Normocephalic, atraumatic, normal hair distribution for gender/age. EYES: Normal conjunctiva, no exudates on lids/lashes. ENT: Nares patent, no circumoral cyanosis, no facial swelling NECK: Supple, trachea midline, painless cervical ROM. LUNGS/CHEST: Lungs CTA bilaterally, non-labored respirations, normal A/P diameter, symmetrical expansion, no chest wall deformity HEART (CV/PV): Regular rate and rhythm without murmur, no peripheral edema, no JVD. ABDOMEN: Soft, non-distended, no guarding, RLQ tenderness without overt Rovsing's or rebound tenderness. MSK: Normal ROM, no swelling/deformity to bilateral UEs or LEs, moving all extremities without weakness, no cyanosis, spine midline without tenderness, normal curvature. NEURO: Mental Status AAOx4 - alert to person, place, time, events No facial droop, no forehead involvement. Motor: No focal weakness - strength 5/5 in bilateral UEs and LEs, proximal and distal, symmetric. Sensory: sensation intact to light touch globally. Gait normal: patient ambulated without ataxia into ED room. PSYCH: euthymic, cooperative, pleasant, appropriate speech Course Vital Signs Vital signs: Vital Signs Temperature 37.9 C H 03/14/24 16:06 Pulse 90 03/14/24 16:06 Respiratory Rate 20 03/14/24 16:06 Blood Pressure 135/86 03/14/24 16:06 Pulse Oximetry 98 03/14/24 16:06 Temperature 37.9 C H 03/14/24 16:06 Pulse 90 03/14/24 16:06 Respiratory Rate 20 03/14/24 16:06 Blood Pressure 135/86 03/14/24 16:06 Pulse Oximetry 98 03/14/24 16:06 Pain Level 5 03/14/24 16:06 Medical Decision Making This dictation utilizes [id number] dictation software and may contain unedited grammatical errors. 44 year-old female presents to ED today by POV/ambulating with a chief complaint of nausea/vomiting, diarrhea, shortness of breath/fatigue with onset yesterday. Quality described as generalized abdominal pain, no radiation to hematuria, severe cough, endorses mild fever, denies chest pain, denies hematemesis. Severity is described as moderate. Palliating factors include nothing specific attempted. Provoking factors include nothing specific. Events leading up to the incident/Associated Symptoms: Patient endorses history of , no other ABD surgeries. Patients' medical history: Renal stones. Family and social history: History of alcohol abuse, denies current use, denies illicit substance use. Pertinent exam findings / vital signs include right lower quadrant tenderness at McBurney's point without overt rebound tenderness, no Rovsing's, negative Dowd sign, endorses bilateral CVA tenderness but also upper lumbar paraspinal tenderness, benign cardiopulmonary exam. Differential / pathologies of concern include gastroenteritis, appendicitis, renal colic, URI. Diagnostic studies of: -CBC, CMP, lactate, lipase, CRP, COVID/flu/RSV antigen, UA, XR chest, CT ABD/pelvis w. -CBC shows no leukocytosis, no left shift -CMP shows no actionable abnormality -Lactate negative -Lipase negative -CRP is negative -Is no evidence of infection -COVID/flu/RSV PCR is negative -X-ray chest is clear of any pneumonia or other pathology -CT refused due to IV failure with multiple Interventions of: -Compazine and Toradol to go. ED Course/Assessment/Plan: 44-year-old female presents with right lower quadrant abdominal tenderness but also an onset of nausea vomiting and diarrhea for the past day, this may be an early appendicitis but the patient had multiple peripheral IVs below with an ultrasound attempt also blowing in diagnostic imaging. I had the patient sent back to the ER at this point and discussed risk-benefit of further IV attempts with the patient's reassuring laboratory workup for gastroenteritis or possible early appendicitis, the patient opted to leave AGAINST MEDICAL ADVICE and will return for any worsening right lower quadrant abdominal tenderness with anorexia and fever, she was provided Compazine and Toradol to go home with and is com fortable performing p.o. hydration at home. Findings not consistent with high risk appendicitis or other peritoneal abdominal pathology. Disposition of abdominal pain of unknown cause. Patient verbalized understanding of the plan and return to ED criteria and engaged in shared decision making. Medical Records Medical records reviewed: Yes I reviewed the patient's medical records. Imaging Data Radiologic Study: Attestation: I personally reviewed and interpreted this imaging study as follows: Imaging: X-Ray Radiologist's impression: EXAM: XR CHEST 2V PA LATERAL CLINICAL HISTORY: cough. TECHNIQUE: 2D digital imaging was performed. COMPARISON: No exams were available for comparison FINDINGS: 2 views: Heart size is normal. The mediastinum is not widened. Lungs are clear. No infiltrates nor pleural effusions. IMPRESSION: No acute pulmonary findings. Radiologic Study #2: Attestation: I personally reviewed and interpreted this imaging study as follows: Imaging: CT Scan My impression: Patient refused IV after 2 peripherals blew, and multiple attempts to re- establish. Leaving AMA without CT Scan. Lab Data Lab results reviewed: Yes I reviewed the patient's lab results. Labs: Laboratory Tests Range/Units 03/14/24 03/14/24 03/14/24 16:15 17:35 18:00 WBC (4.4-10.8) 10^3/uL 10.51 RBC (3.93-5.22) 10^6/uL 4.52 Hgb (11.2-15.7) g/dL 13.7 Hct (36.0-46.0) % 39.9 MCV (80-95) fL 88 MCH (27.0-33.0) pg 30.3 MCHC (32.0-36.0) % 34.3 RDW (11.7-14.6) % 13.0 Plt Count (130-400) 10^3/uL 293 MPV (8.0-11.0) fL 9.9 Immature Gran % % 0.2 Neutrophils % % 68.6 Lymphocytes % % 22.9 Monocytes % % 7.2 Eosinophils % % 0.7 Basophils % % 0.4 Nucleated RBC % (0.0-0.3) % 0.0 Absolute Neutrophils (1.2-6.7) 10^3/uL 7.21 H Absolute Lymphocytes (1.2-3.4) 10^3/uL 2.41 Absolute Monocytes (0.1-0.8) 10^3/uL 0.76 Absolute Eosinophils (0.0-0.7) 10^3/uL 0.07 Absolute Basophils (0.0-0.2) 10^3/uL 0.04 VBG Lactate (0.6-1.4) mmol/L 0.9 Sodium (136-145) mmol/L 145 Potassium (3.5-5.1) mmol/L 3.5 Chloride (98-107) mmol/L 109 H Carbon Dioxide (21.0-32.0) mmol/L 28.3 Anion Gap (3-11) mmol/L 7.7 BUN (7-18) mg/dL 12 Creatinine (0.55-1.02) mg/dL 0.8 Est GFR (CKD-EPI 2020) (mL/min/1.73m2) 93.70 Glucose (74-106) mg/dL 105 Calcium (8.5-10.1) mg/dL 9.4 Total Bilirubin (0.2-1.0) mg/dL 0.84 AST (15-37) U/L 22 ALT (14-59) U/L 36 Alkaline Phosphatase (46-116) U/L 66 C-Reactive Protein (<or=0.5) mg/dL < 0.50 Total Protein (6.4-8.2) g/dL 7.6 Albumin (3.4-5.0) g/dL 4.1 Lipase (<78) U/L 56 Urine Color (Yellow) Yellow Urine Clarity (Clear) Clear Urine pH (5-8) 6.0 Ur Specific [place] (1.005-1.025) >= 1.030 H Urine Protein (Neg-Trace) mg/dL Negative Urine Ketones (Negative) mg/dL Negative Urine Blood (Negative) Small H Urine Nitrite (Negative) Negative Urine Bilirubin (Negative) Negative Urine Urobilinogen (Up to 0.2) mg/dL 0.2 Ur Leukocyte Esterase (Negative) Negative Urine RBC (0-2) HPF 3-5 H Urine WBC (0-5) HPF 0-2 Ur Epithelial Cells (Negative) HPF Negative Urine Crystals (Negative) HPF Few Calcium Oxalate Urine Bacteria (Negative) HPF Negative Urine Casts (Negative) LPF Negative Urine Mucus (Negative) Heavy Ur Culture Indicated? No Urine Glucose (Negative) mg/dL Negative COVID-19 Source NASOPHARYNX SARS-CoV-2 (PCR) (Negative) Negative Influenza Type A (PCR) (Negative) Negative Influenza Type B (PCR) (Negative) Negative RSV (PCR) (Negative) Negative Quality:SDOH Health Related Social Needs: No Data to Display PFSH All Active Problems Abdominal pain of unknown cause (Acute) No-show for appointment (Acute) De Quervain's tenosynovitis, right (Acute) Pes anserinus bursitis of right knee (Acute) Anxiety (Chronic) Tobacco use (Acute) Medical History Wound infection Nexplanon site infection Encounter for removal and reinsertion of Nexplanon Nexplanon reinsertion 11/28/2023 Acute medial meniscus tear of right knee Exposure to COVID-19 virus Kidney stone on right side Abscess of left kidney Pyelonephritis Endometriosis determined by laparoscopy (05/29/15) Frequent headaches History of ETOH abuse Depression Contraception DepoProvera as teenager and shortly after her pregnancies. Surgical History H/O dilation and curettage History of tubal ligation section 2000 & 2003 Social History Smoking/Tobacco Use Status: Current every day Tobacco Type: cigarettes Smoking risk assessment performed?: Yes Alcohol Intake: current Alcohol Intake frequency: a few times a month Alcohol type: beer Drug use: Never Substance use type: does not use Do you feel safe at home: Yes Do you feel safe in your relationship?: Yes Additional Social history: Pt reports safe to return home Female Reproductive History Menstrual control method: permanent sterilization and implanted History History 3 Para 2 Hx # Term Pregnancies Multiple births Hx # Pregnancies Ectopic pregnancies AB induced Hx Number of Living Children AB spontaneous
[2024-03-14 16:31] VITALS: BP 175/103; PULSE 90; RESP 16; O2SAT 99
[2024-03-14 16:37] VITALS: TEMP 36.9
--- NOTE | 2024-03-14 16:45 | DI.RAD_ITS ---
Exam(s) XR CHEST 2V PA LATERAL EXAM: XR CHEST 2V PA LATERAL CLINICAL HISTORY: cough. TECHNIQUE: 2D digital imaging was performed. COMPARISON: No exams were available for comparison FINDINGS: 2 views: Heart size is normal. The mediastinum is not widened. Lungs are clear. No infiltrates nor pleural effusions. IMPRESSION: No acute pulmonary findings. DATA REPOSITORY: RADIATION DOSE DELIVERED:
[2024-03-14 17:03] LABS: COVID-19 PCR Negative (Negative); Influenza A PCR Negative (Negative); Influenza B PCR Negative (Negative); RSV PCR Negative (Negative)
[2024-03-14 17:04] LABS: Source NASOPHARYNX
[2024-03-14] MEDS: ACETAMINOPHEN 1,000 MG/100 ML BTL 400 MG (17:37)
[2024-03-14] MEDS: Ondansetron 4 MG/2 ML VIAL IVP (17:37)
[2024-03-14] MEDS: Ketorolac 15 MG/ML VIAL IVP (17:37)
[2024-03-14 17:42] LABS: Lactate 0.9 mmol/L (0.6-1.4)
[2024-03-14 17:46] LABS: Abs Immature Grans 0.02 10^3/uL (0.0-0.06); Absolute Basophil Count 0.04 10^3/uL (0.0-0.2); Absolute Eosinophil Count 0.07 10^3/uL (0.0-0.7); Absolute Lymphocyte Count 2.41 10^3/uL (1.2-3.4); Absolute Monocyte Count 0.76 10^3/uL (0.1-0.8); Absolute Neutrophil Count 7.21 10^3/uL (1.2-6.7); Basophils % 0.4 %; Eosinophils % 0.7 %; HCT 39.9 % (36.0-46.0); HGB 13.7 g/dL (11.2-15.7); Immature Grans % 0.2 %; Lymphocytes % 22.9 %; MCH 30.3 pg (27.0-33.0); MCHC 34.3 % (32.0-36.0); MCV 88 fL (80-95); MPV 9.9 fL (8.0-11.0); Monocytes % 7.2 %; Neutrophils % 68.6 %; Platelet Count 293 10^3/uL (130-400); RBC 4.52 10^6/uL (3.93-5.22); WBC 10.51 10^3/uL (4.4-10.8)
[2024-03-14 17:55] VITALS: BP 137/88; PULSE 68; RESP 16; TEMP 37.3; O2SAT 100
[2024-03-14 18:02] LABS: ALT 36 U/L (14-59); AST 22 U/L (15-37); Albumin 4.1 g/dL (3.4-5.0); Alkaline Phosphatase 66 U/L (46-116); Anion Gap 7.7 mmol/L (3-11); BUN 12 mg/dL (7-18); Bilirubin, Total 0.84 mg/dL (0.2-1.0); C-Reactive Protein < 0.50 mg/dL (<or=0.5); CO2 28.3 mmol/L (21.0-32.0); CREATININE 0.8 mg/dL (0.55-1.02); Chloride 109 mmol/L (98-107); Glucose 105 mg/dL (74-106); Lipase 56 U/L (<78); Potassium 3.5 mmol/L (3.5-5.1); Sodium 145 mmol/L (136-145); Total Protein 7.6 g/dL (6.4-8.2)
[2024-03-14 18:07] LABS: Calcium 9.4 mg/dL (8.5-10.1)
[2024-03-14 18:30] LABS: Bilirubin Negative (Negative); Blood Small (Negative); Clarity Clear (Clear); Glucose Negative (Negative); Ketones Negative (Negative); Leukocyte Esterase Negative (Negative); Nitrite Negative (Negative); Specific Gravity >= 1.030 (1.005-1.025); Urobilinogen 0.2 mg/dL (Up to 0.2)
[2024-03-14 18:42] LABS: Bacteria Negative HPF (Negative); Crystals Few Calcium Oxalate HPF (Negative); Epithelial Cells Negative HPF (Negative); WBC 0-2 HPF (0-5)
[2024-03-14 18:43] LABS: C & S Indicated? No; Casts Negative LPF (Negative); Mucus Heavy (Negative)
[2024-03-14 19:48] VITALS: BP 142/80; PULSE 68; RESP 20; TEMP 36.9; O2SAT 99
[2024-03-14] MEDS: Ketorolac 10 MG TAB 40 MG PO (20:12)
[2024-03-14] MEDS: Prochlorperazine 5 MG TAB 20 MG PO (20:12)
[2024-03-14 20:13] VITALS: BP 175/103; PULSE 90; RESP 20; TEMP 36.9; O2SAT 99
== END 2024-03-14 20:13 | disposition left against medical advice (07) ==
PROVIDERS: Student in an Organized Health Care Education/Training Program; Emergency Provider Physician Assistant; PCP Family Medicine
DX: R05.9 Cough, unspecified (principal); R11.2 Nausea with vomiting, unspecified; R19.7 Diarrhea, unspecified; R06.02 Shortness of breath; R10.84 Generalized abdominal pain; F17.210 Nicotine dependence, cigarettes, uncomplicated
CPT/HCPCS: 36415; 80053; 83690; 87637; 96374; 96375; 99284; 71046; 81003; 81015; 83605; 85025; 86140; J0131; J1885; J2405; J3490

== ENCOUNTER 2024-07-02 15:09 | Emergency (ER) | payer MEDICAID, SELFPAY ==
[2024-07-02 15:11] VITALS: BP 130/82; PULSE 93; RESP 20; TEMP 36.6; O2SAT 98
--- NOTE | 2024-07-02 15:15 | DI.US_ITS ---
Exam(s) US LOWER EXTREMITY VENOUS RT EXAM: US LOWER EXTREMITY VENOUS RT CLINICAL HISTORY: pain behind right knee. TECHNIQUE: Lower extremity venous ultrasound performed using grayscale, color-flow, and spectral Do ppler analysis. COMPARISON: US US LOWER EXTREMITY VENOUS RT from 02/01/2024 FINDINGS: The common femoral, femoral and popliteal veins demonstrate normal compressibility, augmentation, and color Doppler. The posterior tibial and peroneal veins are patent. No saphenous vein thrombosis or other superficial venous thrombosis is seen. There is a Fishman's cyst measuring 3.8 x 1.0 x 2.2 cm. This is smaller when compared with the prior e xam. IMPRESSION: Small Fishman's cyst. No evidence of DVT. DATA REPOSITORY:
--- NOTE | 2024-07-02 15:28 | ED.GENADUL_ITS ---
Discharge Plan Disposition Patient Disposition: Home Condition: Stable Discharge Details Clinical Impression: Synovial cyst of popliteal space [Fishman], right knee Primary Care Provider: Reynaldo Orozco ED Provider: Rony Marcelino Home Meds and New Rx's Prescriptions: Continued citalopram 20 mg tablet 40 mg PO DAILY Patient Comments: TAKE ONE TABLET BY MOUTH EVERY DAY famotidine 40 mg tablet 40 mg PO DAILY Discharge Instructions Additional Instructions: Your ultrasound showed a small Fishman cyst, there was no blood clot. Follow-up with orthopedics, and return to the emergency department if you feel significantly more ill or have new symptoms such as high fevers Stand Alone Forms: Work Release HPI General Date/Time Provider Initiated Documentation: 07/02/24 15:16 . Limitations to Documentation: no limitations . Information obtained by: patient . History of Present Illness 44 year old F presents to the emergency department with the chief complaint of posterior right knee pain, described as moderate, Quality is described as aching, and is localized to the right and lower extremity. Patient reports no radiation. and it has been constant. No relieving factors improve symptom(s), No exacerbating factors reported . Patient notes denies fever/chills. Related Data Home Medications ?Medication ?Instructions ?Recorded ?Confirmed citalopram 20 mg tablet 40 mg PO DAILY 06/07/23 07/02/24 famotidine 40 mg tablet 40 mg PO DAILY 06/07/23 07/02/24 Allergies Allergy/AdvReac Type Severity Reaction Status Date / Time sulfamethoxazole Allergy Unknown Skin Rash Verified 07/02/24 15:15 cephalexin AdvReac Other (See Verified 07/02/24 15:15 Comment) General Stated Complaint: RashLesion ANKIT: 3 Review of Systems All systems reviewed & are unremarkable except as noted in HPI and below Constitutional Constitutional: Denies chills, Denies fever(s) and Denies weakness Cardiovascular Cardiovascular: Denies chest pain and Denies dyspnea Respiratory Respiratory: Denies cough and Denies dyspnea Gastrointestinal Gastrointestinal: Denies abdominal pain, Denies nausea and Denies vomiting Musculoskeletal Musculoskeletal: Reports other (posterior right knee pain) Neurologic Neurologic: Denies weakness Exam Const General: no acute distress Orientation: alert HENMT Head: normal to inspection Ears: external ears normal General nose exam: external nose normal Mouth: moist mucous membranes Eyes General: appearance normal, both eyes and all related structures Neck Neck: normal visual inspection Resp Effort & Inspection: normal respiratory effort and able to speak in complete sentences Cardio Rate: regular rate Skin General skin exam: no rashes or lesions noted Neuro General: patient alert and patient oriented x3 Extrem General: full ROM and no edema Psych Mental Status: mental status grossly normal Course Vital Signs Vital signs: Vital Signs Temperature 36.6 C 07/02/24 15:11 Pulse 93 H 07/02/24 15:11 Respiratory Rate 20 07/02/24 15:11 Blood Pressure 130/82 07/02/24 15:11 Pulse Oximetry 98 07/02/24 15:11 Temperature 36.6 C 07/02/24 15:11 Pulse 93 H 07/02/24 15:11 Respiratory Rate 20 07/02/24 15:11 Blood Pressure 130/82 07/02/24 15:11 Blood Pressure Position Sitting 07/02/24 15:11 Pulse Oximetry 98 07/02/24 15:11 Oxygen Delivery Method Room Air 07/02/24 15:11 Oxygen Flow Rate 0 07/02/24 15:11 Medical Decision Making 44-year-old female who has a known contact Fishman's cyst comes in with increasing pain in the posterior right knee. She denies any falls or injuries. She has seen orthopedics for this issue and is due to have an MRI next week. She denies any recent falls or injuries. Denies any fevers. She has well-appearing on exam. There is no swelling of the knees as far as her motion. She does have posterior knee pain and a suspected Bakers cyst with surgery diagnosed with. Will obtain ultrasound to exclude other etiologies such as DVT. There is no erythema or swelling of the knee so I do not see such as septic joint. Ultrasound shows no DVT, has small Fishman's cyst. She is stable follow-up with orthopedics, return precautions given Medical Records Medical records reviewed: Yes I reviewed the patient's medical records. Quality:SDOH Health Related Social Needs: No Data to Display PFSH All Active Problems Synovial cyst of popliteal space [Fishman], right knee (Acute) No-show for appointment (Acute) De Quervain's tenosynovitis, right (Acute) Pes anserinus bursitis of right knee (Acute) Anxiety (Chronic) Tobacco use (Acute) Medical History Wound infection Nexplanon site infection Encounter for removal and reinsertion of Nexplanon Nexplanon reinsertion 11/28/2023 Acute medial meniscus tear of right knee Exposure to COVID-19 virus Kidney stone on right side Abscess of left kidney Pyelonephritis Endometriosis determined by laparoscopy (05/29/15) Frequent headaches History of ETOH abuse Depression Contraception DepoProvera as teenager and shortly after her pregnancies. Surgical History H/O dilation and curettage History of tubal ligation section 2000 & 2003 Social History Smoking/Tobacco Use Status: Current every day Tobacco Type: cigarettes Smoking risk assessment performed?: Yes Alcohol Intake: current Alcohol Intake frequency: a few times a month Alcohol type: beer Drug use: Never Substance use type: does not use Do you feel safe at home: Yes Do you feel safe in your relationship?: Yes Additional Social history: Pt reports safe to return home Female Reproductive History Menstrual control method: permanent sterilization and implanted History History 3 Para 2 Hx # Term Pregnancies Multiple births Hx # Pregnancies Ectopic pregnancies AB induced Hx Number of Living Children AB spontaneous
[2024-07-02 15:30] VITALS: RESP 16
[2024-07-02 16:15] VITALS: BP 130/81; PULSE 76; RESP 18; TEMP 36.7; O2SAT 99
== END 2024-07-02 16:16 | disposition home or self-care (01) ==
PROVIDERS: Emergency Provider Emergency Medicine; PCP Family Medicine
DX: M71.21 Synovial cyst of popliteal space [Baker], right knee (principal); F17.210 Nicotine dependence, cigarettes, uncomplicated
CPT/HCPCS: 99284; 93971; 99283

== ENCOUNTER 2024-07-25 13:38 | Emergency (ER) | payer MEDICAID, SELFPAY ==
[2024-07-25 13:41] VITALS: BP 144/80; PULSE 90; RESP 14; TEMP 36.8; O2SAT 96
--- NOTE | 2024-07-25 14:14 | ED.GENADUL_ITS ---
Discharge Plan Disposition Patient Disposition: Home Condition: Stable Discharge Details Clinical Impression: Phalanx fracture, foot Primary Care Provider: Reynaldo Orozco ED Provider: Jacinda Thurman Home Meds and New Rx's Prescriptions: No Action citalopram 20 mg tablet 40 mg PO DAILY Patient Comments: TAKE ONE TABLET BY MOUTH EVERY DAY famotidine 40 mg tablet 40 mg PO DAILY Discharge Instructions Instructions: How to Use Crutches, Toe Fracture ED Additional Instructions: Take Tylenol and/or Motrin for pain. Ice and elevate. Use crutches to help keep weight off of the area. Wear splint for comfort. Stand Alone Forms: Work Release Referrals: Chon Mendoza PA [[facility] COUNSELLOR] - 1 week Discharge Data Discharge Physician: Jacinda Thurman [facility] General Date/Time Provider Initiated Documentation: 07/25/24 13:59 . HPI Narrative: 44-year-old female presents for evaluation of right foot pain. Patient states that she dropped something on the end of her right foot last night. She has significant bruising and swelling to her 3rd, 4th and 5th distal metatarsals. She does have some tingling to the area as well as throbbing. Denies any ankle pain. No other injuries. Related Data Home Medications ?Medication ?Instructions ?Recorded ?Confirmed citalopram 20 mg tablet 40 mg PO DAILY 06/07/23 07/25/24 famotidine 40 mg tablet 40 mg PO DAILY 06/07/23 07/25/24 Allergies Allergy/AdvReac Type Severity Reaction Status Date / Time sulfamethoxazole Allergy Unknown Skin Rash Verified 07/25/24 13:44 cephalexin AdvReac Other (See Verified 07/25/24 13:44 Comment) General Stated Complaint: Orthopedic ANKIT: 4 Review of Systems Narrative: Remainder of review of systems otherwise negative except for as noted in the HPI x 5. Exam Narrative Exam Narrative: General: non-toxic, no respiratory distress, comfortable HEENT: normocephalic, atraumatic, lids and lashes normal, PERRL, EOMI, anicteric sclera, no conjunctival injection, moist oral mucosa Musculoskeletal: Bruising and swelling over distal right 3rd, 4th and 5th metatarsals over MTP joint, able to fully range toes, 2+ dorsal pedal pulses, no pain palpation over medial or lateral malleolus, Achilles intact, otherwise full range of motion of arms and legs, no tenderness to palpation. no clubbing, cyanosis, or edema Neurologic: appropriate for age, strength normal Psych: alert and oriented Skin: As above, otherwise no petechiae, no lesions, warm and dry Course Vital Signs Vital signs: Vital Signs Temperature 36.8 C 07/25/24 13:41 Pulse 90 07/25/24 13:41 Respiratory Rate 14 07/25/24 13:41 Blood Pressure 144/80 H 07/25/24 13:41 Pulse Oximetry 96 07/25/24 13:41 Temperature 36.8 C 07/25/24 13:41 Temperature Source Oral 07/25/24 13:41 Pulse 90 07/25/24 13:41 Respiratory Rate 14 07/25/24 13:41 Blood Pressure 144/80 H 07/25/24 13:41 Blood Pressure Position Sitting 07/25/24 13:41 Pulse Oximetry 96 07/25/24 13:41 Oxygen Delivery Method Room Air 07/25/24 13:41 Oxygen Flow Rate 0 07/25/24 13:41 Pain Level 9 07/25/24 13:47 Medical Decision Making 44-year-old female presents for evaluation of right foot pain after injury. She is neurologically intact. X-ray shows non-displaced fracture of proximal phalanx of third toe. Tate tape was placed. She is given postop shoe and crutches. We discussed minimizing weightbearing, ice, and elevation. She is given ibuprofen for pain. I have recommended follow-up with orthopedics she understands occasions to return. Quality:SDOH Health Related Social Needs: No Data to Display PFSH All Active Problems Phalanx fracture, foot (Acute) Synovial cyst of popliteal space [Fishman], right knee (Acute) No-show for appointment (Acute) De Quervain's tenosynovitis, right (Acute) Pes anserinus bursitis of right knee (Acute) Anxiety (Chronic) Tobacco use (Acute) Medical History Wound infection Nexplanon site infection Encounter for removal and reinsertion of Nexplanon Nexplanon reinsertion 11/28/2023 Acute medial meniscus tear of right knee Exposure to COVID-19 virus Kidney stone on right side Abscess of left kidney Pyelonephritis Endometriosis determined by laparoscopy (05/29/15) Frequent headaches History of ETOH abuse Depression Contraception DepoProvera as teenager and shortly after her pregnancies. Surgical History H/O dilation and curettage History of tubal ligation section 2000 & 2003 Social History Smoking/Tobacco Use Status: Current every day Tobacco Type: cigarettes Smoking risk assessment performed?: Yes Alcohol Intake: current Alcohol Intake frequency: a few times a month Alcohol type: beer Drug use: Never Substance use type: does not use Do you feel safe at home: Yes Do you feel safe in your relationship?: Yes Additional Social history: Pt reports safe to return home Female Reproductive History Menstrual control method: permanent sterilization and implanted History History 3 Para 2 Hx # Term Pregnancies Multiple births Hx # Pregnancies Ectopic pregnancies AB induced Hx Number of Living Children AB spontaneous
--- NOTE | 2024-07-25 14:59 | DI.RAD_ITS ---
Exam(s) XR FOOT RT COMPLETE EXAM: XR FOOT RT COMPLETE CLINICAL HISTORY: pain, injury. TECHNIQUE: 2D digital imaging was performed. Three views. COMPARISON: No exams were available for comparison FINDINGS: BONES: Nondisplaced oblique fracture of the proximal phalanx of the 3rd toe. No additional fractures are identified. No bony destructive lesion is seen. JOINTS: No dislocation present. Mild degenerative changes of 1st MT GP joint. Mild hallux valgus. SOFT TISSUE: Normal. IMPRESSION: Nondisplaced fracture of the proximal phalanx of the 3rd toe. DATA REPOSITORY: RADIATION DOSE DELIVERED:
[2024-07-25] MEDS: Ibuprofen 600 MG TAB PO (15:29)
== END 2024-07-25 16:03 | disposition home or self-care (01) ==
PROVIDERS: Emergency Provider Emergency Medicine Emergency Medical Services; PCP Family Medicine
DX: S92.514A Nondisplaced fracture of proximal phalanx of right lesser toe(s), initial encounter for closed fracture (principal)
CPT/HCPCS: 99283 ×2; 28490; 73630

== ENCOUNTER 2024-08-10 14:40 | Outpatient (CLI) | payer MEDICAID, SELFPAY | END 2024-08-10 15:00 | LOC: DI 14:41 | PROVIDERS: PCP Family Medicine; Visit Provider Physician Assistant Medical | DX: S92.514A Nondisplaced fracture of proximal phalanx of right lesser toe(s), initial encounter for closed fracture (principal); X58.XXXA Exposure to other specified factors, initial encounter | CPT/HCPCS: 73630 ==

== ENCOUNTER 2024-09-21 19:52 | Emergency (ER) | payer MEDICAID, SELFPAY ==
[2024-09-21 20:35] VITALS: BP 141/90; PULSE 90; RESP 22; O2SAT 97
--- NOTE | 2024-09-21 20:45 | DI.RAD_ITS ---
Exam(s) XR FOOT LT COMPLETE XR ANKLE LT COMPLETE EXAM: XR FOOT LT COMPLETE and XR ankle LT complete CLINICAL HISTORY: L lateral foot pain. TECHNIQUE: 2D digital imaging was performed of the left ankle and foot. Six images were obtained. AP, oblique and lateral views were obtained. COMPARISON: CR XR FOOT RT COMPLETE from 08/10/2024 CR,XR XR ANKLE LT COMPLETE from 09/21/2024 FINDINGS: BONES: No acute fracture is present. No bony destructive lesion is seen. There is a small plantar calcaneal spur. JOINTS: No dislocation present. There are mild degenerative changes seen at the 1st metatarsophalangeal joint. The ankle mortise is intact. SOFT TISSUE: There is soft tissue swelling in the lateral ankle. IMPRESSION: 1. There is no acute fracture or dislocation. 2. The preliminary [facility] report was reviewed. DATA REPOSITORY: RADIATION DOSE DELIVERED:
--- NOTE | 2024-09-21 20:54 | ED.GENADUL_ITS ---
Discharge Plan Disposition Patient Disposition: Home Condition: Stable Discharge Details Clinical Impression: Sprain of left ankle Primary Care Provider: Reynaldo Orozco ED Provider: Thiago García Home Meds and New Rx's Prescriptions: Continued citalopram 20 mg tablet 40 mg PO DAILY Patient Comments: TAKE ONE TABLET BY MOUTH EVERY DAY famotidine 40 mg tablet 40 mg PO DAILY Discharge Instructions Instructions: Ankle Sprain ED Additional Instructions: You were seen in the emergency department for the sprain of your left ankle, there is no fracture seen on x-ray, provided an David wrap, please use therapeutic dosing of Tylenol (acetamenophen) & Advil (ibuprofen) in an alternating fashion as follows: Take 1000mg of Tylenol every 6 hours without missing doses- that is 4 times per day. Half-Way in between the Tylenol dosings, take 400-600mg of Advil also on a 6 hour schedule, that is also 4 times per day. The daily maximum dosing of Tylenol is 4000mg, and the daily maximum dosing of Advil is 2400mg. This is safe to do for weeks. Please note that some common cold medications & prescription pain medications may contain acetamenophen and you need to read OTC drug labels and factor that in to maximum daily dosings. Please follow-up with orthopedics for any pain persisting lasting longer than 2 weeks. Referrals: Reynaldo Orozco MD [Primary Care Provider, Medicine] Discharge Data Discharge Date/Time-TO BE ENTERED AT DEPARTURE: 09/21/24 22:23 HPI General Date/Time Provider Initiated Documentation: 09/21/24 20:54 . HPI Narrative: 44 year-old female presents to ED today by POV/ambulating with antalgic gait with a chief complaint of L ankle pain after missing a step and twisting it with onset tonight. Quality described as throbbing, lateral malleolar pain and swelling, no radiation to numbness/tingling, inability to walk, proximal calf pain. Severity is described as moderate. Palliating factors include nothing specific attempted yet. Provoking factors include nothing specific. Patient not anticoagulated. Related Data Home Medications ?Medication ?Instructions ?Recorded ?Confirmed citalopram 20 mg tablet 40 mg PO DAILY 06/07/2309/04 famotidine 40 mg tablet 40 mg PO DAILY 06/07/2309/04 Allergies Allergy/AdvReac Type Severity Reaction Status Date / Time sulfamethoxazole Allergy Unknown Skin Rash Verified 08/13/24 12:55 cephalexin AdvReac Other (See Verified 08/13/24 12:55 Comment) General Stated Complaint: Orthopedic ANKIT: 3 Review of Systems All systems reviewed & are unremarkable except as noted in HPI and below Exam Narrative Exam Narrative: GENERAL APPEARANCE: Well-nourished, non-toxic, awake and alert, atraumatic, no acute distress. SKIN: Warm, pink, dry, intact, without rashes/lesions/ulcerations. HEAD: Normocephalic, atraumatic, normal hair distribution for gender/age. EYES: Normal conjunctiva, no exudates on lids/lashes. ENT: Nares patent, no circumoral cyanosis, no facial swelling NECK: Supple, trachea midline, painless cervical ROM. LUNGS/CHEST: Non-labored respirations, normal A/P diameter, symmetrical expansion, no chest wall deformity HEART (CV/PV): Regular rate, no peripheral edema, no JVD. ABDOMEN: Soft, non-distended, no guarding. MSK: Normal ROM, no deformity to bilateral UEs or LEs, moving all extremities without weakness, no cyanosis, spine midline without tenderness, normal curvature, lateral malleoli are swelling and mild ecchymosis without crepitus, able to plantar/dorsiflexion foot, left dorsalis pedis pulse 2+, no fibular head tenderness, able to ambulate NEURO: Mental Status AAOx4 - alert to person, place, time, events No facial droop, no forehead involvement. Motor: No focal weakness - strength 5/5 in bilateral UEs and LEs, proximal and distal, symmetric. Sensory: sensation intact to light touch globally. Gait normal: patient ambulated without ataxia into ED room. PSYCH: euthymic, cooperative, pleasant, appropriate speech Course Vital Signs Vital signs: Vital Signs Pulse 90 09/21/24 20:35 Respiratory Rate 22 09/21/24 20:35 Blood Pressure 141/90 H 09/21/24 20:35 Pulse Oximetry 97 09/21/24 20:35 Pulse 90 09/21/24 20:35 Respiratory Rate 22 09/21/24 20:35 Blood Pressure 141/90 H 09/21/24 20:35 Blood Pressure Position Sitting 09/21/24 20:35 Pulse Oximetry 97 09/21/24 20:35 Oxygen Delivery Method Room Air 09/21/24 20:35 Oxygen Flow Rate 0 09/21/24 20:35 Pain Level 7 09/21/24 20:38 Medical Decision Making This dictation utilizes [id number] dictation software and may contain unedited grammatical errors. 44 year-old female presents to ED today by POV/ambulating with antalgic gait with a chief complaint of L ankle pain after missing a step and twisting it with onset tonight. Quality described as throbbing, lateral malleolar pain and swelling, no radiation to numbness/tingling, inability to walk, proximal calf pain. Severity is described as moderate. Palliating factors include nothing specific attempted yet. Provoking factors include nothing specific. Patients' medical history: Noncontributory. Family and social history: Noncontributory. Pertinent exam findings / vital signs include lateral malleoli are swelling and mild ecchymosis without crepitus, able to plantar/dorsiflexion foot, left dorsalis pedis pulse 2+, no fibular head tenderness, able to ambulate. Differential / pathologies of concern include fracture, sprain/strain. Diagnostic studies of: -XR L Ankle & Foot - no acute fracture seen. Interventions of: -david wrap, refused crutches. ED Course/Assessment/Plan: 44-year-old female presents after twisting her left ankle, swelling over malleolus without fracture, no signs of neurovascular compromise recommend repeat x-ray in 7 to 10 days for persistent pain, otherwise RICE therapy and therapy dosing Tylenol and ibuprofen. Findings not consistent with fracture or neurovascular compromise. Disposition of Sprain of Left Ankle. Patient verbalized understanding of the plan and return to ED criteria and engaged in shared decision making. Medical Records Medical records reviewed: Yes I reviewed the patient's medical records. Imaging Data Radiologic Study: Attestation: I personally reviewed and interpreted this imaging study as follows: Imaging: X-Ray Radiologist's impression: Exam: XR Left Foot Exam date and time: 09/21/2024 9:25 PM Age: 44 years old Clinical indication: Injury or trauma; Fall; Blunt trauma; Ankle and foot; Left; Injury date: 09/21/24; L lateral foot pain TECHNIQUE: Imaging protocol: Radiologic exam of the left foot. Views: 3 or more views. COMPARISON: No relevant prior studies available. FINDINGS: Bones/joints: No acute fracture. Soft tissues: Soft tissue swelling over the lateral malleolus. IMPRESSION: 1. Soft tissue swelling over the lateral malleolus. 2. No acute fracture. Dictated and Authenticated by: Robert Hill MD. Radiologic Study #2: Attestation: I personally reviewed and interpreted this imaging study as follows: Imaging: X-Ray Radiologist's impression: Exam: XR Left Ankle Exam date and time: 09/21/2024 9:27 PM Age: 44 years old Clinical indication: Injury or trauma; Fall; Blunt trauma; Ankle and foot; Left; Injury date: 09/21/24; Twisted L ankle TECHNIQUE: Imaging protocol: Radiologic exam of the left ankle. Views: 3 or more views. COMPARISON: CR XR FOOT LT COMPLETE 09/21/2024 9:25 PM FINDINGS: Bones/joints: No fracture. Soft tissues: Soft tissue swelling over the lateral malleolus. IMPRESSION: 1. Soft tissue swelling over the lateral malleolus. 2. No fracture. Dictated and Authenticated by: Robert Hill MD. REPLACED BY [facility] All Active Problems Sprain of left ankle (Acute) Pain in right foot (Acute) Fracture of proximal phalanx of lesser toe of right foot (Acute) No-show for appointment (Acute) De Quervain's tenosynovitis, right (Acute) Pes anserinus bursitis of right knee (Acute) Anxiety (Chronic) Tobacco use (Acute) Medical History Wound infection Nexplanon site infection Encounter for removal and reinsertion of Nexplanon Nexplanon reinsertion 11/28/2023 Acute medial meniscus tear of right knee Endometriosis determined by laparoscopy (05/29/15) Exposure to COVID-19 virus Kidney stone on right side Abscess of left kidney Pyelonephritis Frequent headaches History of ETOH abuse Depression Contraception DepoProvera as teenager and shortly after her pregnancies. Surgical History H/O dilation and curettage History of tubal ligation section 2000 & 2003 Social History Smoking/Tobacco Use Status: Current every day Tobacco Type: cigarettes Smoking risk assessment performed?: Yes Alcohol Intake: current Alcohol Intake frequency: a few times a month Alcohol type: beer Drug use: Never Substance use type: does not use Housing: apartment Do you feel safe at home: Yes Do you feel safe in your relationship?: Yes Additional Social history: Pt reports safe to return home Female Reproductive History Menstrual control method: permanent sterilization and implanted History History 3 Para 2 Hx # Term Pregnancies Multiple births Hx # Pregnancies Ectopic pregnancies AB induced Hx Number of Living Children AB spontaneous PAWSS Have you Been Recently Intoxicated or Drunk Within the Last 30 days?: No Have you Ever Experienced Previous Episodes of Alcohol Withdrawal?: No Have you ever Experienced Withdrawal Seizures?: No Have you ever Experienced Delirium Tremens(DT)s?: No Have you ever undergone Alcohol Rehabilitation Treatment (i.e, inpt ot outpatient treatment programs)?: No Have you ever Experienced Blackouts?: No Have you ever Combined Alcohol with other Downers within the last 90 days?: No Have you ever Combined Alcohol with any other Substance of Abuse during the last 90 days?: No Positive Blood Alcohol level on Presentation? [PCS.BAL]: No Evidence of Increased Autonomic Activity (i.e. HR>120, tremor, sweating, agitation, nausea)?: No Result: 0
[2024-09-21] MEDS: Ibuprofen 400 MG TAB PO (21:35)
[2024-09-21] MEDS: Acetaminophen 500 MG TAB 1000 MG PO (21:35)
--- NOTE | 2024-09-21 22:46 | DI.[facility]_ITS ---
PROCEDURE INFORMATION: Exam: XR Left Foot Exam date and time: 09/21/2024 9:25 PM Age: 44 years old Clinical indication: Injury or trauma; Fall; Blunt trauma; Ankle and foot; Left; Injury date: 09/21/24; L lateral foot pain TECHNIQUE: Imaging protocol: Radiologic exam of the left foot. Views: 3 or more views. COMPARISON: No relevant prior studies available. FINDINGS: Bones/joints: No acute fracture. Soft tissues: Soft tissue swelling over the lateral malleolus. IMPRESSION: 1. Soft tissue swelling over the lateral malleolus. 2. No acute fracture. Dictated and Authenticated by: Robert Hill MD. Orderin Raquel Das MD
--- NOTE | 2024-09-21 22:47 | DI.[facility]_ITS ---
PROCEDURE INFORMATION: Exam: XR Left Ankle Exam date and time: 09/21/2024 9:27 PM Age: 44 years old Clinical indication: Injury or trauma; Fall; Blunt trauma; Ankle and foot; Left; Injury date: 09/21/24; Twisted L ankle TECHNIQUE: Imaging protocol: Radiologic exam of the left ankle. Views: 3 or more views. COMPARISON: CR XR FOOT LT COMPLETE 09/21/2024 9:25 PM FINDINGS: Bones/joints: No fracture. Soft tissues: Soft tissue swelling over the lateral malleolus. IMPRESSION: 1. Soft tissue swelling over the lateral malleolus. 2. No fracture. Dictated and Authenticated by: Robert Hill MD. Orderin Raquel Das MD
== END 2024-09-21 22:23 | disposition home or self-care (01) ==
PROVIDERS: Emergency Provider Physician Assistant; PCP Family Medicine
DX: S93.402A Sprain of unspecified ligament of left ankle, initial encounter (principal); F17.210 Nicotine dependence, cigarettes, uncomplicated; X50.1XXA Overexertion from prolonged static or awkward postures, initial encounter; Y93.01 Activity, walking, marching and hiking; Y92.018 Other place in single-family (private) house as the place of occurrence of the external cause
CPT/HCPCS: 99283; 73610; 73630

== ENCOUNTER 2024-10-02 19:41 | Emergency (ER) | payer MEDICAID, SELFPAY ==
[2024-10-02 19:56] VITALS: BP 144/89; PULSE 83; RESP 16; TEMP 37.2; O2SAT 97
[2024-10-02 20:03] VITALS: BP 144/89; PULSE 83; RESP 16; TEMP 36.7; O2SAT 97
--- NOTE | 2024-10-02 20:36 | W.ED.GENAD ---
Discharge Plan Disposition Patient Disposition: Home Condition: Stable Discharge Details Clinical Impression: Viral illness, Vomiting and diarrhea Primary Care Provider: Reynaldo Orozco ED Provider: Jacinda Thurman Home Meds and New Rx's Prescriptions: No Action citalopram 20 mg tablet 40 mg PO DAILY Patient Comments: TAKE ONE TABLET BY MOUTH EVERY DAY famotidine 40 mg tablet 40 mg PO DAILY Discharge Instructions Instructions: Diarrhea, Adult ED, Nausea and Vomiting, Adult ED Additional Instructions: Continue to hydrate orally. You may take Tylenol Motrin for muscle aches and/or fever. You may take Imodium or Pepto for diarrhea. Return if you develop any significant abdominal pain or intractable vomiting. Stand Alone Forms: Work Release Discharge Data Discharge Physician: Jacinda Thurman [facility] General Date/Time Provider Initiated Documentation: 10/02/24 20:15. HPI Narrative: 44-year-old female presents for evaluation of GI symptoms. Patient states that she did not feel well on Tuesday. She had nausea, vomiting, diarrhea, and bodyaches. She called out of work that day. She rested and has been concentrating on hydrating. Her vomiting has resolved. She continues to have some diarrhea and occasional nausea. She attempted to go to work today however they stated she needed a note to return. She denies any fevers or chills at this time. No significant abdominal pain. No increased urinary frequency, dysuria, gross hematuria. No cough or cold. No chest pain or shortness of breath. Related Data Home Medications ?Medication ?Instructions ?Recorded ?Confirmed citalopram 20 mg tablet 40 mg PO DAILY 06/07/23 10/02/24 famotidine 40 mg tablet 40 mg PO DAILY 06/07/23 10/02/24 Allergies Allergy/AdvReac Type Severity Reaction Status Date / Time sulfamethoxazole Allergy Unknown Skin Rash Verified 10/02/24 20:03 cephalexin AdvReac Other (See Verified 10/02/24 20:03 Comment) General Stated Complaint: Nausea/Vomit/Diar ANKIT: 3 Review of Systems Narrative: Remainder of review of systems otherwise negative except for as noted in the HPI x 10. Exam Narrative Exam Narrative: General: non-toxic, no respiratory distress, comfortable HEENT: normocephalic, atraumatic, lids and lashes normal, PERRL, EOMI, anicteric sclera, no conjunctival injection, moist oral mucosa Card: regular rate and rhythm, S1S2, no murmurs, rubs, or gallops Lungs: good air entry, clear to auscultation bilaterally. no wheezes, rales, rhonchi, or retractions Abd: soft, non-tender, non-distended, normal bowel sounds, no rebound or guarding, no peritoneal signs Musculoskeletal: full range of motion of arms and legs, no tenderness to palpation. no clubbing, cyanosis, or edema Neurologic: appropriate for age, strength normal Psych: alert and oriented Skin: no petechiae, no lesions, warm and dry Course Vital Signs Vital signs: Vital Signs Temperature 37.2 C 10/02/24 19:56 Pulse 83 10/02/24 19:56 Respiratory Rate 16 10/02/24 19:56 Blood Pressure 144/89 H 10/02/24 19:56 Pulse Oximetry 97 10/02/24 19:56 Temperature 36.7 C 10/02/24 20:03 Temperature Source Oral 10/02/24 20:03 Pulse 83 10/02/24 20:03 Respiratory Rate 16 10/02/24 20:03 Blood Pressure 144/89 H 10/02/24 20:03 Blood Pressure Position Sitting 10/02/24 20:03 Pulse Oximetry 97 10/02/24 20:03 Oxygen Delivery Method Room Air 10/02/24 20:03 Oxygen Flow Rate 0 10/02/24 19:56 Medical Decision Making 44-year-old female presents for evaluation of nausea, vomiting, and diarrhea which occurred over the weekend. Her symptoms are improving. At time of my evaluation she does not have any significant abdominal pain. We discussed the possibility of laboratory studies however she declines at this time. Clinically she does appear well-hydrated. I do not feel that imaging is required at this time. She will continue hydrating at home. She will take Imodium as needed for diarrhea. She is given a note to return to work. I have encouraged her to return if she develops fever, abdominal pain, intractable vomiting. PFSH All Active Problems Vomiting and diarrhea (Acute) Viral illness (Acute) Sprain of left ankle (Acute) Pain in right foot (Acute) Fracture of proximal phalanx of lesser toe of right foot (Acute) No-show for appointment (Acute) De Quervain's tenosynovitis, right (Acute) Pes anserinus bursitis of right knee (Acute) Anxiety (Chronic) Tobacco use (Acute) Medical History Wound infection Nexplanon site infection Encounter for removal and reinsertion of Nexplanon Nexplanon reinsertion 11/28/2023 Acute medial meniscus tear of right knee Exposure to COVID-19 virus Kidney stone on right side Abscess of left kidney Pyelonephritis Endometriosis determined by laparoscopy (05/29/15) Frequent headaches History of ETOH abuse Depression Contraception DepoProvera as teenager and shortly after her pregnancies. Surgical History H/O dilation and curettage History of tubal ligation section 2000 & 2003 Social History Smoking/Tobacco Use Status: Current every day Tobacco Type: cigarettes Smoking risk assessment performed?: Yes Alcohol Intake: current Alcohol Intake frequency: a few times a month Alcohol type: beer Drug use: Never Substance use type: does not use Housing: apartment Do you feel safe at home: Yes Do you feel safe in your relationship?: Yes Additional Social history: Pt reports safe to return home Female Reproductive History Menstrual control method: permanent sterilization and implanted History History 3 Para 2 Hx # Term Pregnancies Multiple births Hx # Pregnancies Ectopic pregnancies AB induced Hx Number of Living Children AB spontaneous PAWSS Have you Been Recently Intoxicated or Drunk Within the Last 30 days?: No Have you Ever Experienced Previous Episodes of Alcohol Withdrawal?: No Have you ever Experienced Withdrawal Seizures?: No Have you ever Experienced Delirium Tremens(DT)s?: No Have you ever undergone Alcohol Rehabilitation Treatment (i.e, inpt ot outpatient treatment programs)?: No Have you ever Experienced Blackouts?: No Have you ever Combined Alcohol with other Downers within the last 90 days?: No Have you ever Combined Alcohol with any other Substance of Abuse during the last 90 days?: No Positive Blood Alcohol level on Presentation? [PCS.BAL]: No Evidence of Increased Autonomic Activity (i.e. HR>120, tremor, sweating, agitation, nausea)?: No Result: 0
[2024-10-02 20:57] VITALS: RESP 18
== END 2024-10-02 20:58 | disposition home or self-care (01) ==
LOC: ER 20:44
PROVIDERS: Emergency Provider Emergency Medicine Emergency Medical Services; PCP Family Medicine
DX: B34.9 Viral infection, unspecified (principal); R11.10 Vomiting, unspecified; R19.7 Diarrhea, unspecified
CPT/HCPCS: 99283 ×2